=== PATIENT | male | born 1980 | race Hispanic/Latino ===

== ENCOUNTER 2022-10-21 08:23 | Emergency (ER) | payer OTHER ==
[2022-10-21] MEDS ORDERED: ONDANSETRON 4 MG/2 ML VIAL ONE (08:49)
[2022-10-21] MEDS ORDERED: MORPHINE 4 MG/ML SYR ONE (08:49)
[2022-10-21] MEDS ORDERED: NA CHLORIDE 0.9% 1,000 ML ONE ×2 (08:50→10:18)
[2022-10-21] MEDS ORDERED: PANTOPRAZOLE 40 MG INJ ONE (08:50)
[2022-10-21] MEDS ORDERED: NA CHLORIDE 0.9% 250 ML ONE (08:50)
[2022-10-21 09:25] LABS: Hematocrit 41.3 % (39.6-49.0); Lymphocytes % 27.5 % (15.3-44.8); MCV 84.1 fL (80-100); MPV 7.7 fL (7.6-11.3); RBC Red Blood Cell Count 4.91 M/uL (4.33-5.43)
[2022-10-21 09:26] LABS: Protime INR 1.09
[2022-10-21 09:41] LABS: Albumin 3.2 g/dL (3.4-5.0); Bilirubin Total 0.5 mg/dL (0.2-1.0); Protein, Total 6.9 g/dL (6.4-8.2)
--- NOTE | 2022-10-21 09:42 | RAD REPORT ---
EXAM DESCRIPTION: CT - Abdomen Pelvis W Contrast - 10/21/2022 9:14 am CLINICAL HISTORY: Abdominal pain COMPARISON: none. TECHNIQUE: Computed axial tomography of the abdomen pelvis was obtained. 100 cc Isovue-300 was admin istered intravenously. Oral contrast was not requested which limits evaluation of bowel and appendix All CT scans are performed using dose optimization technique as appropriate and may include automated exposure control or mA/KV adjustment according to patient size. FINDINGS: Liver contains multiple heterogeneous masses. They vary in size from a few millimeters to 8 centimeters. The Hounsfield units measure up to 57. Both hepatic lobes involve. 8 centimeter heterogeneous mass abuts the anterior aspect of the gastric body and compresses it. 5 ce ntimeter heterogeneous mass lies adjacent to this. Spleen, pancreas, adrenals and kidneys are unremarkable Normal appendix. No evidence diverticulitis. Small amount of ascites Mild to moderate anterior subluxation L4 on L5. Minimal anterior subluxation of L5 on S1. Spondylolys is L4 and L5 COPD IMPRESSION: Multiple heterogeneous hepatic and perigastric masses may represent hematomas. Neoplasm is another consideration. Infection is probably less likely.
--- NOTE | 2022-10-21 09:54 | EDPHYS ---
Physician Documentation [facility] Name: Ayden Andres JR. Age: 42 yrs Sex: Male : 1980 Arrival Date: 10/21/2022 Time: 08:23 Bed 5 Private MD: ED Physician Vicente Navarro HPI: 10/21 08:30 This 42 yrs old Male presents to ER via Ambulatory with complaints of jh7 Abdominal Pain. 08:30 The patient presents with abdominal pain in the epigastric area, in the left upper jh7 quadrant. Onset: The symptoms/episode began/occurred 6 month(s) ago, and became worse this morning. The symptoms do not radiate. Associated signs and symptoms: Pertinent positives: nausea and vomiting, vomiting blood, Pertinent negatives: chest pain, constipation, dysuria, fever. Patient reports that he has been taking omeprazole and Carafate for the past 3 months and has not improved. Reports that his PCP diagnosed him with a peptic ulcer over [address] Noble is his PCP but due to his insurance he was unable to see a GI doctor and unable to have an EGD performed. Reports vomiting bright red blood twice this morning.. Historical: - Allergies: 08:34 No Known Allergies; hb - Home Meds: 08:34 Omeprazole Oral [Active]; sucralfate 100 mg/mL Oral suspension [Active]; hb - PMHx: 08:34 None; hb - PSHx: 08:34 None; hb - Immunization history:: Adult Immunizations up to date. - Social history:: Smoking status: . ROS: 08:30 Constitutional: Negative for fever, chills, and weight loss, Eyes: Negative for injury, jh7 pain, redness, and discharge, ENT: Negative for injury, pain, and discharge, Neck: Negative for injury, pain, and swelling, Cardiovascular: Negative for chest pain, palpitations, and edema, Respiratory: Negative for shortness of breath, cough, wheezing, and pleuritic chest pain, Back: Negative for injury and pain, MS/Extremity: Negative for injury and deformity, Skin: Negative for injury, rash, and discoloration, Neuro: Negative for headache, weakness, numbness, tingling, and seizure. 08:30 Abdomen/GI: Positive for abdominal pain, nausea and vomiting, hematemesis, Negative for constipation, black/tarry stool, rectal bleeding. 08:30 All other systems are negative. Exam: 08:30 Head/Face: Normocephalic, atraumatic. ENT: Nares patent. No nasal discharge, no jh7 septal abnormalities noted. Oropharynx with no redness, swelling, or masses, exudates, or evidence of obstruction, uvula midline. Mucous membranes moist. Neck: Trachea midline, no thyromegaly or masses palpated, and no cervical lymphadenopathy. Supple, full range of motion without nuchal rigidity, or vertebral point tenderness. No Meningismus. Cardiovascular: Regular rate and rhythm with a normal S1 and S2. No gallops, murmurs, or rubs. Normal PMI, no JVD. No pulse deficits. Respiratory: Lungs have equal breath sounds bilaterally, clear to auscultation and percussion. No rales, rhonchi or wheezes noted. No increased work of breathing, no retractions or nasal flaring. Back: No spinal tenderness. No costovertebral tenderness. Full range of motion. Skin: Warm, dry with normal turgor. Normal color with no rashes, no lesions, and no evidence of cellulitis. MS/ Extremity: Pulses equal, no cyanosis. Neurovascular intact. Full, normal range of motion. Neuro: Awake and alert, GCS 15, oriented to person, place, time, and situation. Motor strength 5/5 in all extremities. Sensory grossly intact. Normal gait. 08:30 Constitutional: The patient appears alert, awake, uncomfortable. 08:30 Abdomen/GI: Inspection: abdomen appears normal, Bowel sounds: normal, Palpation: soft, moderate abdominal tenderness, in the epigastric area and left upper quadrant. Vital Signs: 08:31 BP 136 / 93; Pulse 77; Resp 16; Temp 98.2(O); Pulse Ox 98% on R/A; Weight 87.09 kg; hb Height 5 ft. 11 in. ; Pain 8/10; 09:05 BP 100 / 58; Pulse 49; Resp 16; Pulse Ox 98% on R/A; iw 09:39 BP 97 / 53; Pulse 47; Resp 16; Pulse Ox 97% on R/A; iw 10:05 BP 96 / 85; Pulse 48; Resp 16; Pulse Ox 100% on R/A; iw 10:34 BP 104 / 66; Pulse 45; Resp 16; Pulse Ox 100% on R/A; Pain 3/10; iw 08:31 Body Mass Index 26.78 (87.09 kg, 180.34 cm) hb 08:31 Pain Scale: Adult hb 10:34 Pain Scale: Adult iw MDM: 08:26 Patient medically screened. [facility] 10:15 Differential diagnosis: gastritis, GI Bleed, Peptic Ulcer Disease, Perf. Duodenal jh7 Ulcer, Perf. Gastric Ulcer, Peritonitis. Data reviewed: vital signs, nurses notes, lab test result(s), radiologic studies, CT scan. Consideration of Admission/Observation Patient was transferred for higher level of care. Management of patient was discussed with the following: Hospitalist: Dr. Alarcon at [facility] in the [facility]. I considered the following discharge prescriptions or medication management in the emergency department Medications were administered in the Emergency Department. See MAR. Counseling: I had a detailed discussion with the patient and/or guardian regarding: the historical points, exam findings, and any diagnostic results supporting the discharge/admit diagnosis, the need to transfer to another facility, for higher level of care, [facility] does not immediately have the required specialist. Response to treatment: the patient's symptoms have markedly improved after treatment. Special discussion: Spoke to the patient further about his history. He stated that his PCP diagnosed him with an ulcer without imaging, just on clinical presentation. Informed him that this was not an ulcer, but that there were multiple masses noted on the CT varying from possible hematomas to neoplasm. Informed him that he would need to be transferred downtown for GI specialty and further care. The patient understood the plan of care.. ED course: Dr. Navarro spoke to accepting hospitalist Dr. Alarcon.. 10/21 08:35 Order name: CBC with Diff; Complete Time: 09:32 [facility] 10/21 08:35 Order name: CMP; Complete Time: 09:50 [facility] 10/21 08:35 Order name: Lipase; Complete Time: 09:50 [facility] 10/21 08:35 Order name: Type And Screen; Complete Time: 10:32 [facility] 10/21 08:35 Order name: PT-INR; Complete Time: 09:32 [facility] 10/21 09:55 Order name: ABO/RH no charge; Complete Time: 09:59 EDMS 10/21 08:35 Order name: CT Abd/Pelvis - IV Contrast Only; Complete Time: 09:50 [facility] 10/21 08:35 Order name: IV Saline Lock; Complete Time: 08:58 [facility] 10/21 08:35 Order name: Labs collected and sent; Complete Time: 08:58 [facility] 10/21 08:47 Order name: Labs - recollect needed: recollected T\T\S/ barcode not placed on tube per eb Catherine; Complete Time: 09:00 10/21 10:33 Order name: NPO; Complete Time: 10:34 loretta Administered Medications: 08:52 Drug: Ondansetron IVP 4 mg Route: IVP; Site: right antecubital; vg1 08:54 Drug: Pantoprazole IVP 40 mg Route: IVP; Site: right antecubital; vg1 09:37 Drug: NS 0.9% IV 1000 ml Route: IV; Rate: 1 bolus; Site: right antecubital; iw 09:37 Drug: Pantoprazole IV 8 mg/hr Route: IV; Rate: 25 ml/hr; Site: right antecubital; iw 11:05 Drug: Octreotide Infusion (50 mcg/hr) - (Octreotide IV 500 mcg, NS 0.9% IV 500 ml) iw Route: IV; Rate: 50 ml/hr; Site: left antecubital; 11:29 Not Given (Patient Refused): morphine IVP or IV 4 mg IVP once over 4 mins hb 11:29 Drug: NS 0.9% IV 1000 ml Route: IV; Rate: 125 ml/hr; Site: right antecubital; hb Disposition Summary: 10/21/22 09:53 Transfer Ordered Transfer Location: [place] [address] Reason: Higher level of care jh7 Condition: Fair jh7 Problem: chronic jh7 Symptoms: have worsened jh7 Accepting Physician: Virginia BLACKMAN(10/21/22 12:04) hb Diagnosis - GI Bleed/ Gastrointestinal hemorrhage, unspecified jh7 Forms: - Medication Reconciliation Form jh7 - SBAR form jh7 Signatures: Dispatcher [employer] Vicente Wolff MD MD cha Williams, Irene, RN RN iw Sarah Nelson RN RN Hanna Martini Victoria RN RN vg1 Coral Fofana FNP [employer]S SPECIALIST jh7 Corrections: (The following items were deleted from the chart) 09:53 Transferring jh7 hb
--- NOTE | 2022-10-21 09:54 | ER ---
Nurse's Notes [facility] Name: Ayden Andres JR. Age: 42 yrs Sex: Male : 1980 Arrival Date: 10/21/2022 Time: 08:23 Bed 5 Private MD: Diagnosis: GI Bleed/ Gastrointestinal hemorrhage, unspecified Presentation: 10/21 08:30 Chief complaint: Patient states: abd pain X 6 months, started vomiting blood and having iw increased pain. Coronavirus screen: At this time, the client does not indicate any symptoms associated with coronavirus-19. Ebola Screen: Patient negative for fever greater than or equal to 101.5 degrees Fahrenheit, and additional compatible Ebola Virus Disease symptoms Patient denies exposure to infectious person. Patient denies travel to an Ebola-affected area in the 21 days before illness onset. No symptoms or risks identified at this time. Initial Sepsis Screen: Does the patient meet any 2 criteria? No. Patient's initial sepsis screen is negative. Does the patient have a suspected source of infection? No. Patient's initial sepsis screen is negative. Risk Assessment: Do you want to hurt yourself or someone else? Patient reports no desire to harm self or others. Onset of symptoms was May 2022. 08:30 Method Of Arrival: Ambulatory iw 08:30 Acuity: JOSE 3 iw 09:08 Acuity: JOSE 2 iw Historical: - Allergies: 08:34 No Known Allergies; hb - Home Meds: 08:34 Omeprazole Oral [Active]; sucralfate 100 mg/mL Oral suspension [Active]; hb - PMHx: 08:34 None; hb - PSHx: 08:34 None; hb - Immunization history:: Adult Immunizations up to date. - Social history:: Smoking status: . Screenin:[address] [facility] ED Fall Risk Assessment (Adult) History of falling in the last 3 months, iw including since admission. Abuse screen: Denies threats or abuse. Denies injuries from another. Nutritional screening: No deficits noted. Tuberculosis screening: No symptoms or risk factors identified. Assessment: 08:45 Reassessment: pt reports increasing abd pain and feeling light headed , appears pale iw and diaphoretic , pt assisted to supine position in stretcher. 09:29 Reassessment: Patient appears in no apparent distress at this time. Patient and/or iw family updated on plan of care and expected duration. Pain level reassessed. Patient is alert, oriented x 3, equal unlabored respirations, skin warm/dry/pink. Patient states feeling better. Patient states symptoms have improved. 10:35 Reassessment: Patient appears in no apparent distress at this time. Patient and/or iw family updated on plan of care and expected duration. Pain level reassessed. Patient is alert, oriented x 3, equal unlabored respirations, skin warm/dry/pink. Pain: Complains of pain in left upper quadrant and epigastric area. Respiratory: GI: Abd is soft Reports upper abdominal pain. GI: Bowel sounds present X 4 quads. Vital Signs: 08:31 BP 136 / 93; Pulse 77; Resp 16; Temp 98.2(O); Pulse Ox 98% on R/A; Weight 87.09 kg; hb Height 5 ft. 11 in. ; Pain 8/10; 09:05 BP 100 / 58; Pulse 49; Resp 16; Pulse Ox 98% on R/A; iw 09:39 BP 97 / 53; Pulse 47; Resp 16; Pulse Ox 97% on R/A; iw 10:05 BP 96 / 85; Pulse 48; Resp 16; Pulse Ox 100% on R/A; iw 10:34 BP 104 / 66; Pulse 45; Resp 16; Pulse Ox 100% on R/A; Pain 3/10; iw 08:31 Body Mass Index 26.78 (87.09 kg, 180.34 cm) hb 08:31 Pain Scale: Adult hb 10:34 Pain Scale: Adult iw ED Course: 08:25 Patient arrived in ED. ts1 08:25 Coral Fofana FNP [facility] jh7 08:27 Vicente Navarro MD is Attending Physician. jh7 08:31 Triage completed. iw 08:34 Arm band placed on. hb 08:35 Inserted saline lock: 20 gauge in right antecubital area, using aseptic technique. iw Blood collected. 09:00 Inserted saline lock: 20 gauge in left antecubital area, using aseptic technique. Blood iw collected. 09:05 Maribel Henry, RN is Primary Nurse. iw 09:16 CT Abd/Pelvis - IV Contrast Only In Process Unspecified. EDMS 09:53 initiated a transfer with Hanna Acevedo Rn from the [facility]. eb 10:[address] Alarcon the hospitalist drywall application supervisor for [facility] with Dr. Navarro for patient transfer consultation. 10:45 administrative approval given by Hanna Acevedo/ patient has been accepted to [facility] 24 tower room 2419/ Dr. Ashutosh Durán has accepted the patient in transfer/ report to be called to [phone]. Administered Medications: 08:52 Drug: Ondansetron IVP 4 mg Route: IVP; Site: right antecubital; vg1 08:54 Drug: Pantoprazole IVP 40 mg Route: IVP; Site: right antecubital; vg1 09:37 Drug: NS 0.9% IV 1000 ml Route: IV; Rate: 1 bolus; Site: right antecubital; iw 09:37 Drug: Pantoprazole IV 8 mg/hr Route: IV; Rate: 25 ml/hr; Site: right antecubital; iw 11:05 Drug: Octreotide Infusion (50 mcg/hr) - (Octreotide IV 500 mcg, NS 0.9% IV 500 ml) iw Route: IV; Rate: 50 ml/hr; Site: left antecubital; 11:29 Not Given (Patient Refused): morphine IVP or IV 4 mg IVP once over 4 mins hb 11:29 Drug: NS 0.9% IV 1000 ml Route: IV; Rate: 125 ml/hr; Site: right antecubital; hb Outcome: 09:53 ER care complete, transfer ordered by MD. russo 12:04 Patient left the ED. hb Signatures: Dispatcher [employer] EDMaribel Yeboah RN RN Sarah Nelson RN RN Hanna Martini Victoria RN RN vg1 Coral Fofana, DIGITIZER OPERATOR DIGITIZER OPERATOR 7 Celsa Brownlee PAS PAS ts1
[2022-10-21] MEDS ORDERED: OCTREOTIDE 500 MCG in NA CHLORIDE 0.9% 500 ML IV SCH (11:00)
[2022-10-21 12:33] VITALS: TEMP 98.2
[2022-10-21 12:36] VITALS: O2SAT 100
[2022-10-21 12:38] VITALS: BP 104/66
== END 2022-10-21 12:04 | disposition short-term general hospital (02) ==
LOC: ER 08:23
DX: K92.2 Gastrointestinal hemorrhage, unspecified (principal)
CPT/HCPCS: 85025; 36415; 86900; 86850; 85610; 82565; 86901; 83690; 80053; 74177; Q9967; J2354; C9113; J2405; J7050; J7040; J7030 ×2

== ENCOUNTER 2022-11-03 07:34 | Emergency (ER) | payer OTHER ==
--- OUTSIDE RECORDS SUMMARY | 2022-11-03 07:39 | XMS REPORT | Continuity of Care Document ---
:1980 Author Organization [facility] t Address [address] [place] [address] [address] [place] [address] Care Team Providers Name Role Phone KENRICK DECKER Attending Clinician Unavailable BRIAN FORDE Attending Clinician Unavailable MANNY FOWLER Attending Clinician Unavailable Navjot Thakkar MD Attending Clinician Phoenix Ogden MD Attending Clinician [phone] [place] OGDEN Attending Clinician Unavailable MITRA JERONIMO Admitting Clinician Unavailable Payers Payer Name Policy Type Policy Number Effective Date Expiration Date S ource [facility]ICA[facility] [id number] 2020 00:00:[address] [facility] [id number] 2020 00:00:00 Problems Condition Condition Condition Status Onset Resolution Last Treating Co mments Source Name Details Category Date Date Treatment Clinician Date Bradycardi Bradycardi Disease [facility] GI bleed GI bleed Disease [facility] [place] Liver mass Liver mass Disease [facility] Allergies, Adverse Reactions, Alerts Allergy Allergy Status Severity Reaction(s) Onset Inactive Treating Comm ents Source Name Type Date Date Clinician NO KNOWN Allergy Active [facility] Social History Social Habit Start Date Stop Date Quantity Comments Source History SDOH [facility] History SDOH 2022-10-21 2022-10-[address] [facility] [facility] Transport Med 00:00:00 00:00:[address] History SDOH Housing 2022-10-21 2022-10-[address] [facility] Unable to Pay 00:00:00 00:00:[address] History SDOH Housing 2022-10-21 2022-10-21 1 [facility] Places Lived 00:00:00 00:00:00 Medical Cent er History SDOH Housing 2022-10-21 2022-10-21 2 [facility] Homeless Last Year 00:00:00 [facility] Assigned At [birth year] [facility] 00:00:00 00:00:00 Medical Center Medications This patient has no known medications. Vital Signs Vital Name Observation Time Observation Value Comments Source HEIGHT 2022-10-23 11:07:00 180.3 cm WEIGHT 2022-10-23 11:07:00 87.091 kg WEIGHT 2022-10-22 09:40:00 87.261 kg HEIGHT 2022-10-23 11:07:00 180.3 cm WEIGHT 2022-10-23 11:07:00 87.091 kg WEIGHT 2022-10-22 09:40:00 87.261 kg Heart rate 2022-10-24 07:00:00 55 /min [facility] Respiratory rate 2022-10-24 04:55:00 18 /min [facility] Oxygen saturation in 2022-10-24 04:55:00 97 /min [facility] Arterial blood by Medical Ce nter Pulse oximetry Systolic blood 2022-10-24 04:02:00 113 mm[Hg] [facility] Diastolic blood 2022-10-24 04:02:00 63 mm[Hg] [facility] Body temperature 2022-10-24 04:02:00 35.94 Carlota [facility] Body height 2022-10-23 11:07:00 180.3 cm [facility] Body weight 2022-10-23 11:07:00 87.091 kg [facility] BMI 2022-10-23 11:07:00 26.78 kg/m2 [facility] Procedures Procedure Date / Time Performing Clinician Source Performed CBC W/PLT COUNT & AUTO 2022-10-24 06:08:00 Vernon [facility] CBC W/PLT COUNT & AUTO 2022-10-24 06:08:00 Vernon [facility] DIFFERENTIAL [facility] MAGNESIUM 2022-10-24 05:01:00 Vernon [facility] COMPREHENSIVE METABOLIC 2022-10-24 05:01:00 Dima Berrios I [facility] HEMOGLOBIN AND HEMATOCRIT 2022-10-23 15:55:00 Dima Berrios [facility] REPORT OF PROCEDURE - 2022-10-23 12:35:10 Phoenix Ogden [facility] ENDOSCOPY URL [facility] ENDOSCOPY, UPPER GI TRACT, 2022-10-23 11:34:00 Phoenix Ogden [facility] WITH BIOPSY [facility] ABORH, MANUAL 2022-10-23 08:13:00 Maria Elena Milian [facility] BASIC METABOLIC PANEL 2022-10-23 06:29:00 [facility] MAGNESIUM 2022-10-23 06:29:00 [facility] CBC W/PLT COUNT & AUTO 2022-10-23 06:29:00 [facility] HEPATIC FUNCTION PANEL 2022-10-23 06:29:00 [facility] TYPE AND SCREEN, AUTOMATED 2022-10-23 06:29:00 Josué Coats [facility] CBC W/PLT COUNT & AUTO 2022-10-23 06:29:00 [place] [facility] LIPID PANEL 2022-10-22 04:19:00 [facility] BASIC METABOLIC PANEL 2022-10-22 04:19:00 [facility] MAGNESIUM 2022-10-22 04:19:00 [facility] CBC W/PLT COUNT & AUTO 2022-10-22 04:19:00 [facility] HEPATIC FUNCTION PANEL 2022-10-22 04:19:00 [facility] B CORE ANTIBODY, 2022-10-22 04:19:00 Dmitry Dale [facility] TOTAL [facility] HEPATITIS PANEL, ACUTE 2022-10-22 04:19:00 Suyapa [facility] HEPATITIS A ANTIBODY, IGG 2022-10-22 04:19:00 Dmitry Dale [facility] HEPATITIS B SURFACE 2022-10-22 04:19:00 Enoch [facility] FERRITIN 2022-10-22 04:19:00 [facility] IRON, TIBC, % SAT. (WITHOUT 2022-10-22 04:19:00 Enoch [facility] FERRITIN) [facility] [id number], SERUM 2022-10-22 04:19:00 Enoch [facility] ALPHA FETOPROTEIN (AFP), 2022-10-22 04:19:00 Eno[facility] TUMOR MARKER [facility] CARCINOEMBRYONIC ANTIGEN 2022-10-22 04:19:00 Eno[facility] (CEA) [facility] CBC W/PLT COUNT & AUTO 2022-10-22 04:19:00 Vernon [facility]ENTIAL [facility] ECG 12-LEAD 2022-10-21 17:09:37 [facility] ECG 12-LEAD 2022-10-21 17:09:37 Unknown, Hl7 [facility] HEPATIC FUNCTION PANEL 2022-10-21 14:42:00 [facility] BASIC METABOLIC PANEL 2022-10-21 14:42:00 [facility] HEMOGLOBIN A1C 2022-10-21 14:42:00 [facility] PROTHROMBIN TIME/INR 2022-10-21 14:42:00 [facility] CBC W/PLT COUNT & AUTO 2022-10-21 14:42:00 [facility] DIFFERENTIAL [facility] CBC W/PLT COUNT & AUTO 2022-10-21 14:42:00 [facility] DIFFERENTIAL [facility] Plan of Care Planned Activity Planned Date Details Comments Source Future Scheduled 2027-10-[address]00 (procedure) [code = Medical Center [id number]] Future Scheduled 2023-02-[address] [facility] Test 00:00:00 (Season Ended) [code Medical Center = INFLUENZA VACCINE (Season Ended)] Future Scheduled 2000-02-23 DTAP/TDAP/TD VACCINES [facility] 00:00[facility]00 (1 - Tdap) [code = Medical C enter DTAP/TDAP/TD VACCINES (1 - Tdap)] Future Scheduled [address] [facility] Test 00:00:00 [facility] Screening (12+) [code = Tobacco Cessation Counseling and Screening (12+)] Future Scheduled 1981 COVID-19 VACCINE (#1) [facility] Test 00:00:00 [code = COVID-[address] VACCINE (#1)] Encounters Start End Encounter Admission Attending Care Care Encounter Source Date/Time Date/Time Type Type Clinicians Facility Department ID 2022-11-07 2022-11-07 [facility] [id number] [facility] 00:00:00 00:00:00 KENRICK 2022-10-21 2022-10-27 Inpatient ER MALCOLM ONEALDesean [facility] [id number] [facility] 13:26:00 14:43:00 MANNY 2022-10-23 2022-10-23 [address]esthesia [place], [facility] [id number] 11:35:00 13:04:00 Event Navjot Frost [facility] 2022-10-23 2022-10-23 Surgery Melvi, [facility] [id number] 10:00:00 10:59:00 [facility] 2022-10-23 2022-10-23 Outpatient MELVI, [facility] [id number] [facility] 07:47:59 07:47:59 [facility] 2022-10-21 2022-10-[address] [facility] [id number] 00:00:00 00:00:00 Only [facility] Results Test Description Test Time Test Comments Results Result Sourc e Comments TISSUE EXAM 2022-10-04 Surgical Pathology Report 1 Case: [id number] 16:02:43 Authorizing Provider: Dima Berrios MD Collected: 10/26/2022 03:07 PM Ordering Location: [address] Received: 10/26/2022 04:53 PM Service Pathologist: Sherry Andrade MD Specimen: Biopsy, Liver Liver, mass, core needle biopsy: - Metastatic poorly differentiated neuroendocrine carcinoma, WHO grade 3; see comment Signing Pathologist Direct Phone Line: [phone] y signed by Sherry Andrade MD on 11/01/2022 at 4:02 PMPreliminary result electronically signed by Sherry Andrade MD on 10/27/2022 at 9:05 AMSections show a cellular neoplasm with predominantly solid architecture. The tumor cells have round to oval, variably-sized nuclei with conspicuous nucleoli and moderate amount of eosinophilic, focally granular cytoplasm. Scattered tumor cells have irregular nuclear contour. There is frequent mitotic figures (26 mitosis in 3 high-power tran) with areas of necrosis. No nonneoplastic liver is present for evaluation. Immunohistochemical stains (performed on A2 with appropriate control) show:- Cam5.2: Diffusely positive in tumor- Synaptophysin: Diffusely positive in tumor- Ki67: Proliferative index of 60-70%- Arginase: Negative in tumor- Hep-Par1: Negative in tumorThe overall findings are most consistent with a metastatic poorly differentiated neuroendocrine carcinoma (PDNEC), WHO grade 3. Metastatic neuroendocrine carcinoma can occasionally present with elevated alpha-fetoprotein (see reference). The histomorphology and immunophenotype is not specific for a particular primary site, and clinical and imaging correlation is needed. The patient's prior gastric biopsy ([id number], H&E) was concurrently reviewed, and the tumor shows similar histomorphology. Dr. Edvin Goldberg reviewed the case and agrees.Block A2 has adequate tumor cellularity for additional ancillary studies.References:Umesh a LA, Dariusz T, aCrina C, Bassem L. Metastatic neuroendocrine carcinoma presenting as multifocal liver lesions with elevated alpha-fetoprotein. Clin Case Rep. 2018 May 16;7(2):251-253. doi: 10.1002/ccr3.1956. PMID: [id number]; PMCID: [id number], 76728, 60628i5Kedf is a 42-year-old male with history of prior alcohol use and was found to have gastric mass and multiple liver lesions. He has markedly elevated AFP (>10k) with elevated CEA (5.6) and CA19-9 (99). A. Biopsy, LiverReceived in formalin labeled with the patient's name, medical record number, and "liver biopsy" are multiple martin-white to martin-red soft tissue fragments ranging in size from 0.1-1.0 cm, which are submitted in toto in A1-A2.Kiersten MichaelsPerformedThe interpretation of this case included the use of immunohistochemistry or special stains.Control Slides Examined: In-house known positive controls were evaluated along with the test tissue. These control slides run alongside of the patients sample show appropriate staining. Internal positive and negative controls when available are evaluated Immunohistochemistry technical testing was performed at [facility], Pathology Laboratory where it was developed and its performance characteristics were determined. It has not been cleared or approved by the U.S. Food and Drug Administration. The FDA has determined that such clearance or approval is not necessary. The test is used for clinical purposes. It should not be regarded as investigational or for research. This laboratory is certified under the Clinical Laboratory Improvement Amendments of 1988 (CLIA-88) as qualified to perform high complexity clinical laboratory testing.[facility], Department of Pathology, [address] [place] [address], [facility], [address] [place] [address], [facility], Department of Pathology, [address] [place] [address], TISSUE EXAM 2022-10-04 Surgical Pathology Report 1 Case: [id number] 09:06:35 Authorizing Provider: Phoenix Ogden, Collected: 10/23/2022 11:56 AM Ordering Location: [address] Received: 10/23/2022 01:29 PM Service Pathologist: Suzan Teixeira MD Specimens: A) - Biopsy, Gastric, random bxs B) - Biopsy, Gastric, bxs gastric mass A. STOMACH, RANDOM BIOPSIES: - CHEMICAL/REACTIVE GASTROPATHY - PPI EFFECT, MILDB. STOMACH, BIOPSIES OF MASS: - NEUROENDOCRINE CARCINOMA, SMALL CELL TYPE Signing Pathologist Direct Phone Line: [phone] y signed by Suzan Teixeira MD on 11/01/2022 at 9:06 AMPreliminary result electronically signed by Suzan Teixeira MD on 10/27/2022 at 11:55 AMPreliminary result electronically signed by Suzan Teixeira MD on 10/26/2022 at 11:55 AMThe finding was communicated via secure email with Phoenix Edmonds <[email or web address] GI Department at 11:52 on October 26, [id number], [id number], [id number] hemorrhage associated with gastritisA. Biopsy, GastricReceived in formalin labeled with the patient's name, medical record number and "gastric biopsy" are 4 martin-yellow tissue fragments ranging in size from 0.1-0.3 cm, which are submitted in toto in A1.B. Biopsy, GastricReceived in formalin labeled with the patient's name, medical record number and "gastric biopsy" are multiple martin-white to martin-red tissue fragments ranging in size from 0.1-0.3 cm, which are submitted in toto in B1./LBA-B. No H. pylori are seen on H&E or immunohistochemical stains. Gastric mass is a high-grade malignancy. Malignant cells care positive with pancytokeratin and synaptophysin, CD56 and chromogranin (focal), but negative with CD45. Ki67 highlights proliferation index of about 70-80%. The slides were evaluated and the report was issued at [facility] (CLIA#[id number]), [address] [place] [address].The interpretation of this case included the use of immunohistochemistry or special stains.Control Slides Examined: In-house known positive controls were evaluated along with the test tissue. These control slides run alongside of the patients sample show appropriate staining. Internal positive and negative controls when available are evaluated Immunohistochemistry technical testing was performed at [facility], Pathology Laboratory where it was developed and its performance characteristics were determined. It has not been cleared or approved by the U.S. Food and Drug Administration. The FDA has determined that such clearance or approval is not necessary. The test is used for clinical purposes. It should not be regarded as investigational or for research. This laboratory is certified under the Clinical Laboratory Improvement Amendments of 1988 (CLIA-88) as qualified to perform high complexity clinical laboratory testing. U/S, BIOPSY, 2022-10-03 Reason for LIVER 9 exam:->gastric 12:01:[address] [facility] - mass with afp MEDICAL CENTERName: JOSE, >[id number] HONORIO PORTER : 1980 this be Sex: performed at M the bedside?->No FINAL REPORT Procedure: Liver mass core biopsy Pre/post-procedure diagnosis: Liver mass Assistant Analyst: Bebo Low MD Assistants: none Sedation: Moderate sedation was administered. 1.5 mg of Versed and 75 mcg of fentanyl IV was used for moderate sedation monitored under my direction. Total intra-service time of sedation was 12 minutes. The patient's vital signs were monitored throughout the procedure and recorded in the patient's medical record by the nurse. Local Anesthesia: Eight cc 1% Xylocaine Approach: Right upper quadrant, percutaneous Specimen: Total of six 18-gauge passes were made yielding fragmented core biopsy samples which were placed in formalin for pathology Estimated blood loss: Less than 5 cc. Technique/findings: Informed written consent was obtained. Discussion of risks, benefits, and alternatives were made with the patient. The patient expressed understanding and agreed to proceed. A universal timeout was performed prior to starting the procedure. Initial ultrasound images demonstrate large central hepatic lesion was targeted for percutaneous biopsy. 2% lidocaine was used for local anesthesia. Using ultrasound guidance, a 17-gauge introducer needle was advanced into the lesion. An 18-gauge core biopsy needle was used coaxially and six passes were made. The introducer needle was removed and tract embolized with Gelfoam slurry. Post biopsy images demonstrate no evidence of hematoma or other immediate complication. The patient tolerated the procedure well and left the department in stable condition. Impression: Successful, uncomplicated ultrasound-guided liver mass core biopsy. Signed: Bebo Low MDReport Verified Date/Time: 10/30/2022 12:01:04 C METABOLIC PANEL 2022-10-27 05:48:04 Test Item Value Reference Range Interpretation Comme nts SODIUM (BEAKER) (test 137 meq/L 136-145 code = 381) POTASSIUM (BEAKER) 3.8 meq/L 3.5-5.1 (test code = 379) CHLORIDE (BEAKER) (test 103 meq/L 98-107 code = 382) CO2 (BEAKER) (test code 24 meq/L 22-29 = 355) BLOOD UREA NITROGEN 8 mg/dL 7-21 (BEAKER) (test code = 354) CREATININE (BEAKER) 0.88 mg/dL 0.57-1.25 (test code = 358) GLUCOSE RANDOM (BEAKER) 123 mg/dL 70-105 H (test code = 652) CALCIUM (BEAKER) (test 8.5 mg/dL 8.4-10.2 code = 697) EGFR (BEAKER) (test 112 mL/min/1.73 sq I nterpretation of eGFR values code = 1092) m Stage Descripti on Result G1 Normal or high >=90 G2 Mildly decreased 60-89 G3a Mildly to moderately 45-5 9 G3b Moderately to severely 30- 44 G4 Severly decreased 15-29 G5 Kidney failure <15Repo rted eGFR is based on the CK D-EPI 2020 equation that d oes not use a race coefficien tEstimated GFR is not as accurate as Creatinine Clearance in pr edicting glomerular filt ration rate. Estimated GFR i s not applicable for dialysis tamika chaves Auto Adjudication Specialist ID - [id number] 05:48:04 Test Item Value Reference Range Interpretation Comments MAGNESIUM (BEAKER) (test code = 1.7 mg/dL 1.6-2.6 627) Auto Adjudication Specialist ID - MMCBC W/PLT COUNT & AUTO [id number] 05:27:57 Test Item Value Reference Range Interpretation Comments WHITE BLOOD CELL COUNT (BEAKER) 6.4 K/ L 3.5-10.5 (test code = 775) RED BLOOD CELL COUNT (BEAKER) 4.40 M/ L 4.63-6.08 L (test code = 761) HEMOGLOBIN (BEAKER) (test code = 12.2 GM/DL 13.7-17.5 L 410) HEMATOCRIT (BEAKER) (test code = 36.5 % 40.1-51.0 L 411) MEAN CORPUSCULAR VOLUME (BEAKER) 83 fL 79-92 (test code = 753) MEAN CORPUSCULAR HEMOGLOBIN 27.7 pg 25.7-32.2 (BEAKER) (test code = 751) MEAN CORPUSCULAR HEMOGLOBIN CONC 33.4 GM/DL 32.3-36.5 (BEAKER) (test code = 752) RED CELL DISTRIBUTION WIDTH 12.6 % 11.6-14.4 (BEAKER) (test code = 412) PLATELET COUNT (BEAKER) (test 250 K/CU MM 150-450 code = 756) MEAN PLATELET VOLUME (BEAKER) 9.4 fL 9.4-12.4 (test code = 754) NUCLEATED RED BLOOD CELLS 0 /100 WBC 0-0 (BEAKER) (test code = 413) NEUTROPHILS RELATIVE PERCENT 63 % (BEAKER) (test code = 429) LYMPHOCYTES RELATIVE PERCENT 22 % (BEAKER) (test code = 430) MONOCYTES RELATIVE PERCENT 12 % (BEAKER) (test code = 431) EOSINOPHILS RELATIVE PERCENT 2 % (BEAKER) (test code = 432) BASOPHILS RELATIVE PERCENT 1 % (BEAKER) (test code = 437) NEUTROPHILS ABSOLUTE COUNT 4.01 K/ L 1.78-5.38 (BEAKER) (test code = 670) LYMPHOCYTES ABSOLUTE COUNT 1.42 K/ L 1.32-3.57 (BEAKER) (test code = 414) MONOCYTES ABSOLUTE COUNT (BEAKER) 0.74 K/ L 0.30-0.82 (test code = 415) EOSINOPHILS ABSOLUTE COUNT 0.14 K/ L 0.04-0.54 (BEAKER) (test code = 416) BASOPHILS ABSOLUTE COUNT (BEAKER) 0.06 K/ L 0.01-0.08 (test code = 417) IMMATURE GRANULOCYTES-RELATIVE 0.80 % 0.00-1.00 PERCENT (BEAKER) (test code = 2801) [id number] 06:55:04 Test Item Value Reference Range Interpretation Comments MAGNESIUM (BEAKER) (test code = 1.6 mg/dL 1.6-2.6 627) Auto Adjudication Specialist ID - BSBASIC METABOLIC [id number] 06:55:03 Test Item Value Reference Range Interpretation Comments SODIUM (BEAKER) 135 meq/L 136-145 L (test code = 381) POTASSIUM 3.8 meq/L 3.5-5.1 (BEAKER) (test code = 379) CHLORIDE (BEAKER) 101 meq/L 98-107 (test code = 382) CO2 (BEAKER) 23 meq/L 22-29 (test code = 355) BLOOD UREA 8 mg/dL 7-21 NITROGEN (BEAKER) (test code = 354) CREATININE 0.86 mg/dL 0.57-1.25 (BEAKER) (test code = 358) GLUCOSE RANDOM 104 mg/dL 70-105 (BEAKER) (test code = 652) CALCIUM (BEAKER) 9.2 mg/dL 8.4-10.2 (test code = 697) EGFR (BEAKER) 113 Interpretatio n of eGFR (test code = mL/min/1.73 values Stage De scription 1092) sq m Result G1 Larisa l or high >=90 G2 Mildly decreased 60-89 G3a Mildl y to moderately 45-5 9 G3b Moderately to s everely 30-44 G4 Severl y decreased 15-29 G5 Kidney failure <15Reported eGF R is based on the CKD-EPI 2020 equation that d oes not use a race coefficientEsti mated GFR is not as accur ate as Creatinine Iman arleen in predicting glom erular filtration rate . Estimated GFR is not appl icable for dialysis patien ts Auto Adjudication Specialist ID - [id number] 06:18:33 Test Item Value Reference Range Interpretation Comments PROTIME (BEAKER) (test code = 15.4 seconds 11.9-14.2 H 759) INR (BEAKER) (test code = 370) 1.24 <=5.90 RECOMMENDED COUMADIN/WARFARIN INR THERAPY RANGESSTANDARD DOSE: 2.0 - 3.0 Includes: PROPHYLAXIS for venous thrombosis, systemic embolization; TREATMENT for venous thrombosis and/or pulmonary embolus.HIGH RISK: Target INR is 2.5-3.5 for patients with mechanical heart valves.CBC W/PLT COUNT & AUTO [id number] 06:07:18 Test Item Value Reference Range Interpretation Comments WHITE BLOOD CELL COUNT (BEAKER) 8.9 K/ L 3.5-10.5 (test code = 775) RED BLOOD CELL COUNT (BEAKER) 5.18 M/ L 4.63-6.08 (test code = 761) HEMOGLOBIN (BEAKER) (test code = 14.2 GM/DL 13.7-17.5 410) HEMATOCRIT (BEAKER) (test code = 41.8 % 40.1-51.0 411) MEAN CORPUSCULAR VOLUME (BEAKER) 81 fL 79-92 (test code = 753) MEAN CORPUSCULAR HEMOGLOBIN 27.4 pg 25.7-32.2 (BEAKER) (test code = 751) MEAN CORPUSCULAR HEMOGLOBIN CONC 34.0 GM/DL 32.3-36.5 (BEAKER) (test code = 752) RED CELL DISTRIBUTION WIDTH 12.8 % 11.6-14.4 (BEAKER) (test code = 412) PLATELET COUNT (BEAKER) (test 253 K/CU MM 150-450 code = 756) MEAN PLATELET VOLUME (BEAKER) 9.3 fL 9.4-12.4 L (test code = 754) NUCLEATED RED BLOOD CELLS 0 /100 WBC 0-0 (BEAKER) (test code = 413) NEUTROPHILS RELATIVE PERCENT 72 % (BEAKER) (test code = 429) LYMPHOCYTES RELATIVE PERCENT 15 % (BEAKER) (test code = 430) MONOCYTES RELATIVE PERCENT 10 % (BEAKER) (test code = 431) EOSINOPHILS RELATIVE PERCENT 2 % (BEAKER) (test code = 432) BASOPHILS RELATIVE PERCENT 1 % (BEAKER) (test code = 437) NEUTROPHILS ABSOLUTE COUNT 6.35 K/ L 1.78-5.38 H (BEAKER) (test code = 670) LYMPHOCYTES ABSOLUTE COUNT 1.35 K/ L 1.32-3.57 (BEAKER) (test code = 414) MONOCYTES ABSOLUTE COUNT (BEAKER) 0.89 K/ L 0.30-0.82 H (test code = 415) EOSINOPHILS ABSOLUTE COUNT 0.14 K/ L 0.04-0.54 (BEAKER) (test code = 416) BASOPHILS ABSOLUTE COUNT (BEAKER) 0.08 K/ L 0.01-0.08 (test code = 417) IMMATURE GRANULOCYTES-RELATIVE 0.50 % 0.00-1.00 PERCENT (BEAKER) (test code = 2801) COMPREHENSIVE METABOLIC [id number] 07:14:31 Test Item Value Reference Range Interpretation Comments TOTAL PROTEIN 6.2 gm/dL 6.0-8.3 (BEAKER) (test code = 770) ALBUMIN (BEAKER) 3.6 g/dL 3.5-5.0 (test code = 1145) ALKALINE 154 U/L 40-150 H PHOSPHATASE (BEAKER) (test code = 346) BILIRUBIN TOTAL 0.7 mg/dL 0.2-1.2 (BEAKER) (test code = 377) SODIUM (BEAKER) 139 meq/L 136-145 (test code = 381) POTASSIUM (BEAKER) 3.7 meq/L 3.5-5.1 (test code = 379) CHLORIDE (BEAKER) 104 meq/L 98-107 (test code = 382) CO2 (BEAKER) (test 24 meq/L 22-29 code = 355) BLOOD UREA 5 mg/dL 7-21 L NITROGEN (BEAKER) (test code = 354) CREATININE 0.94 mg/dL 0.57-1.25 (BEAKER) (test code = 358) GLUCOSE RANDOM 111 mg/dL 70-105 H (BEAKER) (test code = 652) CALCIUM (BEAKER) 8.7 mg/dL 8.4-10.2 (test code = 697) AST (SGOT) 90 U/L 5-34 H (BEAKER) (test code = 353) ALT (SGPT) 47 U/L 6-55 (BEAKER) (test code = 347) EGFR (BEAKER) 106 Interpretatio n of eGFR (test code = 1092) mL/min/1.[address] age Description sq m Result G1 Larisa l or high >=90 G2 Mildly decreased 60-89 G3a Mildl y to moderately 45-5 9 G3b Moderately to s everely 30-44 G4 Severl y decreased 15-29 G5 Kidney failure <15Reported eGF R is based on the CKD-EPI 2020 equation that d oes not use a race coefficientEsti mated GFR is not as accur ate as Creatinine Iman bacon in predicting glom erular filtration rate . Estimated GFR is not appl icable for dialysis patien ts Auto Adjudication Specialist ID Kayla BARRIOS [id number] 07:14:31 Test Item Value Reference Range Interpretation Comments MAGNESIUM (BEAKER) (test code = 1.5 mg/dL 1.6-2.6 L 627) Auto Adjudication Specialist ID Kayla BARRIOS WCBC W/PLT COUNT & AUTO [id number] 06:55:14 Test Item Value Reference Range Interpretation Comments WHITE BLOOD CELL COUNT (BEAKER) 8.2 K/ L 3.5-10.5 (test code = 775) RED BLOOD CELL COUNT (BEAKER) 4.90 M/ L 4.63-6.08 (test code = 761) HEMOGLOBIN (BEAKER) (test code = 13.3 GM/DL 13.7-17.5 L 410) HEMATOCRIT (BEAKER) (test code = 39.9 % 40.1-51.0 L 411) MEAN CORPUSCULAR VOLUME (BEAKER) 81 fL 79-92 (test code = 753) MEAN CORPUSCULAR HEMOGLOBIN 27.1 pg 25.7-32.2 (BEAKER) (test code = 751) MEAN CORPUSCULAR HEMOGLOBIN CONC 33.3 GM/DL 32.3-36.5 (BEAKER) (test code = 752) RED CELL DISTRIBUTION WIDTH 12.7 % 11.6-14.4 (BEAKER) (test code = 412) PLATELET COUNT (BEAKER) (test 233 K/CU MM 150-450 code = 756) MEAN PLATELET VOLUME (BEAKER) 9.5 fL 9.4-12.4 (test code = 754) NUCLEATED RED BLOOD CELLS 0 /100 WBC 0-0 (BEAKER) (test code = 413) NEUTROPHILS RELATIVE PERCENT 69 % (BEAKER) (test code = 429) LYMPHOCYTES RELATIVE PERCENT 17 % (BEAKER) (test code = 430) MONOCYTES RELATIVE PERCENT 11 % (BEAKER) (test code = 431) EOSINOPHILS RELATIVE PERCENT 2 % (BEAKER) (test code = 432) BASOPHILS RELATIVE PERCENT 1 % (BEAKER) (test code = 437) NEUTROPHILS ABSOLUTE COUNT 5.61 K/ L 1.78-5.38 H (BEAKER) (test code = 670) LYMPHOCYTES ABSOLUTE COUNT 1.39 K/ L 1.32-3.57 (BEAKER) (test code = 414) MONOCYTES ABSOLUTE COUNT (BEAKER) 0.92 K/ L 0.30-0.82 H (test code = 415) EOSINOPHILS ABSOLUTE COUNT 0.13 K/ L 0.04-0.54 (BEAKER) (test code = 416) BASOPHILS ABSOLUTE COUNT (BEAKER) 0.07 K/ L 0.01-0.08 (test code = 417) IMMATURE GRANULOCYTES-RELATIVE 0.70 % 0.00-1.00 PERCENT (BEAKER) (test code = 2801) ROSALINDA TITER AND [id number] 13:55:32 Test Item Value Reference Range Interpretation Comments ROSALINDA TITER :160 (BEAKER) (test code = 1541) ROSALINDA PATTERN Cytoplasmic/Anti-mi Cytoplas beatriz (BEAKER) (test tochondrial staining is p resent code = 1781) antibodies - see suggestive of comment Anti-mitochondr ial antibodies. If clinically indicated, recommend testi for Anti-mitochondr ial antibodies. ANTI-NUCLEAR ANTIBODY (ROSALINDA)2022-10-24 13:55:03 Test Item Value Reference Range Interpretation Comments ANTI-NUCLEAR ANTIBODY (ROSALINDA) (BEAKER) Negative Negative (test code = 418) Test performed by IFA method.Test performed by IFA method.CT, CHEST, WITH [id number] 13:00:00Unlisted Reason for Exam - Click Yes and Enter Reason Below->No[facility] : 1980 Sex: MFINAL REPORT CT of the chest, abdomen and pelvis, with contrast Clinical History: Gastrointestinal cancer, staging Technique: CT of the chest, abdomen and pelvis is performed with intravenous contrast administration. This exam was performed according to our departmental dose optimization program which includes automated exposure control, adjustment of the mA and/or kV according to patient's size and/or use of iterative reconstructive technique. Comparison Film: None Discussion: Visualizedthyroid gland is normal. No supraclavicular, axillary, mediastinal or hilar lymphadenopathy. Heart and pericardium are unremarkable. There is paraseptal emphysema. Mild atelectasis in the right lower lobe. No mass or consolidation. No effusion. Central airways are patent, no bronchiectasis or bronchial wall thickening. There are multiple liver metastasis, demonstrating heterogeneous hypoenhancement, the largest measures approximately 8.5 x 6.8 cm. Some are subcentimeter in size. No biliary ductal dilatation. Hyperdensity in the gallbladder likely reflects vicariously excreted contrast versus sludge. The spleen, pancreas, and adrenal glands are normal. Kidneys demonstrate no mass, hydronephrosis orradiopaque stone. No evidence of bowel obstruction. There is a masslike lesion in the lesser curvature of the stomach, with apparent ulceration, measuring approximately 6.6 x 2.7 cm, which could represent primary neoplasm. There are several omental nodules adjacent to the greater curvature measuring up to 3.1 cm, compatible with metastasis. There are enlarged gastrohepatic lymph nodes as well, measuring up to 1.8 cm in short axis, also compatible with metastasis. Remainder of bowel is unremarkable, no evidence of obstruction. No pericolonic or mesenteric edema. Normal appendix. In the pelvis, the bladder, prostate and seminal vesicles are unremarkable. There is trace fluid in the pelvis. No free air. Bony structures demonstrate degenerative changes. Impression: Mass in the lesser curvature of stomach likely reflects known neoplasm. Numerous liver metastasis. There is metastatic adenopathy in thegastrohepatic ligament, as well as left upper quadrant omental metastasis. Paraseptal emphysema. No metastasis is identified in the thorax. Signed: Maria C Olveraort Verified Date/Time: 10/24/2022 13:00:41 Reading Location: [address] Consult Reading Room CT, [id number] 13:00:00Unlisted Reason for Exam - Click Yes and Enter Reason Below->NoProtocol Please Specify:->Standard ProtocolWill this procedure require oral contrast?->No [facility] : 1980 Sex: MFINAL REPORT CT of the chest, abdomen and pelvis, with contrast Clinical History: Gastrointestinal cancer, staging Technique: CT of the chest, abdomen and pelvis is performed with intravenous contrast administration. This exam was performed according to our departmental dose optimization program which includes automated exposure control, adjustment of the mA and/or kV according to patient's size and/or use of iterative reconstructive technique. Comparison Film: None Discussion: Visualizedthyroid gland is normal. No supraclavicular, axillary, mediastinal or hilar lymphadenopathy. Heart and pericardium are unremarkable. There is paraseptal emphysema. Mild atelectasis in the right lower lobe. No mass or consolidation. No effusion. Central airways are patent, no bronchiectasis or bronchial wall thickening. There are multiple liver metastasis, demonstrating heterogeneous hypoenhancement, the largest measures approximately 8.5 x 6.8 cm. Some are subcentimeter in size. No biliary ductal dilatation. Hyperdensity in the gallbladder likely reflects vicariously excreted contrast versus sludge. The spleen, pancreas, and adrenal glands are normal. Kidneys demonstrate no mass, hydronephrosis orradiopaque stone. No evidence of bowel obstruction. There is a masslike lesion in the lesser curvature of the stomach, with apparent ulceration, measuring approximately 6.6 x 2.7 cm, which could represent primary neoplasm. There are several omental nodules adjacent to the greater curvature measuring up to 3.1 cm, compatible with metastasis. There are enlarged gastrohepatic lymph nodes as well, measuring up to 1.8 cm in short axis, also compatible with metastasis. Remainder of bowel is unremarkable, no evidence of obstruction. No pericolonic or mesenteric edema. Normal appendix. In the pelvis, the bladder, prostate and seminal vesicles are unremarkable. There is trace fluid in the pelvis. No free air. Bony structures demonstrate degenerative changes. Impression: Mass in the lesser curvature of stomach likely reflects known neoplasm. Numerous liver metastasis. There is metastatic adenopathy in thegastrohepatic ligament, as well as left upper quadrant omental metastasis. Paraseptal emphysema. No metastasis is identified in the thorax. Signed: Maria C Olveraeport Verified Date/Time: 10/24/2022 13:00:41 Reading Location: [address] Consult Reading Room CBC W/PLT COUNT & AUTO DIFFERENTIAL 2022-10-24 06:20:01 Test Item Value Reference Range Interpretation Comments WHITE BLOOD CELL COUNT (BEAKER) 7.1 K/ L 3.5-10.5 (test code = 775) RED BLOOD CELL COUNT (BEAKER) 4.43 M/ L 4.63-6.08 L (test code = 761) HEMOGLOBIN (BEAKER) (test code = 12.7 GM/DL 13.7-17.5 L 410) HEMATOCRIT (BEAKER) (test code = 37.3 % 40.1-51.0 L 411) MEAN CORPUSCULAR VOLUME (BEAKER) 84 fL 79-92 (test code = 753) MEAN CORPUSCULAR HEMOGLOBIN 28.7 pg 25.7-32.2 (BEAKER) (test code = 751) MEAN CORPUSCULAR HEMOGLOBIN CONC 34.0 GM/DL 32.3-36.5 (BEAKER) (test code = 752) RED CELL DISTRIBUTION WIDTH 13.0 % 11.6-14.4 (BEAKER) (test code = 412) PLATELET COUNT (BEAKER) (test 224 K/CU MM 150-450 code = 756) MEAN PLATELET VOLUME (BEAKER) 10.0 fL 9.4-12.4 (test code = 754) NUCLEATED RED BLOOD CELLS 0 /100 WBC 0-0 (BEAKER) (test code = 413) NEUTROPHILS RELATIVE PERCENT 77 % (BEAKER) (test code = 429) LYMPHOCYTES RELATIVE PERCENT 12 % (BEAKER) (test code = 430) MONOCYTES RELATIVE PERCENT 8 % (BEAKER) (test code = 431) EOSINOPHILS RELATIVE PERCENT 2 % (BEAKER) (test code = 432) BASOPHILS RELATIVE PERCENT 1 % (BEAKER) (test code = 437) NEUTROPHILS ABSOLUTE COUNT 5.48 K/ L 1.78-5.38 H (BEAKER) (test code = 670) LYMPHOCYTES ABSOLUTE COUNT 0.86 K/ L 1.32-3.57 L (BEAKER) (test code = 414) MONOCYTES ABSOLUTE COUNT (BEAKER) 0.56 K/ L 0.30-0.82 (test code = 415) EOSINOPHILS ABSOLUTE COUNT 0.12 K/ L 0.04-0.54 (BEAKER) (test code = 416) BASOPHILS ABSOLUTE COUNT (BEAKER) 0.07 K/ L 0.01-0.08 (test code = 417) IMMATURE GRANULOCYTES-RELATIVE 0.30 % 0.00-1.00 PERCENT (BEAKER) (test code = 2801) [id number] 05:38:34 Test Item Value Reference Range Interpretation Comments MAGNESIUM (BEAKER) (test code = 1.5 mg/dL 1.6-2.6 L 627) Auto Adjudication Specialist ID - MMCOMPREHENSIVE METABOLIC [id number] 05:38:33 Test Item Value Reference Range Interpretation Comments TOTAL PROTEIN 5.7 gm/dL 6.0-8.3 L (BEAKER) (test code = 770) ALBUMIN (BEAKER) 3.4 g/dL 3.5-5.0 L (test code = 1145) ALKALINE 151 U/L 40-150 H PHOSPHATASE (BEAKER) (test code = 346) BILIRUBIN TOTAL 0.4 mg/dL 0.2-1.2 (BEAKER) (test code = 377) SODIUM (BEAKER) 139 meq/L 136-145 (test code = 381) POTASSIUM (BEAKER) 3.8 meq/L 3.5-5.1 (test code = 379) CHLORIDE (BEAKER) 108 meq/L 98-107 H (test code = 382) CO2 (BEAKER) (test 20 meq/L 22-29 L code = 355) BLOOD UREA 5 mg/dL 7-21 L NITROGEN (BEAKER) (test code = 354) CREATININE 0.87 mg/dL 0.57-1.25 (BEAKER) (test code = 358) GLUCOSE RANDOM 108 mg/dL 70-105 H (BEAKER) (test code = 652) CALCIUM (BEAKER) 8.2 mg/dL 8.4-10.2 L (test code = 697) AST (SGOT) 123 U/L 5-34 H (BEAKER) (test code = 353) ALT (SGPT) 54 U/L 6-55 (BEAKER) (test code = 347) EGFR (BEAKER) 112 Interpretatio n of eGFR (test code = 1092) mL/min/1.[address] age Description sq m Result G1 Larisa l or high >=90 G2 Mildly decreased 60-89 G3a Mildl y to moderately 45-5 9 G3b Moderately to s everely 30-44 G4 Severl y decreased 15-29 G5 Kidney failure <15Reported eGF R is based on the CKD-EPI 2020 equation that d oes not use a race coefficientEsti mated GFR is not as accur ate as Creatinine Iman bacon in predicting glom erular filtration rate . Estimated GFR is not appl icable for dialysis patien ts Auto Adjudication Specialist ID - MMHEMOGLOBIN AND [id number] 16:05:28 Test Item Value Reference Range Interpretation Comments HEMOGLOBIN (BEAKER) (test code = 14.4 GM/DL 13.7-17.5 410) HEMATOCRIT (BEAKER) (test code = 44.3 % 40.1-51.0 411) Auto Adjudication Specialist ID - [id number] 09:39:18 Test Item Value Reference Range Interpretation Comments MAGNESIUM (BEAKER) 1.6 mg/dL 1.6-2.6 Specimen slightly (test code = 627) hemolyzed Auto Adjudication Specialist ID - MMBASIC METABOLIC [id number] 09:39:18 Test Item Value Reference Range Interpretation Comments SODIUM (BEAKER) 138 meq/L 136-145 (test code = 381) POTASSIUM 4.2 meq/L 3.5-5.1 Specimen slight ly (BEAKER) (test hemolyzed code = 379) CHLORIDE (BEAKER) 107 meq/L 98-107 (test code = 382) CO2 (BEAKER) 23 meq/L 22-29 (test code = 355) BLOOD UREA 4 mg/dL 7-21 L NITROGEN (BEAKER) (test code = 354) CREATININE 0.87 mg/dL 0.57-1.25 Specimen slight ly (BEAKER) (test hemolyzed code = 358) GLUCOSE RANDOM 120 mg/dL 70-105 H (BEAKER) (test code = 652) CALCIUM (BEAKER) 8.6 mg/dL 8.4-10.2 (test code = 697) EGFR (BEAKER) 112 Interpretatio n of eGFR (test code = mL/min/1.73 values Stage De scription 1092) sq m Result G1 Larisa l or high >=90 G2 Mildly decreased 60-89 G3a Mildl y to moderately 45-5 9 G3b Moderately to s everely 30-44 G4 Severl y decreased 15-29 G5 Kidney failure <15Reported eGF R is based on the CKD-EPI 2020 equation that d oes not use a race coefficientEsti mated GFR is not as accur ate as Creatinine Iman arleen in predicting glom erular filtration rate . Estimated GFR is not appl icable for dialysis patien ts Auto Adjudication Specialist ID - MMHEPATIC FUNCTION [id number] 09:39:18 Test Item Value Reference Range Interpretation Comments TOTAL PROTEIN (BEAKER) 6.2 gm/dL 6.0-8.3 Speci men slightly (test code = 770) hemolyzed ALBUMIN (BEAKER) (test 3.5 g/dL 3.5-5.0 Speci men slightly code = 1145) hemolyzed BILIRUBIN TOTAL 0.4 mg/dL 0.2-1.2 Specimen sli ghtly (BEAKER) (test code = hemoly zed 377) BILIRUBIN DIRECT 0.2 mg/dL 0.1-0.5 Specimen sl ightly (BEAKER) (test code = hemoly zed 706) ALKALINE PHOSPHATASE 164 U/L 40-150 H (BEAKER) (test code = 346) AST (SGOT) (BEAKER) 116 U/L 5-34 H Specimen slightly (test code = 353) hemolyzed ALT (SGPT) (BEAKER) 59 U/L 6-55 H Specimen slightly (test code = 347) hemolyzed Auto Adjudication Specialist ID - MMCBC W/PLT COUNT & AUTO [id number] 06:38:29 Test Item Value Reference Range Interpretation Comments WHITE BLOOD CELL COUNT (BEAKER) 5.8 K/ L 3.5-10.5 (test code = 775) RED BLOOD CELL COUNT (BEAKER) 4.73 M/ L 4.63-6.08 (test code = 761) HEMOGLOBIN (BEAKER) (test code = 13.2 GM/DL 13.7-17.5 L 410) HEMATOCRIT (BEAKER) (test code = 39.5 % 40.1-51.0 L 411) MEAN CORPUSCULAR VOLUME (BEAKER) 84 fL 79-92 (test code = 753) MEAN CORPUSCULAR HEMOGLOBIN 27.9 pg 25.7-32.2 (BEAKER) (test code = 751) MEAN CORPUSCULAR HEMOGLOBIN CONC 33.4 GM/DL 32.3-36.5 (BEAKER) (test code = 752) RED CELL DISTRIBUTION WIDTH 12.8 % 11.6-14.4 (BEAKER) (test code = 412) PLATELET COUNT (BEAKER) (test 232 K/CU MM 150-450 code = 756) MEAN PLATELET VOLUME (BEAKER) 9.5 fL 9.4-12.4 (test code = 754) NUCLEATED RED BLOOD CELLS 0 /100 WBC 0-0 (BEAKER) (test code = 413) NEUTROPHILS RELATIVE PERCENT 67 % (BEAKER) (test code = 429) LYMPHOCYTES RELATIVE PERCENT 21 % (BEAKER) (test code = 430) MONOCYTES RELATIVE PERCENT 9 % (BEAKER) (test code = 431) EOSINOPHILS RELATIVE PERCENT 2 % (BEAKER) (test code = 432) BASOPHILS RELATIVE PERCENT 1 % (BEAKER) (test code = 437) NEUTROPHILS ABSOLUTE COUNT 3.85 K/ L 1.78-5.38 (BEAKER) (test code = 670) LYMPHOCYTES ABSOLUTE COUNT 1.19 K/ L 1.32-3.57 L (BEAKER) (test code = 414) MONOCYTES ABSOLUTE COUNT (BEAKER) 0.52 K/ L 0.30-0.82 (test code = 415) EOSINOPHILS ABSOLUTE COUNT 0.12 K/ L 0.04-0.54 (BEAKER) (test code = 416) BASOPHILS ABSOLUTE COUNT (BEAKER) 0.07 K/ L 0.01-0.08 (test code = 417) IMMATURE GRANULOCYTES-RELATIVE 0.50 % 0.00-1.00 PERCENT (BEAKER) (test code = 2801) HEMOGLOBIN [id number] 08:56:25 Test Item Value Reference Range Interpretation Comments HEMOGLOBIN A1C 5.7 % See_Comment H [Automated m essage] ELECTROPHORESIS (BEAKER) The system which (test code = 3811) generated this result transmitted ref erence range: <=5.6%. The reference range was not used to int erpret this result as normal/abnormal . "The A1c is measured using a NGSP-certified method. HbA1c value equal to or greater than 6.5% as thediagnosis cutoff for diabetes. An HbA1c value of 5.7- 6.4% indicates increased risk for diabetes (prediabetes)."Auto Adjudication Specialist ID - ADM [id number] 07:09:54 Test Item Value Reference Range Interpretation Comments FERRITIN (BEAKER) (test code = 159.87 ng/mL 5.00-275.00 361) Auto Adjudication Specialist ID - MARCOALPHA FETOPROTEIN (AFP), TUMOR [id number] 06:32:10 Test Item Value Reference Range Interpretation Comments ALPHA-FETOPROTEIN (BEAKER) 97193.5 ng/mL <10.0 H (test code = 1094) Auto Adjudication Specialist ID - ADMINOperator ID - ADMINHEPATITIS B SURFACE [id number] 06:31:52 Test Item Value Reference Range Interpretation Comments HEPATITIS B SURFACE ANTIBODY < mIU/mL <8.0 (BEAKER) (test code = 647) Auto Adjudication Specialist ID - ADMINHEPATITIS A ANTIBODY, [id number] 06:31:00 Test Item Value Reference Range Interpretation Comments HEPATITIS A IGG ANTIBODY (BEAKER) Nonreactive Nonreactive (test code = 2797) Auto Adjudication Specialist ID - ADMINCARCINOEMBRYONIC ANTIGEN (CEA)2022-10-22 06:30:59 Test Item Value Reference Range Interpretation Comments CARCINOEMBRYONIC ANTIGEN (BEAKER) 5.6 ng/mL 0.0-5.0 H (test code = 685) Auto Adjudication Specialist ID - ADMINHEPATITIS B CORE ANTIBODY, [id number] 06:30:59 Test Item Value Reference Range Interpretation Comments HEPATITIS B CORE TOTAL ANTIBODY Nonreactive Nonreactive (BEAKER) (test code = 497) Auto Adjudication Specialist ID - ADMINHEPATITIS PANEL, [id number] 06:03:10 Test Item Value Reference Range Interpretation Comments HEPATITIS A IGM ANTIBODY (BEAKER) Nonreactive Nonreactive (test code = 498) HEPATITIS B CORE IGM ANTIBODY Nonreactive Nonreactive (BEAKER) (test code = 645) HEPATITIS C ANTIBODY (BEAKER) Nonreactive Nonreactive (test code = 367) HEPATITIS B SURFACE ANTIGEN (2) Nonreactive Nonreactive (BEAKER) (test code = 2585) Auto Adjudication Specialist ID - [id number] 05:54:41 Test Item Value Reference Range Interpretation Comments MAGNESIUM (BEAKER) (test code = 1.7 mg/dL 1.6-2.6 627) Auto Adjudication Specialist ID - MARCOLIPID [id number] 05:54:41 Test Item Value Reference Range Interpretation Comments TRIGLYCERIDES (BEAKER) (test code = 94 mg/dL 540) CHOLESTEROL (BEAKER) (test code = 116 mg/dL 631) HDL CHOLESTEROL (BEAKER) (test code 31 mg/dL = 976) LDL CHOLESTEROL CALCULATED (BEAKER) 66 mg/dL (test code = 633) Triglyceride Reference Range: Low Risk <150 Borderline 150-199 High Risk 200- 499 Very High Risk >=500Cholesterol Reference Range: Low Risk <200 Borderline 200-239 High Risk >240HDL Cholesterol Reference Range: Low Risk >=60 High Risk <40LDL Cholesterol Reference Range: Optimal <100 Near Optimal 100-129 Borderline 130-159 High 160-189 Very High >=190 Auto Adjudication Specialist ID - MARCOHEPATIC FUNCTION [id number] 05:54:41 Test Item Value Reference Range Interpretation Comments TOTAL PROTEIN (BEAKER) (test code = 5.6 gm/dL 6.0-8.3 L 770) ALBUMIN (BEAKER) (test code = 1145) 3.3 g/dL 3.5-5.0 L BILIRUBIN TOTAL (BEAKER) (test code 0.4 mg/dL 0.2-1.2 = 377) BILIRUBIN DIRECT (BEAKER) (test 0.2 mg/dL 0.1-0.5 code = 706) ALKALINE PHOSPHATASE (BEAKER) (test 172 U/L 40-150 H code = 346) AST (SGOT) (BEAKER) (test code = 95 U/L 5-34 H 353) ALT (SGPT) (BEAKER) (test code = 54 U/L 6-55 347) Auto Adjudication Specialist ID - MARCOBASIC METABOLIC [id number] 05:54:40 Test Item Value Reference Range Interpretation Comments SODIUM (BEAKER) 138 meq/L 136-145 (test code = 381) POTASSIUM 4.4 meq/L 3.5-5.1 (BEAKER) (test code = 379) CHLORIDE (BEAKER) 108 meq/L 98-107 H (test code = 382) CO2 (BEAKER) 23 meq/L 22-29 (test code = 355) BLOOD UREA 7 mg/dL 7-21 NITROGEN (BEAKER) (test code = 354) CREATININE 0.80 mg/dL 0.57-1.25 (BEAKER) (test code = 358) GLUCOSE RANDOM 126 mg/dL 70-105 H (BEAKER) (test code = 652) CALCIUM (BEAKER) 8.5 mg/dL 8.4-10.2 (test code = 697) EGFR (BEAKER) 115 Interpretatio n of eGFR (test code = mL/min/1.73 values Stage D escription 1092) sq m Result G1 Larisa l or high >=90 G2 Mildly decreased 60-89 G3a Mildl y to moderately 45-5 9 G3b Moderately to s everely 30-44 G4 Severl y decreased 15-29 G5 Kidney failure <15Reported eGF R is based on the CKD-EPI 2020 equation that d oes not use a race coefficientEsti mated GFR is not as accur ate as Creatinine Iman arleen in predicting glom erular filtration rate . Estimated GFR is not appl icable for dialysis patien ts Auto Adjudication Specialist ID - JAIME, TIBC, % SAT. (WITHOUT FERRITIN)2022-10-22 05:39:20 Test Item Value Reference Range Interpretation Comments IRON (BEAKER) (test code = 547) 61.0 ug/dL 40.0-160.0 TOTAL IRON BINDING CAPACITY 273 ug/dL 250-450 (BEAKER) (test code = 769) IRON % SATURATION (2) (BEAKER) 22 % 20-55 (test code = 2590) Auto Adjudication Specialist ID - [id number] 05:39:03 Test Item Value Reference Range Interpretation Comments ALPHA-1 ANTITRYPSIN (BEAKER) 211.70 mg/dL 90.00-200.00 H (test code = 502) Auto Adjudication Specialist ID - ADMINCBC W/PLT COUNT & AUTO [id number] 05:15:17 Test Item Value Reference Range Interpretation Comments WHITE BLOOD CELL COUNT (BEAKER) 4.8 K/ L 3.5-10.5 (test code = 775) RED BLOOD CELL COUNT (BEAKER) 4.44 M/ L 4.63-6.08 L (test code = 761) HEMOGLOBIN (BEAKER) (test code = 12.3 GM/DL 13.7-17.5 L 410) HEMATOCRIT (BEAKER) (test code = 37.4 % 40.1-51.0 L 411) MEAN CORPUSCULAR VOLUME (BEAKER) 84 fL 79-92 (test code = 753) MEAN CORPUSCULAR HEMOGLOBIN 27.7 pg 25.7-32.2 (BEAKER) (test code = 751) MEAN CORPUSCULAR HEMOGLOBIN CONC 32.9 GM/DL 32.3-36.5 (BEAKER) (test code = 752) RED CELL DISTRIBUTION WIDTH 12.9 % 11.6-14.4 (BEAKER) (test code = 412) PLATELET COUNT (BEAKER) (test 214 K/CU MM 150-450 code = 756) MEAN PLATELET VOLUME (BEAKER) 9.6 fL 9.4-12.4 (test code = 754) NUCLEATED RED BLOOD CELLS 0 /100 WBC 0-0 (BEAKER) (test code = 413) NEUTROPHILS RELATIVE PERCENT 61 % (BEAKER) (test code = 429) LYMPHOCYTES RELATIVE PERCENT 25 % (BEAKER) (test code = 430) MONOCYTES RELATIVE PERCENT 10 % (BEAKER) (test code = 431) EOSINOPHILS RELATIVE PERCENT 3 % (BEAKER) (test code = 432) BASOPHILS RELATIVE PERCENT 1 % (BEAKER) (test code = 437) NEUTROPHILS ABSOLUTE COUNT 2.93 K/ L 1.78-5.38 (BEAKER) (test code = 670) LYMPHOCYTES ABSOLUTE COUNT 1.23 K/ L 1.32-3.57 L (BEAKER) (test code = 414) MONOCYTES ABSOLUTE COUNT (BEAKER) 0.46 K/ L 0.30-0.82 (test code = 415) EOSINOPHILS ABSOLUTE COUNT 0.15 K/ L 0.04-0.54 (BEAKER) (test code = 416) BASOPHILS ABSOLUTE COUNT (BEAKER) 0.06 K/ L 0.01-0.08 (test code = 417) IMMATURE GRANULOCYTES-RELATIVE 0.20 % 0.00-1.00 PERCENT (BEAKER) (test code = 2801) HEPATIC FUNCTION [id number] 15:14:35 Test Item Value Reference Range Interpretation Comments TOTAL PROTEIN (BEAKER) 6.7 gm/dL 6.0-8.3 Speci men slightly (test code = 770) hemolyzed ALBUMIN (BEAKER) (test 3.8 g/dL 3.5-5.0 Speci men slightly code = 1145) hemolyzed BILIRUBIN TOTAL 0.5 mg/dL 0.2-1.2 Specimen sli ghtly (BEAKER) (test code = hemoly zed 377) BILIRUBIN DIRECT 0.2 mg/dL 0.1-0.5 Specimen sl ightly (BEAKER) (test code = hemoly zed 706) ALKALINE PHOSPHATASE 221 U/L 40-150 H (BEAKER) (test code = 346) AST (SGOT) (BEAKER) 112 U/L 5-34 H Specimen slightly (test code = 353) hemolyzed ALT (SGPT) (BEAKER) 73 U/L 6-55 H Specimen slightly (test code = 347) hemolyzed Auto Adjudication Specialist ID - [id number] TIME/[id number] 15:14:35 Test Item Value Reference Range Interpretation Comments PROTIME (BEAKER) (test code = 14.7 seconds 11.9-14.2 H 759) INR (BEAKER) (test code = 370) 1.22 <=5.90 RECOMMENDED COUMADIN/WARFARIN INR THERAPY RANGESSTANDARD DOSE: 2.0 - 3.0 Includes: PROPHYLAXIS for venous thrombosis, systemic embolization; TREATMENT for venous thrombosis and/or pulmonary embolus.HIGH RISK: Target INR is 2.5-3.5 for patients with mechanical heart valves.BASIC METABOLIC [id number] 15:14:34 Test Item Value Reference Range Interpretation Comments SODIUM (BEAKER) 137 meq/L 136-145 (test code = 381) POTASSIUM 4.8 meq/L 3.5-5.1 Specimen slight ly (BEAKER) (test hemolyzed code = 379) CHLORIDE (BEAKER) 106 meq/L 98-107 (test code = 382) CO2 (BEAKER) 22 meq/L 22-29 (test code = 355) BLOOD UREA 8 mg/dL 7-21 NITROGEN (BEAKER) (test code = 354) CREATININE 0.85 mg/dL 0.57-1.25 Specimen slight ly (BEAKER) (test hemolyzed code = 358) GLUCOSE RANDOM 105 mg/dL 70-105 (BEAKER) (test code = 652) CALCIUM (BEAKER) 9.2 mg/dL 8.4-10.2 (test code = 697) EGFR (BEAKER) 113 Interpretatio n of eGFR (test code = mL/min/1.73 values Stage De scription 1092) sq m Result G1 Larisa l or high >=90 G2 Mildly decreased 60-89 G3a Mildl y to moderately 45-5 9 G3b Moderately to s everely 30-44 G4 Severl y decreased 15-29 G5 Kidney failure <15Reported eGF R is based on the CKD-EPI 2020 equation that d oes not use a race coefficientEsti mated GFR is not as accur ate as Creatinine Iman arleen in predicting glom erular filtration rate . Estimated GFR is not appl icable for dialysis patien ts Auto Adjudication Specialist ID - MARCOCBC W/PLT COUNT & AUTO [id number] 14:53:39 Test Item Value Reference Range Interpretation Comments WHITE BLOOD CELL COUNT (BEAKER) 7.3 K/ L 3.5-10.5 (test code = 775) RED BLOOD CELL COUNT (BEAKER) 5.11 M/ L 4.63-6.08 (test code = 761) HEMOGLOBIN (BEAKER) (test code = 14.2 GM/DL 13.7-17.5 410) HEMATOCRIT (BEAKER) (test code = 42.8 % 40.1-51.0 411) MEAN CORPUSCULAR VOLUME (BEAKER) 84 fL 79-92 (test code = 753) MEAN CORPUSCULAR HEMOGLOBIN 27.8 pg 25.7-32.2 (BEAKER) (test code = 751) MEAN CORPUSCULAR HEMOGLOBIN CONC 33.2 GM/DL 32.3-36.5 (BEAKER) (test code = 752) RED CELL DISTRIBUTION WIDTH 12.9 % 11.6-14.4 (BEAKER) (test code = 412) PLATELET COUNT (BEAKER) (test 246 K/CU MM 150-450 code = 756) MEAN PLATELET VOLUME (BEAKER) 9.7 fL 9.4-12.4 (test code = 754) NUCLEATED RED BLOOD CELLS 0 /100 WBC 0-0 (BEAKER) (test code = 413) NEUTROPHILS RELATIVE PERCENT 72 % (BEAKER) (test code = 429) LYMPHOCYTES RELATIVE PERCENT 19 % (BEAKER) (test code = 430) MONOCYTES RELATIVE PERCENT 7 % (BEAKER) (test code = 431) EOSINOPHILS RELATIVE PERCENT 1 % (BEAKER) (test code = 432) BASOPHILS RELATIVE PERCENT 1 % (BEAKER) (test code = 437) NEUTROPHILS ABSOLUTE COUNT 5.25 K/ L 1.78-5.38 (BEAKER) (test code = 670) LYMPHOCYTES ABSOLUTE COUNT 1.38 K/ L 1.32-3.57 (BEAKER) (test code = 414) MONOCYTES ABSOLUTE COUNT (BEAKER) 0.49 K/ L 0.30-0.82 (test code = 415) EOSINOPHILS ABSOLUTE COUNT 0.07 K/ L 0.04-0.54 (BEAKER) (test code = 416) BASOPHILS ABSOLUTE COUNT (BEAKER) 0.07 K/ L 0.01-0.08 (test code = 417) IMMATURE GRANULOCYTES-RELATIVE 0.10 % 0.00-1.00 PERCENT (BEAKER) (test code = 2801)
[2022-11-03 08:13] LABS: Absolute Lymphocytes (CBC) 1.2 K/uL (0.7-4.9); Hematocrit 37.1 % (39.6-49.0); Lymphocytes % 16.7 % (15.3-44.8); MCV 83.7 fL (80-100); MPV 7.5 fL (7.6-11.3); RBC Red Blood Cell Count 4.43 M/uL (4.33-5.43)
[2022-11-03] MEDS ORDERED: MORPHINE 4 MG/ML SYR ONE (08:15)
[2022-11-03] MEDS ORDERED: NA CHLORIDE 0.9% 1,000 ML ONE (08:15)
[2022-11-03] MEDS ORDERED: FAMOTIDINE 20 MG/2 ML VIAL IV ONE (08:15)
[2022-11-03] MEDS ORDERED: ONDANSETRON 4 MG/2 ML VIAL ONE (08:15)
[2022-11-03 08:32] LABS: Bilirubin Total 0.4 mg/dL (0.2-1.0); Potassium 3.9 mEq/L (3.5-5.1); Protein, Total 7.1 g/dL (6.4-8.2)
--- NOTE | 2022-11-03 09:16 | ER ---
Nurse's Notes [facility] Name: Ayden Andres Jr Age: 42 yrs Sex: Male : 1980 Arrival Date: 11/03/2022 Time: 07:34 Bed 5 Private MD: Diagnosis: Abdominal pain, unspecified Presentation: 11/03 07:45 Chief complaint: "I have stomach cancer and I go next week for staging and to get a hb game plan, but I have been in pain since I was discharged a few days ago and today my pain is real bad.". Coronavirus screen: At this time, the client does not indicate any symptoms associated with coronavirus-19. Ebola Screen: No symptoms or risks identified at this time. Initial Sepsis Screen: Does the patient meet any 2 criteria? No. Patient's initial sepsis screen is negative. Does the patient have a suspected source of infection? No. Patient's initial sepsis screen is negative. Risk Assessment: Do you want to hurt yourself or someone else? Patient reports no desire to harm self or others. Onset of symptoms was November 03, 2022. 07:45 Method Of Arrival: Ambulatory hb 07:45 Acuity: JOSE 3 hb Historical: - Allergies: 07:47 No Known Allergies; hb - Immunization history:: Adult Immunizations up to date. - Social history:: Smoking status: Patient denies any tobacco usage or history of. - Family history:: not pertinent. Screenin:52 [facility] ED Fall Risk Assessment (Adult) History of falling in the last 3 months, mb9 including since admission No falls in past 3 months (0 pts) Confusion or Disorientation No (0 pts) Intoxicated or Sedated No (0 pts) Impaired Gait No (0 pts) Mobility Assist Device Used No (0 pt) Altered Elimination No (0 pt) Score/Fall Risk Level 0 - 2 = Low Risk Oriented to surroundings, Maintained a safe environment, Educated pt \\T\\ family on fall prevention, incl call for assistance when getting out of bed. Abuse screen: Denies threats or abuse. Nutritional screening: No deficits noted. Tuberculosis screening: No symptoms or risk factors identified. Assessment: 07:50 General: Appears uncomfortable, Behavior is anxious. Pain: Complains of pain in abdomen mb9 Pain radiates to LUQ and LLQ Pain currently is 10 out of 10 on a pain scale. Quality of pain is described as burning, Pain began gradually, Is continuous, Aggravated by eating, drinking, Noted to be moaning. Neuro: Mitchell Agitation-Sedation Scale (RASS): 0 - Alert and Calm Level of Consciousness is awake, alert, obeys commands, Oriented to person, place, time, situation, Appropriate for age. Cardiovascular: Patient's skin is warm and dry. Respiratory: Airway is patent Respiratory effort is even, unlabored, Respiratory pattern is regular, symmetrical. GI: Abdomen is flat, Bowel sounds present X 4 quads. Abd is soft Abdomen is tender to palpation in left upper quadrant and left lower quadrant Reports nausea, vomiting. Derm: Skin is pink, warm \\T\\ dry. Musculoskeletal: Range of motion: intact in all extremities. 09:06 Reassessment: Patient and/or family updated on plan of care and expected duration. Pain mb9 level reassessed. Patient is alert, oriented x 3, equal unlabored respirations, skin warm/dry/pink. Patient states symptoms have improved. Vital Signs: 07:45 BP 122 / 85; Pulse 73; Resp 16; Temp 97.8(O); Pulse Ox 98% on R/A; Weight 87.09 kg; hb Height 5 ft. 11 in. ; Pain 8/10; 08:40 BP 114 / 80; Pulse 58; Pulse Ox 99% on R/A; ld1 09:24 BP 112 / 76; Pulse 60; Resp 16; Pulse Ox 100% on R/A; mb9 07:45 Body Mass Index 26.78 (87.09 kg, 180.34 cm) hb 07:45 Pain Scale: Adult hb ED Course: 07:36 Patient arrived in ED. mr 07:47 Triage completed. hb 07:47 Arm band placed on. hb 07:50 Chloe Fernández, RN is Primary Nurse. mb9 07:50 No provider procedures requiring assistance completed. Inserted saline lock: 20 gauge mb9 in right antecubital area, using aseptic technique. 07:52 Placed in gown. Bed in low position. Call light in reach. Side rails up X 1. Client mb9 placed on continuous cardiac and pulse oximetry monitoring. NIBP monitoring applied. Door closed. Noise minimized. Warm blanket given. 07:54 Robbin Mcfarland MD is Attending Physician. rt 09:16 IV discontinued, intact, bleeding controlled, No redness/swelling at site. Pressure mb9 dressing applied. Administered Medications: 08:08 Drug: Famotidine IVP 20 mg Route: IVP; Site: right antecubital; mb9 09:06 Follow up: Response: No adverse reaction mb9 08:08 Drug: NS 0.9% IV 1000 ml Route: IV; Rate: 1 bolus; Site: right antecubital; mb9 09:06 Follow up: Response: No adverse reaction; IV Status: Completed infusion mb9 08:10 Drug: Ondansetron IVP 4 mg Route: IVP; Site: right antecubital; mb9 09:06 Follow up: Response: No adverse reaction mb9 08:13 Drug: morphine IVP or IV 4 mg Route: IVP; Infused Over: 4 mins; Site: right antecubital;mb9 09:06 Follow up: Response: No adverse reaction mb9 Medication: 07:52 VIS not applicable for this client. mb9 Outcome: 09:16 Discharge ordered by . rt 09:24 Discharged to home ambulatory. mb9 09:24 Condition: stable 09:24 Discharge instructions given to patient, Instructed on discharge instructions, follow up and referral plans. Demonstrated understanding of instructions, follow-up care, medications, Prescriptions given X 2. 09:24 Patient left the ED. mb9 Signatures: Chloe Charles Heather, RN RN Dannielle Melvin RN RN ld1 Chloe Fernández RN RN mb9 Robbin Mcfarland MD MD rt Corrections: (The following items were deleted from the chart) 09:24 09:16 Pulse 60bpm; Resp 16bpm; Pulse Ox 100% RA; mb9 mb9
--- NOTE | 2022-11-03 09:16 | EDPHYS ---
Physician Documentation [facility] Name: Ayden Andres Jr Age: 42 yrs Sex: Male : 1980 Arrival Date: 11/03/2022 Time: 07:34 Bed 5 Private MD: ED Physician Robbin Mcfarland HPI: 11/03 08:11 This 42 yrs old Male presents to ER via Ambulatory with complaints of rt Abdominal Pain, Vomiting. 08:11 Patient had a recent admission to [facility] for hematemesis, was found to have rt a stomach cancer with metastases. Patient was subsequently discharged, prescribed pain, nausea, anxiety medications and has an appointment on the sixth for staging, further treatment plans. The patient states that he has run out of his pain medications, has worsening pains at this time. The pain is similar nature to when he had the hematemesis but denies hematemesis currently. He denies other acute complaints at this time. Pain is in the epigastrium, aching in nature, nonradiating, no other aggravating or alleviating factors. Is moderate in severity.. Historical: - Allergies: 07:47 No Known Allergies; hb - Immunization history:: Adult Immunizations up to date. - Social history:: Smoking status: Patient denies any tobacco usage or history of. - Family history:: not pertinent. ROS: 08:11 Constitutional: Negative for fever, chills, and weight loss, Cardiovascular: Negative rt for chest pain, palpitations, and edema, Respiratory: Negative for shortness of breath, cough, wheezing, and pleuritic chest pain, Skin: Negative for injury, rash, and discoloration, Neuro: Negative for headache, weakness, numbness, tingling, and seizure, Psych: Negative for depression, anxiety, suicide ideation, homicidal ideation, and hallucinations. 08:11 Abdomen/GI: Positive for abdominal pain, nausea. Exam: 08:11 Constitutional: This is a well developed, well nourished patient who is awake, alert, rt and in no acute distress. Head/Face: Normocephalic, atraumatic. Neck: Trachea midline, no thyromegaly or masses palpated, and no cervical lymphadenopathy. Supple, full range of motion without nuchal rigidity, or vertebral point tenderness. No Meningismus. Chest/axilla: Normal chest wall appearance and motion. Nontender with no deformity. No lesions are appreciated. Cardiovascular: Regular rate and rhythm with a normal S1 and S2. No gallops, murmurs, or rubs. Normal PMI, no JVD. No pulse deficits. Respiratory: Lungs have equal breath sounds bilaterally, clear to auscultation and percussion. No rales, rhonchi or wheezes noted. No increased work of breathing, no retractions or nasal flaring. Skin: Warm, dry with normal turgor. Normal color with no rashes, no lesions, and no evidence of cellulitis. MS/ Extremity: Pulses equal, no cyanosis. Neurovascular intact. Full, normal range of motion. Neuro: Awake and alert, GCS 15, oriented to person, place, time, and situation. Cranial nerves II-XII grossly intact. Motor strength 5/5 in all extremities. Sensory grossly intact. Cerebellar exam normal. Normal gait. Psych: Awake, alert, with orientation to person, place and time. Behavior, mood, and affect are within normal limits. 08:11 Abdomen/GI: Tenderness to the epigastrium, mild guarding, no rebound, mild distention noted. Vital Signs: 07:45 BP 122 / 85; Pulse 73; Resp 16; Temp 97.8(O); Pulse Ox 98% on R/A; Weight 87.09 kg; hb Height 5 ft. 11 in. ; Pain 8/10; 08:40 BP 114 / 80; Pulse 58; Pulse Ox 99% on R/A; ld1 09:24 BP 112 / 76; Pulse 60; Resp 16; Pulse Ox 100% on R/A; mb9 07:45 Body Mass Index 26.78 (87.09 kg, 180.34 cm) hb 07:45 Pain Scale: Adult hb MDM: 07:56 Patient medically screened. rt 09:20 Differential diagnosis: Nonspecific abd pain, pancreatitis, Abdominal pain due to rt cancer. Data reviewed: vital signs, nurses notes. I considered the following discharge prescriptions or medication management in the emergency department Medications were administered in the Emergency Department. See MAR. Test considered but Not performed: CT: Pain is consistent with prior pain that was worked up extensively, do not believe that repeat CT imaging is going to benefit the patient.. Care significantly affected by the following chronic conditions: Stomach cancer. Counseling: I had a detailed discussion with the patient and/or guardian regarding: the historical points, exam findings, and any diagnostic results supporting the discharge/admit diagnosis, lab results, the need for outpatient follow up. Response to treatment: the patient's symptoms have markedly improved after treatment. 11/03 08:03 Order name: CBC with Diff; Complete Time: 08:39 rt 06 08:03 Order name: CMP; Complete Time: 08:39 rt 06 08:03 Order name: Lipase; Complete Time: 08:39 rt Administered Medications: 08:08 Drug: Famotidine IVP 20 mg Route: IVP; Site: right antecubital; mb9 09:06 Follow up: Response: No adverse reaction mb9 08:08 Drug: NS 0.9% IV 1000 ml Route: IV; Rate: 1 bolus; Site: right antecubital; mb9 09:06 Follow up: Response: No adverse reaction; IV Status: Completed infusion mb9 08:10 Drug: Ondansetron IVP 4 mg Route: IVP; Site: right antecubital; mb9 09:06 Follow up: Response: No adverse reaction mb9 08:13 Drug: morphine IVP or IV 4 mg Route: IVP; Infused Over: 4 mins; Site: right antecubital;mb9 09:06 Follow up: Response: No adverse reaction mb9 Disposition Summary: 11/03/22 09:16 Discharge Ordered Location: Home rt Problem: an ongoing problem rt Symptoms: have improved rt Condition: Stable rt Diagnosis - Abdominal pain, unspecified rt Followup: rt - With: Private Physician - When: 4 Days - Reason: Discharge Instructions: - Discharge Summary Sheet mb9 - Abdominal Pain, Adult rt Forms: - Work release form mb9 - Medication Reconciliation Form rt - Thank You Letter rt - Antibiotic Education rt - Prescription Opioid Use rt Prescriptions: - acetaminophen-codeine 300-30 mg Oral tablet - take 1 tablet by ORAL route daily; 21 tablet; Refills: 0, Product Selection rt Permitted - ondansetron 4 mg Oral Tablet,disintegrating - take 1 tablet by ORAL route every 6 hours as needed for nausea and vomiting; 21 rt tablet; Refills: 0, Product Selection Permitted Signatures: Dispatcher [employer] Sarah Gardiner RN RN hb Breneman, Mary Beth, RN RN mb9 Robbin Mcfarland MD MD rt
[2022-11-03 09:42] VITALS: TEMP 97.8
[2022-11-03 09:49] VITALS: BP 112/76; O2SAT 100
== END 2022-11-03 09:24 | disposition home or self-care (01) ==
LOC: ER 07:34
DX: R10.13 Epigastric pain (principal); R11.0 Nausea
CPT/HCPCS: 96361; 85025; 36415; 83690; 80053; 96375; 96374; 99284; J2405; J7030

== ENCOUNTER 2022-11-05 00:34 | Emergency (ER) | payer OTHER ==
--- OUTSIDE RECORDS SUMMARY | 2022-11-05 00:39 | XMS REPORT | Continuity of Care Document ---
:1980 Author Organization [facility] t Address [address] [facility] [address] [place] [address] Care Team Providers Name Role Phone MANNY FOWLER Attending Clinician Unavailable KENRICK DECKER Attending Clinician Unavailable BRIAN FORDE Attending Clinician Unavailable Navjot Thakkar MD Attending Clinician Phoenix Ogden MD Attending Clinician [phone] PHOENIX OGDEN Attending Clinician Unavailable MITRA JERONIMO Admitting Clinician Unavailable Payers Payer Name Policy Type Policy Number Effective Date Expiration Date S ource MEDICAID [employer] [facility] [id number] 2020 00:00:00 [facility] [employer]W [facility] [id number] 2020 00:00:00 Problems Condition Condition Condition Status Onset Resolution Last Treating Co mments Source Name Details Category Date Date Treatment Clinician Date Bradycardi Bradycardi [facility] GI bleed GI bleed Disease [facility] [place] Liver mass Liver mass Disease [facility] Allergies, Adverse Reactions, Alerts Allergy Allergy Status Severity Reaction(s) Onset Inactive Treating Comm ents Source Name Type Date Date Clinician NO KNOWN Allergy Active [facility] Social History Social Habit Start Date Stop Date Quantity Comments Source History SDOH [facility] History SDOH 2022-10-21 2022-10-21 [address] [facility] 00:00:00 00:00:[address] History SDOH Housing 2022-10-21 2022-10-21 2 [facility]OCENTE L[facility]pez Unable to Pay 00:00:00 00:00:[address] History SDOH Housing 2022-10-21 2022-10-21 1 [facility] L[facility]pez Places Lived 00:00:00 00:00:00 Medical Cent er History SDMI Housing 2022-10-21 2022-10-21 2 [facility] L[facility]pez Homeless Last Year 00:00:00 00:00:00 Medica l Center Sex Assigned At [birth year] [facility] [address] [facility] 00:00:00 00:00:00 Medical Center Medications This patient has no known medications. Vital Signs Vital Name Observation Time Observation Value Comments Source HEIGHT 2022-10-23 11:07:00 180.3 cm WEIGHT 2022-10-23 11:07:00 87.091 kg WEIGHT 2022-10-22 09:40:00 87.261 kg HEIGHT 2022-10-23 11:07:00 180.3 cm WEIGHT 2022-10-23 11:07:00 87.091 kg WEIGHT 2022-10-22 09:40:00 87.261 kg Heart rate 2022-10-24 07:00:00 55 /min [facility] Respiratory rate 2022-10-24 04:55:00 18 /min [facility] Oxygen saturation in 2022-10-24 04:55:00 97 /min [facility] Arterial blood by Medical Ce nter Pulse oximetry Systolic blood 2022-10-24 04:02:00 113 mm[Hg] [facility] Diastolic blood 2022-10-24 04:02:00 63 mm[Hg] [facility] Body temperature 2022-10-24 04:02:00 35.94 Carlota [facility] Body height 2022-10-23 11:07:00 180.3 cm [facility] Body weight 2022-10-23 11:07:00 87.091 kg [facility] BMI 2022-10-23 11:07:00 26.78 kg/m2 [facility] Procedures Procedure Date / Time Performing Clinician Source Performed CBC W/PLT COUNT & AUTO 2022-10-24 06:08:00 Vernon [facility] DIFFERENTIAL [facility] CBC W/PLT COUNT & AUTO 2022-10-24 06:08:00 Vernon [facility] DIFFERENTIAL [facility] MAGNESIUM 2022-10-24 [facility] COMPREHENSIVE METABOLIC 2022-10-24 05:01:00 Dima Berrios I [facility] HEMOGLOBIN AND HEMATOCRIT 2022-10-23 15:55:00 Dima Berrios [facility] REPORT OF PROCEDURE - 2022-10-23 12:35:10 Phoenix Ogden [facility] ENDOSCOPY URL [facility] ENDOSCOPY, UPPER GI TRACT, 2022-10-23 11:34:00 Phoenix Ogden [facility] WITH BIOPSY [facility] ABORH, MANUAL 2022-10-23 08:13:00 Maria Elena Milian [facility] BASIC METABOLIC PANEL 2022-10-23 06:29:00 [facility] MAGNESIUM 2022-10-23 06:29:00 [facility] CBC W/PLT COUNT & AUTO 2022-10-23 06:29:00 [facility] HEPATIC FUNCTION PANEL 2022-10-23 06:29:00 [facility] TYPE AND SCREEN, AUTOMATED 2022-10-23 06:29:00 Josué Coats [facility] CBC W/PLT COUNT & AUTO 2022-10-23 06:29:00 [facility] DIFFERENTIAL [facility] LIPID PANEL 2022-10-22 04:19:00 [facility] BASIC METABOLIC PANEL 2022-10-22 04:19:00 Vernon [facility] MAGNESIUM 2022-10-22 04:19:00 [facility] CBC W/PLT COUNT & AUTO 2022-10-22 04:19:00 [facility] DIFFERENTIAL [facility] HEPATIC FUNCTION PANEL 2022-10-22 04:19:00 Vernon [facility] HEPATITIS B CORE ANTIBODY, 2022-10-22 04:19:00 Dmitry Dale [facility] TOTAL [facility] HEPATITIS PANEL, ACUTE 2022-10-22 04:19:00 Suyapa [facility] HEPATITIS A ANTIBODY, IGG 2022-10-22 04:19:00 Dmitry Dale I [facility] HEPATITIS B SURFACE 2022-10-22 04:19:00 Enoch [facility] FERRITIN 2022-10-22 04:19:00 Suyapa [facility] IRON, TIBC, % SAT. (WITHOUT 2022-10-22 04:19:00 Enoch [facility] FERRITIN) [facility] [id number]\\, SERUM 2022-10-22 04:19:00 [facility] ALPHA FETOPROTEIN (AFP), 2022-10-22 04:19:00 Enoch [facility] TUMOR MARKER [facility] CARCINOEMBRYONIC ANTIGEN 2022-10-22 04:19:00 Suyapa [facility] (CEA) [facility] CBC W/PLT COUNT & AUTO 2022-10-22 04:19:00 Vernon [facility] DIFFERENTIAL [facility] ECG 12-LEAD 2022-10-21 17:09:37 [facility] ECG 12-LEAD 2022-10-21 17:09:37 Unknown, [facility] HEPATIC FUNCTION PANEL 2022-10-21 14:42:00 [facility] BASIC METABOLIC PANEL 2022-10-21 14:42:00 [facility] HEMOGLOBIN A1C 2022-10-21 14:42:00 [facility] PROTHROMBIN TIME/INR 2022-10-21 14:42:00 [facility] CBC W/PLT COUNT & AUTO 2022-10-21 14:42:00 [facility] DIFFERENTIAL [facility] CBC W/PLT COUNT & AUTO 2022-10-21 14:42:00 [facility] DIFFERENTIAL [facility] Plan of Care Planned Activity Planned Date Details Comments Source Future Scheduled 2027-10-[address] [facility]00 (procedure) [code = [facility] [id number]] Future Scheduled 2023-02-[address] [...] Date/Time Type Type Clinicians Facility Department ID 2022-11-17 2022-11-17 Outpatient BHARAT FOWLER [facility] [id number] [facility] 00:00:00 00:00:00 MANNY 2022-11-07 2022-11-07 Outpatient BHARAT DECKER [facility] [id number] [facility] 00:00:00 00:00:00 KENRICK 2022-11-06 2022-11-06 Outpatient [facility] DECKER [facility] [id number] [facility] 00:00:00 00:00:00 KENRICK 2022-10-21 2022-10-27 Inpatient ER EDDIE FOWLER [facility] [id number] [facility] 13:26:00 14:43:00 MANNY 2022-10-23 2022-10-23 An[address]hesia Bijan, [facility] [id number] [facility] [address] 11:35[facility]00 13[facility]04[facility]00 [facility] 2022-10-23 Surgery [facility], [facility] [id number] 10:00:00 10:59:00 [facility] 2022-10-23 2022-10-23 Outpatient MELVI, [facility] [id number] [facility] 07:47:59 07:47:59 [facility] Maggi e of Medicin e 2022-10-21 2022-10-[address] [facility] [id number] 00:00:00 00:00:00 Only [facility] Results Test Description Test Time Test Comments Results Result Sour e Comments TISSUE EXAM 2022-10-04 Surgical Pathology Report 1 Case: [id number] 16:02:43 Authorizing Provider: Dima Berrios MD Collected: 10/26/2022 03:07 PM Ordering Location: [address] Received: 10/26/2022 04:53 PM Service Pathologist: Sherry Andrade MD Specimen: Biopsy, Liver Liver, mass, core needle biopsy: - Metastatic poorly differentiated neuroendocrine carcinoma, WHO grade 3; see comment Signing Pathologist Direct Phone Line: [phone] y signed by Sherry Andrade MD on [...] is needed. The patient's prior gastric biopsy ([id number], H&E) was concurrently reviewed, and the tumor shows similar histomorphology. Dr. Edvin Goldberg reviewed the case and agrees.Block A2 has adequate tumor cellularity for additional ancillary studies.References:Umesh sawant LA, Dariusz T, Carina C, Bassem L. Metastatic neuroendocrine carcinoma presenting as multifocal liver lesions with elevated alpha-fetoprotein. Clin Case Rep. 2018 May 16;7(2):251-253. doi: 10.1002/ccr3.1956. PMID: 46710290; PMCID: [id number], 90089, 26203y3Sgrs is a 42-year-old male with history of [...] evaluated Immunohistochemistry technical testing was performed at [facility], Pathology Laboratory where it was developed and [...] qualified to perform high complexity clinical laboratory testing.[facility], Department of Pathology, [address] [place] [address], [facility], [address] [place] [address], [facility], [facility], [address] [place] [address], TISSUE EXAM 2022-10-04 Surgical Pathology Report 1 Case: [id number] 09:06:35 Authorizing Provider: Phoenix Ogden, Collected: 10/23/2022 11:56 AM Ordering Location: [address] Received: 10/23/2022 01:29 PM Service Pathologist: Suzan Teixeira MD Specimens: A) - Biopsy, Gastric, random bxs B) - Biopsy, Gastric, bxs gastric mass A. STOMACH, RANDOM BIOPSIES: - CHEMICAL/REACTIVE GASTROPATHY - PPI EFFECT, MILDB. STOMACH, BIOPSIES OF MASS: - NEUROENDOCRINE CARCINOMA, SMALL CELL TYPE Signing Pathologist Direct Phone Line: [phone] y signed by Suzan Teixeira MD on 11/01/2022 at 9:06 AMPreliminary result electronically signed by Suzan Teixeira MD on 10/27/2022 at 11:55 AMPreliminary result electronically signed by Suzan Teixeira MD on 10/26/2022 at 11:55 AMThe finding was communicated via secure email with Phoenix Edmonds <[email or web address] GI Department at 11:52 on October 26, [id number], [id number], [id number] hemorrhage associated with gastritisA. Biopsy, GastricReceived in [...] evaluated and the report was issued at [facility] (CLIA#[id number]), [address] [place] [address].The interpretation of this case included the use of immunohistochemistry or special stains.Control Slides Examined: In-house known positive controls were evaluated along with the test tissue. These control slides run alongside of the patients sample show appropriate staining. Internal positive and negative controls when available are evaluated Immunohistochemistry technical testing was performed at [facility], Pathology Laboratory where it was developed and [...] LIVER 9 exam:->gastric 12:01:00 mass and liver [facility] - mass with afp [facility]ENTER[facility]: JOSE, >[id number] HONORIO PORTER : 1980 this be Sex: performed at M the bedside?->No FINAL REPORT Procedure: Liver mass core biopsy Pre/post-procedure diagnosis: Liver mass Technical Solution Architect: Bebo Low MD Assistants: none Sedation: Moderate [...] s not applicable for dialysis tamika chaves Cleaning Laborer ID - [id number] 05:48:04 Test Item Value Reference Range Interpretation Comments MAGNESIUM (BEAKER) (test code = 1.7 mg/dL 1.6-2.6 627) Cleaning Laborer ID - MMCBC W/PLT COUNT & AUTO [id number] 05:27:57 Test Item Value Reference Range Interpretation [...] 0.00-1.00 PERCENT (BEAKER) (test code = 2801) [id number] 06:55:04 Test Item Value Reference Range Interpretation Comments MAGNESIUM (BEAKER) (test code = 1.6 mg/dL 1.6-2.6 627) Cleaning Laborer ID - BSBASIC METABOLIC [id number] 06:55:03 Test Item Value Reference Range Interpretation [...] not appl icable for dialysis patien ts Cleaning Laborer ID - BSPROTHROMBIN [id number] 06:18:33 Test Item Value Reference Range Interpretation [...] mechanical heart valves.CBC W/PLT COUNT & AUTO [id number] 06:07:18 Test Item Value Reference Range Interpretation [...] (BEAKER) (test code = 2801) COMPREHENSIVE METABOLIC [id number] 07:14:31 Test Item Value Reference Range Interpretation [...] eGF R is based on the CKD-EPI 2021 equation that d oes not use a race coefficientEsti mated GFR is not as accur ate as Creatinine Iman bacon in predicting glom erular filtration rate . Estimated GFR is not appl icable for dialysis patien ts Cleaning Laborer ID - DENIS [id number] 07:14:31 Test Item Value Reference Range Interpretation Comments MAGNESIUM (BEAKER) (test code = 1.5 mg/dL 1.6-2.6 L 627) Cleaning Laborer ID - DENIS WCBC W/PLT COUNT & AUTO [id number] 06:55:14 Test Item Value Reference Range Interpretation [...] (test code = 2801) ROSALINDA TITER AND [id number] 13:55:32 Test Item Value Reference Range Interpretation Comments ROSALINDA TITER :160 (BEAKER) (test code = 1541) ROSALINDA PATTERN Cytoplasmic/Anti-mi Cytoplas beatriz (BEAKER) (test tochondrial staining is p resent code = 1781) antibodies - see suggestive of comment Anti-mitochondr ial antibodies. If clinically indicated, recommend testi ng for Anti-mitochondr ial antibodies. ANTI-NUCLEAR ANTIBODY (ROSALINDA)2022-10-24 13:55:03 Test Item Value Reference Range Interpretation Comments ANTI-NUCLEAR ANTIBODY (ROSALINDA) (BEAKER) Negative Negative (test code = 418) Test performed by IFA method.Test performed by IFA method.CT, CHEST, WITH [id number] 13:00:00Unlisted Reason for Exam - Click Yes and Enter Reason Below->NoMENIFEE [facility]LOBAL [facility]Name: [facility]ARC[facility] JR : 1980 Sex: MFINAL [...] identified in the thorax. Signed: Maria C Olvera MDReport Verified Date/Time: 10/24/2022 13:00:41 Reading Location: [address] Consult Reading Room CT, [id number] 13:00:00Unlisted Reason for Exam - Click Yes and Enter Reason Below->NoProtocol Please Specify:->Standard ProtocolWill this procedure require oral contrast?->No [facility] : 1980 Sex: MFINAL [...] identified in the thorax. Signed: Maria C Olvera MDReport Verified Date/Time: 10/24/2022 13:00:41 Reading Location: [facility] C013X [facility] Consult Reading Room CBC W/PLT COUNT & [...] 0.00-1.00 PERCENT (BEAKER) (test code = 2801) [id number] 05:38:34 Test Item Value Reference Range Interpretation Comments MAGNESIUM (BEAKER) (test code = 1.5 mg/dL 1.6-2.6 L 627) Cleaning Laborer ID - MMCOMPREHENSIVE METABOLIC [id number] 05:38:33 Test Item Value Reference Range Interpretation [...] not appl icable for dialysis patien ts Cleaning Laborer ID - MMHEMOGLOBIN AND [id number] 16:05:28 Test Item Value Reference Range Interpretation Comments HEMOGLOBIN (BEAKER) (test code = 14.4 GM/DL 13.7-17.5 410) HEMATOCRIT (BEAKER) (test code = 44.3 % 40.1-51.0 411) Cleaning Laborer ID - [id number] 09:39:18 Test Item Value Reference Range Interpretation Comments MAGNESIUM (BEAKER) 1.6 mg/dL 1.6-2.6 Specimen slightly (test code = 627) hemolyzed Cleaning Laborer ID - MMBASIC METABOLIC [id number] 09:39:18 Test Item Value Reference Range Interpretation [...] high >=90 G2 Mildly decreased 60-89 G3a Mild ly to moderately 45-5 9 G3b Moderately to [...] not appl icable for dialysis patien ts Cleaning Laborer ID - MMHEPATIC FUNCTION [id number] 09:39:18 Test Item Value Reference Range Interpretation [...] Specimen slightly (test code = 347) hemolyzed Cleaning Laborer ID - MMCBC W/PLT COUNT & AUTO [id number] 06:38:29 Test Item Value Reference Range Interpretation [...] PERCENT (BEAKER) (test code = 2801) HEMOGLOBIN [id number] 08:56:25 Test Item Value Reference Range Interpretation [...] 5.7- 6.4% indicates increased risk for diabetes (prediabetes)."Cleaning Laborer ID - ADM [id number] 07:09:54 Test Item Value Reference Range Interpretation Comments FERRITIN (BEAKER) (test code = 159.87 ng/mL 5.00-275.00 361) Cleaning Laborer ID - MARCOALPHA FETOPROTEIN (AFP), TUMOR [id number] 06:32:10 Test Item Value Reference Range Interpretation Comments ALPHA-FETOPROTEIN (BEAKER) 68414.5 ng/mL <10.0 H (test code = 1094) Cleaning Laborer ID - ADMINOperator ID - ADMINHEPATITIS B SURFACE [id number] 06:31:52 Test Item Value Reference Range Interpretation Comments HEPATITIS B SURFACE ANTIBODY < mIU/mL <8.0 (BEAKER) (test code = 647) Cleaning Laborer ID - ADMINHEPATITIS A ANTIBODY, [id number] 06:31:00 Test Item Value Reference Range Interpretation Comments HEPATITIS A IGG ANTIBODY (BEAKER) Nonreactive Nonreactive (test code = 2797) Cleaning Laborer ID - ADMINCARCINOEMBRYONIC ANTIGEN (CEA)2022-10-22 06:30:59 Test Item Value Reference Range Interpretation Comments CARCINOEMBRYONIC ANTIGEN (BEAKER) 5.6 ng/mL 0.0-5.0 H (test code = 685) Cleaning Laborer ID - ADMINHEPATITIS B CORE ANTIBODY, [id number] 06:30:59 Test Item Value Reference Range Interpretation Comments HEPATITIS B CORE TOTAL ANTIBODY Nonreactive Nonreactive (BEAKER) (test code = 497) Cleaning Laborer ID - ADMINHEPATITIS PANEL, [id number] 06:03:10 Test Item Value Reference Range Interpretation Comments HEPATITIS A IGM ANTIBODY (BEAKER) Nonreactive Nonreactive (test code = 498) HEPATITIS B CORE IGM ANTIBODY Nonreactive Nonreactive (BEAKER) (test code = 645) HEPATITIS C ANTIBODY (BEAKER) Nonreactive Nonreactive (test code = 367) HEPATITIS B SURFACE ANTIGEN (2) Nonreactive Nonreactive (BEAKER) (test code = 2585) Cleaning Laborer ID - [id number] 05:54:41 Test Item Value Reference Range Interpretation Comments MAGNESIUM (BEAKER) (test code = 1.7 mg/dL 1.6-2.6 627) Cleaning Laborer ID - MARCOLIPID [id number] 05:54:41 Test Item Value Reference Range Interpretation [...] Borderline 130-159 High 160-189 Very High >=190 Cleaning Laborer ID - MARCOHEPATIC FUNCTION [id number] 05:54:41 Test Item Value Reference Range Interpretation [...] (test code = 54 U/L 6-55 347) Cleaning Laborer ID - MARCOBASIC METABOLIC [id number] 05:54:40 Test Item Value Reference Range Interpretation [...] not appl icable for dialysis patien ts Cleaning Laborer ID - JAIME, TIBC, % SAT. (WITHOUT FERRITIN)2022-10-22 05:39:20 Test Item Value Reference Range Interpretation Comments IRON (BEAKER) (test code = 547) 61.0 ug/dL 40.0-160.0 TOTAL IRON BINDING CAPACITY 273 ug/dL 250-450 (BEAKER) (test code = 769) IRON % SATURATION (2) (BEAKER) 22 % 20-55 (test code = 2590) Cleaning Laborer ID - [id number] 05:39:03 Test Item Value Reference Range Interpretation Comments ALPHA-1 ANTITRYPSIN (BEAKER) 211.70 mg/dL 90.00-200.00 H (test code = 502) Cleaning Laborer ID - ADMINCBC W/PLT COUNT & AUTO [id number] 05:15:17 Test Item Value Reference Range Interpretation [...] (BEAKER) (test code = 2801) HEPATIC FUNCTION [id number] 15:14:35 Test Item Value Reference Range Interpretation [...] Specimen slightly (test code = 347) hemolyzed Cleaning Laborer ID - MARCOPROTHROMBIN [id number] 15:14:35 Test Item Value Reference Range Interpretation Comments PROTIME (BEAKER) (test code = 14.7 seconds 11.9-14.2 H 759) INR (BEAKER) (test code = 370) 1.22 <=5.90 RECOMMENDED COUMADIN/WARFARIN INR THERAPY RANGESSTANDARD DOSE: 2.0 - 3.0 Includes: PROPHYLAXIS for venous thrombosis, systemic embolization; TREATMENT for venous thrombosis and/or pulmonary embolus.HIGH RISK: Target INR is 2.5-3.5 for patients with mechanical heart valves.BASIC METABOLIC [id number] 15:14:34 Test Item Value Reference Range Interpretation [...] eGF R is based on the CKD-EPI 2021 equation that d oes not use a race coefficientEsti mated GFR is not as accur ate as Creatinine Iman bacon in predicting glom erular filtration rate . Estimated GFR is not appl icable for dialysis patien ts Cleaning Laborer ID - MARCOCBC W/PLT COUNT & AUTO [id number] 14:53:39 Test Item Value Reference Range Interpretation [...]
[2022-11-05 01:43] LABS: Absolute Lymphocytes (CBC) 1.3 K/uL (0.7-4.9); Hematocrit 33.3 % (39.6-49.0); Lymphocytes % 17.5 % (15.3-44.8); MCV 83.5 fL (80-100); MPV 7.6 fL (7.6-11.3); RBC Red Blood Cell Count 3.99 M/uL (4.33-5.43)
[2022-11-05] MEDS ORDERED: FAMOTIDINE 20 MG/2 ML VIAL IV ONE (01:48)
[2022-11-05] MEDS ORDERED: MORPHINE 4 MG/ML SYR ONE (01:48)
[2022-11-05] MEDS ORDERED: ONDANSETRON 4 MG/2 ML VIAL ONE (01:48)
[2022-11-05 01:59] LABS: Albumin 3.1 g/dL (3.4-5.0); Bilirubin Total 0.4 mg/dL (0.2-1.0); Potassium 4.1 mEq/L (3.5-5.1); Protein, Total 7.1 g/dL (6.4-8.2)
--- NOTE | 2022-11-05 03:33 | EDPHYS ---
Physician Documentation [facility] Name: Ayden Andres Jr Age: 42 yrs Sex: Male : 1980 Arrival Date: 11/05/2022 Time: 00:34 Bed 2 Private MD: ED Physician Yony Shaffer HPI: 11/06 02:41 This 42 yrs old Male presents to ER via Ambulatory with complaints of kdr Abdominal Pain. 02:41 . kdr 02:42 Patient states that they have a history of stomach cancer and cirrhosis of the liver. kdr Patient feels that there is something wrong that we have yet to identify. They indicate that the pain keeps getting worse. They do have an appointment on Sunday with the cancer specialist. Patient otherwise has no new findings from their prior visits. This is the patient's third visit since October 21 for the same complaint.. Onset: The symptoms/episode began/occurred at an unknown time. Severity of symptoms: At their worst the symptoms were mild moderate just prior to arrival, in the emergency department the symptoms are unchanged. The patient has experienced similar episodes in the past, chronically. The patient has been recently seen at the [facility] Emergency Department, last week, a couple of weeks ago, last month. Historical: - Allergies: 11/05 00:57 No Known Allergies; kd3 - Home Meds: 02:16 Omeprazole Oral [Active]; sucralfate 100 mg/mL Oral suspension [Active]; vc1 - PMHx: 02:16 None; vc1 - PSHx: 02:16 None; vc1 - Immunization history:: Adult Immunizations up to date. - Social history:: Smoking status: Patient denies any tobacco usage or history of. ROS: 11/06 02:42 Constitutional: Negative for fever, chills, and weight loss, Eyes: Negative for injury, kdr pain, redness, and discharge, ENT: Negative for injury, pain, and discharge, Neck: Negative for injury, pain, and swelling, Cardiovascular: Negative for chest pain, palpitations, and edema, Respiratory: Negative for shortness of breath, cough, wheezing, and pleuritic chest pain, Back: Negative for injury and pain, : Negative for injury, bleeding, discharge, and swelling, MS/Extremity: Negative for injury and deformity, Skin: Negative for injury, rash, and discoloration, Neuro: Negative for headache, weakness, numbness, tingling, and seizure activity. Psych: Negative for depression, anxiety, suicide ideation, homicidal ideation, and hallucinations, Allergy/Immunology: Negative for hives, rash, and allergies, Endocrine: Negative for neck swelling, polydipsia, polyuria, polyphagia, and marked weight changes, Hematologic/Lymphatic: Negative for swollen nodes, abnormal bleeding, and unusual bruising. Abdomen/GI: Positive for abdominal pain, nausea, Negative for diarrhea, constipation, abdominal cramps, abdominal distension, anorexia, black/tarry stool, rectal pain, rectal bleeding, bowel incontinence. Exam: 02:42 Constitutional: This is a well developed, well nourished patient who is awake, alert, kdr and in no acute distress. Head/Face: Normocephalic, atraumatic. Eyes: Pupils equal round and reactive to light, extra-ocular motions intact. Lids and lashes normal. Conjunctiva and sclera are non-icteric and not injected. Cornea within normal limits. Periorbital areas with no swelling, redness, or edema. Neck: Trachea midline, no thyromegaly or masses palpated, and no cervical lymphadenopathy. Supple, full range of motion without nuchal rigidity, or vertebral point tenderness. No Meningismus. Chest/axilla: Normal chest wall appearance and motion. Nontender with no deformity. No lesions are appreciated. Cardiovascular: Regular rate and rhythm with a normal S1 and S2. No gallops, murmurs, or rubs. Normal PMI, no JVD. No pulse deficits. Respiratory: Lungs have equal breath sounds bilaterally, clear to auscultation and percussion. No rales, rhonchi or wheezes noted. No increased work of breathing, no retractions or nasal flaring. Abdomen/GI: Soft, non-tender, with normal bowel sounds. No distension or tympany. No guarding or rebound. No evidence of tenderness throughout. Back: No spinal tenderness. No costovertebral tenderness. Full range of motion. Skin: Warm, dry with normal turgor. Normal color with no rashes, no lesions, and no evidence of cellulitis. MS/ Extremity: Pulses equal, no cyanosis. Neurovascular intact. Full, normal range of motion. Neuro: Awake and alert, GCS 15, oriented to person, place, time, and situation. Cranial nerves II-XII grossly intact. Motor strength 5/5 in all extremities. Sensory grossly intact. Cerebellar exam normal. Normal gait. Psych: Awake, alert, with orientation to person, place and time. Behavior, mood, and affect are within normal limits. Vital Signs: 11/05 00:55 Weight 87.09 kg; Height 5 ft. 11 in. ; kd3 01:06 BP 128 / 81; Pulse 71; Resp 16; Pulse Ox 99% ; kd3 02:15 BP 116 / 79; Pulse 56; Resp 14; Pulse Ox 98% on R/A; vc1 02:56 Temp 98.2(TE); kd3 03:44 ll3 00:55 Body Mass Index 26.78 (87.09 kg, 180.34 cm) kd3 03:44 Pt refuses VS ll3 MDM: 03:32 Patient medically screened. kdr 11/06 02:42 Data reviewed: vital signs, nurses notes, lab test result(s), radiologic studies. kdr 11/05 01:28 Order name: CBC with Diff; Complete Time: 02:59 kdr 11/05 01:28 Order name: CMP; Complete Time: 02:59 kdr 11/05 01:28 Order name: Lipase; Complete Time: 02:59 kdr 11/05 01:28 Order name: CT Abd/Pelvis - IV Contrast Only kdr 11/05 01:28 Order name: IV Saline Lock; Complete Time: 01:39 kdr 11/05 01:28 Order name: Labs collected and sent; Complete Time: 01:45 kdr Administered Medications: 11/05 01:55 Drug: Famotidine IVP 20 mg Route: IVP; Site: right antecubital; vc1 03:42 Follow up: Response: No adverse reaction ll3 01:55 Drug: Ondansetron IVP 4 mg Route: IVP; Site: right antecubital; vc1 03:42 Follow up: Response: No adverse reaction ll3 02:01 Drug: morphine IVP or IV 4 mg Route: IVP; Infused Over: 4 mins; Site: right antecubital;vc1 03:42 Follow up: Response: No adverse reaction; Pain is decreased ll3 Disposition Summary: 11/05/22 03:32 Discharge Ordered Location: Home kdr Problem: an acute exacerbation kdr Symptoms: have improved kdr Condition: Stable kdr Diagnosis - Upper abdominal pain, unspecified kdr - Liver Cancer kdr Followup: kdr - With: Private Physician - When: 1 - 2 days - Reason: If symptoms return, Further diagnostic work-up, Recheck today's complaints, Continuance of care, Re-evaluation by your physician Discharge Instructions: - Discharge Summary Sheet kdr - Abdominal Pain, Adult, [id number] kdr Forms: - Medication Reconciliation Form kdr - Thank You Letter kdr - Prescription Opioid Use kdr Prescriptions: - acetaminophen-codeine 300-30 mg Oral tablet - take 1 tablet by ORAL route every 6 hours As needed; 16 tablet; Refills: 0, kdr Product Selection Permitted - Protonix 40 mg Oral Tablet - take 1 tablet by ORAL route once daily; 30 tablet; Refills: 0, Product kdr Selection Permitted - Zofran 4 mg Oral Tablet - take 1 tablet by ORAL route every 4-6 hours As needed; 16 tablet; Refills: 0, kdr Product Selection Permitted Signatures: Dispatcher [employer] Yony Can MD MD kdr Yina Palacio RN RN kd3 Barbara Juarez RN RN vc1 Hipolito Kumari RN ll3
--- NOTE | 2022-11-05 03:33 | ER ---
Nurse's Notes [facility] Name: Ayden Andres Jr Age: 42 yrs Sex: Male : 1980 Arrival Date: 11/05/2022 Time: 00:34 Bed 2 Private MD: Diagnosis: Upper abdominal pain, unspecified;Liver Cancer Presentation: 11/05 00:55 Chief complaint: Patient states: I have sharp stomach pains again, I have cirrhosis of kd3 the liver and stomach cancer and I keep telling yall somethin is wrong. It hurts and is getting worse. I am supposed to go see the cancer specialist on Sunday. Coronavirus screen: Vaccine status: Patient reports being unvaccinated. Ebola Screen: No symptoms or risks identified at this time. Initial Sepsis Screen: Does the patient meet any 2 criteria? No. Patient's initial sepsis screen is negative. Does the patient have a suspected source of infection? No. Patient's initial sepsis screen is negative. Risk Assessment: Do you want to hurt yourself or someone else? Patient reports no desire to harm self or others. Onset of symptoms was November 05, 2022. 00:55 Method Of Arrival: Ambulatory kd3 00:55 Acuity: JOSE 3 kd3 Triage Assessment: 00:57 General: Appears uncomfortable, Behavior is calm, cooperative. Pain: Complains of pain kd3 in abdomen. GI: Abdomen is non-distended. Historical: - Allergies: 00:57 No Known Allergies; kd3 - Home Meds: 02:16 Omeprazole Oral [Active]; sucralfate 100 mg/mL Oral suspension [Active]; vc1 - PMHx: 02:16 None; vc1 - PSHx: 02:16 None; vc1 - Immunization history:: Adult Immunizations up to date. - Social history:: Smoking status: Patient denies any tobacco usage or history of. Screenin:15 [facility] ED Fall Risk Assessment (Adult) History of falling in the last 3 months, vc1 including since admission No falls in past 3 months (0 pts) Confusion or Disorientation No (0 pts) Intoxicated or Sedated No (0 pts) Impaired Gait No (0 pts) Mobility Assist Device Used No (0 pt) Altered Elimination No (0 pt) Score/Fall Risk Level 0 - 2 = Low Risk Oriented to surroundings, Maintained a safe environment, Educated pt \T\ family on fall prevention, incl call for assistance when getting out of bed. Abuse screen: Denies threats or abuse. Abuse screen: Denies threats or abuse. Nutritional screening: No deficits noted. Tuberculosis screening: No symptoms or risk factors identified. Assessment: 02:15 Reassessment: No changes from previously documented assessment. Patient and/or family vc1 updated on plan of care and expected duration. Pain level reassessed. Patient is alert, oriented x 3, equal unlabored respirations, skin warm/dry/pink. Vital Signs: 00:55 Weight 87.09 kg; Height 5 ft. 11 in. ; kd3 01:06 BP 128 / 81; Pulse 71; Resp 16; Pulse Ox 99% ; kd3 02:15 BP 116 / 79; Pulse 56; Resp 14; Pulse Ox 98% on R/A; vc1 02:56 Temp 98.2(TE); kd3 03:44 ll3 00:55 Body Mass Index 26.78 (87.09 kg, 180.34 cm) kd3 03:44 Pt refuses VS ll3 ED Course: 00:37 Patient arrived in ED. ja2 00:54 Yony Shaffer MD is Attending Physician. kdr 00:57 Triage completed. kd3 00:57 Arm band placed on right wrist. kd3 01:05 Patient has correct armband on for positive identification. Bed in low position. Call vc1 light in reach. Pulse ox on. NIBP on. 01:05 Inserted saline lock: 18 gauge in right antecubital area, using aseptic technique. vc1 Blood collected. 02:14 Barbara Juarez, ANA is Primary Nurse. vc1 02:16 No provider procedures requiring assistance completed. vc1 02:21 CT Abd/Pelvis - IV Contrast Only In Process Unspecified. EDMS 03:42 IV discontinued, intact, bleeding controlled, No redness/swelling at site. Pressure ll3 dressing applied. Administered Medications: 01:55 Drug: Famotidine IVP 20 mg Route: IVP; Site: right antecubital; vc1 03:42 Follow up: Response: No adverse reaction ll3 01:55 Drug: Ondansetron IVP 4 mg Route: IVP; Site: right antecubital; vc1 03:42 Follow up: Response: No adverse reaction ll3 02:01 Drug: morphine IVP or IV 4 mg Route: IVP; Infused Over: 4 mins; Site: right antecubital;vc1 03:42 Follow up: Response: No adverse reaction; Pain is decreased ll3 Medication: 02:16 VIS not applicable for this client. vc1 Outcome: 03:32 Discharge ordered by . kdr 03:42 Discharged to home ambulatory. ll3 03:42 Condition: stable 03:42 Discharge instructions given to patient, Instructed on discharge instructions, follow up and referral plans. medication usage, Demonstrated understanding of instructions, follow-up care, medications, Prescriptions given X 3. 03:44 Patient left the ED. ll3 Signatures: Dispatcher [employer] EDMS oYny Shaffer MD MD kdr Alexander, Jessica ja2 Loubet, Lynsea, RN RN ll3 Yina Palacio RN RN kd3 Barbara Juarez RN RN vc1
[2022-11-05 04:16] VITALS: BP 116/79; O2SAT 98
[2022-11-05 04:17] VITALS: TEMP 98.2
--- NOTE | 2022-11-06 15:22 | RAD REPORT ---
EXAM DESCRIPTION: CT - Abdomen Pelvis W Contrast - 11/05/2022 5:10 am CLINICAL HISTORY: ABD PAIN TECHNIQUE: Axial computed tomography images of the abdomen and pelvis with intravenous contrast. S agittal and coronal reformatted images were created and reviewed. This CT exam was performed using one or more of the following dose reduction techniques: automated exposure control, adjustment of t he mA and/or kV according to patient size, and/or use of iterative reconstruction technique. COMPARISON: CT Abdomen Pelvis dated 10/21/2022 FINDINGS: Lung bases: Bibasilar paraseptal emphysema and subsegmental atelectasis/pleural parenchy mal scar. ABDOMEN: Liver: Multiple heterogeneous hepatic masses, increased in number and size. An index lesion in th e left medial liver measures 10.4 cm (previously 8.1 cm). Gallbladder and bile ducts: Gallstones within the gallbladder. No gallbladder wall thickening. No ductal dilation. Pancreas: Unremarkable. No mass. No ductal dilation. Spleen: Unremarkable. No splenomegaly. Adrenals: Unremarkable. No mass. Kidneys and ureters: Unremarkable. No solid mass. No hydronephrosis. Stomach and bowel: Moderate stool. Colonic diverticula without adjacent inflammatory change. No obstruction. No mucosal thickening. PELVIS: Appendix: Normal caliber appendix. No findings to suggest acute appendicitis. Bladder: Unremarkable. No mass. Reproductive: Unremarkable as visualized. ABDOMEN and PELVIS: Intraperitoneal space: Small amount of free fluid. No free air. Bones/joints: Multilevel spondylosis. Chronic bilateral pars interarticularis defects at L4 and L 5 with associated grade 1 spondylolisthesis of L4 on L5 and L5 on S1. No acute fracture. No dislo cation. Soft tissues: Unremarkable. Vasculature: Minimal atherosclerotic disease. No abdominal aortic aneurysm. Lymph nodes: Heterogeneous gastrohepatic and anay hepatic lymphadenopathy. An index anay hepati c lymph node has increased in size measuring 2.9 cm in short axis (previously 2.2 cm).. IMPRESSION: 1. Progressive hepatic masses and lymphadenopathy most compatible with with metastatic disease. Please correlate with known any known primary. 2. Other findings as above. Electronically signed by: Sri Mcdonald MD 11/05/2022 2:49 AM CDT Due to temporary technical issues with the PACS/Fluency reporting system, reports are being signed by the in house radiologist without review as a courtesy to ensure prompt reporting. The interpreting r adiologist is fully responsible for the content of the report.
== END 2022-11-05 03:44 | disposition home or self-care (01) ==
LOC: ER 00:34
DX: C22.0 Liver cell carcinoma (principal); Z85.028 Personal history of other malignant neoplasm of stomach
CPT/HCPCS: 85025; 36415; 83690; 80053; 74177; 96375; 96374; 99284; Q9967; J2405

== ENCOUNTER 2022-11-15 18:45 | Emergency (ER) | payer OTHER ==
--- OUTSIDE RECORDS SUMMARY | 2022-11-15 19:03 | XMS REPORT | Continuity of Care Document ---
:1980 Author Organization [facility] t Address [address] [place] [address] Care Team Providers Name Role Phone KENRICK DECKER Attending Clinician Unavailable MANNY FOWLER Attending Clinician Unavailable BRIAN FORDE Attending Clinician Unavailable Navjot Thakkar MD Attending Clinician Phoenix Ogden MD Attending Clinician [phone] [place] OGDEN Attending Clinician Unavailable RUBINA MORAES Admitting Clinician Unavailable MITRA JERONIMO Admitting Clinician Unavailable Payers Payer Name Policy Type Policy Number Effective Date Expiration Date S ource MEDICAID [employer] [id number] 2020 00:00:00 [facility] [employer] [id number] 2020 00:00:00 Problems Condition Condition Condition Status Onset Resolution Last Treating Co mments Source Name Details Category Date Date Treatment Clinician Date Bradycardi Bradycardi [facility] GI bleed GI bleed Disease [facility] [place] Liver mass Liver mass Disease [facility] Allergies, Adverse Reactions, Alerts Allergy Allergy Status Severity Reaction(s) Onset Inactive Treating Comm ents Source Name Type Date Date Clinician NO KNOWN [facility] Social History Social Habit Start Date Stop Date Quantity Comments Source History SDOH [facility] History SDOH 2022-10-21 2022-10-[address] [facility] Med 00:00:00 00:00:[address] History SDOH Housing 2022-10-21 2022-10-[address] [facility] Unable to Pay 00:00:00 00:00:[address] History SDOH Housing 2022-10-21 2022-10-[address] [facility] Places Lived 00:00:00 00:00:00 Medical Cent er History SDOH Housing 2022-10-21 2022-10-[address] [facility] Homeless Last Year 00:00:00 00:00:00 [facility] Sex Assigned At [birth year] INOC[place] R[place] kes 00:00:00 00:00:00 Medical Center Medications This patient has no known medications. Vital Signs Vital Name Observation Time Observation Value Comments Source HEIGHT 2022-11-06 13:48:00 180.3 cm WEIGHT 2022-11-06 13:48:00 84.097 kg HEIGHT 2022-11-06 13:48:00 180.3 cm WEIGHT 2022-11-06 13:48:00 84.097 kg HEIGHT 2022-10-23 11:07:00 180.3 cm WEIGHT 2022-10-23 11:07:00 87.091 kg WEIGHT 2022-10-22 09:40:00 87.261 kg HEIGHT 2022-10-23 11:07:00 180.3 cm WEIGHT 2022-10-23 11:07:00 87.091 kg WEIGHT 2022-10-22 09:40:00 87.261 kg Heart rate 2022-10-24 07:00:00 55 /min [facility] Respiratory rate 2022-10-24 04:55:00 18 /min [facility] Oxygen saturation in 2022-10-24 04:55:00 97 /min [facility] Arterial blood by Medical Ce nter Pulse oximetry Systolic blood 2022-10-24 04:02:00 113 mm[Hg] [facility] Diastolic blood 2022-10-24 04:02:00 63 mm[Hg] [facility] Body temperature 2022-10-24 04:02:00 35.94 Carlota [facility] Body height 2022-10-23 11:07:00 180.3 cm [facility] Body weight 2022-10-23 11:07:00 87.091 kg [facility] BMI 2022-10-23 11:07:00 26.78 kg/m2 [facility] Procedures Procedure Date / Time Performing Clinician Source Performed CBC W/PLT COUNT & AUTO 2022-10-24 06:08:00 [facility] DIFFERENTIAL [facility] CBC W/PLT COUNT & AUTO 2022-10-24 06:08:00 [facility] DIFFERENTIAL [facility] MAGNESIUM 2022-10-24 05:01:00 [facility] COMPREHENSIVE METABOLIC 2022-10-24 05:01:00 Dima Berrios I [facility] HEMOGLOBIN AND HEMATOCRIT 2022-10-23 15:55:00 Dima Berrios [facility] REPORT OF PROCEDURE - 2022-10-23 12:35:10 Phoenix Ogden [facility] ENDOSCOPY [facility] ENDOSCOPY, UPPER GI TRACT, 2022-10-23 11:34:00 Phoenix Ogden [facility] WITH BIOPSY [facility] ABORH, MANUAL 2022-10-23 08:13:00 Maria Elena Milian [facility] BASIC METABOLIC PANEL 2022-10-23 06:29:00 [facility] MAGNESIUM 2022-10-23 06:29:00 [facility] CBC W/PLT COUNT & AUTO 2022-10-23 06:29:00 [facility] DIFFERENTIAL [facility] HEPATIC FUNCTION PANEL 2022-10-23 06:29:00 [facility] TYPE AND SCREEN, AUTOMATED 2022-10-23 06:29:00 Josué Coats [facility] CBC W/PLT COUNT & AUTO 2022-10-23 06:29:00 [facility] 2022-10-22 04:19:00 [facility] BASIC METABOLIC PANEL 2022-10-22 04:19:00 [facility] 2022-10-22 04:19:00 [facility] CBC W/PLT COUNT & AUTO 2022-10-22 04:19:00 [facility] FUN[facility]EL 2022-10-22 04:19:00 [facility] B CORE ANTIBODY, 2022-10-22 04:19:00 Dmitry Dale [facility] HEPATITIS PANEL, ACUTE 2022-10-22 04:19:00 Suyapa [facility] HEPATITIS A ANTIBODY, IGG 2022-10-22 04:19:00 [facility] HEPATITIS B SURFACE 2022-10-22 04:19:00 Suyapa [facility] FERRITIN 2022-10-22 04:19:00 [place] [facility] [place], TIBC, % SAT. (WITHOUT 2022-10-22 04:19:[address] [facility] FERRITIN) [facility] [id number]\\, SERUM 2022-10-22 04:19:00 [place] [facility] [place] FETOPROTEIN (AFP), 2022-10-22 04:19:[address] [facility] TUMOR MARKER [facility] CARCINOEMBRYONIC ANTIGEN 2022-10-22 04:19:[address] [facility] (CEA) [facility] CBC W/PLT COUNT & AUTO 2022-10-22 04:19:00 Vernon [facility] Center ECG 12-LEAD 2022-10-21 17:09:37 [facility] ECG 12-LEAD 2022-10-21 17:09:37 Unknown, Hl7 Doctor [facility] HEPATIC FUNCTION PANEL 2022-10-21 14:42:00 [facility] BASIC METABOLIC PANEL 2022-10-21 14:42:00 [facility] HEMOGLOBIN A1C 2022-10-21 14:42:00 [facility] PROTHROMBIN TIME/INR 2022-10-21 14:42:00 [facility] CBC W/PLT COUNT & AUTO 2022-10-21 14:42:00 [facility] CBC W/PLT COUNT & AUTO 2022-10-21 14:42:00 [facility] Plan of Care Planned Activity Planned Date Details Comments Source Future Scheduled 2027-10-[address] [facility] 00:[facility]:00 (procedure) [code = [facility] [id number]] Future Scheduled 2023-02-[address] [...] Date/Time Type Type Clinicians Facility Department ID 2022-11-21 2022-11-21 Outpatient BHARAT [facility] [id number] SLE 00:00:00 00:00:00 KENRICK 2022-11-17 2022-11-17 Outpatient BHARAT FOWLER [facility] [id number] SLE 00:00:00 00:00:00 MANNY 2022-11-07 2022-11-07 Outpatient BHARAT DECKER [facility] [id number] SLE 00:00:00 00:00:00 KENRICK 2022-11-06 2022-11-06 Outpatient BHARAT DECKER [facility] [id number] SLE 12:51:54 15:40:51 KENRICK 2022-11-06 2022-11-06 Outpatient BHARAT [facility] [id number] SLE 00:00:00 00:00:00 2022-10-21 2022-10-27 Inpatient ER [facility] G[facility] [id number] SLE 13:26:00 14:43:00 MANNY 2022-10-23 2022-10-23 Anesthesia [place], [facility] [id number] 11:35:00 13:04:00 Event [facility] 2022-10-23 2022-10-23 Surgery Melvi, [facility] [id number] 10:00:00 10:59:00 [facility] 2022-10-23 2022-10-23 Outpatient MELVI [facility] [id number] [facility] 07:47:59 07:47:59 PHOENIX [facility] Medic[facility] 2022-10-21 2022-10-21 Orders [facility] [id number] 00:00:00 00:00:00 Only [facility] Results Test Description Test Time Test Comments Results Result Comments Source HEPATIC FUNCTION PANEL 2022-11-11 06:52:32 Test Item Value Reference Range Interpretation Comme nts TOTAL PROTEIN (BEAKER) (test code = 770) 5.9 gm/dL 6.0-8.3 L ALBUMIN (BEAKER) (test code = 1145) 3.3 g/dL 3.5-5.0 L BILIRUBIN TOTAL (BEAKER) (test code = 377) 0.5 mg/dL 0.2-1.2 BILIRUBIN DIRECT (BEAKER) (test code = 706) 0.3 mg/dL 0.1-0.5 ALKALINE PHOSPHATASE (BEAKER) (test code = 346) 459 U/L 40-150 H AST (SGOT) (BEAKER) (test code = 353) 106 U/L 5-34 H ALT (SGPT) (BEAKER) (test code = 347) 64 U/L 6-55 H Transportation Driver ID - MMURIC [id number] 06:52:31 Test Item Value Reference Range Interpretation Comments URIC ACID (BEAKER) (test code = 2.7 mg/dL 2.6-7.2 773) Transportation Driver ID - MMBASIC METABOLIC [id number] 06:52:30 Test Item Value Reference Range Interpretation Comments SODIUM (BEAKER) 138 meq/L 136-145 (test code = 381) POTASSIUM 4.3 meq/L 3.5-5.1 (BEAKER) (test code = 379) CHLORIDE (BEAKER) 106 meq/L 98-107 (test code = 382) CO2 (BEAKER) 23 meq/L 22-29 (test code = 355) BLOOD UREA 10 mg/dL 7-21 NITROGEN (BEAKER) (test code = 354) CREATININE 0.82 mg/dL 0.57-1.25 (BEAKER) (test code = 358) GLUCOSE RANDOM 119 mg/dL 70-105 H (BEAKER) (test code = 652) CALCIUM (BEAKER) 8.7 mg/dL 8.4-10.2 (test code = 697) EGFR (BEAKER) 114 Interpretatio n of eGFR (test code = [...] not appl icable for dialysis patien ts Transportation Driver ID - [id number] 06:52:30 Test Item Value Reference Range Interpretation Comments PHOSPHORUS (BEAKER) (test code = 3.4 mg/dL 2.3-4.7 604) Transportation Driver ID - MMCBC W/PLT COUNT & AUTO [id number] 06:20:55 Test Item Value Reference Range Interpretation Comments WHITE BLOOD CELL COUNT (BEAKER) 7.3 K/ L 3.5-10.5 (test code = 775) RED BLOOD CELL COUNT (BEAKER) 3.57 M/ L 4.63-6.08 L (test code = 761) HEMOGLOBIN (BEAKER) (test code = 10.0 GM/DL 13.7-17.5 L 410) HEMATOCRIT (BEAKER) (test code = 30.5 % 40.1-51.0 L 411) MEAN CORPUSCULAR VOLUME (BEAKER) 85 fL 79-92 (test code = 753) MEAN CORPUSCULAR HEMOGLOBIN 28.0 pg 25.7-32.2 (BEAKER) (test code = 751) MEAN CORPUSCULAR HEMOGLOBIN CONC 32.8 GM/DL 32.3-36.5 (BEAKER) (test code = 752) RED CELL DISTRIBUTION WIDTH 13.2 % 11.6-14.4 (BEAKER) (test code = 412) PLATELET COUNT (BEAKER) (test 332 K/CU MM 150-450 code = 756) MEAN PLATELET VOLUME (BEAKER) 9.1 fL 9.4-12.4 L (test code = 754) NUCLEATED RED BLOOD CELLS 0 /100 WBC 0-0 (BEAKER) (test code = 413) NEUTROPHILS RELATIVE PERCENT 92 % (BEAKER) (test code = 429) LYMPHOCYTES RELATIVE PERCENT 6 % (BEAKER) (test code = 430) MONOCYTES RELATIVE PERCENT 1 % (BEAKER) (test code = 431) EOSINOPHILS RELATIVE PERCENT 0 % (BEAKER) (test code = 432) BASOPHILS RELATIVE PERCENT 0 % (BEAKER) (test code = 437) NEUTROPHILS ABSOLUTE COUNT 6.70 K/ L 1.78-5.38 H (BEAKER) (test code = 670) LYMPHOCYTES ABSOLUTE COUNT 0.44 K/ L 1.32-3.57 L (BEAKER) (test code = 414) MONOCYTES ABSOLUTE COUNT (BEAKER) 0.08 K/ L 0.30-0.82 L (test code = 415) EOSINOPHILS ABSOLUTE COUNT 0.00 K/ L 0.04-0.54 L (BEAKER) (test code = 416) BASOPHILS ABSOLUTE COUNT (BEAKER) 0.01 K/ L 0.01-0.08 (test code = 417) IMMATURE GRANULOCYTES-RELATIVE 0.60 % 0.00-1.00 PERCENT (BEAKER) (test code = 2801) BASIC METABOLIC [id number] 22:14:17 Test Item Value Reference Range Interpretation Comments SODIUM (BEAKER) 135 meq/L 136-145 L (test code = 381) POTASSIUM 4.3 meq/L 3.5-5.1 Specimen slight ly (BEAKER) (test hemolyzed code = 379) CHLORIDE (BEAKER) 104 meq/L 98-107 (test code = 382) CO2 (BEAKER) 23 meq/L 22-29 (test code = 355) BLOOD UREA 13 mg/dL 7-21 NITROGEN (BEAKER) (test code = 354) CREATININE 0.85 mg/dL 0.57-1.25 Specimen slight ly (BEAKER) (test hemolyzed code = 358) GLUCOSE RANDOM 99 mg/dL 70-105 (BEAKER) (test code = 652) CALCIUM (BEAKER) 8.4 mg/dL 8.4-10.2 (test code = 697) EGFR [...] not appl icable for dialysis patien ts Transportation Driver ID - ADMINURIC [id number] 22:12:41 Test Item Value Reference Range Interpretation Comments URIC ACID (BEAKER) 2.6 mg/dL 2.6-7.2 Specimen slightly (test code = 773) hemolyzed Transportation Driver ID - [id number] 22:12:40 Test Item Value Reference Range Interpretation Comments PHOSPHORUS (BEAKER) 3.8 mg/dL 2.3-4.7 Specimen slightly (test code = 604) hemolyzed Transportation Driver ID - ADMINBASIC METABOLIC [id number] 17:01:12 Test Item Value Reference Range Interpretation Comments SODIUM (BEAKER) 136 meq/L 136-145 (test code = 381) POTASSIUM 3.6 meq/L 3.5-5.1 (BEAKER) (test code = 379) CHLORIDE (BEAKER) 109 meq/L 98-107 H (test code = 382) CO2 (BEAKER) 19 meq/L 22-29 L (test code = 355) BLOOD UREA 10 mg/dL 7-21 NITROGEN (BEAKER) (test code = 354) CREATININE 0.68 mg/dL 0.57-1.25 (BEAKER) (test code = 358) GLUCOSE RANDOM 92 mg/dL 70-105 (BEAKER) (test code = 652) CALCIUM (BEAKER) 7.0 mg/dL 8.4-10.2 L (test code = 697) EGFR (BEAKER) 119 Interpretatio n of eGFR (test code = [...] not appl icable for dialysis patien ts Transportation Driver ID - [id number] 16:58:24 Test Item Value Reference Range Interpretation Comments PHOSPHORUS (BEAKER) (test code = 2.8 mg/dL 2.3-4.7 604) Transportation Driver ID - ADMINURIC [id number] 16:58:24 Test Item Value Reference Range Interpretation Comments URIC ACID (BEAKER) (test code = 2.1 mg/dL 2.6-7.2 L 773) Transportation Driver ID - ADMINURIC [id number] 06:57:40 Test Item Value Reference Range Interpretation Comments URIC ACID (BEAKER) (test code = 3.1 mg/dL 2.6-7.2 773) Transportation Driver ID - MMHEPATIC FUNCTION [id number] 06:57:40 Test Item Value Reference Range Interpretation Comments TOTAL PROTEIN (BEAKER) (test code = 5.8 gm/dL 6.0-8.3 L 770) ALBUMIN (BEAKER) (test code = 1145) 3.2 g/dL 3.5-5.0 L BILIRUBIN TOTAL (BEAKER) (test code 0.5 mg/dL 0.2-1.2 = 377) BILIRUBIN DIRECT (BEAKER) (test 0.3 mg/dL 0.1-0.5 code = 706) ALKALINE PHOSPHATASE (BEAKER) (test 472 U/L 40-150 H code = 346) AST (SGOT) (BEAKER) (test code = 102 U/L 5-34 H 353) ALT (SGPT) (BEAKER) (test code = 65 U/L 6-55 H 347) Transportation Driver ID - MMBASIC METABOLIC [id number] 06:57:39 Test Item Value Reference Range Interpretation Comments SODIUM (BEAKER) 139 meq/L 136-145 (test code = 381) POTASSIUM 4.2 meq/L 3.5-5.1 (BEAKER) (test code = 379) CHLORIDE (BEAKER) 108 meq/L 98-107 H (test code = 382) CO2 (BEAKER) 22 meq/L 22-29 (test code = 355) BLOOD UREA 8 mg/dL 7-21 NITROGEN (BEAKER) (test code = 354) CREATININE 0.74 mg/dL 0.57-1.25 (BEAKER) (test code = 358) GLUCOSE RANDOM 131 mg/dL 70-105 H (BEAKER) (test code = 652) CALCIUM (BEAKER) 8.8 mg/dL 8.4-10.2 (test code = 697) EGFR (BEAKER) 117 Interpretatio n of eGFR (test code = [...] not appl icable for dialysis patien ts Transportation Driver ID - [id number] 06:57:39 Test Item Value Reference Range Interpretation Comments PHOSPHORUS (BEAKER) (test code = 3.6 mg/dL 2.3-4.7 604) Transportation Driver ID - MMCBC W/PLT COUNT & AUTO [id number] 06:51:25 Test Item Value Reference Range Interpretation Comments WHITE BLOOD CELL COUNT (BEAKER) 10.1 K/ L 3.5-10.5 (test code = 775) RED BLOOD CELL COUNT (BEAKER) 3.64 M/ L 4.63-6.08 L (test code = 761) HEMOGLOBIN (BEAKER) (test code = 10.2 GM/DL 13.7-17.5 L 410) HEMATOCRIT (BEAKER) (test code = 30.4 % 40.1-51.0 L 411) MEAN CORPUSCULAR VOLUME (BEAKER) 84 fL 79-92 (test code = 753) MEAN CORPUSCULAR HEMOGLOBIN 28.0 pg 25.7-32.2 (BEAKER) (test code = 751) MEAN CORPUSCULAR HEMOGLOBIN CONC 33.6 GM/DL 32.3-36.5 (BEAKER) (test code = 752) RED CELL DISTRIBUTION WIDTH 13.0 % 11.6-14.4 (BEAKER) (test code = 412) PLATELET COUNT (BEAKER) (test 359 K/CU MM 150-450 code = 756) MEAN PLATELET VOLUME (BEAKER) 9.3 fL 9.4-12.4 L (test code = 754) NUCLEATED RED BLOOD CELLS 0 /100 WBC 0-0 (BEAKER) (test code = 413) NEUTROPHILS RELATIVE PERCENT 91 % (BEAKER) (test code = 429) LYMPHOCYTES RELATIVE PERCENT 6 % (BEAKER) (test code = 430) MONOCYTES RELATIVE PERCENT 3 % (BEAKER) (test code = 431) EOSINOPHILS RELATIVE PERCENT 0 % (BEAKER) (test code = 432) BASOPHILS RELATIVE PERCENT 0 % (BEAKER) (test code = 437) NEUTROPHILS ABSOLUTE COUNT 9.16 K/ L 1.78-5.38 H (BEAKER) (test code = 670) LYMPHOCYTES ABSOLUTE COUNT 0.56 K/ L 1.32-3.57 L (BEAKER) (test code = 414) MONOCYTES ABSOLUTE COUNT (BEAKER) 0.27 K/ L 0.30-0.82 L (test code = 415) EOSINOPHILS ABSOLUTE COUNT 0.00 K/ L 0.04-0.54 L (BEAKER) (test code = 416) BASOPHILS ABSOLUTE COUNT (BEAKER) 0.01 K/ L 0.01-0.08 (test code = 417) IMMATURE GRANULOCYTES-RELATIVE 0.50 % 0.00-1.00 PERCENT (BEAKER) (test code = 2801) BASIC METABOLIC [id number] 09:04:16 Test Item Value Reference Range Interpretation Comments SODIUM (BEAKER) 137 meq/L 136-145 (test code = 381) POTASSIUM 4.4 meq/L 3.5-5.1 Specimen slight ly (BEAKER) (test hemolyzed code = 379) CHLORIDE (BEAKER) 104 meq/L 98-107 (test code = 382) CO2 (BEAKER) 21 meq/L 22-29 L (test code = 355) BLOOD UREA 8 mg/dL 7-21 NITROGEN (BEAKER) (test code = 354) CREATININE 0.80 mg/dL 0.57-1.25 Specimen slight ly (BEAKER) (test hemolyzed code = 358) GLUCOSE RANDOM 126 mg/dL 70-105 H (BEAKER) (test code = 652) CALCIUM (BEAKER) 8.7 mg/dL 8.4-10.2 (test code = 697) EGFR [...] not appl icable for dialysis patien ts Transportation Driver ID - MMURIC [id number] 09:04:15 Test Item Value Reference Range Interpretation Comments URIC ACID (BEAKER) 4.1 mg/dL 2.6-7.2 Specimen slightly (test code = 773) hemolyzed Transportation Driver ID - [id number] 09:04:15 Test Item Value Reference Range Interpretation Comments PHOSPHORUS (BEAKER) 3.1 mg/dL 2.3-4.7 Specimen slightly (test code = 604) hemolyzed Transportation Driver ID - [id number] 05:03:52 Test Item Value Reference Range Interpretation Comments PHOSPHORUS (BEAKER) (test code = 3.7 mg/dL 2.3-4.7 604) Transportation Driver ID - MMURIC [id number] 05:03:52 Test Item Value Reference Range Interpretation Comments URIC ACID (BEAKER) (test code = 4.7 mg/dL 2.6-7.2 773) Transportation Driver ID - MMCOMPREHENSIVE METABOLIC [id number] 05:03:51 Test Item Value Reference Range Interpretation Comments TOTAL PROTEIN 5.7 gm/dL 6.0-8.3 L (BEAKER) (test code = 770) ALBUMIN (BEAKER) 3.2 g/dL 3.5-5.0 L (test code = 1145) ALKALINE 455 U/L 40-150 H PHOSPHATASE (BEAKER) (test code = 346) BILIRUBIN TOTAL 0.5 mg/dL 0.2-1.2 (BEAKER) (test code = 377) SODIUM (BEAKER) 138 meq/L 136-145 (test code = 381) POTASSIUM (BEAKER) 4.1 meq/L 3.5-5.1 (test code = 379) CHLORIDE (BEAKER) 105 meq/L 98-107 (test code = 382) CO2 (BEAKER) (test 22 meq/L 22-29 code = 355) BLOOD UREA 7 mg/dL 7-21 NITROGEN (BEAKER) (test code = 354) CREATININE 0.76 mg/dL 0.57-1.25 (BEAKER) (test code = 358) GLUCOSE RANDOM 85 mg/dL 70-105 (BEAKER) (test code = 652) CALCIUM (BEAKER) 8.5 mg/dL 8.4-10.2 (test code = 697) AST (SGOT) 124 U/L 5-34 H (BEAKER) (test code = 353) ALT (SGPT) 65 U/L 6-55 H (BEAKER) (test code = 347) EGFR (BEAKER) 116 Interpretatio n of eGFR (test code = [...] not appl icable for dialysis patien ts Transportation Driver ID - MMCBC W/PLT COUNT & AUTO [id number] 04:40:21 Test Item Value Reference Range Interpretation Comments WHITE BLOOD CELL COUNT (BEAKER) 5.4 K/ L 3.5-10.5 (test code = 775) RED BLOOD CELL COUNT (BEAKER) 3.36 M/ L 4.63-6.08 L (test code = 761) HEMOGLOBIN (BEAKER) (test code = 9.7 GM/DL 13.7-17.5 L 410) HEMATOCRIT (BEAKER) (test code = 28.7 % 40.1-51.0 L 411) MEAN CORPUSCULAR VOLUME (BEAKER) 85 fL 79-92 (test code = 753) MEAN CORPUSCULAR HEMOGLOBIN 28.9 pg 25.7-32.2 (BEAKER) (test code = 751) MEAN CORPUSCULAR HEMOGLOBIN CONC 33.8 GM/DL 32.3-36.5 (BEAKER) (test code = 752) RED CELL DISTRIBUTION WIDTH 13.0 % 11.6-14.4 (BEAKER) (test code = 412) PLATELET COUNT (BEAKER) (test 283 K/CU MM 150-450 code = 756) MEAN PLATELET VOLUME (BEAKER) 9.5 fL 9.4-12.4 (test code = 754) NUCLEATED RED BLOOD CELLS 0 /100 WBC 0-0 (BEAKER) (test code = 413) NEUTROPHILS RELATIVE PERCENT 69 % (BEAKER) (test code = 429) LYMPHOCYTES RELATIVE PERCENT 20 % (BEAKER) (test code = 430) MONOCYTES RELATIVE PERCENT 9 % (BEAKER) (test code = 431) EOSINOPHILS RELATIVE PERCENT 1 % (BEAKER) (test code = 432) BASOPHILS RELATIVE PERCENT 1 % (BEAKER) (test code = 437) NEUTROPHILS ABSOLUTE COUNT 3.73 K/ L 1.78-5.38 (BEAKER) (test code = 670) LYMPHOCYTES ABSOLUTE COUNT 1.06 K/ L 1.32-3.57 L (BEAKER) (test code = 414) MONOCYTES ABSOLUTE COUNT (BEAKER) 0.49 K/ L 0.30-0.82 (test code = 415) EOSINOPHILS ABSOLUTE COUNT 0.07 K/ L 0.04-0.54 (BEAKER) (test code = 416) BASOPHILS ABSOLUTE COUNT (BEAKER) 0.04 K/ L 0.01-0.08 (test code = 417) IMMATURE GRANULOCYTES-RELATIVE 0.60 % 0.00-1.00 PERCENT (BEAKER) (test code = 2801) XR CHEST 1 VIEW PORTABLE / [id number] 17:54:25 [facility] : 1980 Sex: MXR CHEST 1 VIEW PORTABLE / BEDSIDETECHNIQUE: Frontal view(s) of the chest.INDICATION: PICC tip location verification.COMPARISON: NoneFINDINGS/IMPRESSION:Lines/Tubes: Right arm PICC tip projects over the superior cavoatrialjunctionLungs/pleura: The lungs are clear. No pleural effusion. No pneumothorax.Heart and Mediastinum: Unremarkable.Soft Tissues and Bones: Unremarkable.(CELLAVISION MANUAL DIFF) 2022-11-08 14:14:43 Test Item Value Reference Range Interpretation Comments NEUTROPHILS - REL 77 % (CELLAVISION)(BEAKER) (test code = 2816) LYMPHOCYTES - REL 15 % (CELLAVISION)(BEAKER) (test code = 2817) MONOCYTES - REL 7 % (CELLAVISION)(BEAKER) (test code = 2818) EOSINOPHILS - REL 0 % (CELLAVISION)(BEAKER) (test code = 2819) BASOPHILS - REL 1 % (CELLAVISION)(BEAKER) (test code = 2820) NEUTROPHILS - ABS 4.85 K/ul 1.78-5.38 (CELLAVISION)(BEAKER) (test code = 2830) LYMPHOCYTES - ABS 0.95 K/ul 1.32-3.57 L (CELLAVISION)(BEAKER) (test code = 2831) MONOCYTES - ABS 0.44 K/uL 0.30-0.82 (CELLAVISION)(BEAKER) (test code = 2832) EOSINOPHILS - ABS 0.00 K/uL 0.04-0.54 L (CELLAVISION)(BEAKER) (test code = 2834) BASOPHILS - ABS 0.06 K/uL 0.01-0.08 (CELLAVISION)(BEAKER) (test code = 2835) TOTAL COUNTED (BEAKER) (test code = 100 1351) RBC MORPHOLOGY (BEAKER) (test code Normal = 762) WBC MORPHOLOGY (BEAKER) (test code Normal = 487) PLT MORPHOLOGY (BEAKER) (test code Normal = 486) HEPATITIS B [id number] 13:30:00 Test Item Value Reference Range Interpretation Comments HEPATITIS B CORE TOTAL ANTIBODY Nonreactive Nonreactive (BEAKER) (test code = 497) HEPATITIS B SURFACE ANTIBODY < mIU/mL <8.0 (BEAKER) (test code = 647) HEPATITIS B SURFACE ANTIGEN (2) Nonreactive Nonreactive (BEAKER) (test code = 2585) Transportation Driver ID - ADMINHEPATITIS C [id number] 13:29:13 Test Item Value Reference Range Interpretation Comments HEPATITIS C ANTIBODY (BEAKER) Nonreactive Nonreactive (test code = 367) Transportation Driver ID - [id number] 13:04:16 Test Item Value Reference Range Interpretation Comments MAGNESIUM (BEAKER) (test code = 1.8 mg/dL 1.6-2.6 627) Transportation Driver ID - edCOMPREHENSIVE METABOLIC [id number] 13:04:15 Test Item Value Reference Range Interpretation Comments TOTAL PROTEIN 6.3 gm/dL 6.0-8.3 (BEAKER) (test code = 770) ALBUMIN (BEAKER) 3.5 g/dL 3.5-5.0 (test code = 1145) ALKALINE 542 U/L 40-150 H PHOSPHATASE (BEAKER) (test code = 346) BILIRUBIN TOTAL 0.4 mg/dL 0.2-1.2 (BEAKER) (test code = 377) SODIUM (BEAKER) 138 meq/L 136-145 (test code = 381) POTASSIUM (BEAKER) 4.3 meq/L 3.5-5.1 (test code = 379) CHLORIDE (BEAKER) 103 meq/L 98-107 (test code = 382) CO2 (BEAKER) (test 24 meq/L 22-29 code = 355) BLOOD UREA 9 mg/dL 7-21 NITROGEN (BEAKER) (test code = 354) CREATININE 0.87 mg/dL 0.57-1.25 (BEAKER) (test code = 358) GLUCOSE RANDOM 94 mg/dL 70-105 (BEAKER) (test code = 652) CALCIUM (BEAKER) 8.7 mg/dL 8.4-10.2 (test code = 697) AST (SGOT) 153 U/L 5-34 H (BEAKER) (test code = 353) ALT (SGPT) 75 U/L 6-55 H (BEAKER) (test code = 347) EGFR (BEAKER) 112 Interpretatio n of eGFR (test code = 1092) mL/min/1.73 values S tage Description sq m Result G1 Larisa l or high >=90 G2 Mildly decreased 60-89 G3a Mildl y to moderately 45-5 9 G3b Moderately to s everely 30-44 G4 Severl y decreased 15-29 G5 Kidney failure <15Reported eGF R is based on the CKD-EPI 2021 equation that d oes not use a race coefficientEsti mated GFR is not as accur ate as Creatinine Iman bonillace in predicting glom erular filtration rate . Estimated GFR is not appl icable for dialysis patien ts Transportation Driver ID - edCBC WITH PLATELET COUNT + MANUAL [id number] 12:48:49 Test Item Value Reference Range Interpretation Comments WHITE BLOOD CELL COUNT (BEAKER) 6.3 K/ L 3.5-10.5 (test code = 775) RED BLOOD CELL COUNT (BEAKER) 3.77 M/ L 4.63-6.08 L (test code = 761) HEMOGLOBIN (BEAKER) (test code = 10.4 GM/DL 13.7-17.5 L 410) HEMATOCRIT (BEAKER) (test code = 31.4 % 40.1-51.0 L 411) MEAN CORPUSCULAR VOLUME (BEAKER) 83 fL 79-92 (test code = 753) MEAN CORPUSCULAR HEMOGLOBIN 27.6 pg 25.7-32.2 (BEAKER) (test code = 751) MEAN CORPUSCULAR HEMOGLOBIN CONC 33.1 GM/DL 32.3-36.5 (BEAKER) (test code = 752) RED CELL DISTRIBUTION WIDTH 13.0 % 11.6-14.4 (BEAKER) (test code = 412) PLATELET COUNT (BEAKER) (test 326 K/CU MM 150-450 code = 756) MEAN PLATELET VOLUME (BEAKER) 9.1 fL 9.4-12.4 L (test code = 754) NUCLEATED RED BLOOD CELLS 0 /100 WBC 0-0 (BEAKER) (test code = 413) SARS-COV2/RT-PCR ([facility])2022-11-08 09:48:49 Test Item Value Reference Range Interpretation Comments SARS-COV2/RT-PCR Negative Negative The SARS-Co V-2 target (test code = nucleic acids a re not [id number]) detected in thi s specimen. Negative result s do not preclude SARS-C oV-2 infection and s hould not be used as the candi e basis for patient managem ent decisions. Nega tive results must be combine d with clinical observ ations, patient history , and epidemiological information. A false negativ e result may occur if a spec imen is improperly malissa ected, transported or handled. This SARS CoV-2 test is a rapid, real-time RT-PC R test intended for e qualitative detection of nu cleic acid from SARS-CoV-2 in a nasopharyngeal swab specimen collected from individuals suspected of CO VID-19 by their healthcar e provider. This test has been authorized by FDA under an EUA for use by authorized laboratories. This test is only authorized for the duration of the declaration that circumstances exist justifying the authorization of emergency use of in vitro diagnostic tests for detection and/or diagnosis of COVID-19 under Section 564(b)(1) of the Federal Food, Drug and Cosmetic Act, 21 U.S.C. 360bbb-3(b)(1), unless the authorization is terminated or revoked sooner. Fact Sheet for Healthcare Providers: https://[employer]/Documents/Xpert%20Xpress%20SARS%20CoV-2/Fact%20Sheets/3023802%29GYKS-PAF-2%20 HEALTHCARE%20PROVIDERS%20FACT%20SHEET.pdf Fact Sheet for Healthcare Patients: https://www.[employer]/Documents/Xpert%20Xp ress%20SARS%20CoV-2/Fact%20Sheets/3023801%75LGQO-HUT-0%20PATIENT%20FACT%20SHEET .pdfCARCINOEMBRYONIC ANTIGEN (CEA)2022-11-06 18:53:46 Test Item Value Reference Range Interpretation Comments CARCINOEMBRYONIC ANTIGEN (BEAKER) 5.3 ng/mL 0.0-5.0 H (test code = 685) Transportation Driver ID - MMCOMPREHENSIVE METABOLIC [id number] 16:39:54 Test Item Value Reference Range Interpretation Comments TOTAL PROTEIN 7.2 gm/dL 6.0-8.3 (BEAKER) (test code = 770) ALBUMIN (BEAKER) 4.5 g/dL 3.5-5.0 (test code = 1145) ALKALINE 450 U/L 40-150 H PHOSPHATASE (BEAKER) (test code = 346) BILIRUBIN TOTAL 0.4 mg/dL 0.2-1.2 (BEAKER) (test code = 377) SODIUM (BEAKER) 138 meq/L 136-145 (test code = 381) POTASSIUM (BEAKER) 3.8 meq/L 3.5-5.1 (test code = 379) CHLORIDE (BEAKER) 103 meq/L 98-107 (test code = 382) CO2 (BEAKER) (test 27 meq/L 22-29 code = 355) BLOOD UREA 15 mg/dL 7-21 NITROGEN (BEAKER) (test code = 354) CREATININE 0.92 mg/dL 0.57-1.25 (BEAKER) (test code = 358) GLUCOSE RANDOM 116 mg/dL 70-105 H (BEAKER) (test code = 652) CALCIUM (BEAKER) 9.6 mg/dL 8.4-10.2 (test code = 697) AST (SGOT) 140 U/L 5-34 H (BEAKER) (test code = 353) ALT (SGPT) 72 U/L 6-55 H (BEAKER) (test code = 347) EGFR (BEAKER) 108 Interpretatio n of eGFR (test code = [...] not appl icable for dialysis patien ts CBC W/PLT COUNT & AUTO [id number] 16:21:39 Test Item Value Reference Range Interpretation Comments WHITE BLOOD CELL COUNT (BEAKER) 6.8 K/ L 3.5-10.5 (test code = 775) RED BLOOD CELL COUNT (BEAKER) 4.22 M/ L 4.63-6.08 L (test code = 761) HEMOGLOBIN (BEAKER) (test code = 12.0 GM/DL 13.7-17.5 L 410) HEMATOCRIT (BEAKER) (test code = 36.2 % 40.1-51.0 L 411) MEAN CORPUSCULAR VOLUME (BEAKER) 86 fL 79-92 (test code = 753) MEAN CORPUSCULAR HEMOGLOBIN 28.4 pg 25.7-32.2 (BEAKER) (test code = 751) MEAN CORPUSCULAR HEMOGLOBIN CONC 33.1 GM/DL 32.3-36.5 (BEAKER) (test code = 752) RED CELL DISTRIBUTION WIDTH 12.6 % 11.6-14.4 (BEAKER) (test code = 412) PLATELET COUNT (BEAKER) (test 356 K/CU MM 150-450 code = 756) MEAN PLATELET VOLUME (BEAKER) 9.4 fL 9.4-12.4 (test code = 754) NEUTROPHILS RELATIVE PERCENT 75 % (BEAKER) (test code = 429) LYMPHOCYTES RELATIVE PERCENT 17 % (BEAKER) (test code = 430) MONOCYTES RELATIVE PERCENT 6 % (BEAKER) (test code = 431) EOSINOPHILS RELATIVE PERCENT 1 % (BEAKER) (test code = 432) BASOPHILS RELATIVE PERCENT 1 % (BEAKER) (test code = 437) NEUTROPHILS ABSOLUTE COUNT 5.12 K/ L 1.78-5.38 (BEAKER) (test code = 670) LYMPHOCYTES ABSOLUTE COUNT 1.16 K/ L 1.32-3.57 L (BEAKER) (test code = 414) MONOCYTES ABSOLUTE COUNT (BEAKER) 0.40 K/ L 0.30-0.82 (test code = 415) EOSINOPHILS ABSOLUTE COUNT 0.05 K/ L 0.04-0.54 (BEAKER) (test code = 416) BASOPHILS ABSOLUTE COUNT (BEAKER) 0.05 K/ L 0.01-0.08 (test code = 417) IMMATURE GRANULOCYTES-RELATIVE 0.30 % 0.00-1.00 PERCENT (BEAKER) (test code = 2801) TISSUE [id number] 16:02:43Surgical Pathology Report Case: [id number] Authorizing Provider: Dima Berrios MD Collected: 10/26/2022 03:07 PM Ordering Location: [address] Received: 10/26/2022 04:53 PM Service Pathologist: Sherry Andrade MD Specimen: Biopsy, Liver Liver, mass, core needle biopsy: - Metastatic poorly differentiated neuroendocrine carcinoma, WHO grade 3; see comment Signing Pathologist Direct Phone Line: [phone] signed by Sherry Andrade MD on 11/01/2022 [...] appropriate control) show:- Cam5.2: Diffusely positive in tumor-Synaptophysin: Diffusely positive in tumor- Ki67: Proliferative index [...] is needed. The patient's prior gastric biopsy ([id number], H&E) was concurrently reviewed, and the tumor shows similar histomorphology. Dr. Edvin Goldberg reviewed the case and agrees.Block A2 has adequate tumor cellularity for additional ancillary studies.References:Antonino LA, Dariusz T, Carina C, Bassem L. Metastatic neuroendocrine carcinoma presenting as multifocal liver lesions with elevated alpha-fetoprotein. Clin Case Rep. 2018 May 16;7(2):251-253. doi: 10.1002/ccr3.1956. PMID: [id number]; PMCID: [id number], 86328, 68565j8Yiob is a 42-year-old male with history of prior alcohol use and was found tohave gastric mass and multiple liver lesions. He [...] appropriate staining. Internal positive and negative controls whenavailable are evaluated Immunohistochemistry technical testing was performed at [facility], Pathology Laboratory where it was developed [...] qualified to perform high complexity clinical laboratory testing.[facility], Department of Pathology, [address] [place] [address], Pd[facility], Department of [facility], [address] [place] [address], AoigesVeterans [facility], Department of Pathology, [address] [place] [address], SUNGUY [id number] 09:06:35Surgical Pathology Report Case: [id number] Authorizing Provider: Phoenix Ogden, Collected: 10/23/2022 11:56 AM Ordering Location: [address] Received: 10/23/2022 01:29 PM Service Pathologist: Suzan Teixeira MD Specimens: A) - Biopsy, Gastric, random bxs B) - Biopsy, Gastric, bxs gastric mass A. STOMACH, RANDOM BIOPSIES: - CHEMICAL/REACTIVE GASTROPATHY - PPI EFFECT, MILDB. STOMACH, BIOPSIES OF MASS: - NEUROENDOCRINE CARCINOMA, SMALL CELL TYPE Signing Pathologist Direct Phone Line: [phone] signed by Suzan Bagley MD on 11/01/2022 at 9:06 AMPreliminary result electronically signed by Suzan Teixeira MD on 10/27/2022 at 11:55 AMPreliminary result electronically signed by Suzan Teixeira MD on 10/26/2022 at 11:55 AMThe finding was communicated via secure email with Phoenix Edmonds <[email or web address] GI Department at 11:52 on October 26, [id number], [id number], [id number] hemorrhage associated with gastritisA. Biopsy, GastricReceived in formalin labeled with the patient's name, medical record number and "gastric biopsy" are 4 martin-yellow tissue fragments ranging in size from 0.1-0.3 cm, which are submitted in totoin A1.B. Biopsy, GastricReceived in formalin labeled with the patient's name, medical record number and "gastric biopsy" are multiple martin-white to martin-red tissue fragments ranging in size from 0.1-0.3 cm, which are submitted in toto in B1./LBA-B. No H. pylori are seen on H&E or immunohistochemicalstains. Gastric mass is a high-grade malignancy. Malignant cells care positive with pancytokeratin and synaptophysin, CD56 and chromogranin (focal), but negative with CD45. Ki67 highlights proliferation index of about 70-80%. The slides were evaluated and the report was issued at [facility] (CLIA#[id number]), [address] [place] [address].The interpretation of this case included the useof immunohistochemistry or special stains.Control Slides Examined: In-house known positive controls were evaluated along with the test tissue. These control slides run alongside of the patients sample show appropriate staining. Internal positive and negative controls when available are evaluated Immunohistochemistry technical testing was performed at [facility], Pathology Laboratory where it was developed [...] laboratory is certified under the Clinical Laboratory ImprovementAmendments of 1988 (CLIA-88) as qualified to perform high complexity clinical laboratory testing.U/S, BIOPSY, [id number] 12:01:00Reason for exam:->gastric mass and liver mass with afp >[id number] this be performed at the bedside?->No [facility] : 1980 Sex: MFINAL REPORT Procedure: Liver mass core biopsy Pre/post-procedure diagnosis: Liver mass Vice President And Portfolio Manager: Bebo Low MD Assistants: none Sedation: Moderate [...] which were placed in formalin for pathology Estimatedblood loss: Less than 5 cc. Technique/findings: Informed written consent was obtained. Discussion ofrisks, benefits, and alternatives were made with the patient. The patient expressed understanding and agreed to proceed. A universal timeout was performed prior to starting the procedure. Initial ultras ound images demonstrate large central hepatic lesion was [...] complication. The patient tolerated the procedure well andleft the department in stable condition. Impression: Successful, uncomplicated ultrasound-guided liver mass core biopsy. Signed: Bebo Low MDReport Verified Date/Time: 10/30/2022 12:01:04 C METABOLIC [id number] 05:48:04 Test Item Value Reference Range Interpretation Comments SODIUM (BEAKER) 137 meq/L 136-145 (test code = 381) POTASSIUM 3.8 meq/L 3.5-5.1 (BEAKER) (test code = 379) CHLORIDE (BEAKER) 103 meq/L 98-107 (test code = 382) CO2 (BEAKER) 24 meq/L 22-29 (test code = 355) BLOOD UREA 8 mg/dL 7-21 NITROGEN (BEAKER) (test code = 354) CREATININE 0.88 mg/dL 0.57-1.25 (BEAKER) (test code = 358) GLUCOSE RANDOM 123 mg/dL 70-105 H (BEAKER) (test code = [...] not appl icable for dialysis patien ts Transportation Driver ID - [id number] 05:48:04 Test Item Value Reference Range Interpretation Comments MAGNESIUM (BEAKER) (test code = 1.7 mg/dL 1.6-2.6 627) Transportation Driver ID - MMCBC W/PLT COUNT & AUTO [id number] 05:27:57 Test Item Value Reference Range Interpretation [...] 0.00-1.00 PERCENT (BEAKER) (test code = 2801) [id number] 06:55:04 Test Item Value Reference Range Interpretation Comments MAGNESIUM (BEAKER) (test code = 1.6 mg/dL 1.6-2.6 627) Transportation Driver ID - BSBASIC METABOLIC [id number] 06:55:03 Test Item Value Reference Range Interpretation [...] not appl icable for dialysis patien ts Transportation Driver ID - BSPROTHROMBIN [id number] 06:18:33 Test Item Value Reference Range Interpretation [...] mechanical heart valves.CBC W/PLT COUNT & AUTO [id number] 06:07:18 Test Item Value Reference Range Interpretation [...] (BEAKER) (test code = 2801) COMPREHENSIVE METABOLIC [id number] 07:14:31 Test Item Value Reference Range Interpretation [...] not appl icable for dialysis patien ts Transportation Driver ID - DENIS [id number] 07:14:31 Test Item Value Reference Range Interpretation Comments MAGNESIUM (BEAKER) (test code = 1.5 mg/dL 1.6-2.6 L 627) Transportation Driver DEE DEE BARRIOS WCBC W/PLT COUNT & AUTO [id number] 06:55:14 Test Item Value Reference Range Interpretation [...] (test code = 2801) ROSALINDA TITER AND [id number] 13:55:32 Test Item Value Reference Range Interpretation Comments ROSALINDA TITER :160 (BEAKER) (test code = 1541) ROSALINDA PATTERN Cytoplasmic/Anti-mi Cytoplas baetriz (BEAKER) (test tochondrial staining is p resent code = 1781) antibodies - see suggestive of comment Anti-mitochondr ial antibodies. If clinically indicated, recommend testi ng for Anti-mitochondr ial antibodies. ANTI-NUCLEAR ANTIBODY (ROSALINDA)2022-10-24 13:55:03 Test Item Value Reference Range Interpretation Comments ANTI-NUCLEAR ANTIBODY (ROSALINDA) (BEAKER) Negative Negative (test code = 418) Test performed by IFA method.Test performed by IFA method.CT, CHEST, WITH [id number] 13:00:00Unlisted Reason for Exam - Click Yes and Enter Reason Below->NoL[facility] : 1980 Sex: MFINAL REPORT CT of [...] MDReport Verified Date/Time: 10/24/2022 13:00:41 Reading Location: [facility] B1 C013X [facility] Consult Reading Room CT, [id number] 13:00:00Unlisted Reason for Exam - Click Yes and Enter Reason Below->NoProtocol Please Specify:->Standard ProtocolWill this procedure require oral contrast?->No [facility] : 1980 [...] in the thorax. Signed: Maria C Olvera Verified Date/Time: 10/24/2022 13:00:41 Reading Location: [address] Ortho Consult Reading Room CBC W/PLT COUNT & [...] 0.00-1.00 PERCENT (BEAKER) (test code = 2801) [id number] 05:38:34 Test Item Value Reference Range Interpretation Comments MAGNESIUM (BEAKER) (test code = 1.5 mg/dL 1.6-2.6 L 627) Transportation Driver ID - MMCOMPREHENSIVE METABOLIC [id number] 05:38:33 Test Item Value Reference Range Interpretation [...] not appl icable for dialysis patien ts Transportation Driver ID - MMHEMOGLOBIN AND [id number] 16:05:28 Test Item Value Reference Range Interpretation Comments HEMOGLOBIN (BEAKER) (test code = 14.4 GM/DL 13.7-17.5 410) HEMATOCRIT (BEAKER) (test code = 44.3 % 40.1-51.0 411) Transportation Driver ID - [id number] 09:39:18 Test Item Value Reference Range Interpretation Comments MAGNESIUM (BEAKER) 1.6 mg/dL 1.6-2.6 Specimen slightly (test code = 627) hemolyzed Transportation Driver ID - MMBASIC METABOLIC [id number] 09:39:18 Test Item Value Reference Range Interpretation [...] not appl icable for dialysis patien ts Transportation Driver ID - MMHEPATIC FUNCTION [id number] 09:39:18 Test Item Value Reference Range Interpretation [...] Specimen slightly (test code = 347) hemolyzed Transportation Driver ID - MMCBC W/PLT COUNT & AUTO [id number] 06:38:29 Test Item Value Reference Range Interpretation [...] PERCENT (BEAKER) (test code = 2801) HEMOGLOBIN [id number] 08:56:25 Test Item Value Reference Range Interpretation Comments HEMOGLOBIN A1C 5.7 % See_Comment H [Automated m essage] ELECTROPHORESIS (BEAKER) The system which (test code = 6278) generated this result transmitted ref erence range: <=5.6%. The reference range was not used to int erpret this result as normal/abnormal . "The A1c is measured using a [facility]-certified method. HbA1c value equal to or greater than 6.5% as thediagnosis cutoff for diabetes. An HbA1c value of 5.7- 6.4% indicates increased risk for diabetes (prediabetes)."Transportation Driver ID - ADM [id number] 07:09:54 Test Item Value Reference Range Interpretation Comments FERRITIN (BEAKER) (test code = 159.87 ng/mL 5.00-275.00 361) Transportation Driver ID - MARCOALPHA FETOPROTEIN (AFP), TUMOR [id number] 06:32:10 Test Item Value Reference Range Interpretation Comments ALPHA-FETOPROTEIN (BEAKER) 93417.5 ng/mL <10.0 H (test code = 1094) Transportation Driver ID - ADMINOperator ID - ADMINHEPATITIS B SURFACE [id number] 06:31:52 Test Item Value Reference Range Interpretation Comments HEPATITIS B SURFACE ANTIBODY < mIU/mL <8.0 (BEAKER) (test code = 647) Transportation Driver ID - ADMINHEPATITIS A ANTIBODY, [id number] 06:31:00 Test Item Value Reference Range Interpretation Comments HEPATITIS A IGG ANTIBODY (BEAKER) Nonreactive Nonreactive (test code = 2797) Transportation Driver ID - ADMINCARCINOEMBRYONIC ANTIGEN (CEA)2022-10-22 06:30:59 Test Item Value Reference Range Interpretation Comments CARCINOEMBRYONIC ANTIGEN (BEAKER) 5.6 ng/mL 0.0-5.0 H (test code = 685) Transportation Driver ID - ADMINHEPATITIS B CORE ANTIBODY, [id number] 06:30:59 Test Item Value Reference Range Interpretation Comments HEPATITIS B CORE TOTAL ANTIBODY Nonreactive Nonreactive (BEAKER) (test code = 497) Transportation Driver ID - ADMINHEPATITIS PANEL, [id number] 06:03:10 Test Item Value Reference Range Interpretation Comments HEPATITIS A IGM ANTIBODY (BEAKER) Nonreactive Nonreactive (test code = 498) HEPATITIS B CORE IGM ANTIBODY Nonreactive Nonreactive (BEAKER) (test code = 645) HEPATITIS C ANTIBODY (BEAKER) Nonreactive Nonreactive (test code = 367) HEPATITIS B SURFACE ANTIGEN (2) Nonreactive Nonreactive (BEAKER) (test code = 2585) Transportation Driver ID - [id number] 05:54:41 Test Item Value Reference Range Interpretation Comments MAGNESIUM (BEAKER) (test code = 1.7 mg/dL 1.6-2.6 627) Transportation Driver ID - MARCOLIPID [id number] 05:54:41 Test Item Value Reference Range Interpretation [...] Borderline 130-159 High 160-189 Very High >=190 Transportation Driver ID - MARCOHEPATIC FUNCTION [id number] 05:54:41 Test Item Value Reference Range Interpretation [...] (test code = 54 U/L 6-55 347) Transportation Driver ID - MARCOBASIC METABOLIC [id number] 05:54:40 Test Item Value Reference Range Interpretation [...] not appl icable for dialysis patien ts Transportation Driver ID - JAIME, TIBC, % SAT. (WITHOUT FERRITIN)2022-10-22 05:39:20 Test Item Value Reference Range Interpretation Comments IRON (BEAKER) (test code = 547) 61.0 ug/dL 40.0-160.0 TOTAL IRON BINDING CAPACITY 273 ug/dL 250-450 (BEAKER) (test code = 769) IRON % SATURATION (2) (BEAKER) 22 % 20-55 (test code = 2590) Transportation Driver ID - [id number] 05:39:03 Test Item Value Reference Range Interpretation Comments ALPHA-1 ANTITRYPSIN (BEAKER) 211.70 mg/dL 90.00-200.00 H (test code = 502) Transportation Driver ID - ADMINCBC W/PLT COUNT & AUTO [id number] 05:15:17 Test Item Value Reference Range Interpretation [...] (BEAKER) (test code = 2801) HEPATIC FUNCTION [id number] 15:14:35 Test Item Value Reference Range Interpretation [...] Specimen slightly (test code = 347) hemolyzed Transportation Driver ID - MARCOPROTHROMBIN [id number] 15:14:35 Test Item Value Reference Range Interpretation Comments PROTIME (BEAKER) (test code = 14.7 seconds 11.9-14.2 H 759) INR (BEAKER) (test code = 370) 1.22 <=5.90 RECOMMENDED COUMADIN/WARFARIN INR THERAPY RANGESSTANDARD DOSE: 2.0 - 3.0 Includes: PROPHYLAXIS for venous thrombosis, systemic embolization; TREATMENT for venous thrombosis and/or pulmonary embolus.HIGH RISK: Target INR is 2.5-3.5 for patients with mechanical heart valves.BASIC METABOLIC [id number] 15:14:34 Test Item Value Reference Range Interpretation [...] not appl icable for dialysis patien ts Transportation Driver ID - MARCOCBC W/PLT COUNT & AUTO [id number] 14:53:39 Test Item Value Reference Range Interpretation [...] % 0.00-1.00 PERCENT (BEAKER) (test code = 6611)
[2022-11-15] MEDS ORDERED: NA CHLORIDE 0.9% 1,000 ML ONE (19:28)
[2022-11-15] MEDS ORDERED: PANTOPRAZOLE 40 MG INJ ONE (19:28)
[2022-11-15] MEDS ORDERED: ONDANSETRON 4 MG/2 ML VIAL ONE (19:28)
[2022-11-15] MEDS ORDERED: MORPHINE 4 MG/ML SYR ONE (19:28)
[2022-11-15 19:39] LABS: Absolute Lymphocytes (CBC) 1.2 K/uL (0.7-4.9); Hematocrit 31.9 % (39.6-49.0); Lymphocytes % 19.6 % (15.3-44.8); MCV 82.5 fL (80-100); MPV 6.7 fL (7.6-11.3); Protime INR 1.09; RBC Red Blood Cell Count 3.87 M/uL (4.33-5.43)
[2022-11-15 19:54] LABS: Albumin 3.1 g/dL (3.4-5.0); Bilirubin Total 0.5 mg/dL (0.2-1.0); Potassium 3.9 mEq/L (3.5-5.1)
--- NOTE | 2022-11-15 21:35 | RAD REPORT ---
EXAM DESCRIPTION: US - Abdomen Exam Limited - 11/15/2022 9:22 pm CLINICAL HISTORY: EPIGASTRIC PAIN COMPARISON: Abdomen Pelvis W Contrast dated 11/05/2022 TECHNIQUE: Sonographic grayscale and color flow images of the right upper abdominal quadrant were obtained. FINDINGS: The gallbladder demonstrates no gallstones. The lobulated isoechoic focus is seen near the fundus, with limited mobility, measuring 9 millimeter in greatest dimension, could represent a polyp or adherent sludge. No pericholecystic fluid or gallbladder wall thickening. The common bile duct is normal measuring 2 mm. The liver demonstrates no findings of intrahepatic biliary dilatation. Innumerable heterogeneous hypo attenuating hepatic parenchymal masses, not well assessed. IMPRESSION: Gallbladder sludge versus small polyp near the fundus No findings to suggest acute cholecystitis. No intra or extrahepatic biliary ductal dilation. Innumerable heterogeneous hypoattenuating hepatic parenchymal masses as seen on prior CT, not well ev aluated on this ultrasound.
--- NOTE | 2022-11-15 21:55 | EDPHYS ---
Physician Documentation [facility] Name: Ayden Andres Jr Age: 42 yrs Sex: Male : 1980 Arrival Date: 11/15/2022 Time: 18:45 Bed 8 Private MD: ED Physician Felisha Lundy HPI: 11/15 19:30 This 42 yrs old Male presents to ER via Ambulatory with complaints of Vomiting.cp 19:30 The patient presents to the emergency department with nausea, with "dry heaves", cp vomiting, that is intermittent. Onset: The symptoms/episode began/occurred this past Sunday. Possible causes: recently started chemotherapy for liver cancer. Associated signs and symptoms: Pertinent positives: abdominal pain, anorexia, Pertinent negatives: diarrhea, fever, GI bleeding. Severity of symptoms: in the emergency department the symptoms are unchanged despite home interventions. Historical: - Allergies: 18:56 No Known Allergies; mb9 - Home Meds: 18:56 sucralfate 100 mg/mL Oral suspension [Active]; Omeprazole Oral [Active]; mb9 - PMHx: 18:56 Stomach Cancer; Cirrhosis of liver; mb9 - PSHx: 18:56 None; mb9 - Immunization history:: Adult Immunizations up to date. - Social history:: Smoking status: Patient denies any tobacco usage or history of. ROS: 19:35 Constitutional: Positive for poor PO intake, Negative for body aches, chills, fever. cp 19:35 Cardiovascular: Negative for chest pain. cp 19:35 Respiratory: Negative for cough, shortness of breath, wheezing. 19:35 Eyes: Negative for injury, pain, redness, and discharge. cp 19:35 ENT: Negative for drainage from ear(s), ear pain, sore throat, difficulty swallowing, difficulty handling secretions. 19:35 Abdomen/GI: Positive for abdominal pain, nausea and vomiting, anorexia, Negative for diarrhea, constipation, hematemesis, black/tarry stool, rectal bleeding. 19:35 Neuro: Negative for altered mental status, dizziness, headache, weakness. 19:35 All other systems are negative. Exam: 19:40 Constitutional: The patient appears in no acute distress, alert, awake, non-toxic, well cp developed, well nourished, uncomfortable. 19:40 Head/Face: Normocephalic, atraumatic. cp 19:40 Eyes: Periorbital structures: appear normal, Conjunctiva: normal, no exudate, no injection, Sclera: no appreciated abnormality, Lids and lashes: appear normal, bilaterally. 19:40 ENT: External ear(s): are unremarkable, Nose: is normal, Mouth: Lips: moist, Oral mucosa: pink and intact, moist, Posterior pharynx: is normal, airway is patent, no erythema, no exudate. 19:40 Chest/axilla: Inspection: normal. 19:40 Cardiovascular: Rate: normal, Rhythm: regular. 19:40 Respiratory: the patient does not display signs of respiratory distress, Respirations: normal, no use of accessory muscles, no retractions, labored breathing, is not present, Breath sounds: are clear throughout, no decreased breath sounds, no stridor, no wheezing. 19:40 Abdomen/GI: Inspection: abdomen appears normal, Bowel sounds: active, all quadrants, Palpation: soft, in all quadrants, moderate abdominal tenderness, in the epigastric area and right upper quadrant, rebound tenderness, is not appreciated, voluntary guarding, is elicited in the epigastric area and right upper quadrant. 19:40 Back: CVA tenderness, is absent. 19:40 Neuro: Orientation: to person, place \\T\\ time. Mentation: is normal, Motor: moves all fours, strength is normal. Vital Signs: 18:54 BP 116 / 75; Pulse 63; Resp 18; Temp 98.9; Pulse Ox 100% on R/A; Weight 83.46 kg; mb9 Height 5 ft. 11 in. ; Pain 9/10; 21:59 BP 114 / 104; Pulse 61; Resp 18; Pulse Ox 100% ; vc1 18:54 Body Mass Index 25.66 (83.46 kg, 180.34 cm) mb9 18:54 Pain Scale: Adult mb9 MDM: 19:07 Patient medically screened. cp 19:40 Differential diagnosis: cholecystitis, pancreatitis, dehydration, sepsis, electrolyte cp abnormality. 21:42 Data reviewed: vital signs, nurses notes, lab test result(s), radiologic studies, cp ultrasound. 21:42 Consideration of Admission/Observation Escalation of care including cp admission/observation considered. I considered the following discharge prescriptions or medication management in the emergency department Medications were administered in the Emergency Department. See MAR. Test considered but Not performed: CT: abdomen/pelvis. Counseling: I had a detailed discussion with the patient and/or guardian regarding: the historical points, exam findings, and any diagnostic results supporting the discharge/admit diagnosis, lab results, radiology results, to return to the emergency department if symptoms worsen or persist or if there are any questions or concerns that arise at home. Response to treatment: the patient's symptoms have markedly improved after treatment, and as a result, I will discharge patient. 11/15 19:16 Order name: CBC with Diff; Complete Time: 20:20 cp 11/15 20:20 Interpretation: Normal except: RBC 3.87; HGB 10.8; HCT 31.9; MPV 6.7; PURNIMA% 78.1; MN% cp 1.2. 11/15 19:16 Order name: CMP; Complete Time: 20:20 cp 11/15 20:21 Interpretation: Normal except: NA 131; GLUC 110; AST 154; ALT 102; ALK 588; ALB 3.1; cp GLOB 3.9; A/G 0.8. 11/15 19:16 Order name: Lipase; Complete Time: 20:20 cp 11/15 19:16 Order name: PT-INR; Complete Time: 20:20 cp 11/15 21:23 Order name: Abdomen Exam Limited; Complete Time: 21:36 EDMS 11/15 19:16 Order name: IV Saline Lock; Complete Time: 19:30 cp 11/15 19:16 Order name: Labs collected and sent; Complete Time: 19:30 cp 11/15 21:37 Order name: PO challenge; Complete Time: 21:55 cp Administered Medications: 19:30 Drug: NS 0.9% IV 1000 ml Route: IV; Rate: 1 bolus; Site: right antecubital; vc1 20:27 Follow up: Response: No adverse reaction; IV Status: Completed infusion; IV Intake: aa9 1000ml 20:30 Follow up: IV Status: Completed infusion; IV Intake: 1000ml vc1 19:30 Drug: Ondansetron IVP 4 mg Route: IVP; Site: right antecubital; vc1 22:00 Follow up: Response: No adverse reaction; Marked relief of symptoms vc1 19:30 Drug: Pantoprazole IVP 40 mg Route: IVP; Site: right antecubital; vc1 22:00 Follow up: Response: No adverse reaction; Marked relief of symptoms vc1 19:31 Drug: morphine IVP or IV 4 mg Route: IVP; Infused Over: 4 mins; Site: right antecubital;vc1 20:09 Follow up: Response: No adverse reaction aa9 Disposition Summary: 11/15/22 21:54 Discharge Ordered Location: Home cp Problem: new cp Symptoms: have improved cp Condition: Stable cp Diagnosis - Nausea with vomiting, unspecified cp - Liver Cancer cp - Upper abdominal pain, unspecified cp Followup: cp - With: Private Physician - When: 1 - 2 days - Reason: Recheck today's complaints Discharge Instructions: - Discharge Summary Sheet cp - Abdominal Pain, Adult cp - Nausea and Vomiting, Adult cp - Liver Cancer cp Forms: - Medication Reconciliation Form cp - Thank You Letter cp - Antibiotic Education cp - Prescription Opioid Use cp Prescriptions: - Protonix 40 mg Oral Tablet - take 1 tablet by ORAL route once daily; 30 tablet; Refills: 0, Product cp Selection Permitted - promethazine 25 mg Oral Tablet - take 1 tablet by ORAL route every 6 hours As needed; 20 tablet; Refills: 0, cp Product Selection Permitted Signatures: Dispatcher [employer] EDMS Vicente Tapia PA PA cp Barbara Juarez RN RN vc1 Chloe Fernández RN RN mb9 Kari Wilson RN aa9 Corrections: (The following items were deleted from the chart) 21:21 20:25 Abdomen Limited+US.RAD.[email or web address] ordered. EDMS EDMS
--- NOTE | 2022-11-15 21:55 | ER ---
Nurse's Notes [facility] Name: Ayden Andres Jr Age: 42 yrs Sex: Male : 1980 Arrival Date: 11/15/2022 Time: 18:45 Bed 8 Private MD: Diagnosis: Nausea with vomiting, unspecified;Liver Cancer;Upper abdominal pain, unspecified Presentation: 11/15 18:54 Chief complaint: Patient states: "I started Chemotherapy Sunday for stomach cancer mb9 and cirrhosis of the liver. Ever since I've been experiencing N/V/D. I'm throwing up a lot of bile and my stomach hurts really bad. MY medicine they gave me isn't working. They told me I'll be feeling bad the first 7 days but to see a doctor if It's unbearable. Coronavirus screen: Vaccine status: Patient reports receiving the 2nd dose of the covid vaccine. Ebola Screen: No symptoms or risks identified at this time. Initial Sepsis Screen: Does the patient meet any 2 criteria? No. Patient's initial sepsis screen is negative. Does the patient have a suspected source of infection? No. Patient's initial sepsis screen is negative. Risk Assessment: Do you want to hurt yourself or someone else? Patient reports no desire to harm self or others. Onset of symptoms was November 15, 2022. 18:54 Method Of Arrival: Ambulatory mb9 18:54 Acuity: JOSE 3 mb9 Triage Assessment: 18:58 General: Appears uncomfortable, ill, Behavior is cooperative. Pain: Complains of pain mb9 in abdomen. Respiratory: Airway is patent. GI: Abdomen is flat, non-distended, Reports diarrhea, nausea, vomiting. Derm: Skin is pink, warm \\T\\ dry. Historical: - Allergies: 18:56 No Known Allergies; mb9 - Home Meds: 18:56 sucralfate 100 mg/mL Oral suspension [Active]; Omeprazole Oral [Active]; mb9 - PMHx: 18:56 Stomach Cancer; Cirrhosis of liver; mb9 - PSHx: 18:56 None; mb9 - Immunization history:: Adult Immunizations up to date. - Social history:: Smoking status: Patient denies any tobacco usage or history of. Screenin:10 Abuse screen: Denies threats or abuse. Denies injuries from another. Nutritional aa9 screening: No deficits noted. Tuberculosis screening: No symptoms or risk factors identified. 21:14 [facility] ED Fall Risk Assessment (Adult) History of falling in the last 3 months, vc1 including since admission No falls in past 3 months (0 pts) Confusion or Disorientation No (0 pts) Intoxicated or Sedated No (0 pts) Impaired Gait No (0 pts) Mobility Assist Device Used No (0 pt) Altered Elimination No (0 pt) Score/Fall Risk Level 0 - 2 = Low Risk Oriented to surroundings, Maintained a safe environment, Educated pt \\T\\ family on fall prevention, incl call for assistance when getting out of bed. Assessment: 21:03 Reassessment: Pt feeling better asking for some jello, asked pt to wait until after US vc1 results are in to eat jello. 21:08 Reassessment: US at bedside. vc1 21:42 Reassessment: Patient and/or family updated on plan of care and expected duration. Pain vc1 level reassessed. Pt given Jello and Gingerale for PO challenge Patient states feeling better. Patient states symptoms have improved. 21:59 Reassessment: Patient and/or family updated on plan of care and expected duration. Pain vc1 level reassessed. Patient is alert, oriented x 3, equal unlabored respirations, skin warm/dry/pink. Patient states feeling better. Patient states symptoms have improved. Vital Signs: 18:54 BP 116 / 75; Pulse 63; Resp 18; Temp 98.9; Pulse Ox 100% on R/A; Weight 83.46 kg; mb9 Height 5 ft. 11 in. ; Pain 9/10; 21:59 BP 114 / 104; Pulse 61; Resp 18; Pulse Ox 100% ; vc1 18:54 Body Mass Index 25.66 (83.46 kg, 180.34 cm) mb9 18:54 Pain Scale: Adult mb9 ED Course: 18:48 Patient arrived in ED. mr 18:56 Triage completed. mb9 18:56 Vicente Tapia PA is PHCP. cp 18:56 Arm band placed on. mb9 18:57 Felisha Lundy MD is Attending Physician. cp 20:10 Patient has correct armband on for positive identification. Bed in low position. Side aa9 rails up X 1. Adult w/ patient. 21:23 Abdomen Exam Limited In Process Unspecified. EDMS 21:41 Barbara Juarez, RN is Primary Nurse. vc1 22:09 No provider procedures requiring assistance completed. IV discontinued, intact, vc1 bleeding controlled, No redness/swelling at site. Pressure dressing applied. Administered Medications: 19:30 Drug: NS 0.9% IV 1000 ml Route: IV; Rate: 1 bolus; Site: right antecubital; vc1 20:27 Follow up: Response: No adverse reaction; IV Status: Completed infusion; IV Intake: aa9 1000ml 20:30 Follow up: IV Status: Completed infusion; IV Intake: 1000ml vc1 19:30 Drug: Ondansetron IVP 4 mg Route: IVP; Site: right antecubital; vc1 22:00 Follow up: Response: No adverse reaction; Marked relief of symptoms vc1 19:30 Drug: Pantoprazole IVP 40 mg Route: IVP; Site: right antecubital; vc1 22:00 Follow up: Response: No adverse reaction; Marked relief of symptoms vc1 19:31 Drug: morphine IVP or IV 4 mg Route: IVP; Infused Over: 4 mins; Site: right antecubital;vc1 20:09 Follow up: Response: No adverse reaction aa9 Medication: 21:14 VIS not applicable for this client. vc1 Intake: 20:27 IV: 1000ml; Total: 1000ml. aa9 20:30 IV: 1000ml; Total: 2000ml. vc1 Outcome: 21:54 Discharge ordered by MD. cp 22:09 Discharged to home ambulatory, with family. vc1 22:09 Condition: good 22:09 Discharge instructions given to patient, Instructed on discharge instructions, follow up and referral plans. medication usage, Demonstrated understanding of instructions, follow-up care, medications, Prescriptions given X 2. 22:10 Patient left the ED. vc1 Signatures: Dispatcher [employer] [facility] CharlesChloe Corey, Barbara Ramos cp, ANA PEREZ vc1 Kari Wilson RN RN aa9 Chloe Fernández RN RN mb9
[2022-11-15 22:41] VITALS: TEMP 98.9; O2SAT 100
[2022-11-15 22:43] VITALS: BP 114/104
== END 2022-11-15 22:10 | disposition home or self-care (01) ==
LOC: ER 18:45
DX: C22.0 Liver cell carcinoma (principal); C16.9 Malignant neoplasm of stomach, unspecified; K74.60 Unspecified cirrhosis of liver
CPT/HCPCS: 85025; 36415; 85610; 83690; 80053; 76705; C9113; J2405; J7030; 96361; 96374; 96375; 99284

== ENCOUNTER 2022-12-31 04:47 | Emergency (ER) | payer OTHER ==
--- OUTSIDE RECORDS SUMMARY | 2022-12-31 04:53 | XMS REPORT | Continuity of Care Document ---
:1980 Author Organization [facility] t Address [address] [facility] [address] [place] [address] Care Team Providers Name Role Phone CHRISTINAJAXONSTANTONKENRICKDINA WADDELLFRANCHESCA Attending Clinician Unavailable JAMEL NEAL Attending Clinician Unavailable MANNY FOWLER Attending Clinician Unavailable BRIAN FORDE Attending Clinician Unavailable Navjot Thakkar MD Attending Clinician Judy Martinez MD Attending Clinician [phone] RUBINA MORAES Admitting Clinician Unavailable MITRA JERONIMO Admitting Clinician Unavailable Payers Payer Name Policy Type Policy Number Effective Date Expiration Date S ource [facility] [id number] 2020 00:00:00 Problems Condition Condition Condition Status Onset Resolution Last Treating Co mments Source Name Details Category Date Date Treatment Clinician Date Bradycardi Bradycardi Disease [facility] GI bleed GI bleed Disease [facility] 00 [place] Liver mass Liver mass Disease [facility] Allergies, Adverse Reactions, Alerts Allergy Allergy Status Severity Reaction(s) Onset Inactive Treating Comm ents Source Name Type Date Date Clinician NO KNOWN Allergy Active [facility] Social History Social Habit Start Date Stop Date Quantity Comments Source History SDOH [facility] History SDOH 2022-10-21 2022-10-[address] [facility] Transport Med 00:00:00 00:00:[address] History SDOH Housing 2022-10-21 2022-10-[address] [facility] Unable to Pay 00:00:00 00:00:[address] History SDOH Housing 2022-10-21 2022-10-[address] [facility] Places Lived 00:00:00 00:00:00 Medical Cent er History SDOH Housing 2022-10-21 2022-10-[address] [facility] Homeless Last Year 00:00:00 [facility] Sex Assigned At [birth year] [facility] 00:00:00 00:00:00 Medical Center Medications This patient [...] kg Heart rate 2022-10-24 07:00:00 55 /min [facility] Respiratory rate 2022-10-24 04:55:00 18 /min [facility] Oxygen saturation in 2022-10-24 04:55:00 97 /min [facility] Arterial blood by Medical Ce nter Pulse oximetry Systolic blood 2022-10-24 04:02:00 113 mm[Hg] [facility] Diastolic blood 2022-10-24 04:02:00 63 mm[Hg] [facility] Body temperature 2022-10-24 04:02:00 35.94 Carlota [facility] Body height 2022-10-23 11:07:00 180.3 cm [facility] Body weight 2022-10-23 11:07:00 87.091 kg [facility] BMI 2022-10-23 11:07:00 26.78 kg/m2 [facility] Procedures Procedure Date / Time Performing Clinician Source Performed CBC W/PLT COUNT & AUTO 2022-10-24 06:08:00 [facility] DIFFERENTIAL [facility] CBC W/PLT COUNT & AUTO 2022-10-24 06:08:00 [facility] DIFFERENTIAL [facility] MAGNESIUM 2022-10-24 05:01:00 [facility] COMPREHENSIVE METABOLIC 2022-10-24 05:01:00 Dima Berrios [facility] HEMOGLOBIN AND HEMATOCRIT 2022-10-23 15:55:00 Dima Berrios [facility] REPORT OF PROCEDURE - 2022-10-23 12:35:10 Judy Martinez [facility] ENDOSCOPY [facility] ENDOSCOPY, UPPER GI TRACT, 2022-10-23 11:34:00 Judy Martinez [facility] WITH BIOPSY [facility] [place] ABORH, MANUAL 2022-10-23 08:13:00 Maria Elena Milian [facility] BASIC METABOLIC PANEL 2022-10-23 06:29:00 [facility] MAGNESIUM 2022-10-23 06:29:00 [facility] CBC W/PLT COUNT & AUTO 2022-10-23 06:29:00 [facility] DIFFERENTIAL [facility] HEPATIC FUNCTION PANEL 2022-10-23 06:29:00 [facility] TYPE AND SCREEN, AUTOMATED 2022-10-23 06:29:00 Salim, Josué Tristin [facility] CBC W/PLT COUNT & AUTO 2022-10-23 06:29:00 [facility] LIPID PANEL 2022-10-22 04:19:00 [facility] BASIC METABOLIC PANEL 2022-10-22 04:19:00 [facility] MAGNESIUM 2022-10-22 04:19:00 [facility] CBC W/PLT COUNT & AUTO 2022-10-22 04:19:00 [facility] 2022-10-22 04:19[facility]00 [facility] B CORE ANTIBODY, 2022-10-22 04:19:00 Dmitry Dale [facility] HEPATITIS PANEL, ACUTE 2022-10-22 04:19:00 [facility] HEPATITIS A ANTIBODY, IGG 2022-10-22 04:19:00 Dmitry Dale [facility] HEPATITIS B SURFACE 2022-10-22 04:19:[address] [facility] FERRITIN 2022-10-22 04:19:00 [facility] IRON, TIBC, % SAT. (WITHOUT 2022-10-22 04:19:00 Suyapa [facility] FERRITIN) [facility] [id number]\\, SERUM 2022-10-22 04:19:00 [facility] ALPHA FETOPROTEIN (AFP), 2022-10-22 04:19:00 Su[facility] TUMOR MARKER [facility] CARCINOEMBRYONIC ANTIGEN 2022-10-22 04:19:00 Su[facility] (CEA) [facility] CBC W/PLT COUNT & AUTO 2022-10-22 04:19:00 Vernon [facility] ECG 12-LEAD 2022-10-21 17:09:37 [facility] ECG 12-LEAD 2022-10-21 17:09:37 Unknown, Hl7 Doctor [facility] HEPATIC FUNCTION PANEL 2022-10-21 14:42:00 [facility] BASIC METABOLIC PANEL 2022-10-21 14:42:00 [facility] HEMOGLOBIN A1C 2022-10-21 14:42:00 [facility] PROTHROMBIN TIME/INR 2022-10-21 14:42:00 [facility] CBC W/PLT COUNT & AUTO 2022-10-21 14:42:00 [facility] CBC W/PLT COUNT & AUTO 2022-10-21 14:42:00 [facility] Plan of Care Planned Activity Planned Date Details Comments Source Future Scheduled 2027-10-[address] [facility]00 (procedure) [code = [facility] Center [id number]] Future Scheduled 2023-02-[address] [...] Clinicians Facility Department ID 2022-11-21 2022-11-21 Outpatient EDDIE LIMA [id number] [facility] 00:00:00 00:00:00 [facility] 2022-11-17 2022-11-17 Outpatient EL MALCOLM [facility] [id number] SLE 00:00:00 00:00:00 MANNY 2022-11-07 2022-11-07 Outpatient BHARAT DECKER [facility] [id number] SLE 00:00:00 00:00:00 [facility] 2022-11-06 2022-11-06 Outpatient BHARAT DECKER [facility] [id number] SLE 12:51:54 15:40:51 [facility] 2022-11-06 2022-11-06 Outpatient [facility] [id number] SLE 00:00:00 00:00:00 2022-10-21 2022-10-27 Inpatient ER MALCOLM [facility] [id number] SLE 13:26:00 14:43:00 MANNY 2022-10-23 2022-10-23 Anesthesia Bijan, [facility] [id number] 11:35:00 13:04:00 Event Navjot Frost [facility] 2022-10-23 2022-10-23 [facility] [id number] 10:00:00 10:59:00 Judy [facility] 2022-10-21 2022-10-21 Orders [facility] [id number] 00:00:00 00:00:00 Only [facility] Results Test Description Test Time Test Comments Results Result Comments Source (MANUAL DIFFERENTIAL) 2022-12-28 10:33:53 Test Item Value Reference Range Interpretation Comme nts NEUTROPHILS - REL (DIFF) (BEAKER) (test code = 1359) 27 % LYMPHOCYTES - REL (DIFF) (BEAKER) (test code = 1360) 60 % MONOCYTES - REL (DIFF) (BEAKER) (test code = 1361) 9 % ATYPICAL LYMPHOCYTE - REL (DIFF) (BEAKER) (test code = 260) 4 % 0-0 H NEUTROPHILS - ABS (DIFF) (BEAKER) (test code = 1365) 0.98 K/ L 1 .80-8.00 L LYMPHOCYTES - ABS (DIFF) (BEAKER) (test code = 1366) 2.15 K/ L 1 .48-4.50 MONOCYTES - ABS (DIFF) (BEAKER) (test code = 1367) 0.33 K/ L 0.0 0-1.30 ATYPICAL LYMPHOCYTES - ABS (DIFF) (BEAKER) (test code = 263) 0.15 K/ L 0.00-0.00 H TOTAL COUNTED (BEAKER) (test code = 1351) 99 WBC MORPHOLOGY (BEAKER) (test code = 487) Normal PLT MORPHOLOGY (BEAKER) (test code = 486) Normal RBC MORPHOLOGY (BEAKER) (test code = 762) Normal COMPREHENSIVE METABOLIC [id number] 09:36:30 Test Item Value Reference Range Interpretation Comments TOTAL PROTEIN 6.7 gm/dL 6.0-8.3 (BEAKER) (test code = 770) ALBUMIN (BEAKER) 4.3 g/dL 3.5-5.0 (test code = 1145) ALKALINE 787 U/L 40-150 H PHOSPHATASE (BEAKER) (test code = 346) BILIRUBIN TOTAL 0.5 mg/dL 0.2-1.2 (BEAKER) (test code = 377) SODIUM (BEAKER) 137 meq/L 136-145 (test code = 381) POTASSIUM (BEAKER) 4.5 meq/L 3.5-5.1 (test code = 379) CHLORIDE (BEAKER) 103 meq/L 98-107 (test code = 382) CO2 (BEAKER) (test 28 meq/L 22-29 code = 355) BLOOD UREA 20 mg/dL 7-21 NITROGEN (BEAKER) (test code = 354) CREATININE 1.02 mg/dL 0.57-1.25 (BEAKER) (test code = 358) GLUCOSE RANDOM 110 mg/dL 70-105 H (BEAKER) (test code = 652) CALCIUM (BEAKER) 8.9 mg/dL 8.4-10.2 (test code = 697) AST (SGOT) 208 U/L 5-34 H (BEAKER) (test code = 353) ALT (SGPT) 82 U/L 6-55 H (BEAKER) (test code = 347) EGFR (BEAKER) 96 Interpretatio n of eGFR (test code = [...] not appl icable for dialysis patien ts [id number] 09:28:58 Test Item Value Reference Range Interpretation Comments MAGNESIUM (BEAKER) (test code = 1.7 mg/dL 1.6-2.6 627) CBC W/PLT COUNT & AUTO [id number] 09:23:38 Test Item Value Reference Range Interpretation Comments WHITE BLOOD CELL COUNT (BEAKER) 3.6 K/ L 3.5-10.5 (test code = 775) RED BLOOD CELL COUNT (BEAKER) 4.04 M/ L 4.63-6.08 L (test code = 761) HEMOGLOBIN (BEAKER) (test code = 11.6 GM/DL 13.7-17.5 L 410) HEMATOCRIT (BEAKER) (test code = 36.0 % 40.1-51.0 L 411) MEAN CORPUSCULAR VOLUME (BEAKER) 89 fL 79-92 (test code = 753) MEAN CORPUSCULAR HEMOGLOBIN 28.7 pg 25.7-32.2 (BEAKER) (test code = 751) MEAN CORPUSCULAR HEMOGLOBIN CONC 32.2 GM/DL 32.3-36.5 L (BEAKER) (test code = 752) RED CELL DISTRIBUTION WIDTH 15.2 % 11.6-14.4 H (BEAKER) (test code = 412) PLATELET COUNT (BEAKER) (test 508 K/CU MM 150-450 H code = 756) MEAN PLATELET VOLUME (BEAKER) 9.7 fL 9.4-12.4 (test code = 754) COMPREHENSIVE METABOLIC [id number] 09:40:11 Test Item Value Reference Range Interpretation Comments TOTAL PROTEIN 6.6 gm/dL 6.0-8.3 (BEAKER) (test code = 770) ALBUMIN (BEAKER) 4.2 g/dL 3.5-5.0 (test code = 1145) ALKALINE 515 U/L 40-150 H PHOSPHATASE (BEAKER) (test code = 346) BILIRUBIN TOTAL 0.5 mg/dL 0.2-1.2 (BEAKER) (test code = 377) SODIUM (BEAKER) 135 meq/L 136-145 L (test code = 381) POTASSIUM (BEAKER) 4.5 meq/L 3.5-5.1 (test code = 379) CHLORIDE (BEAKER) 100 meq/L 98-107 (test code = 382) CO2 (BEAKER) (test 29 meq/L 22-29 code = 355) BLOOD UREA 19 mg/dL 7-21 NITROGEN (BEAKER) (test code = 354) CREATININE 1.23 mg/dL 0.57-1.25 (BEAKER) (test code = 358) GLUCOSE RANDOM 109 mg/dL 70-105 H (BEAKER) (test code = 652) CALCIUM (BEAKER) 9.1 mg/dL 8.4-10.2 (test code = 697) AST (SGOT) 233 U/L 5-34 H (BEAKER) (test code = 353) ALT (SGPT) 66 U/L 6-55 H (BEAKER) (test code = 347) EGFR (BEAKER) 77 Interpretatio n of eGFR (test code = [...] not appl icable for dialysis patien ts [id number] 09:24:23 Test Item Value Reference Range Interpretation Comments MAGNESIUM (BEAKER) (test code = 1.9 mg/dL 1.6-2.6 627) CBC W/PLT COUNT & AUTO [id number] 09:04:00 Test Item Value Reference Range Interpretation Comments WHITE BLOOD CELL COUNT (BEAKER) 6.5 K/ L 3.5-10.5 (test code = 775) RED BLOOD CELL COUNT (BEAKER) 4.03 M/ L 4.63-6.08 L (test code = 761) HEMOGLOBIN (BEAKER) (test code = 11.6 GM/DL 13.7-17.5 L 410) HEMATOCRIT (BEAKER) (test code = 35.4 % 40.1-51.0 L 411) MEAN CORPUSCULAR VOLUME (BEAKER) 88 fL 79-92 (test code = 753) MEAN CORPUSCULAR HEMOGLOBIN 28.8 pg 25.7-32.2 (BEAKER) (test code = 751) MEAN CORPUSCULAR HEMOGLOBIN CONC 32.8 GM/DL 32.3-36.5 (BEAKER) (test code = 752) RED CELL DISTRIBUTION WIDTH 13.9 % 11.6-14.4 (BEAKER) (test code = 412) PLATELET COUNT (BEAKER) (test 363 K/CU MM 150-450 code = 756) MEAN PLATELET VOLUME (BEAKER) 9.2 fL 9.4-12.4 L (test code = 754) NEUTROPHILS RELATIVE PERCENT 74 % (BEAKER) (test code = 429) LYMPHOCYTES RELATIVE PERCENT 18 % (BEAKER) (test code = 430) MONOCYTES RELATIVE PERCENT 5 % (BEAKER) (test code = 431) EOSINOPHILS RELATIVE PERCENT 0 % (BEAKER) (test code = 432) BASOPHILS RELATIVE PERCENT 1 % (BEAKER) (test code = 437) NEUTROPHILS ABSOLUTE COUNT 4.81 K/ L 1.78-5.38 (BEAKER) (test code = 670) LYMPHOCYTES ABSOLUTE COUNT 1.19 K/ L 1.32-3.57 L (BEAKER) (test code = 414) MONOCYTES ABSOLUTE COUNT (BEAKER) 0.34 K/ L 0.30-0.82 (test code = 415) EOSINOPHILS ABSOLUTE COUNT 0.01 K/ L 0.04-0.54 L (BEAKER) (test code = 416) BASOPHILS ABSOLUTE COUNT (BEAKER) 0.09 K/ L 0.01-0.08 H (test code = 417) IMMATURE GRANULOCYTES-RELATIVE 0.90 % 0.00-1.00 PERCENT (BEAKER) (test code = 2801) ALPHA FETOPROTEIN (AFP), TUMOR [id number] 16:54:52 Test Item Value Reference Range Interpretation Comments ALPHA-FETOPROTEIN (BEAKER) (test code > ng/mL <10.0 H = 1094) Orthodontist Vice President ID - ADMINOperator ID - ADMINOperator ID - ADMINOperator ID - ADMIN BASIC METABOLIC [id number] 13:58:04 Test Item Value Reference Range Interpretation Comments SODIUM (BEAKER) 135 meq/L 136-145 L (test code = 381) POTASSIUM 4.3 meq/L 3.5-5.1 (BEAKER) (test code = 379) CHLORIDE (BEAKER) 100 meq/L 98-107 (test code = 382) CO2 (BEAKER) 26 meq/L 22-29 (test code = 355) BLOOD UREA 12 mg/dL 7-21 NITROGEN (BEAKER) (test code = 354) CREATININE 0.96 mg/dL 0.57-1.25 (BEAKER) (test code = 358) GLUCOSE RANDOM 92 mg/dL 70-105 (BEAKER) (test code = 652) CALCIUM (BEAKER) 8.9 mg/dL 8.4-10.2 (test code = 697) EGFR (BEAKER) 103 Interpretatio n of eGFR (test code = [...] not appl icable for dialysis patien ts Orthodontist Vice President ID - ADMINHEPATIC FUNCTION [id number] 13:58:04 Test Item Value Reference Range Interpretation Comments TOTAL PROTEIN (BEAKER) (test code = 6.8 gm/dL 6.0-8.3 770) ALBUMIN (BEAKER) (test code = 1145) 4.0 g/dL 3.5-5.0 BILIRUBIN TOTAL (BEAKER) (test code 0.3 mg/dL 0.2-1.2 = 377) BILIRUBIN DIRECT (BEAKER) (test 0.2 mg/dL 0.1-0.5 code = 706) ALKALINE PHOSPHATASE (BEAKER) (test 411 U/L 40-150 H code = 346) AST (SGOT) (BEAKER) (test code = 70 U/L 5-34 H 353) ALT (SGPT) (BEAKER) (test code = 58 U/L 6-55 H 347) Orthodontist Vice President ID - ADMINCBC W/PLT COUNT & AUTO [id number] 11:19:47 Test Item Value Reference Range Interpretation Comments WHITE BLOOD CELL COUNT (BEAKER) 3.2 K/ L 3.5-10.5 L (test code = 775) RED BLOOD CELL COUNT (BEAKER) 3.59 M/ L 4.63-6.08 L (test code = 761) HEMOGLOBIN (BEAKER) (test code = 9.9 GM/DL 13.7-17.5 L 410) HEMATOCRIT (BEAKER) (test code = 30.8 % 40.1-51.0 L 411) MEAN CORPUSCULAR VOLUME (BEAKER) 86 fL 79-92 (test code = 753) MEAN CORPUSCULAR HEMOGLOBIN 27.6 pg 25.7-32.2 (BEAKER) (test code = 751) MEAN CORPUSCULAR HEMOGLOBIN CONC 32.1 GM/DL 32.3-36.5 L (BEAKER) (test code = 752) RED CELL DISTRIBUTION WIDTH 13.2 % 11.6-14.4 (BEAKER) (test code = 412) PLATELET COUNT (BEAKER) (test 222 K/CU MM 150-450 code = 756) MEAN PLATELET VOLUME (BEAKER) 9.2 fL 9.4-12.4 L (test code = 754) NUCLEATED RED BLOOD CELLS 0 /100 WBC 0-0 (BEAKER) (test code = 413) NEUTROPHILS RELATIVE PERCENT 49 % (BEAKER) (test code = 429) LYMPHOCYTES RELATIVE PERCENT 42 % (BEAKER) (test code = 430) MONOCYTES RELATIVE PERCENT 7 % (BEAKER) (test code = 431) EOSINOPHILS RELATIVE PERCENT 0 % (BEAKER) (test code = 432) BASOPHILS RELATIVE PERCENT 1 % (BEAKER) (test code = 437) NEUTROPHILS ABSOLUTE COUNT 1.57 K/ L 1.78-5.38 L (BEAKER) (test code = 670) LYMPHOCYTES ABSOLUTE COUNT 1.36 K/ L 1.32-3.57 (BEAKER) (test code = 414) MONOCYTES ABSOLUTE COUNT (BEAKER) 0.23 K/ L 0.30-0.82 L (test code = 415) EOSINOPHILS ABSOLUTE COUNT 0.01 K/ L 0.04-0.54 L (BEAKER) (test code = 416) BASOPHILS ABSOLUTE COUNT (BEAKER) 0.04 K/ L 0.01-0.08 (test code = 417) IMMATURE GRANULOCYTES-RELATIVE 0.00 % 0.00-1.00 PERCENT (BEAKER) (test code = 2801) HEPATIC FUNCTION [id number] 06:52:32 Test Item Value Reference Range Interpretation Comments TOTAL PROTEIN (BEAKER) (test code = 5.9 gm/dL 6.0-8.3 L 770) ALBUMIN (BEAKER) (test code = 1145) 3.3 g/dL 3.5-5.0 L BILIRUBIN TOTAL (BEAKER) (test code 0.5 mg/dL 0.2-1.2 = 377) BILIRUBIN DIRECT (BEAKER) (test 0.3 mg/dL 0.1-0.5 code = 706) ALKALINE PHOSPHATASE (BEAKER) (test 459 U/L 40-150 H code = 346) AST (SGOT) (BEAKER) (test code = 106 U/L 5-34 H 353) ALT (SGPT) (BEAKER) (test code = 64 U/L 6-55 H 347) Orthodontist Vice President ID - MMURIC [id number] 06:52:31 Test Item Value Reference Range Interpretation Comments URIC ACID (BEAKER) (test code = 2.7 mg/dL 2.6-7.2 773) Orthodontist Vice President ID - MMBASIC METABOLIC [id number] 06:52:30 Test Item Value Reference Range Interpretation [...] not appl icable for dialysis patien ts Orthodontist Vice President ID - [id number] 06:52:30 Test Item Value Reference Range Interpretation Comments PHOSPHORUS (BEAKER) (test code = 3.4 mg/dL 2.3-4.7 604) Orthodontist Vice President ID - MMCBC W/PLT COUNT & AUTO [id number] 06:20:55 Test Item Value Reference Range Interpretation [...] (BEAKER) (test code = 2801) BASIC METABOLIC [id number] 22:14:17 Test Item Value Reference Range Interpretation [...] not appl icable for dialysis patien ts Orthodontist Vice President ID - ADMINURIC [id number] 22:12:41 Test Item Value Reference Range Interpretation Comments URIC ACID (BEAKER) 2.6 mg/dL 2.6-7.2 Specimen slightly (test code = 773) hemolyzed Orthodontist Vice President ID - [id number] 22:12:40 Test Item Value Reference Range Interpretation Comments PHOSPHORUS (BEAKER) 3.8 mg/dL 2.3-4.7 Specimen slightly (test code = 604) hemolyzed Orthodontist Vice President ID - ADMINBASIC METABOLIC [id number] 17:01:12 Test Item Value Reference Range Interpretation [...] decreased 60-89 G3a Mildl y to moderately 45- 59 G3b Moderately to s everely 30-44 G4 Severl y decreased 15-29 G5 Kidney failure <15Reported eGF R is based on the CKD-EPI 2020 equation that d oes not use a race coefficientEsti mated GFR is not as accur ate as Creatinine Iman arleen in predicting glom erular filtration rate . Estimated GFR is not appl icable for dialysis patien ts Orthodontist Vice President ID - [id number] 16:58:24 Test Item Value Reference Range Interpretation Comments PHOSPHORUS (BEAKER) (test code = 2.8 mg/dL 2.3-4.7 604) Orthodontist Vice President ID - ADMINURIC [id number] 16:58:24 Test Item Value Reference Range Interpretation Comments URIC ACID (BEAKER) (test code = 2.1 mg/dL 2.6-7.2 L 773) Orthodontist Vice President ID - ADMINURIC [id number] 06:57:40 Test Item Value Reference Range Interpretation Comments URIC ACID (BEAKER) (test code = 3.1 mg/dL 2.6-7.2 773) Orthodontist Vice President ID - MMHEPATIC FUNCTION [id number] 06:57:40 Test Item Value Reference Range Interpretation [...] code = 65 U/L 6-55 H 347) Orthodontist Vice President ID - MMBASIC METABOLIC [id number] 06:57:39 Test Item Value Reference Range Interpretation [...] not appl icable for dialysis patien ts Orthodontist Vice President ID - [id number] 06:57:39 Test Item Value Reference Range Interpretation Comments PHOSPHORUS (BEAKER) (test code = 3.6 mg/dL 2.3-4.7 604) Orthodontist Vice President ID - MMCBC W/PLT COUNT & AUTO [id number] 06:51:25 Test Item Value Reference Range Interpretation [...] (BEAKER) (test code = 2801) BASIC METABOLIC [id number] 09:04:16 Test Item Value Reference Range Interpretation [...] not appl icable for dialysis patien ts Orthodontist Vice President ID - [id number] 09:04:15 Test Item Value Reference Range Interpretation Comments PHOSPHORUS (BEAKER) 3.1 mg/dL 2.3-4.7 Specimen slightly (test code = 604) hemolyzed Orthodontist Vice President ID - MMURIC [id number] 09:04:15 Test Item Value Reference Range Interpretation Comments URIC ACID (BEAKER) 4.1 mg/dL 2.6-7.2 Specimen slightly (test code = 773) hemolyzed Orthodontist Vice President ID - [id number] 05:03:52 Test Item Value Reference Range Interpretation Comments PHOSPHORUS (BEAKER) (test code = 3.7 mg/dL 2.3-4.7 604) Orthodontist Vice President ID - MMURIC [id number] 05:03:52 Test Item Value Reference Range Interpretation Comments URIC ACID (BEAKER) (test code = 4.7 mg/dL 2.6-7.2 773) Orthodontist Vice President ID - MMCOMPREHENSIVE METABOLIC [id number] 05:03:51 Test Item Value Reference Range Interpretation [...] not appl icable for dialysis patien ts Orthodontist Vice President ID - MMCBC W/PLT COUNT & AUTO [id number] 04:40:21 Test Item Value Reference Range Interpretation [...] 2801) XR CHEST 1 VIEW PORTABLE / [id number] 17:54:25 [facility] : 1980 Sex: MXR CHEST [...] (test code Normal = 486) HEPATITIS B [id number] 13:30:00 Test Item Value Reference Range Interpretation Comments HEPATITIS B CORE TOTAL ANTIBODY Nonreactive Nonreactive (BEAKER) (test code = 497) HEPATITIS B SURFACE ANTIBODY < mIU/mL <8.0 (BEAKER) (test code = 647) HEPATITIS B SURFACE ANTIGEN (2) Nonreactive Nonreactive (BEAKER) (test code = 2585) Orthodontist Vice President ID - ADMINHEPATITIS C [id number] 13:29:13 Test Item Value Reference Range Interpretation Comments HEPATITIS C ANTIBODY (BEAKER) Nonreactive Nonreactive (test code = 367) Orthodontist Vice President ID - [id number] 13:04:16 Test Item Value Reference Range Interpretation Comments MAGNESIUM (BEAKER) (test code = 1.8 mg/dL 1.6-2.6 627) Orthodontist Vice President ID - edCOMPREHENSIVE METABOLIC [id number] 13:04:15 Test Item Value Reference Range Interpretation [...] not appl icable for dialysis patien ts Orthodontist Vice President ID - edCBC WITH PLATELET COUNT + MANUAL [id number] 12:48:49 Test Item Value Reference Range Interpretation [...] 0-0 (BEAKER) (test code = 413) SARS-COV2/RT-PCR ([facility])2022-11-08 09:48:49 Test Item Value Reference Range Interpretation Comments SARS-COV2/RT-PCR Negative Negative The SARS-Co V-2 target (test code = nucleic acids a re not [id number]) detected in thi s specimen. Negative result [...] rapid, real-time RT-PC R test intended for th e qualitative detection of nu cleic acid [...] revoked sooner. Fact Sheet for Healthcare Providers: https://www.[employer]/Documents/Xpert%20Xpress%20SARS%20CoV-2/Fact%20Sheets/296-9992%38QDRZ-KEV-4%20 HEALTHCARE%20PROVIDERS%20FACT%20SHEET.pdf Fact Sheet for Healthcare Patients: https://www.[employer]/Documents/Xpert%20Xp ress%20SARS%20CoV-2/Fact%20Sheets/270-3801%26CGIE-WMV-1%20PATIENT%20FACT%20SHEET .pdfCARCINOEMBRYONIC ANTIGEN ([facility])2022-11-06 18:53:46 Test Item Value Reference Range Interpretation Comments CARCINOEMBRYONIC ANTIGEN (BEAKER) 5.3 ng/mL 0.0-5.0 H (test code = 685) Orthodontist Vice President ID - MMCOMPREHENSIVE METABOLIC [id number] 16:39:54 Test Item Value Reference Range Interpretation [...] patien ts CBC W/PLT COUNT & AUTO [id number] 16:21:39 Test Item Value Reference Range Interpretation [...] PERCENT (BEAKER) (test code = 2801) TISSUE [id number] 16:02:43Surgical Pathology Report Case: [id number] Authorizing Provider: Dima Berrios MD Collected: 10/26/2022 03:07 PM Ordering Location: [address] Received: 10/26/2022 04:53 PM Service Pathologist: Sherry Andrade MD Specimen: Biopsy, Liver Liver, mass, core needle biopsy: - Metastatic poorly differentiated neuroendocrine carcinoma, WHO grade 3; see comment Signing Pathologist Direct Phone Line: [phone] signed by Sherry Andrade MD on 11/01/2022 at 4:02 PMPreliminary result electronically signed by Sherry Andrade MD on 10/27/2022 at 9:05 AMSections show a cellular neoplasm with predominantly solid architecture. The tumor cells have round to oval, variably-sized nucleiwith conspicuous nucleoli and moderate amount of eosinophilic, focally granular cytoplasm. Scatteredtumor cells have irregular nuclear contour. There is [...] findings are most consistent with a metastatic poorlydifferentiated neuroendocrine carcinoma (PDNEC), WHO grade 3. Metastatic neuroendocrine carcinoma can occasionally present with elevated alpha-fetoprotein (see reference). The histomorphology and immunophenotype is not specific for a particular primary site, and clinical and imaging correlation is needed. The patient's prior gastric biopsy ([id number], H&E) was concurrently reviewed, and the tumorshows similar histomorphology. Dr. Edvin Goldberg reviewed the case and agrees.Block A2 has adequate tumor cellularity for additional ancillary studies.References:Antonino WALLER, Dariusz T, Carina C, Mousa L. Metastatic neuroendocrine carcinoma presenting as multifocal liver lesions with elevated alpha-fetoprotein. Clin Case Rep. 2018 May 16;7(2):251-253. doi: 10.1002/ccr3.1956. PMID: 83636732; PMCID: [id number], 59737, [id number] is a 42-year-old male with history of [...] evaluated Immunohistochemistry technical testing was performed at [facility], Pathology Laboratory where it was developed and its performance characteristics were determined. It has not been cleared or approved by the [place]. Food and Drug Administration. The FDA has determined that such clearance or approval is not necessary. The test is used for clinical purposes. Itshould not be regarded as investigational or for research. This laboratory is certified under the Clinical Laboratory Improvement Amendments of 1988 (CLIA-88) as qualified to perform high complexity clinical laboratory testing.[facility], Department of Pathology, [address] [place] [address], [facility], [address] [place] [address], [facility], [facility] of[facility], [address] [place] [address], DCORAZ [id number] 09:06:35Surgical Pathology Report Case: [id number] Authorizing Provider: Judy Martinez, Collected: 10/23/2022 11:56 AM Ordering Location: [address] Received: 10/23/2022 01:29 PM Service Pathologist: Suzan Teixeira MD Specimens: A) - Biopsy, Gastric, random bxs B) - Biopsy, Gastric, bxs gastric mass A. STOMACH, RANDOM BIOPSIES: - CHEMICAL/REACTIVE GASTROPATHY - PPI EFFECT, MILDB. STOMACH, BIOPSIES OF MASS: - NEUROENDOCRINE CARCINOMA, SMALL CELL TYPE Signing Pathologist Direct Phone Line: [phone] signed by Suzan Bagley MD on 11/01/2022 at 9:06 AMPreliminary result electronically signed by Suzan Teixeira MD on 10/27/2022 at 11:55 AMPreliminary result electronically signed by Suzan Teixeira MD on 10/26/2022 at 11:55 AMThe finding was communicated via secure email with Judy Edmonds <[email or web address] GI Department at 11:52 on October 26, [id number], [id number], [id number] hemorrhage associated with gastritisA. Biopsy, GastricReceived in [...] evaluated and the report was issued at [facility] (CLIA#[id number]), [address] [place] [address].The interpretation of this case included the use of immunohistochemistry or special stains.Control Slides Examined: In-house known positive controls were evaluated along with the test tissue. These control slides run alongside of the patients sample show appropriate staining. Internal positive and negative controls when available are evaluated Immunohistochemistry technical testing was performed at [facility], Pathology Laboratory where it was developed and its performance characteristics were determined. It has not been cleared or approved by the U.S. Food and Drug Administration. The FDA has determined that such clearance or approval is not necessary. The test is used for clinical purposes. It should not be regarded asinvestigational or for research. This laboratory is certified under the Clinical Laboratory Improvement Amendments of 1988 (CLIA-88) as qualified to perform high complexity clinical laboratory testing.U/S, BIOPSY, [id number] 12:01:00Reason for exam:->gastric mass and liver mass with afp >[id number] this be performed at the bedside?->No [facility] 1980 Sex: MFINAL REPORT Procedure: Liver mass core biopsy Pre/post-procedure diagnosis: Liver mass Charge Machine Operator: Bebo Low MD Assistants: none Sedation: Moderate [...] ultrasound-guided liver mass core biopsy. Signed: [facility] Verified Date/Time: 10/30/2022 12:01:04 C METABOLIC [id number] 05:48:04 Test Item Value Reference Range Interpretation [...] not appl icable for dialysis patien ts Orthodontist Vice President ID - [id number] 05:48:04 Test Item Value Reference Range Interpretation Comments MAGNESIUM (BEAKER) (test code = 1.7 mg/dL 1.6-2.6 627) Orthodontist Vice President ID - MMCBC W/PLT COUNT & AUTO [id number] 05:27:57 Test Item Value Reference Range Interpretation [...] 0.00-1.00 PERCENT (BEAKER) (test code = 2801) [id number] 06:55:04 Test Item Value Reference Range Interpretation Comments MAGNESIUM (BEAKER) (test code = 1.6 mg/dL 1.6-2.6 627) Orthodontist Vice President ID - BSBASIC METABOLIC [id number] 06:55:03 Test Item Value Reference Range Interpretation [...] not appl icable for dialysis patien ts Orthodontist Vice President ID - BSPROTHROMBIN [id number] 06:18:33 Test Item Value Reference Range Interpretation [...] mechanical heart valves.CBC W/PLT COUNT & AUTO [id number] 06:07:18 Test Item Value Reference Range Interpretation [...] (BEAKER) (test code = 2801) COMPREHENSIVE METABOLIC [id number] 07:14:31 Test Item Value Reference Range Interpretation [...] not appl icable for dialysis patien ts Orthodontist Vice President ID Kayla BARRIOS [id number] 07:14:31 Test Item Value Reference Range Interpretation Comments MAGNESIUM (BEAKER) (test code = 1.5 mg/dL 1.6-2.6 L 627) Orthodontist Vice President ID Kayla BARRIOS WCBC W/PLT COUNT & AUTO [id number] 06:55:14 Test Item Value Reference Range Interpretation [...] (test code = 2801) ROSALINDA TITER AND [id number] 13:55:32 Test Item Value Reference Range Interpretation [...] method.Test performed by IFA method.CT, CHEST, WITH [id number] 13:00:00Unlisted Reason for Exam - Click Yes and Enter Reason Below->[facility]ARC[facility] JR : 1980 Sex: [...] [place] Verified Date/Time: 10/24/2022 13:00:41 Reading Location: [facility] C013X Ortho Consult Reading Room CT, [id number] 13:00:00Unlisted Reason for Exam - Click Yes and Enter Reason Below->NoProtocol Please Specify:->Standard ProtocolWill this procedure require oral contrast?->No [facility] CENTERName: HONORIO GARCIA : 1980 Sex: MFINAL [...] [place] Verified Date/Time: 10/24/2022 13:00:41 Reading Location: [facility] [address] [place] [address] Consult Reading Room CBC W/PLT COUNT & [...] 0.00-1.00 PERCENT (BEAKER) (test code = 2801) [id number] 05:38:34 Test Item Value Reference Range Interpretation Comments MAGNESIUM (BEAKER) (test code = 1.5 mg/dL 1.6-2.6 L 627) Orthodontist Vice President ID - MMCOMPREHENSIVE METABOLIC [id number] 05:38:33 Test Item Value Reference Range Interpretation [...] not appl icable for dialysis patien ts Orthodontist Vice President ID - MMHEMOGLOBIN AND [id number] 16:05:28 Test Item Value Reference Range Interpretation Comments HEMOGLOBIN (BEAKER) (test code = 14.4 GM/DL 13.7-17.5 410) HEMATOCRIT (BEAKER) (test code = 44.3 % 40.1-51.0 411) Orthodontist Vice President ID - [id number] 09:39:18 Test Item Value Reference Range Interpretation Comments MAGNESIUM (BEAKER) 1.6 mg/dL 1.6-2.6 Specimen slightly (test code = 627) hemolyzed Orthodontist Vice President ID - MMBASIC METABOLIC [id number] 09:39:18 Test Item Value Reference Range Interpretation [...] not appl icable for dialysis patien ts Orthodontist Vice President ID - MMHEPATIC FUNCTION [id number] 09:39:18 Test Item Value Reference Range Interpretation [...] Specimen slightly (test code = 347) hemolyzed Orthodontist Vice President ID - MMCBC W/PLT COUNT & AUTO [id number] 06:38:29 Test Item Value Reference Range Interpretation [...] PERCENT (BEAKER) (test code = 2801) HEMOGLOBIN [id number] 08:56:25 Test Item Value Reference Range Interpretation [...] 5.7- 6.4% indicates increased risk for diabetes (prediabetes)."Orthodontist Vice President ID - ADM [id number] 07:09:54 Test Item Value Reference Range Interpretation Comments FERRITIN (BEAKER) (test code = 159.87 ng/mL 5.00-275.00 361) Orthodontist Vice President ID - MARCOALPHA FETOPROTEIN (AFP), TUMOR [id number] 06:32:10 Test Item Value Reference Range Interpretation Comments ALPHA-FETOPROTEIN (BEAKER) 67144.5 ng/mL <10.0 H (test code = 1094) Orthodontist Vice President ID - ADMINOperator ID - ADMINHEPATITIS B SURFACE [id number] 06:31:52 Test Item Value Reference Range Interpretation Comments HEPATITIS B SURFACE ANTIBODY < mIU/mL <8.0 (BEAKER) (test code = 647) Orthodontist Vice President ID - ADMINHEPATITIS A ANTIBODY, [id number] 06:31:00 Test Item Value Reference Range Interpretation Comments HEPATITIS A IGG ANTIBODY (BEAKER) Nonreactive Nonreactive (test code = 2797) Orthodontist Vice President ID - ADMINCARCINOEMBRYONIC ANTIGEN (CEA)2022-10-22 06:30:59 Test Item Value Reference Range Interpretation Comments CARCINOEMBRYONIC ANTIGEN (BEAKER) 5.6 ng/mL 0.0-5.0 H (test code = 685) Orthodontist Vice President ID - ADMINHEPATITIS B CORE ANTIBODY, [id number] 06:30:59 Test Item Value Reference Range Interpretation Comments HEPATITIS B CORE TOTAL ANTIBODY Nonreactive Nonreactive (BEAKER) (test code = 497) Orthodontist Vice President ID - ADMINHEPATITIS PANEL, [id number] 06:03:10 Test Item Value Reference Range Interpretation Comments HEPATITIS A IGM ANTIBODY (BEAKER) Nonreactive Nonreactive (test code = 498) HEPATITIS B CORE IGM ANTIBODY Nonreactive Nonreactive (BEAKER) (test code = 645) HEPATITIS C ANTIBODY (BEAKER) Nonreactive Nonreactive (test code = 367) HEPATITIS B SURFACE ANTIGEN (2) Nonreactive Nonreactive (BEAKER) (test code = 2585) Orthodontist Vice President ID - [id number] 05:54:41 Test Item Value Reference Range Interpretation Comments MAGNESIUM (BEAKER) (test code = 1.7 mg/dL 1.6-2.6 627) Orthodontist Vice President ID - MARCOLIPID [id number] 05:54:41 Test Item Value Reference Range Interpretation [...] Borderline 130-159 High 160-189 Very High >=190 Orthodontist Vice President ID - MARCOHEPATIC FUNCTION [id number] 05:54:41 Test Item Value Reference Range Interpretation [...] (test code = 54 U/L 6-55 347) Orthodontist Vice President ID - DEACONSIC METABOLIC [id number] 05:54:40 Test Item Value Reference Range Interpretation [...] not appl icable for dialysis patien ts Orthodontist Vice President ID - MARCOIRON, TIBC, % SAT. (WITHOUT FERRITIN)2022-10-22 05:39:20 Test Item Value Reference Range Interpretation Comments IRON (BEAKER) (test code = 547) 61.0 ug/dL 40.0-160.0 TOTAL IRON BINDING CAPACITY 273 ug/dL 250-450 (BEAKER) (test code = 769) IRON % SATURATION (2) (BEAKER) 22 % 20-55 (test code = 2590) Orthodontist Vice President ID - [id number] 05:39:03 Test Item Value Reference Range Interpretation Comments ALPHA-1 ANTITRYPSIN (BEAKER) 211.70 mg/dL 90.00-200.00 H (test code = 502) Orthodontist Vice President ID - ADMINCBC W/PLT COUNT & AUTO [id number] 05:15:17 Test Item Value Reference Range Interpretation [...] (BEAKER) (test code = 2801) HEPATIC FUNCTION [id number] 15:14:35 Test Item Value Reference Range Interpretation [...] Specimen slightly (test code = 347) hemolyzed Orthodontist Vice President ID - MARCOPROTHROMBIN [id number] 15:14:35 Test Item Value Reference Range Interpretation Comments PROTIME (BEAKER) (test code = 14.7 seconds 11.9-14.2 H 759) INR (BEAKER) (test code = 370) 1.22 <=5.90 RECOMMENDED COUMADIN/WARFARIN INR THERAPY RANGESSTANDARD DOSE: 2.0 - 3.0 Includes: PROPHYLAXIS for venous thrombosis, systemic embolization; TREATMENT for venous thrombosis and/or pulmonary embolus.HIGH RISK: Target INR is 2.5-3.5 for patients with mechanical heart valves.BASIC METABOLIC [id number] 15:14:34 Test Item Value Reference Range Interpretation [...] not appl icable for dialysis patien ts Orthodontist Vice President ID - MARCOCBC W/PLT COUNT & AUTO [id number] 14:53:39 Test Item Value Reference Range Interpretation [...]
[2022-12-31 05:22] LABS: Absolute Lymphocytes (CBC) 0.8 K/uL (0.7-4.9); Hematocrit 29.9 % (39.6-49.0); Lymphocytes % 13.4 % (15.3-44.8); MCV 85.7 fL (80-100); MPV 6.9 fL (7.6-11.3)
[2022-12-31] MEDS ORDERED: FAMOTIDINE 20 MG/2 ML VIAL IV ONE (05:30)
[2022-12-31] MEDS ORDERED: MORPHINE 4 MG/ML SYR ONE ×2 (05:30→06:14)
[2022-12-31] MEDS ORDERED: NA CHLORIDE 0.9% 1,000 ML ONE (05:30)
[2022-12-31] MEDS ORDERED: KETOROLAC 30 MG/ML INJ ONE (05:30)
[2022-12-31] MEDS ORDERED: ONDANSETRON 4 MG/2 ML VIAL ONE (05:30)
[2022-12-31 05:40] LABS: Albumin 2.9 g/dL (3.4-5.0); Bilirubin Total 0.5 mg/dL (0.2-1.0); Potassium 3.9 mEq/L (3.5-5.1); Protein, Total 6.1 g/dL (6.4-8.2)
[2022-12-31] MEDS ORDERED: METOCLOPRAMIDE 10 MG/2mL INJ ONE (06:13)
[2022-12-31] MEDS ORDERED: DICYCLOMINE HCL 10 MG CAP ONE (06:14)
--- NOTE | 2022-12-31 06:57 | RAD REPORT ---
EXAM DESCRIPTION: CTAbdomen Pelvis W Contrast - 12/31/2022 6:40 am CLINICAL HISTORY: ABD PAIN COMPARISON: Abdomen Pelvis W Contrast dated 11/05/2022; Abdomen Pelvis W Contrast dated 10/21/2022; Abdomen Exam Limited dated 11/15/2022 TECHNIQUE: CT of the abdomen and pelvis was performed with IV contrast. All CT scans are performed using dose optimization technique as appropriate and may include automated exposure control or mA/KV adjustment according to patient size. FINDINGS: Lower chest: No acute abnormality. Liver: Continued increase in size of the numerous liver masses. The largest mass centered in segment 4 of the left hepatic lobe measures 13.5 cm, previously 7.7 cm. A smaller lesion left hepatic lobe wh ich measures 8.1 cm has enlarged and exerts in increased mass effect on the stomach. Biliary: No biliary ductal dilatation. Stomach: Increased mass-effect on the stomach. Duodenum: No significant focal abnormality. Pancreas: No significant abnormality. Spleen: No significant abnormality. Adrenal: No suspicious lesions. Kidney/ureter: No hydronephrosis. No renal calculi. Retroperitoneum: Reactive sized retroperitoneal lymph nodes. Vascular: No aneurysm. Mild atherosclerosis . Bowel: No significant focal abnormality. Peritoneum: Mild increased ascites. Upper abdominal lymphadenopathy noted. Bladder: Grossly unremarkable. Reproductive: No adnexal masses. Bones: No acute fracture. Grade 2 anterolisthesis of L4 on L5. Pars defects. Other: n/a IMPRESSION: Marked enlargement of multiple hepatic masses, presumably metastatic disease. A lesion i n the left hepatic lobe which has enlarged results in increased mass effect on the stomach. No bowel obstruction identified.
--- NOTE | 2022-12-31 07:13 | ER ---
Nurse's Notes [facility] Name: Ayden Andres Jr Age: 42 yrs Sex: Male : 1980 Arrival Date: 12/31/2022 Time: 04:47 Bed 5 Private MD: Diagnosis: Abdominal pain, Generalized;Malignant neoplasm of liver, not specified as primary or secondary;Anemia, unspecified Presentation: 12/31 05:10 Chief complaint: Patient states: I'm real bloated and constipated. I'm also having vc1 severe abdominal pain. I had chemo and Sunday so I think that is why I am hurting. Coronavirus screen: Vaccine status: Patient reports receiving the 2nd dose of the covid vaccine. unsure of pbx inspector Client denies travel out of the [place] in the last 14 days. At this time, the client does not indicate any symptoms associated with coronavirus-19. Ebola Screen: Patient negative for fever greater than or equal to 101.5 degrees Fahrenheit, and additional compatible Ebola Virus Disease symptoms Patient denies exposure to infectious person. Patient denies travel to an Ebola-affected area in the 21 days before illness onset. No symptoms or risks identified at this time. Initial Sepsis Screen: Does the patient meet any 2 criteria? No. Patient's initial sepsis screen is negative. Does the patient have a suspected source of infection? No. Patient's initial sepsis screen is negative. Risk Assessment: Do you want to hurt yourself or someone else? Patient reports no desire to harm self or others. Onset of symptoms was December 30, 2022. 05:10 Method Of Arrival: Ambulatory vc1 05:10 Acuity: JOSE 3 vc1 Triage Assessment: 05:19 General: Appears in no apparent distress. uncomfortable, slender, Behavior is calm, vc1 cooperative, appropriate for age. Pain: Complains of pain in left upper quadrant Pain does not radiate. Pain currently is 10 out of 10 on a pain scale. Quality of pain is described as sharp. EENT: No deficits noted. No signs and/or symptoms were reported regarding the EENT system. Neuro: Level of Consciousness is awake, alert, obeys commands, Oriented to person, place, time, situation, Appropriate for age. Cardiovascular: No deficits noted. Respiratory: Airway is patent Respiratory effort is even, unlabored, Respiratory pattern is regular, symmetrical. GI: Abdomen is distended, Reports lower abdominal pain, upper abdominal pain, bloating, constipation. : No deficits noted. No signs and/or symptoms were reported regarding the genitourinary system. Derm: No deficits noted. No signs and/or symptoms reported regarding the dermatologic system. Musculoskeletal: No deficits noted. No signs and/or symptoms reported regarding the musculoskeletal system. Historical: - Allergies: 05:15 No Known Allergies; vc1 - PMHx: 05:15 cirrhosis of liver; stomach cancer; vc1 - PSHx: 05:15 None; vc1 - Immunization history:: Client reports receiving the 2nd dose of the Covid vaccine. - Social history:: Smoking status: Patient denies any tobacco usage or history of. - Family history:: not pertinent. Screenin:18 [facility] ED Fall Risk Assessment (Adult) History of falling in the last 3 months, vc1 including since admission No falls in past 3 months (0 pts) Confusion or Disorientation No (0 pts) Intoxicated or Sedated No (0 pts) Impaired Gait No (0 pts) Mobility Assist Device Used No (0 pt) Altered Elimination No (0 pt) Score/Fall Risk Level 0 - 2 = Low Risk Oriented to surroundings, Maintained a safe environment, Educated pt \T\ family on fall prevention, incl call for assistance when getting out of bed. Abuse screen: Denies threats or abuse. Nutritional screening: No deficits noted. Tuberculosis screening: No symptoms or risk factors identified. Assessment: 05:01 General: Appears uncomfortable, Behavior is calm, cooperative. Pain: Complains of pain ha1 in abdomen and left upper quadrant Pain does not radiate. Pain currently is 10 out of 10 on a pain scale. Quality of pain is described as burning, throbbing, Is continuous. Neuro: Level of Consciousness is awake, alert, obeys commands, Oriented to person, place, time, situation. Cardiovascular: Patient's skin is warm and dry. Respiratory: Airway is patent Respiratory effort is even, unlabored, Respiratory pattern is regular, symmetrical. GI: Abdomen is non-distended, Bowel sounds present X 4 quads. Abdomen is tender to palpation in left upper quadrant Reports lower abdominal pain, nausea. Derm: Skin is pink, warm \T\ dry. Musculoskeletal: Circulation, motion, and sensation intact. Range of motion: intact in all extremities. 06:00 Reassessment: Patient and/or family updated on plan of care and expected duration. Pain ha1 level reassessed. Patient is alert, oriented x 3, equal unlabored respirations, skin warm/dry/pink. pain 9/10. 07:00 Reassessment: Patient and/or family updated on plan of care and expected duration. Pain ha1 level reassessed. Patient is alert, oriented x 3, equal unlabored respirations, skin warm/dry/pink. 07:24 Reassessment: Patient and/or family updated on plan of care and expected duration. Pain ld1 level reassessed. Patient is alert, oriented x 3, equal unlabored respirations, skin warm/dry/pink. Vital Signs: 05:10 BP 121 / 77; Pulse 61; Resp 17; Temp 97.5; Pulse Ox 99% ; Weight 74.39 kg; Height 5 ft. vc1 11 in. ; Pain 10/10; 06:44 BP 102 / 68; Pulse 49; Resp 19; Pulse Ox 100% on R/A; kd3 05:10 Body Mass Index 22.87 (74.39 kg, 180.34 cm) vc1 05:10 Pain Scale: Adult vc1 ED Course: 04:51 Patient arrived in ED. ag3 05:03 Leonard Oneill MD is Attending Physician. sp4 05:05 Yina Palacio, RN is Primary Nurse. kd3 05:14 Triage completed. vc1 05:18 Arm band placed on left wrist. vc1 05:18 Patient has correct armband on for positive identification. Bed in low position. Call vc1 light in reach. Pulse ox on. NIBP on. 05:20 Inserted saline lock: 22 gauge in right forearm, using aseptic technique. Blood ha1 collected. 05:29 CMP Sent. ha1 05:29 Lipase Sent. ha1 06:42 CT Abd/Pelvis - IV Contrast Only In Process Unspecified. EDMS 07:09 Attending Physician role handed off by Leonard Oneill MD ms3 07:09 Elmer Melvin DO is Attending Physician. ms3 07:24 No provider procedures requiring assistance completed. IV discontinued, intact, ld1 bleeding controlled, No redness/swelling at site. Administered Medications: 05:20 Drug: NS 0.9% IV 1000 ml Route: IV; Rate: 1 bolus; Site: right forearm; ha1 06:51 Follow up: IV Status: Completed infusion; IV Intake: 1000ml ha1 05:20 Drug: Ondansetron IVP 4 mg Route: IVP; Site: right forearm; ha1 05:45 Follow up: Response: No adverse reaction; Nausea is decreased ha1 05:23 Drug: Famotidine IVP 20 mg Route: IVP; Site: right forearm; ha1 05:45 Follow up: Response: No adverse reaction ha1 05:27 Drug: TORadol - Ketorolac IVP 15 mg Route: IVP; Site: right forearm; ha1 05:45 Follow up: Response: No adverse reaction; Pain is unchanged, physician notified ha1 05:29 Drug: morphine IVP or IV 4 mg Route: IVP; Infused Over: 4 mins; Site: right forearm; ha1 06:07 Drug: morphine IVP or IV 4 mg Route: IVP; Infused Over: 4 mins; Site: right forearm; ha1 06:30 Follow up: Response: No adverse reaction; Pain is decreased; RASS: Alert and Calm (0) ha1 06:11 Drug: metoCLOPramide IVP 20 mg Route: IVP; Site: right forearm; ha1 06:48 Follow up: Response: No adverse reaction ha1 06:11 Drug: Dicyclomine PO 20 mg Route: PO; ha1 06:46 Follow up: Response: No adverse reaction ha1 Medication: 05:18 VIS not applicable for this client. vc1 Intake: 06:51 IV: 1000ml; Total: 1000ml. ha1 Outcome: 07:12 Discharge ordered by . ms3 07:25 Discharged to home ambulatory. ld1 07:25 Condition: stable 07:25 Discharge instructions given to patient, Instructed on discharge instructions, follow up and referral plans. Demonstrated understanding of instructions, follow-up care. 07:25 Patient left the ED. ld1 Signatures: Dispatcher [employer] EDMS Emi Purcell Marcus, DO DO ms3 Dannielle Melvin RN RN ld1 Yina Palacio RN RN kd3 Barbara Juarez RN RN vc1 Racheal Alston RN RN ha1 Potepalov, Leonard, MD MD sp4
--- NOTE | 2022-12-31 07:13 | EDPHYS ---
Physician Documentation [facility] Name: Ayden Andres Jr Age: 42 yrs Sex: Male : 1980 Arrival Date: 12/31/2022 Time: 04:47 Bed 5 Private MD: ED Physician Elmer Melvin HPI: 12/31 05:03 This 42 yrs old Male presents to ER via Unassigned with complaints of sp4 Abdominal Pain, Constipation. 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 At this time patient presents with worsening abdominal pain, nausea or worsening this morning associated with constipation. Patient denied any vomiting. 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 Oncologist Dr. Cece Ya MD at [facility]. . On 11/05/2022 patient's CAT scan revealed progressive hepatic masses and lymphadenopathy most compatible with metastatic disease, small amount of free fluid, heterogenous gastrohepatic and anay hepatic lymphadenopathy. Multiple heterogenous hepatic masses, on 11/05/2022 patient also had elevated liver enzymes AST 185, ALT 91, alk phos 498 patient's medications from old record include alprazolam 0.5 mg 3 times a day as needed for anxiety, [place] 7.51 tab every 6 hours as needed for pain, pantoprazole 40 mg once a day.. Patient medications include allopurinol and ondansetron. Chemotherapy consists of carboplatin injections. Allopurinol 300 mg 1 tab every morning,. Historical: - Allergies: 05:15 No Known Allergies; vc1 - PMHx: 05:15 cirrhosis of liver; stomach cancer; vc1 - PSHx: 05:15 None; vc1 - Immunization history:: Client reports receiving the 2nd dose of the Covid vaccine. - Social history:: Smoking status: Patient denies any tobacco usage or history of. - Family history:: not pertinent. ROS: 07:00 Constitutional: Negative for fever, chills, and weight loss, Abdomen/GI: Negative for sp4 vomiting, diarrhea, positive for abdominal pain, abdominal distention, and nausea also positive for constipation Back: Negative for injury positive for abdominal pain with radiation into the back 07:00 All other systems are negative. Exam: 07:00 Constitutional: This is a well developed, well nourished patient who is awake, alert, sp4 pale appearing male and ill-appearing but nontoxic Head/Face: Normocephalic, atraumatic. Eyes: Pupils equal round and reactive to light, extra-ocular motions intact. Lids and lashes normal. Conjunctiva and sclera are not injected. Cornea within normal limits. Periorbital areas with no swelling, redness, or edema. ENT: Nares patent. No nasal discharge, no septal abnormalities noted. Tympanic membranes are normal and external auditory canals are clear. Oropharynx with no redness, swelling, or masses, exudates, or evidence of obstruction, uvula midline. Mucous membranes moist. Neck: Trachea midline, no thyromegaly or masses palpated, and no cervical lymphadenopathy. Supple, full range of motion without nuchal rigidity, or vertebral point tenderness. Chest/axilla: Normal chest wall appearance and motion. Nontender with no deformity. No lesions are appreciated. Cardiovascular: Regular rate and rhythm with a normal S1 and S2. No gallops, murmurs, or rubs. Normal PMI, no JVD. No pulse deficits. Respiratory: Lungs have equal breath sounds bilaterally, clear to auscultation and percussion. No rales, rhonchi or wheezes noted. No increased work of breathing, no retractions or nasal flaring. Abdomen/GI: Soft, diffuse abdominal distention, hepatomegaly, diffuse abdominal tenderness, hypoactive bowel sounds negative rebound Back: No spinal tenderness. No costovertebral tenderness. Skin: Warm, dry with normal turgor. Normal color with no rashes, no lesions, and no evidence of cellulitis. MS/ Extremity: Pulses equal, no cyanosis. Neurovascular intact. Full, normal range of motion. Neuro: Awake and alert, GCS 15, oriented to person, place, time, and situation. Cranial nerves II-XII grossly intact. Motor strength 5/5 in all extremities. Sensory grossly intact. Psych: Awake, alert, with orientation to person, place and time. Behavior, mood, and affect are within normal limits Vital Signs: 05:10 BP 121 / 77; Pulse 61; Resp 17; Temp 97.5; Pulse Ox 99% ; Weight 74.39 kg; Height 5 ft. vc1 11 in. ; Pain 10/10; 06:44 BP 102 / 68; Pulse 49; Resp 19; Pulse Ox 100% on R/A; kd3 05:10 Body Mass Index 22.87 (74.39 kg, 180.34 cm) vc1 05:10 Pain Scale: Adult vc1 MDM: 05:03 Patient medically screened. sp4 06:00 ED course: On 10/24/[address] that has reported mass in the lesser sp4 curvature of stomach, numerous liver [place] stasis, metastatic adenopathy gastrohepatic ligament and left upper quadrant omental metastatic disease, paraseptal emphysema, no metastatic disease in the thorax. Chemotherapy includes etoposide or [employer]-16 and carboplatin or Paraplatin. 07:00 Differential Diagnosis altered mental status, sepsis, Acute liver failure, hepatic sp4 mass, metastatic cancer,. Data reviewed: vital signs, nurses notes, old medical records, lab test result(s), radiologic studies, CT scan. Consideration of Admission/Observation Patient was admitted/placed on observation. Escalation of care including admission/observation considered. Transition of care: After a detail discussion of the patient's case, care is transferred to Elmer Melvin DO. ED course: There is significant abdominal distention with CT on preliminary review revealing multiple large hepatic masses. At this time patient care will be transferred to Dr. Melvin for further disposition. . 07:00 Transition of care: Care assumed from Leonard Oneill MD. nh3 07:13 Counseling: I had a detailed discussion with the patient and/or guardian regarding: [place] [facility] [place] points, exam findings, and any diagnostic results supporting the discharge/admit diagnosis, lab results, radiology results, the need for outpatient follow up, to return to the emergency department if symptoms worsen or persist or if there are any questions or concerns that arise at home. ED course: . 07:16 I considered the following discharge prescriptions or medication management in the [facility] emergency department Medications were administered in the Emergency Department. See MAR. Independent interpretation of the following test(s) in the Emergency Department CT Scan: My interpretation is CT abdomen/ pelvis images reviewed by me show liver lesions. Historians other than the Patient: Parent: Patient's father. Care significantly affected by the following chronic conditions: Cancer. Response to treatment: the patient's symptoms have markedly improved after treatment, and as a result, I will discharge patient. ED course: Discussed labs, CT scan showing enlarging masses. Patient states he has appointment tomorrow with his oncologist. Patient does not wish to be transferred to [facility] at this time. Discussed with patient that if his symptoms become worse, he develops fever, or has any other concerns to return to continue his treatment. Patient understands and agrees with plan. All questions were answered. On reevaluation patient is alert and oriented x4, in no apparent distress, nontoxic-appearing, ambulatory in emergency department, speaking full sentences.. 12/31 05:03 Order name: CBC with Diff; Complete Time: 06:00 sp4 12/31 05:03 Order name: CMP; Complete Time: 06:00 sp4 12/31 05:03 Order name: Lipase; Complete Time: 06:00 sp4 12/31 05:03 Order name: CT Abd/Pelvis - IV Contrast Only; Complete Time: 07:02 sp4 12/31 05:03 Order name: IV Saline Lock; Complete Time: 05:29 sp4 12/31 05:03 Order name: Labs collected and sent; Complete Time: 05:29 sp4 Administered Medications: 05:20 Drug: NS 0.9% IV 1000 ml Route: IV; Rate: 1 bolus; Site: right forearm; ha1 06:51 Follow up: IV Status: Completed infusion; IV Intake: 1000ml ha1 05:20 Drug: Ondansetron IVP 4 mg Route: IVP; Site: right forearm; ha1 05:45 Follow up: Response: No adverse reaction; Nausea is decreased ha1 05:23 Drug: Famotidine IVP 20 mg Route: IVP; Site: right forearm; ha1 05:45 Follow up: Response: No adverse reaction ha1 05:27 Drug: TORadol - Ketorolac IVP 15 mg Route: IVP; Site: right forearm; ha1 05:45 Follow up: Response: No adverse reaction; Pain is unchanged, physician notified ha1 05:29 Drug: morphine IVP or IV 4 mg Route: IVP; Infused Over: 4 mins; Site: right forearm; ha1 06:07 Drug: morphine IVP or IV 4 mg Route: IVP; Infused Over: 4 mins; Site: right forearm; ha1 06:30 Follow up: Response: No adverse reaction; Pain is decreased; RASS: Alert and Calm (0) ha1 06:11 Drug: metoCLOPramide IVP 20 mg Route: IVP; Site: right forearm; ha1 06:48 Follow up: Response: No adverse reaction ha1 06:11 Drug: Dicyclomine PO 20 mg Route: PO; ha1 06:46 Follow up: Response: No adverse reaction ha1 Disposition Summary: 12/31/22 07:12 Discharge Ordered Location: Home ms3 Condition: Stable ms3 Diagnosis - Abdominal pain, Generalized ms3 - Malignant neoplasm of liver, not specified as primary or secondary ms3 - Anemia, unspecified ms3 Followup: ms3 - With: Private Physician - When: 2 - 3 days - Reason: Re-evaluation by your physician Discharge Instructions: - Discharge Summary Sheet ms3 - Abdominal Pain, Adult ms3 Forms: - Medication Reconciliation Form ms3 - Thank You Letter ms3 - Antibiotic Education ms3 - Prescription Opioid Use ms3 - Patient Portal Instructions ms3 Signatures: Dispatcher [employer] EDMS Elmer Melvin DO DO ms3 Barbara Juarez RN RN 1 Racheal Alston RN RN ha1 Leonard Oneill MD MD sp4
[2022-12-31 07:34] VITALS: TEMP 97.5
[2022-12-31 07:39] VITALS: BP 102/68; O2SAT 100
== END 2022-12-31 07:25 | disposition home or self-care (01) ==
LOC: ER 04:47
DX: R10.84 Generalized abdominal pain (principal); C22.9 Malignant neoplasm of liver, not specified as primary or secondary; D64.9 Anemia, unspecified; C16.9 Malignant neoplasm of stomach, unspecified
CPT/HCPCS: 85025; 36415; 83690; 80053; 74177; Q9967; J2765; J2405; J7030; 96361; 96374; 96375; 99284

== ENCOUNTER 2023-01-06 22:53 | Emergency (ER) | payer OTHER ==
--- OUTSIDE RECORDS SUMMARY | 2023-01-06 22:57 | XMS REPORT | Continuity of Care Document ---
:1980 Author Organization [facility] t Address [address] [place] [address] [address] [place] [address] Care Team Providers Name Role Phone KENRICK DECKER Attending Clinician Unavailable JAMEL NEAL Attending Clinician Unavailable MANNY FOWLER Attending Clinician Unavailable BRIAN FORDE Attending Clinician Unavailable Navjot Thakkar MD Attending Clinician Judy Martinez MD Attending Clinician RUBINA MORAES Admitting Clinician Unavailable MITRA JERONIMO Admitting Clinician Unavailable Payers Payer Name Policy Type Policy Number Effective Date Expiration Date S ource [facility] [id number] 2020 00:00:00 Problems Condition Condition Condition Status Onset Resolution Last Treating Co mments Source Name Details Category Date Date Treatment Clinician Date Bradycardi Bradycardi Disease [facility] GI bleed GI bleed Disease [facility] 00 [place] Liver mass Liver mass Disease Active [facility] Last Year [facility]:00 00:00:00 [facility] Sex Assigned At [address] [facility] 00:00:00 00:00:00 Medical Center Medications This [...] Hospital Respiratory rate 2022-10-24 04:55:00 18 /min [facility] Oxygen saturation in 2022-10-24 04:55:00 97 /min [facility] Arterial blood by Medical Ce nter Pulse oximetry Systolic blood 2022-10-24 04:02:00 113 mm[Hg] [facility] pressure Medical Center Diastolic blood 2022-10-24 04:02:00 63 mm[Hg] [facility] Body temperature 2022-10-24 04:02:00 35.94 Carlota [facility] Body height 2022-10-23 11:07:00 180.3 cm [facility] Body weight 2022-10-23 11:07:00 87.091 kg [facility] BMI 2022-10-23 11:07:00 26.78 kg/m2 [facility] Procedures Procedure Date / Time Performing Clinician Source Performed CBC W/PLT COUNT & AUTO 2022-10-24 06:08:00 [facility] DIFFERENTIAL [facility] CBC W/PLT COUNT & AUTO 2022-10-24 06:08:00 [facility] DIFFERENTIAL [facility] MAGNESIUM 2022-10-24 05:01:00 [facility] COMPREHENSIVE METABOLIC 2022-10-24 05:01:00 Dima Berrios I [facility] HEMOGLOBIN AND HEMATOCRIT 2022-10-23 15:55:00 Dima Berrios [facility] REPORT OF PROCEDURE - 2022-10-23 12:35:10 Judy Martinez [facility] ENDOSCOPY [facility] ENDOSCOPY, UPPER GI TRACT, 2022-10-23 11:34:00 Judy Martinez [facility] WITH BIOPSY [facility] ABORH, MANUAL 2022-10-23 08:13:00 Maria Elena Milian [facility] BASIC METABOLIC PANEL 2022-10-23 06:29:00 [facility] MAGNESIUM 2022-10-23 06:29:00 [facility] CBC W/PLT COUNT & AUTO 2022-10-23 06:29:00 [facility] DIFFERENTIAL [facility] HEPATIC FUNCTION PANEL 2022-10-23 06:29:00 [facility] TYPE AND SCREEN, AUTOMATED 2022-10-23 06:29:00 Josué Coats [facility] CBC W/PLT COUNT & AUTO 2022-10-23 06:29:00 [facility] DIFFERENTIAL [facility] LIPID PANEL 2022-10-22 04:19:00 [facility] BASIC METABOLIC PANEL 2022-10-22 04:19:00 [facility] 2022-10-22 04:19:00 [facility] CBC W/PLT COUNT & AUTO 2022-10-22 04:19:00 [facility] DIFFERENTIAL [facility] HEPATIC FUNCTION PANEL 2022-10-22 04:19:00 Vernon [facility] HEPATITIS B CORE ANTIBODY, 2022-10-22 04:19:00 Dmitry Dale [facility] HEPATITIS PANEL, ACUTE 2022-10-22 04:19:00 Suyapa [facility] HEPATITIS A ANTIBODY, IGG 2022-10-22 04:19:00 Dmitry Dale [facility] HEPATITIS B SURFACE 2022-10-22 04:19:00 Suyapa [facility] FERRITIN 2022-10-22 04:19:00 Suyapa [facility] IRON, TIBC, % SAT. (WITHOUT 2022-10-22 04:19:00 Suyapa [facility] FERRITIN) [facility] OITIX-5-[id number]\\, SERUM 2022-10-22 04:19:00 Suyapa [facility] ALPHA FETOPROTEIN (AFP), 2022-10-22 04:19:00 Suyapa [facility] TUMOR MARKER [facility] CARCINOEMBRYONIC ANTIGEN 2022-10-22 04:19:00 Suyapa [facility] (CEA) [facility] CBC W/PLT COUNT & AUTO 2022-10-22 04:19:00 Vernon [facility] ECG 12-LEAD 2022-10-21 17:09:37 [facility] ECG 12-LEAD 2022-10-21 17:09:37 Unknown, Hl7 Doctor [facility] HEPATIC FUNCTION PANEL 2022-10-21 14:42:00 [facility] BASIC METABOLIC PANEL 2022-10-21 14:42:00 [facility] HEMOGLOBIN A1C 2022-10-21 14:42:00 [facility] PROTHROMBIN TIME/INR 2022-10-21 14:42:00 [facility] CBC W/PLT COUNT & AUTO 2022-10-21 14:42:00 [facility] CBC W/PLT COUNT & AUTO 2022-10-21 14:42:00 [facility] Plan of Care Planned Activity Planned Date Details Comments Source Future Scheduled 2027-10-[address] [facility] 00:00:00 (procedure) [code = [facility] 55700218] Future Scheduled 2023-02-[address] [...] Clinicians Facility Department ID 2022-11-21 2022-11-21 Outpatient EL MAKAWITA, [facility] [id number] SLE 00:00:00 00:00:00 KENRICK 2022-11-17 2022-11-[address] [facility] [id number] SLE 00:00:00 00:00:00 MANNY 2022-11-07 2022-11-[address] [facility] [id number] SLE 00:00:00 00:00:00 KENRICK 2022-11-06 2022-11-[address] [facility] [id number] SLE 12:51:54 15:40:51 [facility] 2022-11-06 2022-11-[address] [facility] [id number] SLE 00:00:00 00:00:00 2022-10-21 2022-10-27 Inpatient ER [facility] Gastro [id number] SLE 13:26:00 14:43:00 MANNY 2022-10-23 2022-10-23 An[address]hesia Bijan, [facility] [id number] 11:35[facility]00 13:04[facility]00 [facility] 2022-10-23 2022-10-23 [facility] [id number] 10:00:00 10:59:00 [facility] 2022-10-21 2022-10-[address] [facility] [id number] 00:00:00 00:00:00 Only [facility] Results Test Description Test Time Test Comments Results Result Comments Source ALPHA FETOPROTEIN (AFP), TUMOR MARKER 2023-01-01 16:43:27 Test Item Value Reference Range Interpretation Comme nts ALPHA-FETOPROTEIN (BEAKER) (test code = 1094) > ng/mL <10.0 H Hazmat Technician ID - ADMINOperator ID - ADMINOperator ID - ADMIN(MANUAL DIFFERENTIAL) 2022-12-28 10:33:53 Test Item Value Reference Range Interpretation Comments NEUTROPHILS - REL (DIFF) (BEAKER) 27 % (test code = 1359) LYMPHOCYTES - REL (DIFF) (BEAKER) 60 % (test code = 1360) MONOCYTES - REL (DIFF) (BEAKER) 9 % (test code = 1361) ATYPICAL LYMPHOCYTE - REL (DIFF) 4 % 0-0 H (BEAKER) (test code = 260) NEUTROPHILS - ABS (DIFF) (BEAKER) 0.98 K/ L 1.80-8.00 L (test code = 1365) LYMPHOCYTES - ABS (DIFF) (BEAKER) 2.15 K/ L 1.48-4.50 (test code = 1366) MONOCYTES - ABS (DIFF) (BEAKER) 0.33 K/ L 0.00-1.30 (test code = 1367) ATYPICAL LYMPHOCYTES - ABS (DIFF) 0.15 K/ L 0.00-0.00 H (BEAKER) (test code = 263) TOTAL COUNTED (BEAKER) (test code = 99 1351) WBC MORPHOLOGY (BEAKER) (test code Normal = 487) PLT MORPHOLOGY (BEAKER) (test code Normal = 486) RBC MORPHOLOGY (BEAKER) (test code Normal = 762) COMPREHENSIVE METABOLIC [id number] 09:36:30 Test Item Value Reference Range Interpretation [...] not appl icable for dialysis patien ts [id number] 09:28:58 Test Item Value Reference Range Interpretation Comments MAGNESIUM (BEAKER) (test code = 1.7 mg/dL 1.6-2.6 627) CBC W/PLT COUNT & AUTO [id number] 09:23:38 Test Item Value Reference Range Interpretation [...] 9.4-12.4 (test code = 754) COMPREHENSIVE METABOLIC [id number] 09:40:11 Test Item Value Reference Range Interpretation [...] eGF R is based on the CKD-EPI 202 equation that d oes not use a race coefficientEsti mated GFR is not as accur ate as Creatinine Iman arleen in predicting glom erular filtration rate . Estimated GFR is not appl icable for dialysis patien ts [id number] 09:24:23 Test Item Value Reference Range Interpretation Comments MAGNESIUM (BEAKER) (test code = 1.9 mg/dL 1.6-2.6 627) CBC W/PLT COUNT & AUTO [id number] 09:04:00 Test Item Value Reference Range Interpretation [...] code = 2801) ALPHA FETOPROTEIN (AFP), TUMOR [id number] 16:54:52 Test Item Value Reference Range Interpretation Comments ALPHA-FETOPROTEIN (BEAKER) (test code > ng/mL <10.0 H = 1094) Hazmat Technician ID - ADMINOperator ID - ADMINOperator ID - ADMINOperator ID - ADMIN BASIC METABOLIC [id number] 13:58:04 Test Item Value Reference Range Interpretation [...] not appl icable for dialysis patien ts Hazmat Technician ID - ADMINHEPATIC FUNCTION [id number] 13:58:04 Test Item Value Reference Range Interpretation [...] code = 58 U/L 6-55 H 347) Hazmat Technician ID - ADMINCBC W/PLT COUNT & AUTO [id number] 11:19:47 Test Item Value Reference Range Interpretation [...] (BEAKER) (test code = 2801) HEPATIC FUNCTION [id number] 06:52:32 Test Item Value Reference Range Interpretation [...] code = 64 U/L 6-55 H 347) Hazmat Technician ID - MMURIC [id number] 06:52:31 Test Item Value Reference Range Interpretation Comments URIC ACID (BEAKER) (test code = 2.7 mg/dL 2.6-7.2 773) Hazmat Technician ID - MMBASIC METABOLIC [id number] 06:52:30 Test Item Value Reference Range Interpretation [...] not appl icable for dialysis patien ts Hazmat Technician ID - [id number] 06:52:30 Test Item Value Reference Range Interpretation Comments PHOSPHORUS (BEAKER) (test code = 3.4 mg/dL 2.3-4.7 604) Hazmat Technician ID - MMCBC W/PLT COUNT & AUTO [id number] 06:20:55 Test Item Value Reference Range Interpretation [...] (BEAKER) (test code = 2801) BASIC METABOLIC [id number] 22:14:17 Test Item Value Reference Range Interpretation [...] glom erular filtration rate . Estimated GFR i s not applicable for dialysis patients Hazmat Technician ID - ADMINURIC [id number] 22:12:41 Test Item Value Reference Range Interpretation Comments URIC ACID (BEAKER) 2.6 mg/dL 2.6-7.2 Specimen slightly (test code = 773) hemolyzed Hazmat Technician ID - [id number] 22:12:40 Test Item Value Reference Range Interpretation Comments PHOSPHORUS (BEAKER) 3.8 mg/dL 2.3-4.7 Specimen slightly (test code = 604) hemolyzed Hazmat Technician ID - ADMINBASIC METABOLIC [id number] 17:01:12 Test Item Value Reference Range Interpretation [...] (test code = 697) EGFR (BEAKER) 119 Interpretati on of eGFR (test code = mL/min/1.73 values [...] not appl icable for dialysis patien ts Hazmat Technician ID - [id number] 16:58:24 Test Item Value Reference Range Interpretation Comments PHOSPHORUS (BEAKER) (test code = 2.8 mg/dL 2.3-4.7 604) Hazmat Technician ID - ADMINURIC [id number] 16:58:24 Test Item Value Reference Range Interpretation Comments URIC ACID (BEAKER) (test code = 2.1 mg/dL 2.6-7.2 L 773) Hazmat Technician ID - ADMINURIC [id number] 06:57:40 Test Item Value Reference Range Interpretation Comments URIC ACID (BEAKER) (test code = 3.1 mg/dL 2.6-7.2 773) Hazmat Technician ID - MMHEPATIC FUNCTION [id number] 06:57:40 Test Item Value Reference Range Interpretation [...] code = 65 U/L 6-55 H 347) Hazmat Technician ID - MMBASIC METABOLIC [id number] 06:57:39 Test Item Value Reference Range Interpretation [...] not appl icable for dialysis patien ts Hazmat Technician ID - [id number] 06:57:39 Test Item Value Reference Range Interpretation Comments PHOSPHORUS (BEAKER) (test code = 3.6 mg/dL 2.3-4.7 604) Hazmat Technician ID - MMCBC W/PLT COUNT & AUTO [id number] 06:51:25 Test Item Value Reference Range Interpretation [...] (BEAKER) (test code = 2801) BASIC METABOLIC [id number] 09:04:16 Test Item Value Reference Range Interpretation [...] not appl icable for dialysis patien ts Hazmat Technician ID - [id number] 09:04:15 Test Item Value Reference Range Interpretation Comments PHOSPHORUS (BEAKER) 3.1 mg/dL 2.3-4.7 Specimen slightly (test code = 604) hemolyzed Hazmat Technician ID - MMURIC [id number] 09:04:15 Test Item Value Reference Range Interpretation Comments URIC ACID (BEAKER) 4.1 mg/dL 2.6-7.2 Specimen slightly (test code = 773) hemolyzed Hazmat Technician ID - [id number] 05:03:52 Test Item Value Reference Range Interpretation Comments PHOSPHORUS (BEAKER) (test code = 3.7 mg/dL 2.3-4.7 604) Hazmat Technician ID - MMURIC [id number] 05:03:52 Test Item Value Reference Range Interpretation Comments URIC ACID (BEAKER) (test code = 4.7 mg/dL 2.6-7.2 773) Hazmat Technician ID - MMCOMPREHENSIVE METABOLIC [id number] 05:03:51 Test Item Value Reference Range Interpretation [...] (test code = 347) EGFR (BEAKER) 116 Interpretati on of eGFR (test code = 1092) mL/min/1.73 [...] not appl icable for dialysis patien ts Hazmat Technician ID - MMCBC W/PLT COUNT & AUTO [id number] 04:40:21 Test Item Value Reference Range Interpretation [...] 2801) XR CHEST 1 VIEW PORTABLE / [id number] 17:54:25 [facility] 1980 Sex: MXR [...] (test code Normal = 486) HEPATITIS B [id number] 13:30:00 Test Item Value Reference Range Interpretation Comments HEPATITIS B CORE TOTAL ANTIBODY Nonreactive Nonreactive (BEAKER) (test code = 497) HEPATITIS B SURFACE ANTIBODY < mIU/mL <8.0 (BEAKER) (test code = 647) HEPATITIS B SURFACE ANTIGEN (2) Nonreactive Nonreactive (BEAKER) (test code = 2585) Hazmat Technician ID - ADMINHEPATITIS C [id number] 13:29:13 Test Item Value Reference Range Interpretation Comments HEPATITIS C ANTIBODY (BEAKER) Nonreactive Nonreactive (test code = 367) Hazmat Technician ID - [id number] 13:04:16 Test Item Value Reference Range Interpretation Comments MAGNESIUM (BEAKER) (test code = 1.8 mg/dL 1.6-2.6 627) Hazmat Technician ID - edCOMPREHENSIVE METABOLIC [id number] 13:04:15 Test Item Value Reference Range Interpretation [...] not appl icable for dialysis patien ts Hazmat Technician ID - edCBC WITH PLATELET COUNT + MANUAL [id number] 12:48:49 Test Item Value Reference Range Interpretation [...] 0-0 (BEAKER) (test code = 413) SARS-COV2/RT-PCR ([facility])2022-11-08 09:48:49 Test Item Value Reference Range Interpretation Comments SARS-COV2/RT-PCR Negative Negative The SARS-Co V-2 target (test code = nucleic acids a re not [id number]) detected in thi s specimen. Negative result [...] revoked sooner. Fact Sheet for Healthcare Providers: https://www.cepheid.co m/Documents/Xpert%20Xpress%20SARS%20CoV-2/Fact%20Sheets/602-6286%36OHPY-CKK-9%20 HEALTHCARE%20PROVIDERS%20FACT%20SHEET.pdf Fact Sheet for Healthcare Patients: https://www.Mediamorph.allyDVM/Documents/Xpert%20Xp ress%20SARS%20CoV-2/Fact%20Sheets/302-3801%81DXND-CYT-6%20PATIENT%20FACT%20SHEET .pdfCARCINOEMBRYONIC ANTIGEN (CEA)2022-11-06 18:53:46 Test Item Value Reference Range Interpretation Comments CARCINOEMBRYONIC ANTIGEN (BEAKER) 5.3 ng/mL 0.0-5.0 H (test code = 685) Hazmat Technician ID - MMCOMPREHENSIVE METABOLIC [id number] 16:39:54 Test Item Value Reference Range Interpretation [...] patien ts CBC W/PLT COUNT & AUTO [id number] 16:21:39 Test Item Value Reference Range Interpretation [...] PERCENT (BEAKER) (test code = 2801) TISSUE [id number] 16:02:43Surgical Pathology Report Case: [id number] Authorizing Provider: Dima Berrios MD Collected: 10/26/2022 03:07 PM Ordering Location: [address] Received: 10/26/2022 04:53 PM Service Pathologist: Sherry Andrade MD Specimen: Biopsy, Liver Liver, mass, core needle biopsy: - Metastatic poorly differentiated neuroendocrine carcinoma, WHO grade 3; see comment Signing Pathologist Direct PhoneLine: [phone] signed by Sherry Andrade MD on 11/01/2022 [...] is needed. The patient's prior gastric biopsy ([id number], H&E) was concurrently reviewed, and the tumorshows similar histomorphology. Dr. Edvin Goldberg reviewed the case and agrees.Block A2 has adequate tumor cellularity for additional ancillary studies.References:Antonino LA, Dariusz T, Carina C, Bassem L. Metastatic neuroendocrine carcinoma presenting as multifocal liver lesions with elevated alpha-fetoprotein. Clin Case Rep. 2018 May 16;7(2):251-253. doi: 10.1002/ccr3.1956. PMID: 23648416; PMCID: [id number], 78890, 81104v3Zisv is a 42-year-old male with history of [...] evaluated Immunohistochemistry technical testing was performed at [facility], Pathology Laboratory where it was developed [...] qualified to perform high complexity clinical laboratory testing.[facility], Department of Pathology, [address] [place] [address], [facility], [facility], [address] [place] [address], [place] [address], [facility], [facility] of[facility], [address] [place] [address], [place] [address], WPGIFO [id number] 09:06:35Surgical Pathology Report Case: [id number] Authorizing Provider: Judy Martinez, Collected: 10/23/2022 11:56 AM Ordering Location: [address] Received: 10/23/2022 01:29 PM Service Pathologist: Suzan Teixeira MD Specimens: A) - Biopsy, Gastric, random bxs B) - Biopsy, Gastric, bxs gastric mass A. STOMACH, RANDOM BIOPSIES: - CHEMICAL/REACTIVE GASTROPATHY - PPI EFFECT, MILDB. STOMACH, BIOPSIES OF MASS: - NEUROENDOCRINE CARCINOMA, SMALL CELL TYPE Signing Pathologist Direct Phone Line: [phone] signed by Suzan Bagley MD on 11/01/2022 at 9:06 AMPreliminary result electronically signed by Suzan Teixeira MD on 10/27/2022 at 11:55 AMPreliminary result electronically signed by Suzan Teixeira MD on 10/26/2022 at 11:55 AMThe finding was communicated via secure email with Judy Edmonds <[email or web address] GI Department at 11:52 on October 26, [id number], [id number], [id number] hemorrhage associated with gastritisA. Biopsy, GastricReceived in [...] report was issued at [facility] (CLIA#[id number]), [address], [place], [place] [address].The interpretation of this case included the use of immunohistochemistry or special stains.Control Slides Examined: In-house known positive controls were evaluated along with the test tissue. These control slides run alongside of the patients sample show appropriate staining. Internal positive and negative controls when available are evaluated Immunohistochemistry technical testing was performed at [facility], Pathology Laboratory where it was developed [...] perform high complexity clinical laboratory testing.U/S, BIOPSY, [id number] 12:01:00Reason for exam:->gastric mass and liver mass with afp >[id number] this be performed at the bedside?->No [facility] : 1980 Sex: MFINAL REPORT Procedure: Liver mass core biopsy Pre/post-procedure diagnosis: Liver mass Gaming Manager: Bebo Low MD Assistants: none Sedation: [...] liver mass core biopsy. Signed: Bebo Low Verified Date/Time: 10/30/2022 12:01:04 C METABOLIC [id number] 05:48:04 Test Item Value Reference Range Interpretation [...] not appl icable for dialysis patien ts Hazmat Technician ID - [id number] 05:48:04 Test Item Value Reference Range Interpretation Comments MAGNESIUM (BEAKER) (test code = 1.7 mg/dL 1.6-2.6 627) Hazmat Technician ID - MMCBC W/PLT COUNT & AUTO [id number] 05:27:57 Test Item Value Reference Range Interpretation [...] 0.00-1.00 PERCENT (BEAKER) (test code = 2801) [id number] 06:55:04 Test Item Value Reference Range Interpretation Comments MAGNESIUM (BEAKER) (test code = 1.6 mg/dL 1.6-2.6 627) Hazmat Technician ID - BSBASIC METABOLIC [id number] 06:55:03 Test Item Value Reference Range Interpretation [...] not appl icable for dialysis patien ts Hazmat Technician ID - BSPROTHROMBIN TIME/[id number] 06:18:33 Test Item Value Reference Range Interpretation [...] mechanical heart valves.CBC W/PLT COUNT & AUTO [id number] 06:07:18 Test Item Value Reference Range Interpretation [...] (BEAKER) (test code = 2801) COMPREHENSIVE METABOLIC [id number] 07:14:31 Test Item Value Reference Range Interpretation [...] not appl icable for dialysis patien ts Hazmat Technician ID - DENIS [id number] 07:14:31 Test Item Value Reference Range Interpretation Comments MAGNESIUM (BEAKER) (test code = 1.5 mg/dL 1.6-2.6 L 627) Hazmat Technician ID Kayla BARRIOS WCBC W/PLT COUNT & AUTO [id number] 06:55:14 Test Item Value Reference Range Interpretation [...] (test code = 2801) ROSALINDA TITER AND [id number] 13:55:32 Test Item Value Reference Range Interpretation [...] method.Test performed by IFA method.CT, CHEST, WITH [id number] 13:00:00Unlisted Reason for Exam - Click Yes and Enter Reason Below->[facility] : 1980 Sex: [...] MDReport Verified Date/Time: 10/24/2022 13:00:41 Reading Location: [address] Consult Reading Room CT, [id number] 13:00:00Unlisted Reason for Exam - Click Yes and Enter Reason Below->NoProtocol Please Specify:->Standard ProtocolWill this procedure require oral contrast?->No [facility] : 1980 Sex: [...] identified in the thorax. Signed: Maria C [facility] Verified Date/Time: 10/24/2022 13:00:41 Reading Location: [facility] C013X [facility] Consult Reading Room CBC W/PLT [...] 0.00-1.00 PERCENT (BEAKER) (test code = 2801) [id number] 05:38:34 Test Item Value Reference Range Interpretation Comments MAGNESIUM (BEAKER) (test code = 1.5 mg/dL 1.6-2.6 L 627) Hazmat Technician ID - MMCOMPREHENSIVE METABOLIC [id number] 05:38:33 Test Item Value Reference Range Interpretation [...] not appl icable for dialysis patien ts Hazmat Technician ID - MMHEMOGLOBIN AND [id number] 16:05:28 Test Item Value Reference Range Interpretation Comments HEMOGLOBIN (BEAKER) (test code = 14.4 GM/DL 13.7-17.5 410) HEMATOCRIT (BEAKER) (test code = 44.3 % 40.1-51.0 411) Hazmat Technician ID - [id number] 09:39:18 Test Item Value Reference Range Interpretation Comments MAGNESIUM (BEAKER) 1.6 mg/dL 1.6-2.6 Specimen slightly (test code = 627) hemolyzed Hazmat Technician ID - MMBASIC METABOLIC [id number] 09:39:18 Test Item Value Reference Range Interpretation [...] De scription 1092) sq m Result G1 Norm al or high >=90 G2 Mildly decreased 60-89 G3a Mildl y to moderately 45-5 9 G3b Moderately to s everely 30-44 G4 Severl y decreased 15-29 G5 Kidne y failure <15Reported eGF R is based on the CKD-EPI 2021 equation that d oes not use a race coefficientEsti mated GFR is not as accur ate as Creatinine Iman bacon in predicting glom erular filtration rate . Estimated GFR is not appl icable for dialysis patien ts Hazmat Technician ID - MMHEPATIC FUNCTION [id number] 09:39:18 Test Item Value Reference Range Interpretation [...] Specimen slightly (test code = 347) hemolyzed Hazmat Technician ID - MMCBC W/PLT COUNT & AUTO [id number] 06:38:29 Test Item Value Reference Range Interpretation [...] PERCENT (BEAKER) (test code = 2801) HEMOGLOBIN [id number] 08:56:25 Test Item Value Reference Range Interpretation [...] 5.7- 6.4% indicates increased risk for diabetes (prediabetes)."Hazmat Technician ID - ADM [id number] 07:09:54 Test Item Value Reference Range Interpretation Comments FERRITIN (BEAKER) (test code = 159.87 ng/mL 5.00-275.00 361) Hazmat Technician ID - MARCOALPHA FETOPROTEIN (AFP), TUMOR [id number] 06:32:10 Test Item Value Reference Range Interpretation Comments ALPHA-FETOPROTEIN (BEAKER) 28819.5 ng/mL <10.0 H (test code = 1094) Hazmat Technician ID - ADMINOperator ID - ADMINHEPATITIS B SURFACE [id number] 06:31:52 Test Item Value Reference Range Interpretation Comments HEPATITIS B SURFACE ANTIBODY < mIU/mL <8.0 (BEAKER) (test code = 647) Hazmat Technician ID - ADMINHEPATITIS A ANTIBODY, [id number] 06:31:00 Test Item Value Reference Range Interpretation Comments HEPATITIS A IGG ANTIBODY (BEAKER) Nonreactive Nonreactive (test code = 2797) Hazmat Technician ID - ADMINCARCINOEMBRYONIC ANTIGEN (CEA)2022-10-22 06:30:59 Test Item Value Reference Range Interpretation Comments CARCINOEMBRYONIC ANTIGEN (BEAKER) 5.6 ng/mL 0.0-5.0 H (test code = 685) Hazmat Technician ID - ADMINHEPATITIS B CORE ANTIBODY, [id number] 06:30:59 Test Item Value Reference Range Interpretation Comments HEPATITIS B CORE TOTAL ANTIBODY Nonreactive Nonreactive (BEAKER) (test code = 497) Hazmat Technician ID - ADMINHEPATITIS PANEL, [id number] 06:03:10 Test Item Value Reference Range Interpretation Comments HEPATITIS A IGM ANTIBODY (BEAKER) Nonreactive Nonreactive (test code = 498) HEPATITIS B CORE IGM ANTIBODY Nonreactive Nonreactive (BEAKER) (test code = 645) HEPATITIS C ANTIBODY (BEAKER) Nonreactive Nonreactive (test code = 367) HEPATITIS B SURFACE ANTIGEN (2) Nonreactive Nonreactive (BEAKER) (test code = 2585) Hazmat Technician ID - [id number] 05:54:41 Test Item Value Reference Range Interpretation Comments MAGNESIUM (BEAKER) (test code = 1.7 mg/dL 1.6-2.6 627) Hazmat Technician ID - MARCOLIPID [id number] 05:54:41 Test Item Value Reference Range Interpretation [...] Borderline 130-159 High 160-189 Very High >=190 Hazmat Technician ID - MARCOHEPATIC FUNCTION [id number] 05:54:41 Test Item Value Reference Range Interpretation [...] (test code = 54 U/L 6-55 347) Hazmat Technician ID - MARCOBASIC METABOLIC [id number] 05:54:40 Test Item Value Reference Range Interpretation [...] G3b Moderately to s everely 30-44 G4 Sever ly decreased 15-29 G5 Kidney failure <15Repo rted eGFR is based on the CKD-EPI 2020 equation t hat does not use a race coefficientEsti mated GFR is not as accur ate as Creatinine Iman arleen in predicting glom erular filtration rate . Estimated GFR is not appl icable for dialysis patien ts Hazmat Technician ID - JAIME, TIBC, % SAT. (WITHOUT FERRITIN)2022-10-22 05:39:20 Test Item Value Reference Range Interpretation Comments IRON (BEAKER) (test code = 547) 61.0 ug/dL 40.0-160.0 TOTAL IRON BINDING CAPACITY 273 ug/dL 250-450 (BEAKER) (test code = 769) IRON % SATURATION (2) (BEAKER) 22 % 20-55 (test code = 2590) Hazmat Technician ID - [id number] 05:39:03 Test Item Value Reference Range Interpretation Comments ALPHA-1 ANTITRYPSIN (BEAKER) 211.70 mg/dL 90.00-200.00 H (test code = 502) Hazmat Technician ID - ADMINCBC W/PLT COUNT & AUTO [id number] 05:15:17 Test Item Value Reference Range Interpretation [...] (BEAKER) (test code = 2801) HEPATIC FUNCTION [id number] 15:14:35 Test Item Value Reference Range Interpretation [...] Specimen slightly (test code = 347) hemolyzed Hazmat Technician ID - MARCOPROTHROMBIN [id number] 15:14:35 Test Item Value Reference Range Interpretation Comments PROTIME (BEAKER) (test code = 14.7 seconds 11.9-14.2 H 759) INR (BEAKER) (test code = 370) 1.22 <=5.90 RECOMMENDED COUMADIN/WARFARIN INR THERAPY RANGESSTANDARD DOSE: 2.0 - 3.0 Includes: PROPHYLAXIS for venous thrombosis, systemic embolization; TREATMENT for venous thrombosis and/or pulmonary embolus.HIGH RISK: Target INR is 2.5-3.5 for patients with mechanical heart valves.BASIC METABOLIC [id number] 15:14:34 Test Item Value Reference Range Interpretation [...] eGF R is based on the CKD-EPI 202 equation that d oes not use a race coefficientEsti mated GFR is not as accur ate as Creatinine Iman bacon in predicting glom erular filtration rate . Estimated GFR is not appl icable for dialysis patien ts Hazmat Technician ID - MARCOCBC W/PLT COUNT & AUTO [id number] 14:53:39 Test Item Value Reference Range Interpretation [...] 417) IMMATURE GRANULOCYTES-RELATIVE 0.10 % 0.00-1.00 PERCENT (DOMINIQUE) (test code = 2801)
[2023-01-06] MEDS ORDERED: NA CHLORIDE 0.9% 1,000 ML ONE (23:38)
[2023-01-06] MEDS ORDERED: HYDROMORPHONE HCL 1 MG/ML INJ ONE (23:38)
[2023-01-06] MEDS ORDERED: ONDANSETRON 4 MG/2 ML VIAL ONE (23:38)
[2023-01-06 23:46] LABS: Absolute Lymphocytes (CBC) 1.4 K/uL (0.7-4.9); Hematocrit 27.8 % (39.6-49.0); Lymphocytes % 30.8 % (15.3-44.8); MCV 86.6 fL (80-100); MPV 6.9 fL (7.6-11.3); RBC Red Blood Cell Count 3.21 M/uL (4.33-5.43)
[2023-01-06 23:56] LABS: Bilirubin Total 0.3 mg/dL (0.2-1.0); Potassium 4.2 mEq/L (3.5-5.1); Protein, Total 6.5 g/dL (6.4-8.2)
[2023-01-07 01:44] LABS: Specific Gravity > 1.030 (1.005-1.030); Urine Bacteria None Seen /HPF (<20); Urine Bilirubin NEGATIVE (Negative); Urine Blood Negative (Negative); Urine Clarity Clear (Clear); Urine Color Light-Yellow (Yellow); Urine Glucose NEGATIVE (Negative); Urine Mucus Slight /HPF (None Seen); Urine Protein 2+ (Negative); Urine RBC <5 /HPF (None Seen); Urine Urobilinogen Normal (Normal); Urine WBC Clump Rare /HPF (None Seen); Urine pH 6.5 (5.0-7.0)
--- NOTE | 2023-01-07 02:05 | EDPHYS ---
Physician Documentation [facility] Name: Ayden Andres Jr Age: 42 yrs Sex: Male : 1980 Arrival Date: 01/06/2023 Time: 22:53 Bed 20 Private MD: ED Physician Leonard Oneill HPI: 01/06 22:57 This 42 yrs old Male presents to ER via Unassigned with complaints of sp4 Abdominal Pain, Vomiting/Diarrhea. 22:58 HPI review from recent ER visit on 12/31/2022 - 42-year-old male with history of PDNEC sp4 tumor , or also known as neuroendocrine carcinoma small cell type diagnosed on 10/26/2022 at [facility], currently managed with chemotherapy last chemotherapy on Sunday 6 days ago. 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 Oncologist Dr. Cece Ya MD at [facility]. . On 11/05/2022 patient's CAT scan revealed progressive hepatic masses and lymphadenopathy most compatible with metastatic disease, small amount of free fluid, heterogenous gastrohepatic and anay hepatic lymphadenopathy. Multiple heterogenous hepatic masses, on 11/05/2022 patient also had elevated liver enzymes AST 185, ALT 91, alk phos 498 patient's medications from old record include alprazolam 0.5 mg 3 times a day as needed for anxiety, Speedwell 7.51 tab every 6 hours as needed for pain, pantoprazole 40 mg once a day.. Patient medications include allopurinol and ondansetron. Chemotherapy consists of carboplatin injections. Allopurinol 300 mg 1 tab every morning,.. 01/07 02:51 Today patient presents with a cute onset of diffuse abdominal pain, nausea and vomiting sp4 associated with some diarrhea as well.. Historical: - Allergies: 01/06 22:59 No Known Allergies; bp - PMHx: 22:59 stomach cancer; cirrhosis of liver; bp - Immunization history:: Adult Immunizations up to date. - Social history:: Smoking status: Patient denies any tobacco usage or history of. - Family history:: not pertinent. ROS: 01/07 02:51 Constitutional: Negative for fever, chills, and weight loss, Abdomen/GI: Positive for sp4 abdominal pain, nausea, vomiting, diarrhea. Negative constipation Exam: 02:51 Constitutional: This is a well developed, well nourished patient who is awake, alert, sp4 generalized pallor, but nontoxic Head/Face: Normocephalic, atraumatic. Eyes: Pupils equal round and reactive to light, extra-ocular motions intact. Lids and lashes normal. Conjunctiva and sclera are not injected. Cornea within normal limits. Periorbital areas with no swelling, redness, or edema. ENT: Nares patent. No nasal discharge, no septal abnormalities noted. Tympanic membranes are normal and external auditory canals are clear. Oropharynx with no redness, swelling, or masses, exudates, or evidence of obstruction, uvula midline. Mucous membranes moist. Neck: Trachea midline, no thyromegaly or masses palpated, and no cervical lymphadenopathy. Supple, full range of motion without nuchal rigidity, or vertebral point tenderness. Chest/axilla: Normal chest wall appearance and motion. Nontender with no deformity. No lesions are appreciated. Cardiovascular: Regular rate and rhythm with a normal S1 and S2. No gallops, murmurs, or rubs. Normal PMI, no JVD. No pulse deficits. Respiratory: Lungs have equal breath sounds bilaterally, clear to auscultation and percussion. No rales, rhonchi or wheezes noted. No increased work of breathing, no retractions or nasal flaring. Abdomen/GI: Soft, diffuse discomfort to palpation, extensive hepatomegaly, no tympany, no distention, and no rigidity Back: No spinal tenderness. No costovertebral tenderness. Skin: Warm, dry with normal turgor. Normal color with no rashes, no lesions, and no evidence of cellulitis. MS/ Extremity: Pulses equal, no cyanosis. Neurovascular intact. Full, normal range of motion. Neuro: Awake and alert, GCS 15, oriented to person, place, time, and situation. Cranial nerves II-XII grossly intact. Motor strength 5/5 in all extremities. Sensory grossly intact. Psych: Awake, alert, with orientation to person, place and time. Behavior, mood, and affect are within normal limits Vital Signs: 01/06 23:00 BP 121 / 80; Pulse 57; Resp 16; Temp 97; Pulse Ox 100% ; bp 23:10 BP 120 / 80; Pulse 59; Resp 17 S; Pulse Ox 100% on R/A; ha1 01/07 00:00 BP 138 / 86; Pulse 58; Resp 18 S; Pulse Ox 98% on R/A; ha1 MDM: 01/06 23:05 Patient medically screened. sp4 01/07 02:02 ED course: FINDINGS: LUNG BASES: No basilar consolidation or effusions. LIVER: No sp4 significant interval change of indeterminate varying size heterogenous hepatic masses from 8 days prior. An index lesion within segment 4 measures up to 13.5 cm similar to exam of 8 days ago. Hepatomegaly. Portable hepatic and gastrohepatic lymphadenopathy. HEPATOBILIARY: No calcified gallstones. No intra- or extrahepatic ductal dilatation. SPLEEN: Normal size. PANCREAS: Unremarkable. ADRENAL GLANDS: Normal size. No adrenal masses. KIDNEYS: Bilateral kidneys are normal in size without obstructing calculi or hydronephrosis. No nephrolithiasis. No significant cysts are present. No focal solid mass. BOWEL AND MESENTERY: Small volume ascites. Mesenteric edema. No small or large bowel dilatation. No colonic diverticulosis. Normal appendix. No abnormal mesenteric lymphadenopathy. No free fluid or pneumoperitoneum. RETROPERITONEUM: Normal caliber abdominal aorta without aneurysm. No abnormal retroperitoneal lymphadenopathy. PELVIS: Urinary bladder is unremarkable. Normal-sized prostate gland. ABDOMINAL WALL: The abdominal wall is intact. BONES: Grade 1 spondylolisthesis of L4 upon L5; and L5 upon S1 with bilateral L4 and L5 pars defect. No suspicious osseous lytic or blastic lesions seen. IMPRESSION: 1. Extensive hepatic metastases, not substantially changed from 8 days ago. 2. Hepatomegaly. Periportal and gastrohepatic lymphadenopathy. 3. Small volume ascites. Mesenteric edema. 4. No significant interval change. . 02:51 Differential diagnosis: Nonspecific abd pain, gastritis, pancreatitis, diverticulitis, sp4 viral gastroenteritis, gastroenteritis. Data reviewed: vital signs, nurses notes, old medical records, lab test result(s), CBC, electrolytes, hepatic panel, radiologic studies, CT scan. Consideration of Admission/Observation Escalation of care including admission/observation considered. ED course: Patient reported improvement after pain medication and nausea medication. CBC revealed no acute surgical issue but revealed moderate to severe liver metastatic disease. Patient states he is ready for discharge home. Will advise close follow-up with oncologist at [facility].. . 01/06 22:58 Order name: CBC with Diff; Complete Time: 02:01 sp4 01/06 22:58 Order name: CMP; Complete Time: 02:01 sp4 01/06 22:58 Order name: Lipase; Complete Time: 02:01 sp4 01/06 22:58 Order name: Urinalysis w/ reflexes; Complete Time: 02:01 sp4 01/06 22:58 Order name: CT Abd/Pelvis - IV Contrast Only sp4 01/06 22:58 Order name: IV Saline Lock; Complete Time: 23:34 sp4 01/06 22:58 Order name: Labs collected and sent; Complete Time: 23:34 sp4 Administered Medications: 01/06 23:22 Drug: Ondansetron IVP 4 mg Route: IVP; Site: left forearm; ha1 23:50 Follow up: Response: No adverse reaction; Nausea is decreased ha1 23:25 Drug: HYDROmorphone IVP 1 mg Route: IVP; Site: left forearm; ha1 23:50 Follow up: Response: No adverse reaction; Pain is decreased; RASS: Alert and Calm (0) ha1 23:25 Drug: NS 0.9% IV 1000 ml Route: IV; Rate: 1 bolus; Site: left forearm; ha1 01/07 01:29 Follow up: Response: No adverse reaction; IV Status: Completed infusion; IV Intake: ha1 1000ml Disposition Summary: 01/07/23 02:05 Discharge Ordered Location: Home sp4 Problem: new sp4 Symptoms: have improved sp4 Condition: Stable sp4 Diagnosis - Diffuse abdominal pain, cancer associated pain, PNET, multiple metastatic liver sp4 lesions - Chronic hepatitis sp4 Followup: sp4 - With: Private Physician - When: 2 - 3 days - Reason: Recheck today's complaints Discharge Instructions: - Discharge Summary Sheet sp4 - Managing Cancer Pain sp4 Forms: - Patient Portal Instructions sp4 Prescriptions: - promethazine 25 mg Oral Tablet - take 1 tablet by ORAL route every 6 hours As needed PRN nausea; 30 tablet; sp4 Refills: 0, Product Selection Permitted Signatures: Dispatcher [facility] Adolfo Fleming RN RN bp Ayala, Heidy, RN RN [facility] Leonard Oneill MD MD sp4 Corrections: (The following items were deleted from the chart) 02:53 01/06 22:58 HPI review from recent ER visit on 12/31/2022 - 42-year-old male with sp4 history of PDNEC tumor , or also known as neuroendocrine carcinoma small cell type diagnosed on 10/26/2022 at [facility], currently managed with chemotherapy last chemotherapy on Sunday. At this time patient presents with worsening abdominal pain, nausea or worsening this morning associated with constipation. Patient denied any vomiting. 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 Oncologist Dr. Cece Ya MD at [facility]. . On 11/05/2022 patient's CAT scan revealed progressive hepatic masses and lymphadenopathy most compatible with metastatic disease, small amount of free fluid, heterogenous gastrohepatic and anay hepatic lymphadenopathy. Multiple heterogenous hepatic masses, on 11/05/2022 patient also had elevated liver enzymes AST 185, ALT 91, alk phos 498 patient's medications from old record include alprazolam 0.5 mg 3 times a day as needed for anxiety, Speedwell 7.51 tab every 6 hours as needed for pain, pantoprazole 40 mg once a day.. Patient medications include allopurinol and ondansetron. Chemotherapy consists of carboplatin injections. Allopurinol 300 mg 1 tab every morning,.. sp4
--- NOTE | 2023-01-07 02:05 | ER ---
Nurse's Notes [facility] Name: Ayden Andres Jr Age: 42 yrs Sex: Male : 1980 Arrival Date: 01/06/2023 Time: 22:53 Bed 20 Private MD: Diagnosis: Diffuse abdominal pain, cancer associated pain, PNET, multiple metastatic liver lesions;Chronic hepatitis Presentation: 01/06 23:00 Chief complaint: Patient states: EPIGASTRIC PAIN x3 MONTH, H/O STOMACH CA, LAST CHEMO bp COMPLETED SUNDAY. Coronavirus screen: At this time, the client does not indicate any symptoms associated with coronavirus-19. Ebola Screen: No symptoms or risks identified at this time. Initial Sepsis Screen: Does the patient meet any 2 criteria? No. Patient's initial sepsis screen is negative. Does the patient have a suspected source of infection? No. Patient's initial sepsis screen is negative. Risk Assessment: Do you want to hurt yourself or someone else? Patient reports no desire to harm self or others. Onset of symptoms is unknown. 23:00 Method Of Arrival: Ambulatory bp 23:00 Acuity: JOSE 3 bp Triage Assessment: 23:00 General: Appears distressed, uncomfortable, Behavior is cooperative, appropriate for bp age, anxious. Pain: Complains of pain in abdomen. EENT: No deficits noted. Neuro: No deficits noted. Cardiovascular: No deficits noted. Respiratory: No deficits noted. GI: Reports upper abdominal pain, nausea. : No signs and/or symptoms were reported regarding the genitourinary system. Derm: No deficits noted. Musculoskeletal: No deficits noted. Historical: - Allergies: 22:59 No Known Allergies; bp - PMHx: 22:59 stomach cancer; cirrhosis of liver; bp - Immunization history:: Adult Immunizations up to date. - Social history:: Smoking status: Patient denies any tobacco usage or history of. - Family history:: not pertinent. Screenin:05 Abuse screen: Denies threats or abuse. Denies injuries from another. Nutritional ha1 screening: No deficits noted. Tuberculosis screening: No symptoms or risk factors identified. 23:05 [facility] ED Fall Risk Assessment (Adult) History of falling in the last 3 months, ha1 including since admission No falls in past 3 months (0 pts) Confusion or Disorientation No (0 pts) Intoxicated or Sedated No (0 pts) Impaired Gait No (0 pts) Mobility Assist Device Used No (0 pt) Altered Elimination No (0 pt) Score/Fall Risk Level 0 - 2 = Low Risk Oriented to surroundings, Maintained a safe environment, Educated pt \T\ family on fall prevention, incl call for assistance when getting out of bed. Assessment: 23:05 General: Appears uncomfortable, Behavior is calm, cooperative. Pain: Complains of pain ha1 in abdomen Pain does not radiate. Pain currently is 9 out of 10 on a pain scale. Neuro: Level of Consciousness is awake, alert, obeys commands, Oriented to person, place, time, situation. Cardiovascular: Patient's skin is warm and dry. Respiratory: Airway is patent Respiratory effort is even, unlabored, Respiratory pattern is regular, symmetrical. GI: Abdomen is round non-distended, Bowel sounds present X 4 quads. Abdomen is tender to palpation in left upper quadrant Guarding noted. : No signs and/or symptoms were reported regarding the genitourinary system. Musculoskeletal: Circulation, motion, and sensation intact. Range of motion: intact in all extremities. 23:59 Reassessment: Patient and/or family updated on plan of care and expected duration. Pain ha1 level reassessed. Patient is alert, oriented x 3, equal unlabored respirations, skin warm/dry/pink. Patient states feeling better. Patient states symptoms have improved. 01/07 01:00 Reassessment: Patient and/or family updated on plan of care and expected duration. Pain ha1 level reassessed. Patient is alert, oriented x 3, equal unlabored respirations, skin warm/dry/pink. Vital Signs: 01/06 23:00 BP 121 / 80; Pulse 57; Resp 16; Temp 97; Pulse Ox 100% ; bp 23:10 BP 120 / 80; Pulse 59; Resp 17 S; Pulse Ox 100% on R/A; ha1 01/07 00:00 BP 138 / 86; Pulse 58; Resp 18 S; Pulse Ox 98% on R/A; ha1 ED Course: 01/06 22:55 Patient arrived in ED. mr 22:57 Leonard Oneill MD is Attending Physician. sp4 23:01 Triage completed. bp 23:01 Arm band placed on. bp 23:05 Patient has correct armband on for positive identification. Placed in gown. Bed in low ha1 position. Call light in reach. Side rails up X 1. Adult w/ patient. 23:15 Racheal Alston, RN is Primary Nurse. ha1 23:34 CBC with Diff Sent. wm 23:34 CMP Sent. wm 23:34 Lipase Sent. 23:34 Inserted saline lock: 22 gauge in left forearm, using aseptic technique. Blood wm collected. 23:53 CMP Sent. ha1 23:53 Lipase Sent. ha1 01/07 00:46 CT Abd/Pelvis - IV Contrast Only In Process Unspecified. EDMT 02:22 No provider procedures requiring assistance completed. IV discontinued, bleeding fu controlled, Pressure dressing applied. Administered Medications: 01/06 23:22 Drug: Ondansetron IVP 4 mg Route: IVP; Site: left forearm; ha1 23:50 Follow up: Response: No adverse reaction; Nausea is decreased ha1 23:25 Drug: HYDROmorphone IVP 1 mg Route: IVP; Site: left forearm; ha1 23:50 Follow up: Response: No adverse reaction; Pain is decreased; RASS: Alert and Calm (0) ha1 23:25 Drug: NS 0.9% IV 1000 ml Route: IV; Rate: 1 bolus; Site: left forearm; ha1 01/07 01:29 Follow up: Response: No adverse reaction; IV Status: Completed infusion; IV Intake: ha1 1000ml Medication: 00:07 VIS not applicable for this client. ha1 Intake: 01:29 IV: 1000ml; Total: 1000ml. ha1 Outcome: 02:05 Discharge ordered by . sp4 02:22 Discharged to home ambulatory, with family. fu 02:22 Condition: stable 02:22 Discharge instructions given to patient, family, Instructed on discharge instructions, follow up and referral plans. Demonstrated understanding of instructions, follow-up care, Prescriptions given X 1. 02:23 Patient left the ED. fu Signatures: Dispatcher [employer] EDMT Chloe Charles JacquieJeevan pappas, RN Adolfo Garcia RN RN bp Marsh, Wendy Racheal Alston RN RN [facility] Leonard Oneill MD MD sp4
[2023-01-07 02:31] VITALS: TEMP 97
[2023-01-07 02:47] VITALS: BP 138/86; O2SAT 98
--- NOTE | 2023-01-08 10:54 | RAD REPORT ---
EXAM DESCRIPTION: CT - Abdomen Pelvis W Contrast - 01/07/2023 12:44 am CLINICAL HISTORY: 42 years Male, ABD PAIN TECHNIQUE: Helical CT axial images are obtained from the lung bases to the pubic symphysis with IV c ontrast. No oral contrast was administered. Multiplanar reconstruction. This exam was performed accor ding to our departmental dose-optimization program, which includes automated exposure control, adjust ment of the mA and/or kV according to patient size and/or use of iterative reconstruction technique. COMPARISON: 12/31/2022, 11/05/2022 FINDINGS: LUNG BASES: No basilar consolidation or effusions. LIVER: No significant interval change of indeterminate varying size heterogenous hepatic masses fro m 8 days prior. An index lesion within segment 4 measures up to 13.5 cm similar to exam of 8 days ago . Hepatomegaly. Portable hepatic and gastrohepatic lymphadenopathy. HEPATOBILIARY: No calcified gallstones. No intra- or extrahepatic ductal dilatation. SPLEEN: Normal size. PANCREAS: Unremarkable. ADRENAL GLANDS: Normal size. No adrenal masses. KIDNEYS: Bilateral kidneys are normal in size without obstructing calculi or hydronephrosis. No nep hrolithiasis. No significant cysts are present. No focal solid mass. BOWEL AND MESENTERY: Small volume ascites. Mesenteric edema. No small or large bowel dilatation. No c olonic diverticulosis. Normal appendix. No abnormal mesenteric lymphadenopathy. No free fluid or pneumoperitoneum. RETROPERITONEUM: Normal caliber abdominal aorta without aneurysm. No abnormal retroperitoneal lymphad enopathy. PELVIS: Urinary bladder is unremarkable. Normal-sized prostate gland. ABDOMINAL WALL: The abdominal wall is intact. BONES: Grade 1 spondylolisthesis of L4 upon L5; and L5 upon S1 with bilateral L4 and L5 pars defect . No suspicious osseous lytic or blastic lesions seen. IMPRESSION: 1. Extensive hepatic metastases, not substantially changed from 8 days ago. 2. Hepatomegaly. Periportal and gastrohepatic lymphadenopathy. 3. Small volume ascites. Mesenteric edema. 4. No significant interval change. Electronically signed by: Jesus Veras MD 01/07/2023 1:05 AM CDT Due to temporary technical issues with the PACS/Fluency reporting system, reports are being signed by the in house radiologist without review as a courtesy to ensure prompt reporting. The interpreting r adiologist is fully responsible for the content of the report.
== END 2023-01-07 02:23 | disposition home or self-care (01) ==
LOC: ER 22:53
DX: G89.3 Neoplasm related pain (acute) (chronic) (principal); D09.3 Carcinoma in situ of thyroid and other endocrine glands; C78.7 Secondary malignant neoplasm of liver and intrahepatic bile duct; K73.9 Chronic hepatitis, unspecified; Z85.028 Personal history of other malignant neoplasm of stomach
CPT/HCPCS: 96361; 85025; 81001; 36415; 83690; 80053; 74177; 96375; 96374; 99284; Q9967; J1170; J2405; J7030

== ENCOUNTER 2023-01-14 11:50 | Emergency (ER) | payer OTHER, BC ==
--- OUTSIDE RECORDS SUMMARY | 2023-01-14 11:55 | XMS REPORT | Continuity of Care Document ---
:1980 Author Organization [facility] t Address [address] [place] [address] [address] [place] [address] Care Team Providers Name Role Phone CHRISTINAKENRICK COATES Attending Clinician Unavailable JAMEL NEAL Attending Clinician Unavailable MANNY FOWLER Attending Clinician Unavailable BRIAN FORDE Attending Clinician Unavailable Navjot Thakkar MD Attending Clinician Judy Martinez MD Attending Clinician [phone] RUBINA MORAES Admitting Clinician Unavailable MITRA JERONIMO Admitting Clinician Unavailable Payers Payer Name Policy Type Policy Number Effective Date Expiration Date S ource MEDICAID [facility] [id number] 2020 00:00:00 Problems Condition Condition Condition Status Onset Resolution Last Treating Co mments Source Name Details Category Date Date Treatment Clinician Date Bradycardi Bradycardi Disease [facility] GI bleed GI bleed Disease [facility] Liver mass Liver mass Disease [facility] Allergies, Adverse Reactions, Alerts Allergy Allergy Status Severity Reaction(s) Onset Inactive Treating Comm ents Source Name Type Date Date Clinician NO KNOWN Allergy Active [facility] Social History Social Habit Start Date [...] [facility] Last Year 00:00:00 00:00[facility] Sex Assigned At [birth year] INOCENTE [...] kg Heart rate 2022-10-24 07:00:00 55 /min [facility] Respiratory rate 2022-10-24 04:55:00 18 /min [facility] Oxygen saturation in 2022-10-24 04:55:00 97 /min [facility] Arterial blood by Medical Ce nter Pulse oximetry Systolic blood 2022-10-24 04:02:00 113 mm[Hg] [facility] Diastolic blood 2022-10-24 04:02:00 63 mm[Hg] [facility] S t [facility] Body temperature 2022-10-24 04:02:00 35.94 Carlota [facility] Body height 2022-10-23 11:07:00 180.3 cm [facility] Body weight 2022-10-23 11:07:00 87.091 kg [facility] BMI 2022-10-23 11:07:00 26.78 kg/m2 [facility] Procedures Procedure Date / Time Performing Clinician Source Performed CBC W/PLT COUNT & AUTO 2022-10-24 06:08:00 [facility] DIFFERENTIAL [facility] CBC W/PLT COUNT & AUTO 2022-10-24 06:08:00 [facility] DIFFERENTIAL [facility] MAGNESIUM 2022-10-24 05:01:00 [facility] COMPREHENSIVE METABOLIC 2022-10-24 05:01:00 Dima Berrios [facility] HEMOGLOBIN AND HEMATOCRIT 2022-10-23 15:55:00 Dima Berrios [facility] REPORT OF PROCEDURE - 2022-10-23 12:35:10 Judy Martinez [facility] GI TRACT, 2022-10-23 11:34:00 Judy Martinez [facility] WITH BIOPSY [facility] ABORH, MANUAL 2022-10-23 08:13:00 Maria Elena Milian [facility] BASIC METABOLIC PANEL 2022-10-23 06:29:00 [facility] MAGNESIUM 2022-10-23 06:29:00 [facility] CBC W/PLT COUNT & AUTO 2022-10-23 06:29:00 [facility] DIFFERENTIAL [facility] HEPATIC FUNCTION PANEL 2022-10-23 06:29:00 [facility] TYPE AND SCREEN, AUTOMATED 2022-10-23 06:29:00 Salim, Josué Tristin [facility] CBC W/PLT COUNT & AUTO 2022-10-23 06:29:00 [facility] LIPID PANEL 2022-10-22 04:19:00 [facility] BASIC METABOLIC PANEL 2022-10-22 04:19:00 [facility] MAGNESIUM 2022-10-22 04:19:00 [facility] CBC W/PLT COUNT & AUTO 2022-10-22 04:19:00 [facility] 2022-10-22 04:19:00 [facility] HEPATITIS B CORE ANTIBODY, 2022-10-22 04:19:00 Dmitry Dale [facility] HEPATITIS PANEL, ACUTE 2022-10-22 04:19:00 Suyapa [facility] HEPATITIS A ANTIBODY, IGG 2022-10-22 04:19:00 Dmitry Dale [facility] HEPATITIS B SURFACE 2022-10-22 04:19:00 [facility] FERRITIN 2022-10-22 04:19:00 Suyapa [facility] IRON, TIBC, % SAT. (WITHOUT 2022-10-22 04:19:00 Suyapa [facility] FERRITIN) [facility] AGIKZ-[id number]-[id number]\\, SERUM 2022-10-22 04:19:00 Suyapa [facility] ALPHA FETOPROTEIN (AFP), 2022-10-22 04:19:00 Suyapa [facility] TUMOR MARKER [facility] CARCINOEMBRYONIC ANTIGEN 2022-10-22 04:19:00 Suyapa [facility] (CEA) [facility] CBC W/PLT COUNT & AUTO 2022-10-22 04:19:00 [facility] ECG 12-LEAD 2022-10-21 17:09:37 [facility] ECG 12-LEAD 2022-10-21 17:09:37 Unknown, Hl7 Doctor [facility] HEPATIC FUNCTION PANEL 2022-10-21 14:42:00 [facility] BASIC METABOLIC PANEL 2022-10-21 14:42:00 [facility] HEMOGLOBIN A1C 2022-10-21 14:42:00 [facility] PROTHROMBIN TIME/INR 2022-10-21 14:42:00 [facility] CBC W/PLT COUNT & AUTO 2022-10-21 14:42:00 [facility] DIFFERENTIAL [facility] CBC W/PLT COUNT & AUTO 2022-10-21 14:42:00 [facility] Plan of Care Planned Activity Planned Date Details Comments Source Future Scheduled 2027-10-[address] [facility]00 (procedure) [code = [facility] 52344980] Future Scheduled 2023-02-[address] [...] Department ID 2022-11-21 2022-11-21 Outpatient EDDIE LIMA [id number] [facility] 00:00:00 00:00:00 [facility] [address] [address] 2022-11-17 2022-11-[address] [facility] [id number] SLE 00:00:00 00:00:00 MANNY 2022-11-07 2022-11-[address] [facility] [id number] SLE 00:00:00 00:00:00 [facility] 2022-11-06 2022-11-[address] [facility] [id number] SLE 12:51:54 15:40:51 [facility] 2022-11-06 2022-11-[address] [facility] [id number] SLE 00:00:00 00:00:00 2022-10-21 2022-10-27 Inpatient ER [facility] Gastro [id number] SLE 13:26:00 14:43:00 MANNY 2022-10-23 2022-10-23 Anesthesia [place], [facility] [id number] 11:35:00 13:04:00 Event Navjot Frost [facility] 2022-10-23 2022-10-23 Surgery [facility], [facility] [id number] 10:00:00 10:59:00 [facility] 2022-10-21 2022-10-21 Orders [facility] [id number] 00:00:00 00:00:00 Only [facility] Results Test Description Test Time Test Comments Results Result Comments Source ALPHA FETOPROTEIN (AFP), TUMOR MARKER 2023-01-09 15:59:30 Test Item Value Reference Range Interpretation Comme nts ALPHA-FETOPROTEIN (BEAKER) (test code = 1094) > ng/mL <10.0 H Field Worker ID - anish bOperator ID - anish bOperator ID - anish bCARCINOEMBRYONIC ANTIGEN (CEA)2023-01-09 15:04:16 Test Item Value Reference Range Interpretation Comments CARCINOEMBRYONIC ANTIGEN (BEAKER) 15.1 ng/mL 0.0-5.0 H (test code = 685) Field Worker ID - anish bLACTATE DEHYDROGENASE (LDH)2023-01-09 12:48:48 Test Item Value Reference Range Interpretation Comments LACTATE DEHYDROGENASE (BEAKER) (test > U/L 125-220 H code = 635) COMPREHENSIVE METABOLIC [id number] 12:39:05 Test Item Value Reference Range Interpretation Comments TOTAL PROTEIN 6.4 gm/dL 6.0-8.3 (BEAKER) (test code = 770) ALBUMIN (BEAKER) 4.1 g/dL 3.5-5.0 (test code = 1145) ALKALINE 747 U/L 40-150 H PHOSPHATASE (BEAKER) (test code = 346) BILIRUBIN TOTAL 0.4 mg/dL 0.2-1.2 (BEAKER) (test code = 377) SODIUM (BEAKER) 139 meq/L 136-145 (test code = 381) POTASSIUM (BEAKER) 4.9 meq/L 3.5-5.1 (test code = 379) CHLORIDE (BEAKER) 105 meq/L 98-107 (test code = 382) CO2 (BEAKER) (test 28 meq/L 22-29 code = 355) BLOOD UREA 21 mg/dL 7-21 NITROGEN (BEAKER) (test code = 354) CREATININE 0.96 mg/dL 0.57-1.25 (BEAKER) (test code = 358) GLUCOSE RANDOM 78 mg/dL 70-105 (BEAKER) (test code = 652) CALCIUM (BEAKER) 9.1 mg/dL 8.4-10.2 (test code = 697) AST (SGOT) 199 U/L 5-34 H (BEAKER) (test code = 353) ALT (SGPT) 81 U/L 6-55 H (BEAKER) (test code = 347) EGFR (BEAKER) 103 Interpretatio n of eGFR [...] not appl icable for dialysis patien ts [id number] 12:37:31 Test Item Value Reference Range Interpretation Comments PHOSPHORUS (BEAKER) (test code = 3.6 mg/dL 2.3-4.7 604) CBC W/PLT COUNT & AUTO [id number] 12:21:24 Test Item Value Reference Range Interpretation Comments WHITE BLOOD CELL COUNT (BEAKER) 4.6 K/ L 3.5-10.5 (test code = 775) RED BLOOD CELL COUNT (BEAKER) 3.40 M/ L 4.63-6.08 L (test code = 761) HEMOGLOBIN (BEAKER) (test code = 9.8 GM/DL 13.7-17.5 L 410) HEMATOCRIT (BEAKER) (test code = 31.0 % 40.1-51.0 L 411) MEAN CORPUSCULAR VOLUME (BEAKER) 91 fL 79-92 (test code = 753) MEAN CORPUSCULAR HEMOGLOBIN 28.8 pg 25.7-32.2 (BEAKER) (test code = 751) MEAN CORPUSCULAR HEMOGLOBIN CONC 31.6 GM/DL 32.3-36.5 L (BEAKER) (test code = 752) RED CELL DISTRIBUTION WIDTH 16.1 % 11.6-14.4 H (BEAKER) (test code = 412) PLATELET COUNT (BEAKER) (test 248 K/CU MM 150-450 code = 756) MEAN PLATELET VOLUME (BEAKER) 9.7 fL 9.4-12.4 (test code = 754) NEUTROPHILS RELATIVE PERCENT 64 % (BEAKER) (test code = 429) LYMPHOCYTES RELATIVE PERCENT 26 % (BEAKER) (test code = 430) MONOCYTES RELATIVE PERCENT 9 % (BEAKER) (test code = 431) EOSINOPHILS RELATIVE PERCENT 0 % (BEAKER) (test code = 432) BASOPHILS RELATIVE PERCENT 2 % (BEAKER) (test code = 437) NEUTROPHILS ABSOLUTE COUNT 2.92 K/ L 1.78-5.38 (BEAKER) (test code = 670) LYMPHOCYTES ABSOLUTE COUNT 1.18 K/ L 1.32-3.57 L (BEAKER) (test code = 414) MONOCYTES ABSOLUTE COUNT (BEAKER) 0.40 K/ L 0.30-0.82 (test code = 415) EOSINOPHILS ABSOLUTE COUNT 0.01 K/ L 0.04-0.54 L (BEAKER) (test code = 416) BASOPHILS ABSOLUTE COUNT (BEAKER) 0.07 K/ L 0.01-0.08 (test code = 417) IMMATURE GRANULOCYTES-RELATIVE 0.20 % 0.00-1.00 PERCENT (BEAKER) (test code = 2801) ALPHA FETOPROTEIN (AFP), TUMOR [id number] 16:43:27 Test Item Value Reference Range Interpretation Comments ALPHA-FETOPROTEIN (BEAKER) (test code > ng/mL <10.0 H = 1094) Field Worker ID - ADMINOperator ID - ADMINOperator ID [...] (test code Normal = 762) COMPREHENSIVE METABOLIC [id number] 09:36:30 Test Item Value Reference Range Interpretation [...] eGF R is based on the CKD-EPI 1 equation that d oes not use a race coefficientEsti mated GFR is not as accur ate as Creatinine Iman bacon in predicting glom erular filtration rate . Estimated GFR is not appl icable for dialysis patien ts [id number] 09:28:58 Test Item Value Reference Range Interpretation Comments MAGNESIUM (BEAKER) (test code = 1.7 mg/dL 1.6-2.6 627) CBC W/PLT COUNT & AUTO [id number] 09:23:38 Test Item Value Reference Range Interpretation [...] 9.4-12.4 (test code = 754) COMPREHENSIVE METABOLIC [id number] 09:40:11 Test Item Value Reference Range Interpretation [...] not appl icable for dialysis patien ts [id number] 09:24:23 Test Item Value Reference Range Interpretation Comments MAGNESIUM (BEAKER) (test code = 1.9 mg/dL 1.6-2.6 627) CBC W/PLT COUNT & AUTO [id number] 09:04:00 Test Item Value Reference Range Interpretation [...] code = 2801) ALPHA FETOPROTEIN (AFP), TUMOR [id number] 16:54:52 Test Item Value Reference Range Interpretation Comments ALPHA-FETOPROTEIN (BEAKER) (test code > ng/mL <10.0 H = 1094) Field Worker ID - ADMINOperator ID - ADMINOperator ID - ADMINOperator ID - ADMIN BASIC METABOLIC [id number] 13:58:04 Test Item Value Reference Range Interpretation [...] not appl icable for dialysis patien ts Field Worker ID - ADMINHEPATIC FUNCTION [id number] 13:58:04 Test Item Value Reference Range Interpretation [...] code = 58 U/L 6-55 H 347) Field Worker ID - ADMINCBC W/PLT COUNT & AUTO [id number] 11:19:47 Test Item Value Reference Range Interpretation [...] (BEAKER) (test code = 2801) HEPATIC FUNCTION [id number] 06:52:32 Test Item Value Reference Range Interpretation [...] code = 64 U/L 6-55 H 347) Field Worker ID - MMURIC [id number] 06:52:31 Test Item Value Reference Range Interpretation Comments URIC ACID (BEAKER) (test code = 2.7 mg/dL 2.6-7.2 773) Field Worker ID - MMBASIC METABOLIC [id number] 06:52:30 Test Item Value Reference Range Interpretation [...] eGF R is based on the CKD-EPI 1 equation that d oes not use a race coefficientEsti mated GFR is not as accur ate as Creatinine Iman arleen in predicting glom erular filtration rate . Estimated GFR is not appl icable for dialysis patien ts Field Worker ID - [id number] 06:52:30 Test Item Value Reference Range Interpretation Comments PHOSPHORUS (BEAKER) (test code = 3.4 mg/dL 2.3-4.7 604) Field Worker ID - MMCBC W/PLT COUNT & AUTO [id number] 06:20:55 Test Item Value Reference Range Interpretation [...] (BEAKER) (test code = 2801) BASIC METABOLIC [id number] 22:14:17 Test Item Value Reference Range Interpretation [...] not appl icable for dialysis patien ts Field Worker ID - ADMINURIC [id number] 22:12:41 Test Item Value Reference Range Interpretation Comments URIC ACID (BEAKER) 2.6 mg/dL 2.6-7.2 Specimen slightly (test code = 773) hemolyzed Field Worker ID - [id number] 22:12:40 Test Item Value Reference Range Interpretation Comments PHOSPHORUS (BEAKER) 3.8 mg/dL 2.3-4.7 Specimen slightly (test code = 604) hemolyzed Field Worker ID - ADMINBASIC METABOLIC [id number] 17:01:12 Test Item Value Reference Range Interpretation [...] eGF R is based on the CKD-EPI 1 equation that d oes not use a race coefficientEsti mated GFR is not as accur ate as Creatinine Iman arleen in predicting glom erular filtration rate . Estimated GFR is not appl icable for dialysis patien ts Field Worker ID - [id number] 16:58:24 Test Item Value Reference Range Interpretation Comments PHOSPHORUS (BEAKER) (test code = 2.8 mg/dL 2.3-4.7 604) Field Worker ID - ADMINURIC [id number] 16:58:24 Test Item Value Reference Range Interpretation Comments URIC ACID (BEAKER) (test code = 2.1 mg/dL 2.6-7.2 L 773) Field Worker ID - ADMINURIC [id number] 06:57:40 Test Item Value Reference Range Interpretation Comments URIC ACID (BEAKER) (test code = 3.1 mg/dL 2.6-7.2 773) Field Worker ID - MMHEPATIC FUNCTION [id number] 06:57:40 Test Item Value Reference Range Interpretation [...] code = 65 U/L 6-55 H 347) Field Worker ID - MMBASIC METABOLIC [id number] 06:57:39 Test Item Value Reference Range Interpretation [...] not appl icable for dialysis patien ts Field Worker ID - [id number] 06:57:39 Test Item Value Reference Range Interpretation Comments PHOSPHORUS (BEAKER) (test code = 3.6 mg/dL 2.3-4.7 604) Field Worker ID - MMCBC W/PLT COUNT & AUTO [id number] 06:51:25 Test Item Value Reference Range Interpretation [...] (BEAKER) (test code = 2801) BASIC METABOLIC [id number] 09:04:16 Test Item Value Reference Range Interpretation [...] not appl icable for dialysis patien ts Field Worker ID - [id number] 09:04:15 Test Item Value Reference Range Interpretation Comments PHOSPHORUS (BEAKER) 3.1 mg/dL 2.3-4.7 Specimen slightly (test code = 604) hemolyzed Field Worker ID - MMURIC [id number] 09:04:15 Test Item Value Reference Range Interpretation Comments URIC ACID (BEAKER) 4.1 mg/dL 2.6-7.2 Specimen slightly (test code = 773) hemolyzed Field Worker ID - [id number] 05:03:52 Test Item Value Reference Range Interpretation Comments PHOSPHORUS (BEAKER) (test code = 3.7 mg/dL 2.3-4.7 604) Field Worker ID - MMURIC [id number] 05:03:52 Test Item Value Reference Range Interpretation Comments URIC ACID (BEAKER) (test code = 4.7 mg/dL 2.6-7.2 773) Field Worker ID - MMCOMPREHENSIVE METABOLIC [id number] 05:03:51 Test Item Value Reference Range Interpretation [...] not appl icable for dialysis patien ts Field Worker ID - MMCBC W/PLT COUNT & AUTO [id number] 04:40:21 Test Item Value Reference Range Interpretation [...] 2801) XR CHEST 1 VIEW PORTABLE / [id number] 17:54:25 [facility] 1980 Sex: MXR CHEST [...] (test code Normal = 486) HEPATITIS B [id number] 13:30:00 Test Item Value Reference Range Interpretation Comments HEPATITIS B CORE TOTAL ANTIBODY Nonreactive Nonreactive (BEAKER) (test code = 497) HEPATITIS B SURFACE ANTIBODY < mIU/mL <8.0 (BEAKER) (test code = 647) HEPATITIS B SURFACE ANTIGEN (2) Nonreactive Nonreactive (BEAKER) (test code = 2585) Field Worker ID - ADMINHEPATITIS C [id number] 13:29:13 Test Item Value Reference Range Interpretation Comments HEPATITIS C ANTIBODY (BEAKER) Nonreactive Nonreactive (test code = 367) Field Worker ID - [id number] 13:04:16 Test Item Value Reference Range Interpretation Comments MAGNESIUM (BEAKER) (test code = 1.8 mg/dL 1.6-2.6 627) Field Worker ID - edCOMPREHENSIVE METABOLIC [id number] 13:04:15 Test Item Value Reference Range Interpretation [...] not appl icable for dialysis patien ts Field Worker ID - edCBC WITH PLATELET COUNT + MANUAL [id number] 12:48:49 Test Item Value Reference Range Interpretation [...] 0-0 (BEAKER) (test code = 413) SARS-COV2/RT-PCR ([facility])2022-11-08 09:48:49 Test Item Value Reference Range Interpretation Comments SARS-COV2/RT-PCR Negative Negative The SARS-Co V-2 target (test code = nucleic acids a re not 2877013) detected in thi s specimen. Negative result [...] revoked sooner. Fact Sheet for Healthcare Providers: https://www.[employer] m/Documents/Xpert%20Xpress%20SARS%20CoV-2/Fact%20Sheets/3023802%76SXEE-NII-8%20 HEALTHCARE%20PROVIDERS%20FACT%20SHEET.pdf Fact Sheet for Healthcare Patients: https://www.[employer]/Documents/Xpert%20Xp ress%20SARS%20CoV-2/Fact%20Sheets/3023801%96LVHJ-KFT-2%20PATIENT%20FACT%20SHEET .pdfCARCINOEMBRYONIC ANTIGEN (CEA)2022-11-06 18:53:46 Test Item Value Reference Range Interpretation Comments CARCINOEMBRYONIC ANTIGEN (BEAKER) 5.3 ng/mL 0.0-5.0 H (test code = 685) Field Worker ID - MMCOMPREHENSIVE METABOLIC [id number] 16:39:54 Test Item Value Reference Range Interpretation [...] (test code = 347) EGFR (BEAKER) 108 Interpretati on of eGFR (test code = [...] patien ts CBC W/PLT COUNT & AUTO [id number] 16:21:39 Test Item Value Reference Range Interpretation [...] PERCENT (BEAKER) (test code = 2801) TISSUE [id number] 16:02:43Surgical Pathology Report Case: [id number] Authorizing Provider: Dima Berrios MD Collected: 10/26/2022 03:07 PM Ordering Location: [address] Received: 10/26/2022 04:53 PM Service Pathologist: Sherry Andrade MD Specimen: Biopsy, Liver Liver, mass, core needle biopsy: - Metastatic poorly differentiated neuroendocrine carcinoma, WHO grade 3; see comment Signing Pathologist Direct Phone Line: [phone] signed by Sherry Andrade MD on 11/01/2022 [...] tumor- Ki67: Proliferative index of 60-70%- Arginase: Negativein tumor- Hep-Par1: Negative in tumorThe overall findings are most consistent with a metastatic poorly differentiated neuroendocrine carcinoma (PDNEC), WHO grade 3. Metastatic neuroendocrine carcinoma can occasionally present with elevated alpha-fetoprotein (see reference). The histomorphology and immunophenotype is not specific for a particular primary site, and clinical and imaging correlation is needed. The patient's prior gastric biopsy ([id number], H&E) was concurrently reviewed, and the tumor shows similar histomorphology. Dr. Edvin Goldberg reviewed the case and agrees.Block A2 has adequate tumor cellularity for additional ancillary studies.References:Antonino LA, Dariusz T, Carina C, Bassem L. Metastatic neuroendocrine carcinoma presenting as multifocal liver lesions with elevated alpha-fetoprotein. Clin Case Rep. 2018 May 16;7(2):251-253. doi: 10.1002/ccr3.1956. PMID: 87946889; PMCID: [id number], 45037, 36822l2Gnrf is a 42-year-old male with history of prior alcohol use and was found to have gastric mass and multiple liver lesions. He has markedly elevated AFP (>10k) with elevated CEA (5.6) and CA19-9 (99). A. Biopsy, LiverReceived in formalin labeled with the patient's name, medical record number, and "liver biopsy" are multiple maritn-white to martin-red soft tissue fragments rangingin size from 0.1-1.0 cm, which are submitted [...] evaluated Immunohistochemistry technical testing was performed at [facility], Pathology Laboratory where it was [...] qualified to perform high complexity clinical laboratory testing.[facility], Department of Pathology, [address] [place] [address], [facility], [address] [place] [address], [facility], Department of [facility], [address] [place] [address], WEJNLM [id number] 09:06:35Surgical Pathology Report Case: [id number] Authorizing Provider: Judy Martinez, Collected: 10/23/2022 11:56 AM Ordering Location: [address] Received: 10/23/2022 01:29 PM Service Pathologist: Suzan Teixeira MD Specimens: A) - Biopsy, Gastric, random bxs B) - Biopsy, Gastric, bxs gastric mass A. STOMACH, RANDOM BIOPSIES: - CHEMICAL/REACTIVE GASTROPATHY - PPI EFFECT, MILDB. STOMACH, BIOPSIES OF MASS: - NEUROENDOCRINE CARCINOMA, SMALL CELL TYPE Signing Pathologist Direct Phone Line: [phone] signed by Suzan Bagley MD on 11/01/2022 at 9:06 AMPreliminary result electronically signed by Suzan Teixeira MD on 10/27/2022 at 11:55 AMPreliminary result electronically signed by Suzan Teixeira MD on 10/26/2022 at 11:55 AMThe finding was communicated via secure email with Judy Edmonds <[email or web address] GI Department at 11:52on October 26, [id number], 38207, [id number] hemorrhage associated with gastritisA. Biopsy, GastricReceived in [...] (focal), but negative with CD45. Ki67 highlights proliferationindex of about 70-80%. The slides were evaluated and the report was issued at [facility] (CLIA#[id number]), [address] [place] [address].The interpretation of this case included the use of immunohistochemistry or special stains.Control Slides Examined: In-house known positive controls were evaluated along with the test tissue. These control slides run alongside of the patients sample show appropriate staining. Internal positive and negative controls when available are evaluated Immunohistochemistry technical testing was performed at [facility], Pathology Laboratory where it was [...] perform high complexity clinical laboratory testing.U/S, BIOPSY, [id number] 12:01:00Reason for exam:->gastric mass and liver mass with afp >77752Uxfaes this be performed at the bedside?->No [facility]ENTER[facility]ON[facility]IO GARCIA JR : 1980 Sex: MFINAL REPORT Procedure: Liver mass core biopsy Pre/post-procedure diagnosis: Liver mass Legal Researcher: Bebo Low MD Assistants: none Sedation: Moderate [...] MDReport Verified Date/Time: 10/30/2022 12:01:04 C METABOLIC [id number] 05:48:04 Test Item Value Reference Range Interpretation [...] not appl icable for dialysis patien ts Field Worker ID - [id number] 05:48:04 Test Item Value Reference Range Interpretation Comments MAGNESIUM (BEAKER) (test code = 1.7 mg/dL 1.6-2.6 627) Field Worker ID - MMCBC W/PLT COUNT & AUTO [id number] 05:27:57 Test Item Value Reference Range Interpretation [...] 0.00-1.00 PERCENT (BEAKER) (test code = 2801) [id number] 06:55:04 Test Item Value Reference Range Interpretation Comments MAGNESIUM (BEAKER) (test code = 1.6 mg/dL 1.6-2.6 627) Field Worker ID - BSBASIC METABOLIC [id number] 06:55:03 Test Item Value Reference Range Interpretation [...] not appl icable for dialysis patien ts Field Worker ID - BSPROTHROMBIN [id number] 06:18:33 Test Item Value Reference Range Interpretation [...] mechanical heart valves.CBC W/PLT COUNT & AUTO [id number] 06:07:18 Test Item Value Reference Range Interpretation [...] (BEAKER) (test code = 2801) COMPREHENSIVE METABOLIC [id number] 07:14:31 Test Item Value Reference Range Interpretation [...] not appl icable for dialysis patien ts Field Worker ID - DENIS [id number] 07:14:31 Test Item Value Reference Range Interpretation Comments MAGNESIUM (BEAKER) (test code = 1.5 mg/dL 1.6-2.6 L 627) Field Worker DEE DEE BARRIOS WCBC W/PLT COUNT & AUTO [id number] 06:55:14 Test Item Value Reference Range Interpretation [...] (test code = 2801) ROSALINDA TITER AND [id number] 13:55:32 Test Item Value Reference Range Interpretation [...] method.Test performed by IFA method.CT, CHEST, WITH [id number] 13:00:00Unlisted Reason for Exam - Click Yes and Enter Reason Below->No[facility] : 1980 Sex: MFINAL REPORT [...] MDReport Verified Date/Time: 10/24/2022 13:00:41 Reading Location: [facility] C013X [facility] Consult Reading Room CT, [id number] 13:00:00Unlisted Reason for Exam - Click Yes and Enter Reason Below->NoProtocol Please Specify:->Standard ProtocolWill this procedure require oral contrast?->No [facility] : 1980 Sex: [...] Olvera Verified Date/Time: 10/24/2022 13:00:41 Reading Location: [facility] B1 C013X Ortho Consult Reading Room CBC W/PLT COUNT [...] 0.00-1.00 PERCENT (BEAKER) (test code = 2801) [id number] 05:38:34 Test Item Value Reference Range Interpretation Comments MAGNESIUM (BEAKER) (test code = 1.5 mg/dL 1.6-2.6 L 627) Field Worker ID - MMCOMPREHENSIVE METABOLIC [id number] 05:38:33 Test Item Value Reference Range Interpretation [...] not appl icable for dialysis patien ts Field Worker ID - MMHEMOGLOBIN AND [id number] 16:05:28 Test Item Value Reference Range Interpretation Comments HEMOGLOBIN (BEAKER) (test code = 14.4 GM/DL 13.7-17.5 410) HEMATOCRIT (BEAKER) (test code = 44.3 % 40.1-51.0 411) Field Worker ID - [id number] 09:39:18 Test Item Value Reference Range Interpretation Comments MAGNESIUM (BEAKER) 1.6 mg/dL 1.6-2.6 Specimen slightly (test code = 627) hemolyzed Field Worker ID - MMBASIC METABOLIC [id number] 09:39:18 Test Item Value Reference Range Interpretation [...] i s not applicable for dialysis patients Field Worker ID - MMHEPATIC FUNCTION [id number] 09:39:18 Test Item Value Reference Range Interpretation [...] Specimen slightly (test code = 347) hemolyzed Field Worker ID - MMCBC W/PLT COUNT & AUTO [id number] 06:38:29 Test Item Value Reference Range Interpretation [...] PERCENT (BEAKER) (test code = 2801) HEMOGLOBIN [id number] 08:56:25 Test Item Value Reference Range Interpretation Comments HEMOGLOBIN A1C 5.7 % See_Comment H [Automated m essage] ELECTROPHORESIS (BEAKER) The system which (test code = 4514) generated this result transmitted ref erence range: <=5.6%. The reference range was not used to int erpret this result as normal/abnormal . "The A1c is measured using a [facility]-certified method. HbA1c value equal to or greater than 6.5% as thediagnosis cutoff for diabetes. An HbA1c value of 5.7- 6.4% indicates increased risk for diabetes (prediabetes)."Field Worker ID - ADM [id number] 07:09:54 Test Item Value Reference Range Interpretation Comments FERRITIN (BEAKER) (test code = 159.87 ng/mL 5.00-275.00 361) Field Worker ID - MARCOALPHA FETOPROTEIN (AFP), TUMOR [id number] 06:32:10 Test Item Value Reference Range Interpretation Comments ALPHA-FETOPROTEIN (BEAKER) 48812.5 ng/mL <10.0 H (test code = 1094) Field Worker ID - ADMINOperator ID - ADMINHEPATITIS B SURFACE [id number] 06:31:52 Test Item Value Reference Range Interpretation Comments HEPATITIS B SURFACE ANTIBODY < mIU/mL <8.0 (BEAKER) (test code = 647) Field Worker ID - ADMINHEPATITIS A ANTIBODY, [id number] 06:31:00 Test Item Value Reference Range Interpretation Comments HEPATITIS A IGG ANTIBODY (BEAKER) Nonreactive Nonreactive (test code = 2797) Field Worker ID - ADMINCARCINOEMBRYONIC ANTIGEN (CEA)2022-10-22 06:30:59 Test Item Value Reference Range Interpretation Comments CARCINOEMBRYONIC ANTIGEN (BEAKER) 5.6 ng/mL 0.0-5.0 H (test code = 685) Field Worker ID - ADMINHEPATITIS B CORE ANTIBODY, [id number] 06:30:59 Test Item Value Reference Range Interpretation Comments HEPATITIS B CORE TOTAL ANTIBODY Nonreactive Nonreactive (BEAKER) (test code = 497) Field Worker ID - ADMINHEPATITIS PANEL, [id number] 06:03:10 Test Item Value Reference Range Interpretation Comments HEPATITIS A IGM ANTIBODY (BEAKER) Nonreactive Nonreactive (test code = 498) HEPATITIS B CORE IGM ANTIBODY Nonreactive Nonreactive (BEAKER) (test code = 645) HEPATITIS C ANTIBODY (BEAKER) Nonreactive Nonreactive (test code = 367) HEPATITIS B SURFACE ANTIGEN (2) Nonreactive Nonreactive (BEAKER) (test code = 2585) Field Worker ID - [id number] 05:54:41 Test Item Value Reference Range Interpretation Comments MAGNESIUM (BEAKER) (test code = 1.7 mg/dL 1.6-2.6 627) Field Worker ID - MARCOLIPID [id number] 05:54:41 Test Item Value Reference Range Interpretation [...] Borderline 130-159 High 160-189 Very High >=190 Field Worker ID - MARCOHEPATIC FUNCTION [id number] 05:54:41 Test Item Value Reference Range Interpretation [...] (test code = 54 U/L 6-55 347) Field Worker ID - MARCOBASIC METABOLIC [id number] 05:54:40 Test Item Value Reference Range Interpretation [...] not appl icable for dialysis patien ts Field Worker ID - JAIME, TIBC, % SAT. (WITHOUT FERRITIN)2022-10-22 05:39:20 Test Item Value Reference Range Interpretation Comments IRON (BEAKER) (test code = 547) 61.0 ug/dL 40.0-160.0 TOTAL IRON BINDING CAPACITY 273 ug/dL 250-450 (BEAKER) (test code = 769) IRON % SATURATION (2) (BEAKER) 22 % 20-55 (test code = 2590) Field Worker ID - [id number] 05:39:03 Test Item Value Reference Range Interpretation Comments ALPHA-1 ANTITRYPSIN (BEAKER) 211.70 mg/dL 90.00-200.00 H (test code = 502) Field Worker ID - ADMINCBC W/PLT COUNT & AUTO [id number] 05:15:17 Test Item Value Reference Range Interpretation [...] (BEAKER) (test code = 2801) HEPATIC FUNCTION [id number] 15:14:35 Test Item Value Reference Range Interpretation [...] Specimen slightly (test code = 347) hemolyzed Field Worker ID - MARCOPROTHROMBIN [id number] 15:14:35 Test Item Value Reference Range Interpretation Comments PROTIME (BEAKER) (test code = 14.7 seconds 11.9-14.2 H 759) INR (BEAKER) (test code = 370) 1.22 <=5.90 RECOMMENDED COUMADIN/WARFARIN INR THERAPY RANGESSTANDARD DOSE: 2.0 - 3.0 Includes: PROPHYLAXIS for venous thrombosis, systemic embolization; TREATMENT for venous thrombosis and/or pulmonary embolus.HIGH RISK: Target INR is 2.5-3.5 for patients with mechanical heart valves.BASIC METABOLIC [id number] 15:14:34 Test Item Value Reference Range Interpretation [...] not appl icable for dialysis patien ts Field Worker ID - MARCOCBC W/PLT COUNT & AUTO [id number] 14:53:39 Test Item Value Reference Range Interpretation [...]
[2023-01-14 12:33] LABS: Absolute Lymphocytes (CBC) 1.1 K/uL (0.7-4.9); Hematocrit 31.3 % (39.6-49.0); Lymphocytes % 37.4 % (15.3-44.8); MCV 87.6 fL (80-100); MPV 7.3 fL (7.6-11.3); Platelets 219 thou/uL (152-406); RBC Red Blood Cell Count 3.57 M/uL (4.33-5.43)
[2023-01-14] MEDS ORDERED: ONDANSETRON 4 MG/2 ML VIAL ONE (12:49)
[2023-01-14] MEDS ORDERED: NA CHLORIDE 0.9% 500 ML ONE (12:49)
[2023-01-14] MEDS ORDERED: HYDROMORPHONE HCL 1 MG/ML INJ ONE ×2 (12:49→14:09)
[2023-01-14 12:52] LABS: Albumin 3.2 g/dL (3.4-5.0); Bilirubin Total 0.5 mg/dL (0.2-1.0); Protein, Total 6.5 g/dL (6.4-8.2)
--- NOTE | 2023-01-14 13:29 | RAD REPORT ---
EXAM DESCRIPTION: CT - Abdomen Pelvis W Contrast - 01/14/2023 1:08 pm CLINICAL HISTORY: Abdominal pain COMPARISON: January 07 2023 TECHNIQUE: Computed axial tomography of the abdomen pelvis was obtained. 100 cc Isovue-300 was admin istered intravenously. Oral contrast was not requested which limits evaluation of bowel and appendix All CT scans are performed using dose optimization technique as appropriate and may include automated exposure control or mA/KV adjustment according to patient size. FINDINGS: Hepatomegaly. Innumerable small and large hepatic lesions without significant change. The stomach is compressed by a metastasis Stable lymphadenopathy. Pancreas, adrenals and kidneys are unremarkable No evidence diverticulitis. No bowel obstruction. Mild anterior subluxation L4 on L5 and L5 on S1. Spondylolysis L4 and L5. Small to moderate amount of pelvic ascites IMPRESSION: Marked hepatic metastases with hepatomegaly.
--- NOTE | 2023-01-14 13:50 | EDPHYS ---
Physician Documentation [facility] Name: Ayden Andres Jr Age: 42 yrs Sex: Male : 1980 Arrival Date: 01/14/2023 Time: 11:50 Bed 19 Private MD: Adrianna Noble ED Physician Yony Shaffer HPI: 01/14 17:09 This 42 yrs old Male presents to ER via Ambulatory with complaints of kdr Abdominal Pain, Vomiting. 17:10 Patient presents with persistent and worsening abdominal pain. The patient was recently kdr diagnosed with stomach cancer and mets to his liver. Patient is currently getting chemo treatment. Patient has had some nausea and occasional vomiting but otherwise does not appear toxic on initial presentation. He is out of pain medication.. Onset: The symptoms/episode began/occurred at an unknown time. Severity of symptoms: At their worst the symptoms were moderate severe just prior to arrival, in the emergency department the symptoms are unchanged. The patient has not experienced similar symptoms in the past. The patient has been recently seen by a physician: the patient's primary care provider. Historical: - Allergies: 12:32 No Known Allergies; jl7 - PMHx: 12:32 cirrhosis of liver; stomach cancer; jl7 - Immunization history:: Adult Immunizations up to date. - Social history:: Smoking status: Patient denies any tobacco usage or history of. ROS: 17:10 Constitutional: Negative for fever, chills, and weight loss, Eyes: Negative for injury, kdr pain, redness, and discharge, ENT: Negative for injury, pain, and discharge, Neck: Negative for injury, pain, and swelling, Cardiovascular: Negative for chest pain, palpitations, and edema, Respiratory: Negative for shortness of breath, cough, wheezing, and pleuritic chest pain, Back: Negative for injury and pain, : Negative for injury, bleeding, discharge, and swelling, MS/Extremity: Negative for injury and deformity, Skin: Negative for injury, rash, and discoloration, Neuro: Negative for headache, weakness, numbness, tingling, and seizure activity. Psych: Negative for depression, anxiety, suicide ideation, homicidal ideation, and hallucinations, Allergy/Immunology: Negative for hives, rash, and allergies, Endocrine: Negative for neck swelling, polydipsia, polyuria, polyphagia, and marked weight changes, Hematologic/Lymphatic: Negative for swollen nodes, abnormal bleeding, and unusual bruising. 17:10 Abdomen/GI: Positive for abdominal pain, nausea and vomiting, Negative for diarrhea, constipation, abdominal cramps, anorexia, dysphagia, hematemesis, black/tarry stool, rectal pain, rectal bleeding, bowel incontinence. Exam: 17:10 Constitutional: This is a well developed, well nourished patient who is awake, alert, kdr and in no acute distress. Head/Face: Normocephalic, atraumatic. Eyes: Pupils equal round and reactive to light, extra-ocular motions intact. Lids and lashes normal. Conjunctiva and sclera are non-icteric and not injected. Cornea within normal limits. Periorbital areas with no swelling, redness, or edema. Neck: Trachea midline, no thyromegaly or masses palpated, and no cervical lymphadenopathy. Supple, full range of motion without nuchal rigidity, or vertebral point tenderness. No Meningismus. Chest/axilla: Normal chest wall appearance and motion. Nontender with no deformity. No lesions are appreciated. Cardiovascular: Regular rate and rhythm with a normal S1 and S2. No gallops, murmurs, or rubs. Normal PMI, no JVD. No pulse deficits. Respiratory: Lungs have equal breath sounds bilaterally, clear to auscultation and percussion. No rales, rhonchi or wheezes noted. No increased work of breathing, no retractions or nasal flaring. Back: No spinal tenderness. No costovertebral tenderness. Full range of motion. Skin: Warm, dry with normal turgor. Normal color with no rashes, no lesions, and no evidence of cellulitis. MS/ Extremity: Pulses equal, no cyanosis. Neurovascular intact. Full, normal range of motion. Neuro: Awake and alert, GCS 15, oriented to person, place, time, and situation. Cranial nerves II-XII grossly intact. Motor strength 5/5 in all extremities. Sensory grossly intact. Cerebellar exam normal. Normal gait. Psych: Awake, alert, with orientation to person, place and time. Behavior, mood, and affect are within normal limits. 17:10 Abdomen/GI: Inspection: distension, that is mild, Bowel sounds: diminished, in all quadrants, Palpation: Firm and diffusely tender to palpation, bowel sounds diminished but present. Vital Signs: 12:29 BP 121 / 87; Pulse 59; Resp 17; Temp 98.1; Pulse Ox 100% ; Weight 78.02 kg; Height 5 jl7 ft. 11 in. ; Pain 10/10; 13:15 Pain 6/10; jl7 13:43 BP 121 / 75; Pulse 51; Resp 15; Pulse Ox 100% ; Pain 6/10; jl7 12:29 Body Mass Index 23.99 (78.02 kg, 180.34 cm) jl7 12:29 Pain Scale: Adult jl7 13:15 Pain Scale: Adult jl7 13:43 Pain Scale: Adult jl7 MDM: 13:49 Patient medically screened. kdr 17:10 Data reviewed: vital signs, nurses notes, lab test result(s), radiologic studies. kdr 01/14 12:06 Order name: CBC with Diff; Complete Time: 13:39 kdr 01/14 12:06 Order name: CMP; Complete Time: 13:39 kdr 01/14 12:06 Order name: Lipase; Complete Time: 13:39 kdr 01/14 12:38 Order name: CT Abd/Pelvis - IV Contrast Only; Complete Time: 13:39 kdr 01/14 12:06 Order name: IV Saline Lock; Complete Time: 12:29 kdr 01/14 12:06 Order name: Labs collected and sent; Complete Time: 12:29 kdr Administered Medications: 12:47 Drug: HYDROmorphone IVP 1 mg Route: IVP; Site: right antecubital; jl7 13:15 Follow up: Pain 6/10 Adult; Response: No adverse reaction; Pain is decreased jl7 12:47 Drug: Ondansetron IVP 4 mg Route: IVP; Site: right antecubital; jl7 14:02 Follow up: Response: No adverse reaction; Nausea is decreased jl7 12:47 Drug: NS 0.9% IV 500 ml Route: IV; Rate: bolus; Site: right antecubital; jl7 13:35 Follow up: Response: No adverse reaction; IV Status: Completed infusion; IV Intake: jl7 500ml 14:03 Drug: HYDROmorphone IVP 1 mg Route: IVP; Site: right antecubital; jl7 14:15 Follow up: Response: No adverse reaction; Pain is decreased jl7 Disposition Summary: 01/14/23 13:49 Discharge Ordered Location: Home kdr Symptoms: have improved kdr Condition: Stable kdr Problem: an acute exacerbation(01/14/23 13:49) kdr Diagnosis - Abdominal pain, Generalized kdr - Progressive metastatic stomach cancer kdr Followup: kdr - With: Adrianna Noble - When: 2 - 3 days - Reason: If symptoms return, Further diagnostic work-up, Recheck today's complaints, Continuance of care, Re-evaluation by your physician Discharge Instructions: - Discharge Summary Sheet kdr - Abdominal Pain, Adult, [id number] kdr - Stomach Cancer kdr Forms: - Medication Reconciliation Form kdr - Thank You Letter kdr - Patient Portal Instructions kdr - Leadership Thank You Letter kdr Signatures: Dispatcher [employer] EDMS Yony Shaffer MD MD kdr Alva Lockhart RN RN jl7 Corrections: (The following items were deleted from the chart) 13:49 13:49 new kdr kdr
--- NOTE | 2023-01-14 13:50 | ER ---
Nurse's Notes [facility] Name: Ayden Andres Jr Age: 42 yrs Sex: Male : 1980 Arrival Date: 01/14/2023 Time: 11:50 Bed 19 Private MD: Adrianna Noble Diagnosis: Abdominal pain, Generalized;Progressive metastatic stomach cancer Presentation: 01/14 12:29 Chief complaint: Patient states: Abdominal pain, N/V x 2-3 days, hx of tumor left upper jl7 quadrant, currently being treated with chemo, next appointment Sunday but the MDs are discussing changing treatment because it's not responding. Coronavirus screen: At this time, the client does not indicate any symptoms associated with coronavirus-19. Ebola Screen: No symptoms or risks identified at this time. Initial Sepsis Screen: Does the patient meet any 2 criteria? No. Patient's initial sepsis screen is negative. Does the patient have a suspected source of infection? No. Patient's initial sepsis screen is negative. Risk Assessment: Do you want to hurt yourself or someone else? Patient reports no desire to harm self or others. Onset of symptoms was January 11, 2023. 12:29 Method Of Arrival: Ambulatory jl7 12:29 Acuity: JOSE 3 jl7 Triage Assessment: 12:32 General: Appears in no apparent distress. uncomfortable, Behavior is cooperative. Pain: jl7 Complains of pain in abdomen Pain currently is 10 out of 10 on a pain scale. Neuro: Level of Consciousness is awake, alert, obeys commands, Oriented to person, place, time, situation. Cardiovascular: Patient's skin is warm and dry. Respiratory: Airway is patent Respiratory effort is even, unlabored, Respiratory pattern is regular, symmetrical. GI: Abdomen is round Mass noted in left upper quadrant Reports nausea, vomiting. Derm: Skin is pink, warm \T\ dry. Historical: - Allergies: 12:32 No Known Allergies; jl7 - PMHx: 12:32 cirrhosis of liver; stomach cancer; jl7 - Immunization history:: Adult Immunizations up to date. - Social history:: Smoking status: Patient denies any tobacco usage or history of. Screenin:34 [facility] ED Fall Risk Assessment (Adult) History of falling in the last 3 months, jl7 including since admission No falls in past 3 months (0 pts) Confusion or Disorientation No (0 pts) Intoxicated or Sedated No (0 pts) Impaired Gait No (0 pts) Mobility Assist Device Used No (0 pt) Altered Elimination No (0 pt) Score/Fall Risk Level 0 - 2 = Low Risk Oriented to surroundings, Maintained a safe environment. Abuse screen: Denies threats or abuse. Denies injuries from another. Nutritional screening: No deficits noted. Tuberculosis screening: No symptoms or risk factors identified. Assessment: 12:34 General: See triage. jl7 13:43 Reassessment: Dr. Shaffer at bedside discussing results and POC. jl7 Vital Signs: 12:29 BP 121 / 87; Pulse 59; Resp 17; Temp 98.1; Pulse Ox 100% ; Weight 78.02 kg; Height 5 jl7 ft. 11 in. ; Pain 10/10; 13:15 Pain 6/10; jl7 13:43 BP 121 / 75; Pulse 51; Resp 15; Pulse Ox 100% ; Pain 6/10; jl7 12:29 Body Mass Index 23.99 (78.02 kg, 180.34 cm) jl7 12:29 Pain Scale: Adult jl7 13:15 Pain Scale: Adult jl7 13:43 Pain Scale: Adult jl7 ED Course: 11:51 Patient arrived in ED. mr 11:51 Adrianna Noble is Private Physician. mr 12:05 Yony Shaffer MD is Attending Physician. kdr 12:24 Alva Lockhart, ANA is Primary Nurse. jl7 12:29 CBC with Diff Sent. bc6 12:29 CMP Sent. bc6 12:29 Lipase Sent. bc6 12:29 Inserted saline lock: 20 gauge in right antecubital area, using aseptic technique. bc6 Blood collected. 12:32 Triage completed. jl7 12:32 Arm band placed on right wrist. jl7 12:34 Patient has correct armband on for positive identification. Provided Education on: Use jl7 of call rushing. Pulse ox on. NIBP on. 13:10 CT Abd/Pelvis - IV Contrast Only In Process Unspecified. EDMS 13:46 Adrianna Noble is Referral Physician. kdr 14:15 No provider procedures requiring assistance completed. IV discontinued, intact, jl7 bleeding controlled, No redness/swelling at site. Pressure dressing applied. Administered Medications: 12:47 Drug: HYDROmorphone IVP 1 mg Route: IVP; Site: right antecubital; jl7 13:15 Follow up: Pain 6/10 Adult; Response: No adverse reaction; Pain is decreased jl7 12:47 Drug: Ondansetron IVP 4 mg Route: IVP; Site: right antecubital; jl7 14:02 Follow up: Response: No adverse reaction; Nausea is decreased jl7 12:47 Drug: NS 0.9% IV 500 ml Route: IV; Rate: bolus; Site: right antecubital; jl7 13:35 Follow up: Response: No adverse reaction; IV Status: Completed infusion; IV Intake: jl7 500ml 14:03 Drug: HYDROmorphone IVP 1 mg Route: IVP; Site: right antecubital; jl7 14:15 Follow up: Response: No adverse reaction; Pain is decreased jl7 Medication: 12:34 VIS not applicable for this client. jl7 Intake: 13:35 IV: 500ml; Total: 500ml. jl7 Outcome: 13:49 Discharge ordered by . yaneli 14:15 Discharged to home ambulatory, with family. philomena 14:15 Condition: stable 14:15 Discharge instructions given to patient, Instructed on discharge instructions, follow up and referral plans. Demonstrated understanding of instructions, follow-up care. 14:16 Patient left the ED. jl7 Signatures: Dispatcher [employer] EDYony Garcia MD MD kdr Rivera, Mary mr Leal, Jahala, RN RN jl7 Marla Johnson 6
[2023-01-14 14:29] VITALS: TEMP 98.1; O2SAT 100
[2023-01-14 14:40] VITALS: BP 121/75
== END 2023-01-14 14:16 | disposition home or self-care (01) ==
LOC: ER 11:50
DX: C78.7 Secondary malignant neoplasm of liver and intrahepatic bile duct (principal); C16.9 Malignant neoplasm of stomach, unspecified; R11.2 Nausea with vomiting, unspecified; K74.60 Unspecified cirrhosis of liver
CPT/HCPCS: 96361; 85025; 36415; 83690; 80053; 74177; 96375; 96374; 99284; Q9967; J1170 ×2; J2405; J7040

== ENCOUNTER 2023-01-16 08:43 | Emergency (ER) | payer OTHER, BC ==
--- OUTSIDE RECORDS SUMMARY | 2023-01-16 08:49 | XMS REPORT | Continuity of Care Document ---
:1980 Author Organization [facility] t Address [address] [place] [address] [address] [place] [address] Care Team Providers Name Role Phone KENRICK DECKER Attending Clinician Unavailable JAMEL NEAL Attending Clinician Unavailable MANNY FOWLRE Attending Clinician Unavailable BRIAN FORDE Attending Clinician Unavailable Navjot Thakkar MD Attending Clinician Judy Martinez MD Attending Clinician [phone] RUBINA MORAES Admitting Clinician Unavailable MITRA JERONIMO Admitting Clinician Unavailable Payers Payer Name Policy Type Policy Number Effective Date Expiration Date S ource MEDICAID [employer] [id number] 2020 00:00:00 Problems Condition Condition Condition Status Onset Resolution Last Treating Co mments Source Name Details Category Date Date Treatment Clinician Date Bradycardi Bradycardi Disease [facility] GI bleed GI bleed Disease [facility] [place] Liver mass Liver mass Disease [facility] Allergies, Adverse Reactions, Alerts Allergy Allergy Status Severity Reaction(s) Onset Inactive Treating Comm ents Source Name Type Date Date Clinician NO KNOWN Allergy Active [facility] Social History Social Habit Start [facility]00 00:00:00 [facility] Sex Assigned At [birth year] INOCNETE Richters 00:00:00 [facility]:00 [facility] Medications This [...] kg Heart rate 2022-10-24 07:00:00 55 /min [facility] Respiratory rate 2022-10-24 04:55:00 18 /min [facility] Oxygen saturation in 2022-10-24 04:55:00 97 /min [facility] Arterial blood by Medical Ce nter Pulse oximetry Systolic blood 2022-10-24 04:02:00 113 mm[Hg] [facility] Diastolic blood 2022-10-24 04:02:00 63 mm[Hg] [facility] Body temperature 2022-10-24 04:02:00 35.94 Carlota [facility] Body height 2022-10-23 11:07:[address] [facility] Body weight 2022-10-23 11:07:[address] [facility] BMI 2022-10-23 11:07:00 26.78 kg/m2 [facility] Procedures Procedure Date / Time Performing Clinician Source Performed CBC W/PLT COUNT & AUTO 2022-10-24 06:08:00 [facility] DIFFERENTIAL [facility] CBC W/PLT COUNT & AUTO 2022-10-24 06:08:00 [facility] DIFFERENTIAL [facility] MAGNESIUM 2022-10-24 05:01:00 [facility] COMPREHENSIVE METABOLIC 2022-10-24 05:01:00 Dima Berrios I [facility] HEMOGLOBIN AND HEMATOCRIT 2022-10-23 15:55:00 Dima Berrios [facility] REPORT OF PROCEDURE - 2022-10-23 12:35:10 Judy Martinez [facility] ENDOSCOPY [facility] ENDOSCOPY, UPPER GI TRACT, 2022-10-23 11:34:[address] [facility] WITH BIOPSY [facility] ABORH, MANUAL 2022-10-23 08:13:00 Maria Elena Milian [facility] BASIC METABOLIC PANEL 2022-10-23 06:29:00 [facility] MAGNESIUM 2022-10-23 06:29:00 [facility] CBC W/PLT COUNT & AUTO 2022-10-23 06:29:00 [facility] DIFFERENTIAL [facility] HEPATIC FUNCTION PANEL 2022-10-23 06:29:00 [facility] TYPE AND SCREEN, AUTOMATED 2022-10-23 06:29:00 Josué Coats [facility] CBC W/PLT COUNT & AUTO 2022-10-23 06:29:00 [facility] LIPID PANEL 2022-10-22 04:19:00 [facility] BASIC METABOLIC PANEL 2022-10-22 04:19:00 [facility] MAGNESIUM 2022-10-22 04:19:00 [facility] CBC W/PLT COUNT & AUTO 2022-10-22 04:19:00 [facility] HEPATIC FUNCTION PANEL 2022-10-22 04:19:00 [facility] HE[facility] B CORE ANTIBODY, 2022-10-22 04:19:00 Dmitry Dale [facility] HEPATITIS PANEL, ACUTE 2022-10-22 04:19:00 Suyapa [facility] HEPATITIS A ANTIBODY, IGG 2022-10-22 04:19:00 [facility] HEPATITIS B SURFACE 2022-10-22 04:19:00 Suyapa [facility] FERRITIN 2022-10-22 04:19:00 Suyapa [facility] IRON, TIBC, % SAT. (WITHOUT 2022-10-22 04:19:00 Suyapa [facility] FERRITIN) [facility] EZTEN-2-TMKSFATUMGH\\, SERUM 2022-10-22 04:19:00 Suyapa [facility] ALPHA FETOPROTEIN (AFP), 2022-10-22 04:19:00 Enoch [facility] TUMOR MARKER [facility] CARCINOEMBRYONIC ANTIGEN 2022-10-22 04:19:00 Suyapa [facility] (CEA) [facility] CBC W/PLT COUNT & AUTO 2022-10-22 04:19:00 Vernon [facility] ECG 12-LEAD 2022-10-21 17:09:37 [facility] ECG 12-LEAD 2022-10-21 17:09:37 Unknown, Hl7 Doctor [facility] HEPATIC FUNCTION PANEL 2022-10-21 14:42:00 [facility] BASIC METABOLIC PANEL 2022-10-21 14:42:00 [facility] HEMOGLOBIN A1C 2022-10-21 14:42:00 [facility] PROTHROMBIN TIME/INR 2022-10-21 14:42:00 [facility] CBC W/PLT COUNT & AUTO 2022-10-21 14:42:00 [facility] CBC W/PLT COUNT & AUTO 2022-10-21 14:42:00 [facility] Plan of Care Planned Activity Planned Date Details Comments Source Future Scheduled 2027-10-[address] [facility] 00:00:00 (procedure) [code = [facility] [id number]] Future Scheduled 2023-02-[address] [...] Department ID 2022-11-21 2022-11-21 Outpatient BHARAT DECKER [facility] [id number] SLE 00:00:00 00:00:00 [facility] 2022-11-17 2022-11-17 Outpatient BHARAT FOWLER [facility] [id number] SLE 00:00:00 00:00:00 MANNY 2022-11-07 2022-11-07 Outpatient BHARAT DECKER [facility] [id number] SLE 00:00:00 00:00:00 [facility] 2022-11-06 2022-11-06 Outpatient BHARAT DECKER [facility] [id number] SLE 12:51:54 15:40:51 [facility] 2022-11-06 2022-11-06 Outpatient BHARAT [facility] [id number] SLE 00:00:00 00:00:00 2022-10-21 2022-10-27 Inpatient ER [facility] [id number] SLE 13:26:00 14:43:00 MANNY 2022-10-23 2022-10-23 Anesthesia [place], [facility] [id number] 11:35:00 13:04[facility]00 [facility]22-[facility]-23 2022-10-23 [facility] [id number] 10:00[facility]00 [facility]59[facility]22-[facility]-21 2022-10-21 Orders [facility] [id number] 00:00:00 00:00:00 Only [facility] Results Test Description Test Time Test Comments Results Result Comments Source ALPHA FETOPROTEIN (AFP), TUMOR MARKER 2023-01-09 15:59:30 Test Item Value Reference Range Interpretation Comme nts ALPHA-FETOPROTEIN (BEAKER) (test code = 1094) > ng/mL <10.0 H Busperson ID - anish bOperator ID - anish bOperator ID - anish bCARCINOEMBRYONIC ANTIGEN (CEA)2023-01-09 15:04:16 Test Item Value Reference Range Interpretation Comments CARCINOEMBRYONIC ANTIGEN (BEAKER) 15.1 ng/mL 0.0-5.0 H (test code = 685) Busperson ID - anish bLACTATE DEHYDROGENASE (LDH)2023-01-09 12:48:48 Test Item Value Reference Range Interpretation Comments LACTATE DEHYDROGENASE (BEAKER) (test > U/L 125-220 H code = 635) COMPREHENSIVE METABOLIC [id number] 12:39:05 Test Item Value Reference Range Interpretation [...] not appl icable for dialysis patien ts [id number] 12:37:31 Test Item Value Reference Range Interpretation Comments PHOSPHORUS (BEAKER) (test code = 3.6 mg/dL 2.3-4.7 604) CBC W/PLT COUNT & AUTO [id number] 12:21:24 Test Item Value Reference Range Interpretation [...] code = 2801) ALPHA FETOPROTEIN (AFP), TUMOR [id number] 16:43:27 Test Item Value Reference Range Interpretation Comments ALPHA-FETOPROTEIN (BEAKER) (test code > ng/mL <10.0 H = 1094) Busperson ID - ADMINOperator ID - ADMINOperator ID [...] (test code Normal = 762) COMPREHENSIVE METABOLIC [id number] 09:36:30 Test Item Value Reference Range Interpretation [...] not appl icable for dialysis patien ts [id number] 09:28:58 Test Item Value Reference Range Interpretation Comments MAGNESIUM (BEAKER) (test code = 1.7 mg/dL 1.6-2.6 627) CBC W/PLT COUNT & AUTO [id number] 09:23:38 Test Item Value Reference Range Interpretation [...] 9.4-12.4 (test code = 754) COMPREHENSIVE METABOLIC [id number] 09:40:11 Test Item Value Reference Range Interpretation [...] not appl icable for dialysis patien ts [id number] 09:24:23 Test Item Value Reference Range Interpretation Comments MAGNESIUM (BEAKER) (test code = 1.9 mg/dL 1.6-2.6 627) CBC W/PLT COUNT & AUTO [id number] 09:04:00 Test Item Value Reference Range Interpretation [...] code = 2801) ALPHA FETOPROTEIN (AFP), TUMOR [id number] 16:54:52 Test Item Value Reference Range Interpretation Comments ALPHA-FETOPROTEIN (BEAKER) (test code > ng/mL <10.0 H = 1094) Busperson ID - ADMINOperator ID - ADMINOperator ID - ADMINOperator ID - ADMIN BASIC METABOLIC [id number] 13:58:04 Test Item Value Reference Range Interpretation [...] not appl icable for dialysis patien ts Busperson ID - ADMINHEPATIC FUNCTION [id number] 13:58:04 Test Item Value Reference Range Interpretation [...] code = 58 U/L 6-55 H 347) Busperson ID - ADMINCBC W/PLT COUNT & AUTO [id number] 11:19:47 Test Item Value Reference Range Interpretation [...] (BEAKER) (test code = 2801) HEPATIC FUNCTION [id number] 06:52:32 Test Item Value Reference Range Interpretation [...] code = 64 U/L 6-55 H 347) Busperson ID - MMURIC [id number] 06:52:31 Test Item Value Reference Range Interpretation Comments URIC ACID (BEAKER) (test code = 2.7 mg/dL 2.6-7.2 773) Busperson ID - MMBASIC METABOLIC [id number] 06:52:30 Test Item Value Reference Range Interpretation [...] not appl icable for dialysis patien ts Busperson ID - [id number] 06:52:30 Test Item Value Reference Range Interpretation Comments PHOSPHORUS (BEAKER) (test code = 3.4 mg/dL 2.3-4.7 604) Busperson ID - MMCBC W/PLT COUNT & AUTO [id number] 06:20:55 Test Item Value Reference Range Interpretation [...] (BEAKER) (test code = 2801) BASIC METABOLIC [id number] 22:14:17 Test Item Value Reference Range Interpretation [...] not appl icable for dialysis patien ts Busperson ID - ADMINURIC [id number] 22:12:41 Test Item Value Reference Range Interpretation Comments URIC ACID (BEAKER) 2.6 mg/dL 2.6-7.2 Specimen slightly (test code = 773) hemolyzed Busperson ID - [id number] 22:12:40 Test Item Value Reference Range Interpretation Comments PHOSPHORUS (BEAKER) 3.8 mg/dL 2.3-4.7 Specimen slightly (test code = 604) hemolyzed Busperson ID - ADMINBASIC METABOLIC [id number] 17:01:12 Test Item Value Reference Range Interpretation [...] not appl icable for dialysis patien ts Busperson ID - [id number] 16:58:24 Test Item Value Reference Range Interpretation Comments PHOSPHORUS (BEAKER) (test code = 2.8 mg/dL 2.3-4.7 604) Busperson ID - ADMINURIC [id number] 16:58:24 Test Item Value Reference Range Interpretation Comments URIC ACID (BEAKER) (test code = 2.1 mg/dL 2.6-7.2 L 773) Busperson ID - ADMINURIC [id number] 06:57:40 Test Item Value Reference Range Interpretation Comments URIC ACID (BEAKER) (test code = 3.1 mg/dL 2.6-7.2 773) Busperson ID - MMHEPATIC FUNCTION [id number] 06:57:40 Test Item Value Reference Range Interpretation [...] code = 65 U/L 6-55 H 347) Busperson ID - MMBASIC METABOLIC [id number] 06:57:39 Test Item Value Reference Range Interpretation [...] not appl icable for dialysis patien ts Busperson ID - [id number] 06:57:39 Test Item Value Reference Range Interpretation Comments PHOSPHORUS (BEAKER) (test code = 3.6 mg/dL 2.3-4.7 604) Busperson ID - MMCBC W/PLT COUNT & AUTO [id number] 06:51:25 Test Item Value Reference Range Interpretation [...] (BEAKER) (test code = 2801) BASIC METABOLIC [id number] 09:04:16 Test Item Value Reference Range Interpretation [...] not appl icable for dialysis patien ts Busperson ID - [id number] 09:04:15 Test Item Value Reference Range Interpretation Comments PHOSPHORUS (BEAKER) 3.1 mg/dL 2.3-4.7 Specimen slightly (test code = 604) hemolyzed Busperson ID - MMURIC [id number] 09:04:15 Test Item Value Reference Range Interpretation Comments URIC ACID (BEAKER) 4.1 mg/dL 2.6-7.2 Specimen slightly (test code = 773) hemolyzed Busperson ID - [id number] 05:03:52 Test Item Value Reference Range Interpretation Comments PHOSPHORUS (BEAKER) (test code = 3.7 mg/dL 2.3-4.7 604) Busperson ID - MMURIC [id number] 05:03:52 Test Item Value Reference Range Interpretation Comments URIC ACID (BEAKER) (test code = 4.7 mg/dL 2.6-7.2 773) Busperson ID - MMCOMPREHENSIVE METABOLIC [id number] 05:03:51 Test Item Value Reference Range Interpretation [...] not appl icable for dialysis patien ts Busperson ID - MMCBC W/PLT COUNT & AUTO [id number] 04:40:21 Test Item Value Reference Range Interpretation [...] 2801) XR CHEST 1 VIEW PORTABLE / [id number] 17:54:25 [facility]ENTER[facility]ARC[facility] : 1980 Sex: MXR [...] (test code Normal = 486) HEPATITIS B [id number] 13:30:00 Test Item Value Reference Range Interpretation Comments HEPATITIS B CORE TOTAL ANTIBODY Nonreactive Nonreactive (BEAKER) (test code = 497) HEPATITIS B SURFACE ANTIBODY < mIU/mL <8.0 (BEAKER) (test code = 647) HEPATITIS B SURFACE ANTIGEN (2) Nonreactive Nonreactive (BEAKER) (test code = 2585) Busperson ID - ADMINHEPATITIS C [id number] 13:29:13 Test Item Value Reference Range Interpretation Comments HEPATITIS C ANTIBODY (BEAKER) Nonreactive Nonreactive (test code = 367) Busperson ID - [id number] 13:04:16 Test Item Value Reference Range Interpretation Comments MAGNESIUM (BEAKER) (test code = 1.8 mg/dL 1.6-2.6 627) Busperson ID - edCOMPREHENSIVE METABOLIC [id number] 13:04:15 Test Item Value Reference Range Interpretation [...] not appl icable for dialysis patien ts Busperson ID - edCBC WITH PLATELET COUNT + MANUAL [id number] 12:48:49 Test Item Value Reference Range Interpretation [...] 0-0 (BEAKER) (test code = 413) SARS-COV2/RT-PCR ([facility])2022-11-08 09:48:49 Test Item Value Reference Range Interpretation Comments SARS-COV2/RT-PCR Negative Negative The SARS-Co V-2 target (test code = nucleic acids a re not [id number]) detected in thi s specimen. Negative result [...] revoked sooner. Fact Sheet for Healthcare Providers: https://www.[employer]/Documents/Xpert%20Xpress%20SARS%20CoV-2/Fact%20Sheets/3023802%80KVSO-QRL-0%20 HEALTHCARE%20PROVIDERS%20FACT%20SHEET.pdf Fact Sheet for Healthcare Patients: https://www.[employer]/Documents/Xpert%20Xp ress%20SARS%20CoV-2/Fact%20Sheets/3023801%70TKPZ-PRB-5%20PATIENT%20FACT%20SHEET .pdfCARCINOEMBRYONIC ANTIGEN (CEA)2022-11-06 18:53:46 Test Item Value Reference Range Interpretation Comments CARCINOEMBRYONIC ANTIGEN (BEAKER) 5.3 ng/mL 0.0-5.0 H (test code = 685) Busperson ID - MMCOMPREHENSIVE METABOLIC [id number] 16:39:54 Test Item Value Reference Range Interpretation [...] patien ts CBC W/PLT COUNT & AUTO [id number] 16:21:39 Test Item Value Reference Range Interpretation [...] PERCENT (BEAKER) (test code = 2801) TISSUE [id number] 16:02:43Surgical Pathology Report Case: [id number] Authorizing Provider: Dima Berrios MD Collected: 10/26/2022 03:07 PM Ordering Location: [address] Received: 10/26/2022 04:53 PM Service Pathologist: Sherry Andrade MD Specimen: Biopsy, Liver Liver, mass, core needle biopsy: - Metastatic poorly differentiated neuroendocrine carcinoma, WHO grade 3; see comment Signing Pathologist Direct Phone Line: [phone] signed by Sherry Andrade MD on 11/01/2022 [...] is needed. The patient's prior gastric biopsy ([id number], H&E) was concurrently reviewed, and the tumor shows similar histomorphology. Dr. Edvin Goldberg reviewed the case and agrees.Block A2 has adequate tumor cellularity for additional ancillary studies.References:Antonino LA, Dariusz T, Carina C, Bassem L. Metastatic neuroendocrine carcinoma presenting as multifocal liver lesions with elevated alpha-fetoprotein. Clin Case Rep. 2018 May 16;7(2):251-253. doi: 10.1002/ccr3.1956. PMID: 59278421; PMCID: [id number], 50911, 34772z5Omfp is a 42-year-old male with history of prior alcohol use and was found to have gastric mass and multiple liver lesions. He has markedly elevated AFP (>10k) with elevated CEA (5.6) and CA19-9 (99). A. Biopsy, LiverReceived in formalin labeled with the patient's name, medical record number, and "liver biopsy" are multiple martin-white to martin-red soft tissue fragments rangingin size [...] evaluated Immunohistochemistry technical testing was performed at [facility], Pathology Laboratory where it was developed [...] qualified to perform high complexity clinical laboratory testing.[facility], Department of Pathology, [address] [place] [address], [facility], [facility] of [facility], [address] [place] [address], [facility], [facility] of [facility], [address] [place], [place] [address], ZWFAAP [id number] 09:06:35Surgical Pathology Report Case: [id number] Authorizing Provider: Judy Martinez, Collected: 10/23/2022 11:56 AM Ordering Location: [address] Received: 10/23/2022 01:29 PM Service Pathologist: Suzan Teixeira MD Specimens: A) - Biopsy, Gastric, random bxs B) - Biopsy, Gastric, bxs gastric mass A. STOMACH, RANDOM BIOPSIES: - CHEMICAL/REACTIVE GASTROPATHY - PPI EFFECT, MILDB. STOMACH, BIOPSIES OF MASS: - NEUROENDOCRINE CARCINOMA, SMALL CELL TYPE Signing Pathologist Direct Phone Line: [phone] signed by Suzan Bagley MD on 11/01/2022 at 9:06 AMPreliminary result electronically signed by Suzan Teixeira MD on 10/27/2022 at 11:55 AMPreliminary result electronically signed by Suzan Teixeira MD on 10/26/2022 at 11:55 AMThe finding was communicated via secure email with Judy Edmonds <[email or web address]> GI Department at 11:52on October 26, [id number], [id number], [id number] hemorrhage associated with gastritisA. Biopsy, GastricReceived in [...] evaluated and the report was issued at [facility] (CLIA#[id number]), [address] [place] [address].The interpretation of this case included the use of immunohistochemistry or special stains.Control Slides Examined: In-house known positive controls were evaluated along with the test tissue. These control slides run alongside of the patients sample show appropriate staining. Internal positive and negative controls when available are evaluated Immunohistochemistry technical testing was performed at [facility], Pathology Laboratory where it was developed [...] perform high complexity clinical laboratory testing.U/S, BIOPSY, [id number] 12:01:00Reason for exam:->gastric mass and liver mass with afp >98067Gdpdeo this be performed at the bedside?->No [facility] CENTERName: HONORIO GARCIA JR : 1980 Sex: MFINAL REPORT Procedure: Liver mass core biopsy Pre/post-procedure diagnosis: Liver mass Drawing Checker: Bebo Lwo MD Assistants: none Sedation: Moderate sedation was [...] MDReport Verified Date/Time: 10/30/2022 12:01:04 C METABOLIC [id number] 05:48:04 Test Item Value Reference Range Interpretation [...] not appl icable for dialysis patien ts Busperson ID - [id number] 05:48:04 Test Item Value Reference Range Interpretation Comments MAGNESIUM (BEAKER) (test code = 1.7 mg/dL 1.6-2.6 627) Busperson ID - MMCBC W/PLT COUNT & AUTO [id number] 05:27:57 Test Item Value Reference Range Interpretation [...] 0.00-1.00 PERCENT (BEAKER) (test code = 2801) [id number] 06:55:04 Test Item Value Reference Range Interpretation Comments MAGNESIUM (BEAKER) (test code = 1.6 mg/dL 1.6-2.6 627) Busperson ID - BSBASIC METABOLIC [id number] 06:55:03 Test Item Value Reference Range Interpretation [...] not appl icable for dialysis patien ts Busperson ID - BSPROTHROMBIN TIME/[id number] 06:18:33 Test Item Value Reference Range Interpretation [...] mechanical heart valves.CBC W/PLT COUNT & AUTO [id number] 06:07:18 Test Item Value Reference Range Interpretation [...] (BEAKER) (test code = 2801) COMPREHENSIVE METABOLIC [id number] 07:14:31 Test Item Value Reference Range Interpretation [...] not appl icable for dialysis patien ts Busperson ID - DENIS [id number] 07:14:31 Test Item Value Reference Range Interpretation Comments MAGNESIUM (BEAKER) (test code = 1.5 mg/dL 1.6-2.6 L 627) Busperson DEE DEE BARRIOS WCBC W/PLT COUNT & AUTO [id number] 06:55:14 Test Item Value Reference Range Interpretation [...] (test code = 2801) ROSALINDA TITER AND [id number] 13:55:32 Test Item Value Reference Range Interpretation [...] method.Test performed by IFA method.CT, CHEST, WITH [id number] 13:00:00Unlisted Reason for Exam - Click Yes and Enter Reason Below->[facility] : 1980 Sex: [...] MDReport Verified Date/Time: 10/24/2022 13:00:41 Reading Location: [facility] B1 C013X [facility] Consult Reading Room CT, [id number] 13:00:00Unlisted Reason for Exam - Click Yes and Enter Reason Below->NoProtocol Please Specify:->Standard ProtocolWill this procedure require oral contrast?->No [facility] : 1980 [...] Olvera Verified Date/Time: 10/24/2022 13:00:41 Reading Location: [facility] C0X Ortho Consult Reading Room CBC W/PLT COUNT [...] 0.00-1.00 PERCENT (BEAKER) (test code = 2801) [id number] 05:38:34 Test Item Value Reference Range Interpretation Comments MAGNESIUM (BEAKER) (test code = 1.5 mg/dL 1.6-2.6 L 627) Busperson ID - MMCOMPREHENSIVE METABOLIC [id number] 05:38:33 Test Item Value Reference Range Interpretation [...] not appl icable for dialysis patien ts Busperson ID - MMHEMOGLOBIN AND [id number] 16:05:28 Test Item Value Reference Range Interpretation Comments HEMOGLOBIN (BEAKER) (test code = 14.4 GM/DL 13.7-17.5 410) HEMATOCRIT (BEAKER) (test code = 44.3 % 40.1-51.0 411) Busperson ID - [id number] 09:39:18 Test Item Value Reference Range Interpretation Comments MAGNESIUM (BEAKER) 1.6 mg/dL 1.6-2.6 Specimen slightly (test code = 627) hemolyzed Busperson ID - MMBASIC METABOLIC [id number] 09:39:18 Test Item Value Reference Range Interpretation [...] not appl icable for dialysis patien ts Busperson ID - MMHEPATIC FUNCTION [id number] 09:39:18 Test Item Value Reference Range Interpretation [...] Specimen slightly (test code = 347) hemolyzed Busperson ID - MMCBC W/PLT COUNT & AUTO [id number] 06:38:29 Test Item Value Reference Range Interpretation [...] PERCENT (BEAKER) (test code = 2801) HEMOGLOBIN [id number] 08:56:25 Test Item Value Reference Range Interpretation Comments HEMOGLOBIN A1C 5.7 % See_Comment H [Automated m essage] ELECTROPHORESIS (BEAKER) The system which (test code = 2123) generated this result transmitted ref erence range: <=5.6%. The reference range was not used to int erpret this result as normal/abnormal . "The A1c is measured using a [facility]-certified method. HbA1c value equal to or greater than 6.5% as thediagnosis cutoff for diabetes. An HbA1c value of 5.7- 6.4% indicates increased risk for diabetes (prediabetes)."Busperson ID - ADM [id number] 07:09:54 Test Item Value Reference Range Interpretation Comments FERRITIN (BEAKER) (test code = 159.87 ng/mL 5.00-275.00 361) Busperson ID - MARCOALPHA FETOPROTEIN (AFP), TUMOR [id number] 06:32:10 Test Item Value Reference Range Interpretation Comments ALPHA-FETOPROTEIN (BEAKER) 25213.5 ng/mL <10.0 H (test code = 1094) Busperson ID - ADMINOperator ID - ADMINHEPATITIS B SURFACE [id number] 06:31:52 Test Item Value Reference Range Interpretation Comments HEPATITIS B SURFACE ANTIBODY < mIU/mL <8.0 (BEAKER) (test code = 647) Busperson ID - ADMINHEPATITIS A ANTIBODY, [id number] 06:31:00 Test Item Value Reference Range Interpretation Comments HEPATITIS A IGG ANTIBODY (BEAKER) Nonreactive Nonreactive (test code = 2797) Busperson ID - ADMINCARCINOEMBRYONIC ANTIGEN (CEA)2022-10-22 06:30:59 Test Item Value Reference Range Interpretation Comments CARCINOEMBRYONIC ANTIGEN (BEAKER) 5.6 ng/mL 0.0-5.0 H (test code = 685) Busperson ID - ADMINHEPATITIS B CORE ANTIBODY, [id number] 06:30:59 Test Item Value Reference Range Interpretation Comments HEPATITIS B CORE TOTAL ANTIBODY Nonreactive Nonreactive (BEAKER) (test code = 497) Busperson ID - ADMINHEPATITIS PANEL, [id number] 06:03:10 Test Item Value Reference Range Interpretation Comments HEPATITIS A IGM ANTIBODY (BEAKER) Nonreactive Nonreactive (test code = 498) HEPATITIS B CORE IGM ANTIBODY Nonreactive Nonreactive (BEAKER) (test code = 645) HEPATITIS C ANTIBODY (BEAKER) Nonreactive Nonreactive (test code = 367) HEPATITIS B SURFACE ANTIGEN (2) Nonreactive Nonreactive (BEAKER) (test code = 2585) Busperson ID - [id number] 05:54:41 Test Item Value Reference Range Interpretation Comments MAGNESIUM (BEAKER) (test code = 1.7 mg/dL 1.6-2.6 627) Busperson ID - MARCOLIPID [id number] 05:54:41 Test Item Value Reference Range Interpretation Comments TRIGLYCERIDES (BEAKER) (test code = 94 mg/dL 540) CHOLESTEROL (BEAKER) (test code = 116 mg/dL 631) HDL CHOLESTEROL (BEAKER) (test code 31 mg/dL = 976) LDL CHOLESTEROL CALCULATED (BEAKER) 66 mg/dL (test code = 633) Triglyceride Reference Range: Low Risk <150 Borderline 150-199 High Risk 200-499 Very High Risk >=500Cholesterol Reference Range: Low Risk <200 Borderline 200-239 High Risk >240HDL Cholesterol Reference Range: Low Risk >=60 High Risk <40LDL Cholesterol Reference Range: Optimal <100 Near Optimal 100-129 Borderline 130-159 High 160-189 Very High >=190 Busperson ID - MARCOHEPATIC FUNCTION [id number] 05:54:41 Test Item Value Reference Range Interpretation [...] (test code = 54 U/L 6-55 347) Busperson ID - MARCOBASIC METABOLIC [id number] 05:54:40 Test Item Value Reference Range Interpretation [...] not appl icable for dialysis patien ts Busperson ID - JAIME, TIBC, % SAT. (WITHOUT FERRITIN)2022-10-22 05:39:20 Test Item Value Reference Range Interpretation Comments IRON (BEAKER) (test code = 547) 61.0 ug/dL 40.0-160.0 TOTAL IRON BINDING CAPACITY 273 ug/dL 250-450 (BEAKER) (test code = 769) IRON % SATURATION (2) (BEAKER) 22 % 20-55 (test code = 2590) Busperson ID - [id number] 05:39:03 Test Item Value Reference Range Interpretation Comments ALPHA-1 ANTITRYPSIN (BEAKER) 211.70 mg/dL 90.00-200.00 H (test code = 502) Busperson ID - ADMINCBC W/PLT COUNT & AUTO [id number] 05:15:17 Test Item Value Reference Range Interpretation [...] (BEAKER) (test code = 2801) HEPATIC FUNCTION [id number] 15:14:35 Test Item Value Reference Range Interpretation [...] Specimen slightly (test code = 347) hemolyzed Busperson ID - MARCOPROTHROMBIN [id number] 15:14:35 Test Item Value Reference Range Interpretation Comments PROTIME (BEAKER) (test code = 14.7 seconds 11.9-14.2 H 759) INR (BEAKER) (test code = 370) 1.22 <=5.90 RECOMMENDED COUMADIN/WARFARIN INR THERAPY RANGESSTANDARD DOSE: 2.0 - 3.0 Includes: PROPHYLAXIS for venous thrombosis, systemic embolization; TREATMENT for venous thrombosis and/or pulmonary embolus.HIGH RISK: Target INR is 2.5-3.5 for patients with mechanical heart valves.BASIC METABOLIC [id number] 15:14:34 Test Item Value Reference Range Interpretation [...] not appl icable for dialysis patien ts Busperson ID - MARCOCBC W/PLT COUNT & AUTO [id number] 14:53:39 Test Item Value Reference Range Interpretation [...] % 0.00-1.00 PERCENT (BEAKER) (test code = 5749)
[2023-01-16 09:14] LABS: Absolute Lymphocytes (CBC) 0.8 K/uL (0.7-4.9); Hematocrit 32.3 % (39.6-49.0); Lymphocytes % 34.2 % (15.3-44.8); MPV 7.6 fL (7.6-11.3); Platelets 203 thou/uL (152-406); RBC Red Blood Cell Count 3.67 M/uL (4.33-5.43)
[2023-01-16] MEDS ORDERED: ONDANSETRON 4 MG/2 ML VIAL ONE (09:20)
[2023-01-16] MEDS ORDERED: FAMOTIDINE 20 MG/2 ML VIAL IV ONE (09:20)
[2023-01-16] MEDS ORDERED: MORPHINE 4 MG/ML SYR ONE (09:20)
[2023-01-16] MEDS ORDERED: NA CHLORIDE 0.9% 1,000 ML ONE (09:20)
[2023-01-16 09:33] LABS: Bilirubin Total 0.7 mg/dL (0.2-1.0); Potassium 4.1 mEq/L (3.5-5.1); Protein, Total 6.2 g/dL (6.4-8.2)
[2023-01-16] MEDS ORDERED: HYDROMORPHONE HCL 1 MG/ML INJ ONE (11:05)
--- NOTE | 2023-01-16 11:09 | EDPHYS ---
Physician Documentation [facility] Name: Ayden Andres Jr Age: 42 yrs Sex: Male : 1980 Arrival Date: 01/16/2023 Time: 08:43 Bed 20 Private MD: ED Physician Barrett Munson HPI: 01/16 10:04 This 42 yrs old Male presents to ER via Ambulatory with complaints of rn Abdominal Pain, Constipation. 10:04 The patient presents to the emergency department with abdominal pain. Onset: The rn symptoms/episode began/occurred at an unknown time. Possible causes:. The symptoms are aggravated by nothing. The symptoms are alleviated by nothing. Severity of symptoms: At their worst the symptoms were moderate in the emergency department the symptoms are unchanged. The patient has experienced similar episodes in the past. The patient has been recently seen by a physician:. Pt reports abd pain and constipation, chronic, intermittent since diagnosis of stomach cancer and liver masses. Getting chemo every 2 weeks. Has appt with oncologist tomorrow. Reports this feels identical to previous abd pains he has had and suffers from chronic constipation. Never had a blockage or abd surgery for this problem. Seen here 2 days ago, had ct scan that showed progression of cancer but no acute findings. . Historical: - Allergies: 08:56 No Known Allergies; ap3 - PMHx: 08:56 cirrhosis of liver; stomach cancer; ap3 - Immunization history:: Client reports receiving the 2nd dose of the Covid vaccine. - Social history:: Smoking status: Patient denies any tobacco usage or history of. - Family history:: not pertinent. - Hospitalizations: : No recent hospitalization is reported. ROS: 10:04 Constitutional: Negative for fever, chills, and weight loss, Cardiovascular: Negative rn for chest pain, palpitations, and edema, Respiratory: Negative for shortness of breath, cough, wheezing, and pleuritic chest pain, Abdomen/GI: + abd pain and constipation Back: Negative for injury and pain, MS/Extremity: Negative for injury and deformity, Skin: Negative for injury, rash, and discoloration, Neuro: Negative for headache, weakness, numbness, tingling, and seizure. Exam: 10:04 Constitutional: This is a well developed, well nourished patient who is awake, alert, rn and in no acute distress. Cardiovascular: Regular rate and rhythm. No pulse deficits. Respiratory: No increased work of breathing, no retractions or nasal flaring. Abdomen/GI: soft, + fullness over epigastrium and LUQ, no peritoneal signs, no ecchymosis Skin: Warm, dry MS/ Extremity: Pulses equal, no cyanosis. Neuro: Awake and alert, GCS 15 Vital Signs: 08:54 BP 150 / 102; Pulse 72; Resp 18; Temp 97.7; Pulse Ox 100% ; Weight 78.02 kg; Pain 10/10;ap3 10:57 BP 114 / 78; Pulse 65; Resp 16 S; Pulse Ox 100% on R/A; aa5 12:02 BP 120 / 70; Pulse 68; Resp 17; Temp 97.8(O); Pulse Ox 99% ; rs5 08:54 Pain Scale: Adult ap3 MDM: 08:49 Patient medically screened. rn 09:02 ED course: Pt with CT for this reason on Sunday, 2 days ago, had progressive cancer on rn CT scan, no acute changes, reports chronic abd pain since diagnosis and constipation. Declines another CT scan and has appt with oncologist tomorrow. . 11:07 Differential diagnosis: Nonspecific abd pain, constipation, chronic abd pain, stomach rn cancer pain. Data reviewed: vital signs, nurses notes, old medical records, lab test result(s), and as a result, I will discharge patient. Counseling: I had a detailed discussion with the patient and/or guardian regarding: the historical points, exam findings, and any diagnostic results supporting the discharge/admit diagnosis, lab results, the need for outpatient follow up, to return to the emergency department if symptoms worsen or persist or if there are any questions or concerns that arise at home. Response to treatment: the patient's symptoms have markedly improved after treatment, and as a result, I will discharge patient. Special discussion: I discussed with the patient/guardian in detail that at this point there is no indication for admission to the hospital. It is understood, however, that if the symptoms persist or worsen the patient needs to return immediately for re-evaluation. 01/16 08:56 Order name: CBC with Diff; Complete Time: 09:22 rn 01/16 08:56 Order name: CMP; Complete Time: 34 rn 01/16 08:56 Order name: Lipase; Complete Time: :34 rn 01/16 08:56 Order name: IV Saline Lock; Complete Time: 09:06 rn 01/16 08:56 Order name: Labs collected and sent; Complete Time: 09: rn Administered Medications: 09:15 Drug: NS 0.9% IV 1000 ml Route: IV; Rate: 1 bolus; Site: right wrist; aa5 10:30 Follow up: IV Status: Completed infusion; No adverse reaction noted rs5 09:15 Drug: Famotidine IVP 20 mg Route: IVP; Site: right wrist; aa5 09:28 Follow up: Response: No adverse reaction aa5 09:15 Drug: Ondansetron IVP 4 mg Route: IVP; Site: right wrist; aa5 09:28 Follow up: Response: No adverse reaction aa5 09:17 Drug: morphine IVP or IV 4 mg Route: IVP; Infused Over: 4 mins; Site: right wrist; aa5 09:28 Follow up: Response: No adverse reaction aa5 10:58 Drug: HYDROmorphone IVP 1 mg Route: IVP; Site: right wrist; aa5 11:15 Follow up: Response: No adverse reaction; Pain is decreased aa5 Disposition Summary: 01/16/23 11:08 Discharge Ordered Location: Home rn Problem: an ongoing problem rn Symptoms: have improved rn Condition: Stable rn Diagnosis - Abdominal pain, unspecified rn - Gastric cancer rn - Constipation, unspecified rn Followup: rn - With: Private Physician - When: As needed - Reason: Recheck today's complaints, Re-evaluation by your physician Discharge Instructions: - Discharge Summary Sheet rn - Abdominal Pain, Adult rn - Constipation, Adult rn Forms: - Medication Reconciliation Form rn - Thank You Letter rn - 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 EDMS EDMS
--- NOTE | 2023-01-16 11:09 | ER ---
Nurse's Notes [facility] Name: Ayden Andres Jr Age: 42 yrs Sex: Male : 1980 Arrival Date: 01/16/2023 Time: 08:43 Bed 20 Private MD: Diagnosis: Abdominal pain, unspecified;Gastric cancer;Constipation, unspecified Presentation: 01/16 08:54 Chief complaint: Patient states: he has been having abdominal pain, constipation and ap3 nausea for approx 2 days. patient reports he has stomach cancer, and is currently on a chemotherapy regimen. Coronavirus screen: At this time, the client does not indicate any symptoms associated with coronavirus-19. Ebola Screen: No symptoms or risks identified at this time. Initial Sepsis Screen: Does the patient meet any 2 criteria? No. Patient's initial sepsis screen is negative. Does the patient have a suspected source of infection? Yes: Acute abdominal pain. Risk Assessment: Do you want to hurt yourself or someone else? Patient reports no desire to harm self or others. Onset of symptoms was January 14, 2023. 08:54 Method Of Arrival: Ambulatory ap3 08:54 Acuity: JOSE 3 ap3 Triage Assessment: 08:56 General: Appears uncomfortable, Behavior is calm, cooperative, appropriate for age. ap3 Pain: Complains of pain in abdomen Pain currently is 10 out of 10 on a pain scale. Neuro: Level of Consciousness is awake, alert, obeys commands, Oriented to person, place, time, situation. Cardiovascular: Patient's skin is warm and dry. Respiratory: Airway is patent Respiratory effort is even, unlabored, Respiratory pattern is regular, symmetrical. GI: Reports lower abdominal pain, upper abdominal pain, constipation, nausea. Historical: - Allergies: 08:56 No Known Allergies; ap3 - PMHx: 08:56 cirrhosis of liver; stomach cancer; ap3 - Immunization history:: Client reports receiving the 2nd dose of the Covid vaccine. - Social history:: Smoking status: Patient denies any tobacco usage or history of. - Family history:: not pertinent. - Hospitalizations: : No recent hospitalization is reported. Screenin:57 Abuse screen: Denies threats or abuse. Tuberculosis screening: No symptoms or risk ap3 factors identified. 08:57 [facility] ED Fall Risk Assessment (Adult) History of falling in the last 3 months, rs5 including since admission No falls in past 3 months (0 pts) Confusion or Disorientation No (0 pts) Intoxicated or Sedated No (0 pts) Impaired Gait No (0 pts) Mobility Assist Device Used No (0 pt) Altered Elimination No (0 pt) Score/Fall Risk Level 0 - 2 = Low Risk Oriented to surroundings, Maintained a safe environment. 08:57 Nutritional screening: No deficits noted. rs5 Assessment: 09:00 General: Appears uncomfortable, Behavior is calm, cooperative. Pain: Complains of pain aa5 in abdomen Pain currently is 10 out of 10 on a pain scale. Quality of pain is described as pressure, sharp, Pain began pt states "I have abdominal pain from the stomach cancer and I take hydrocodone and morphine pills at home" Is continuous. Neuro: Level of Consciousness is awake, alert, obeys commands, Oriented to person, place, time, situation. Cardiovascular: Patient's skin is warm and dry. Respiratory: Airway is patent Respiratory effort is even, unlabored, Respiratory pattern is regular, symmetrical. GI: Abdomen is round distended, Bowel sounds present X 4 quads. Abdomen is tender to palpation in right upper quadrant and left upper quadrant Reports decreased appetite and nausea. Constipation x 2 days. : No signs and/or symptoms were reported regarding the genitourinary system. EENT: No signs and/or symptoms were reported regarding the EENT system. Derm: Skin is pink, warm \\T\\ dry. Musculoskeletal: Range of motion: intact in all extremities. 10:58 Reassessment: Patient is alert, oriented x 3, equal unlabored respirations, skin aa5 warm/dry/pink. 11:15 Reassessment: Patient is alert, oriented x 3, equal unlabored respirations, skin aa5 warm/dry/pink. Patient states feeling better. Patient states symptoms have improved. 11:50 Reassessment: Patient and/or family updated on plan of care and expected duration. Pain rs5 level reassessed. Patient is alert, oriented x 3, equal unlabored respirations, skin warm/dry/pink. Vital Signs: 08:54 BP 150 / 102; Pulse 72; Resp 18; Temp 97.7; Pulse Ox 100% ; Weight 78.02 kg; Pain 10/10;ap3 10:57 BP 114 / 78; Pulse 65; Resp 16 S; Pulse Ox 100% on R/A; aa5 12:02 BP 120 / 70; Pulse 68; Resp 17; Temp 97.8(O); Pulse Ox 99% ; rs5 08:54 Pain Scale: Adult ap3 ED Course: 08:45 Patient arrived in ED. im 08:49 Barrett Munson MD is Attending Physician. rn 08:54 Leanne Jeong, ANA is Primary Nurse. aa5 08:56 Triage completed. ap3 08:57 Arm band placed on right wrist. ap3 08:57 Patient has correct armband on for positive identification. Call light in reach. Side ap3 rails up X 1. Adult w/ patient. Pulse ox on. NIBP on. 09:08 Inserted saline lock: 22 gauge in right wrist, using aseptic technique. Blood collected.ds4 11:55 No provider procedures requiring assistance completed. IV discontinued, intact, rs5 bleeding controlled, No redness/swelling at site. Administered Medications: 09:15 Drug: NS 0.9% IV 1000 ml Route: IV; Rate: 1 bolus; Site: right wrist; aa5 10:30 Follow up: IV Status: Completed infusion; No adverse reaction noted rs5 09:15 Drug: Famotidine IVP 20 mg Route: IVP; Site: right wrist; aa5 09:28 Follow up: Response: No adverse reaction aa5 09:15 Drug: Ondansetron IVP 4 mg Route: IVP; Site: right wrist; aa5 09:28 Follow up: Response: No adverse reaction aa5 09:17 Drug: morphine IVP or IV 4 mg Route: IVP; Infused Over: 4 mins; Site: right wrist; aa5 09:28 Follow up: Response: No adverse reaction aa5 10:58 Drug: HYDROmorphone IVP 1 mg Route: IVP; Site: right wrist; aa5 11:15 Follow up: Response: No adverse reaction; Pain is decreased aa5 Medication: 12:02 VIS not applicable for this client. rs5 Intake: Outcome: 11:08 Discharge ordered by . rn 11:55 Condition: stable rs5 11:55 Discharged to home ambulatory, with family. rs5 11:55 Discharge instructions given to patient, Instructed on discharge instructions, follow up and referral plans. Demonstrated understanding of instructions, follow-up care. 12:04 Patient left the ED. rs5 Signatures: Munson, Barrett, MD MD rn Jeong, Leanne, RN RN aa5 Galindo Catalan ds4 Tiffani Montgomery RN RN ap3 Nithin Cox RN RN rs5 Mariann Dillon
[2023-01-16 12:31] VITALS: BP 120/70; TEMP 97.8; O2SAT 99
== END 2023-01-16 12:04 | disposition home or self-care (01) ==
LOC: ER 08:43
DX: K59.00 Constipation, unspecified (principal); C16.9 Malignant neoplasm of stomach, unspecified; C78.7 Secondary malignant neoplasm of liver and intrahepatic bile duct
CPT/HCPCS: 85025; 36415; 83690; 80053; J1170; J2405; J7030; 96361; 96374; 96375; 99284

== ENCOUNTER 2023-01-17 15:56 | Emergency (ER) | payer OTHER, BC ==
--- OUTSIDE RECORDS SUMMARY | 2023-01-17 16:02 | XMS REPORT | Continuity of Care Document ---
:1980 Author Organization [facility] t Address [address] [place] [address] [address] [place] [address] Care Team Providers Name Role Phone CHRISTINAKENRICK COATES Attending Clinician Unavailable JAMEL NEAL Attending Clinician Unavailable MANNY FOWLER Attending Clinician Unavailable BRIAN FORDE Attending Clinician Unavailable Navjot Thakkar MD Attending Clinician Judy Martinez MD Attending Clinician [phone] RUBINA MORAES Admitting Clinician Unavailable MITRA JERONIMO Admitting Clinician Unavailable Payers Payer Name Policy Type Policy Number Effective Date Expiration Date S ource MEDICAID [facility] [id number] 2020 00:00:00 Problems Condition Condition Condition Status Onset Resolution Last Treating Co mments Source Name Details Category Date Date Treatment Clinician Date Bradycardi Bradycardi Disease [facility] GI bleed GI bleed Disease [facility] [place] Liver mass Liver mass Disease [facility] Allergies, Adverse Reactions, Alerts Allergy Allergy Status Severity Reaction(s) Onset Inactive Treating Comm ents Source Name Type Date Date Clinician NO KNOWN Allergy Active [facility] Social History Social Habit Start Date Stop [...] [facility] Last Year 00:00:00 [facility] Sex Ass[facility] At 1980 [...] kg Heart rate 2022-10-24 07:00:00 55 /min [facility] Respiratory rate 2022-10-24 04:55:00 18 /min [facility] Oxygen saturation in 2022-10-24 04:55:00 97 /min [facility] Arterial blood by Medical Ce nter Pulse oximetry Systolic blood 2022-10-24 04:02:00 113 mm[Hg] [facility] Diastolic blood 2022-10-24 04:02:00 63 mm[Hg] [facility] t [facility] Body temperature 2022-10-24 04:02:00 35.94 Carlota [facility] Body height 2022-10-23 11:07:00 180.3 cm [facility] Body weight 2022-10-23 11:07:00 87.091 kg [facility] BMI 2022-10-23 11:07:00 26.78 kg/m2 [facility] Procedures Procedure Date / Time Performing Clinician Source Performed CBC W/PLT COUNT & AUTO 2022-10-24 06:08:00 [facility] DIFFERENTIAL [facility] CBC W/PLT COUNT & AUTO 2022-10-24 06:08:00 [facility] DIFFERENTIAL [facility] MAGNESIUM 2022-10-24 05:01:00 [facility] COMPREHENSIVE METABOLIC 2022-10-24 05:01:00 Dima Berrios [facility] HEMOGLOBIN AND HEMATOCRIT 2022-10-23 15:55:00 Dima Berrios [facility] REPORT OF PROCEDURE - 2022-10-23 12:35:10 Judy Martinez [facility] TRACT, 2022-10-23 11:34:[address] [facility] WITH BIOPSY [facility] ABORH, MANUAL 2022-10-23 08:13:00 Maria Elena Milian [facility] BASIC METABOLIC PANEL 2022-10-23 06:29:00 [facility] MAGNESIUM 2022-10-23 06:29:00 [facility] CBC W/PLT COUNT & AUTO 2022-10-23 06:29:00 [facility] DIFFERENTIAL [facility] HEPATIC FUNCTION PANEL 2022-10-23 06:29:00 [facility] TYPE AND SCREEN, AUTOMATED 2022-10-23 06:29:00 Salim, Josué Tristin [facility] CBC W/PLT COUNT & AUTO 2022-10-23 06:29:00 [facility] LIPID PANEL 2022-10-22 04:19:00 [facility] BASIC METABOLIC PANEL 2022-10-22 04:19:00 [facility] MAGNESIUM 2022-10-22 04:19:00 [facility] CBC W/PLT COUNT & AUTO 2022-10-22 04:19:00 [facility] 2022-10-22 04:19:00 [facility]IS B CORE ANTIBODY, 2022-10-22 04:19:00 Dmitry Dale [facility] HEPATITIS PANEL, ACUTE 2022-10-22 04:19:00 Suyapa [facility] HEPATITIS A ANTIBODY, IGG 2022-10-22 04:19:00 Dmitry Dale [facility] HEPATITIS B SURFACE 2022-10-22 04:19:00 [facility] FERRITIN 2022-10-22 04:19:00 Suyapa [facility] IRON, TIBC, % SAT. (WITHOUT 2022-10-22 04:19:00 Suyapa [facility] FERRITIN) [facility] [id number]\\, SERUM 2022-10-22 04:19:00 Suyapa [facility] ALPHA FETOPROTEIN (AFP), 2022-10-22 04:19:00 Suyapa [facility] TUMOR MARKER [facility] CARCINOEMBRYONIC ANTIGEN 2022-10-22 04:19:00 Suyapa [facility] (CEA) [facility] CBC W/PLT COUNT & AUTO 2022-10-22 04:19:00 [facility] ECG 12-LEAD 2022-10-21 17:09:37 [facility] ECG 12-LEAD 2022-10-21 17:09:37 Unknown, Hl7 Doctor [facility] HEPATIC FUNCTION PANEL 2022-10-21 14:42:00 [facility] BASIC METABOLIC PANEL 2022-10-21 14:42:00 [facility] HEMOGLOBIN A1C 2022-10-21 14:42:00 [facility] PROTHROMBIN TIME/INR 2022-10-21 14:42:00 [facility] CBC W/PLT COUNT & AUTO 2022-10-21 14:42:00 [facility] DIFFERENTIAL [facility] CBC W/PLT COUNT & AUTO 2022-10-21 14:42:00 [facility] Plan of Care Planned Activity Planned Date Details Comments Source Future Scheduled 2027-10-[address]00 (procedure) [code = [facility] [id number]] Future Scheduled 2023-02-[address] [...] Department ID 2022-11-21 2022-11-21 Outpatient EDDIE LIMA [id number] [facility] 00:00:00 00:00:00 [facility] 2022-11-17 2022-11-[address] [facility] [id number] SLE 00:00:00 00:00:00 MANNY 2022-11-07 2022-11-[address] [facility] [id number] SLE 00:00:00 00:00:00 [facility] 2022-11-06 2022-11-[address] [facility] [id number] SLE 12:51:54 15:40:51 [facility] 2022-11-06 2022-11-[address] [facility] [id number] SLE 00:00:00 00:00:00 2022-10-21 2022-10-27 Inpatient ER [facility] Gastro [id number] SLE 13:26:00 14:43:00 [facility] 2022-10-23 2022-10-23 Anesthesia [place], [facility] [id number] 11:35:00 13:04:00 Event Navjot Frost [facility] 2022-10-23 2022-10-23 [facility] [id number] 10:00:00 10:59:[address] [facility] 2022-10-21 2022-10-[address] [facility] [id number] 00:00:00 00:00:00 Only [facility] Results Test Description Test Time Test Comments Results Result Comments Source COMPREHENSIVE METABOLIC PANEL 2023-01-17 09:38:30 Test Item Value Reference Range Interpretation Comme nts TOTAL PROTEIN (BEAKER) 6.2 gm/dL 6.0-8.3 (test code = 770) ALBUMIN (BEAKER) (test 3.9 g/dL 3.5-5.0 code = 1145) ALKALINE PHOSPHATASE 827 U/L 40-150 H (BEAKER) (test code = 346) BILIRUBIN TOTAL (BEAKER) 0.9 mg/dL 0.2-1.2 (test code = 377) SODIUM (BEAKER) (test 138 meq/L 136-145 code = 381) POTASSIUM (BEAKER) (test 4.8 meq/L 3.5-5.1 code = 379) CHLORIDE (BEAKER) (test 104 meq/L 98-107 code = 382) CO2 (BEAKER) (test code 27 meq/L 22-29 = 355) BLOOD UREA NITROGEN 25 mg/dL 7-21 H (BEAKER) (test code = 354) CREATININE (BEAKER) 1.01 mg/dL 0.57-1.25 (test code = 358) GLUCOSE RANDOM (BEAKER) 90 mg/dL 70-105 (test code = 652) CALCIUM (BEAKER) (test 9.0 mg/dL 8.4-10.2 code = 697) AST (SGOT) (BEAKER) 457 U/L 5-34 H (test code = 353) ALT (SGPT) (BEAKER) 112 U/L 6-55 H (test code = 347) EGFR (BEAKER) (test code 97 mL/min/1.73 sq Interpretation of eGFR values = 1092) m Stage Descripti on Result [...] s not applicable for dialysis tamika chaves [id number] 09:34:37 Test Item Value Reference Range Interpretation Comments MAGNESIUM (BEAKER) (test code = 1.5 mg/dL 1.6-2.6 L 627) HCG, QUANTITATIVE, [id number] 09:30:32 Test Item Value Reference Range Interpretation Comments GONADOTROPIN, CHORIONIC (HCG) QUANT 12 mIU/mL (BEAKER) (test code = 649) Non- Females: <10 mIU/mL Females: Gestation Age Reference Range(mIU/mL) 0.2-1 Week 5-50 1-2 Weeks 50-500 2-3 Weeks 100-5,000 3-4 Weeks 500-10,000 4-5 Weeks 1,000-50,000 5-6 Weeks 10,000-100,000 6-8 Weeks 15,000- 200,000 2-3 Months 10,000-100,000CBC W/PLT COUNT & AUTO DIFFERENTIAL 2023-01-17 09:24:56 Test Item Value Reference Range Interpretation Comments WHITE BLOOD CELL COUNT (BEAKER) 2.7 K/ L 3.5-10.5 L (test code = 775) RED BLOOD CELL COUNT (BEAKER) 3.68 M/ L 4.63-6.08 L (test code = 761) HEMOGLOBIN (BEAKER) (test code = 10.7 GM/DL 13.7-17.5 L 410) HEMATOCRIT (BEAKER) (test code = 33.0 % 40.1-51.0 L 411) MEAN CORPUSCULAR VOLUME (BEAKER) 90 fL 79-92 (test code = 753) MEAN CORPUSCULAR HEMOGLOBIN 29.1 pg 25.7-32.2 (BEAKER) (test code = 751) MEAN CORPUSCULAR HEMOGLOBIN CONC 32.4 GM/DL 32.3-36.5 (BEAKER) (test code = 752) RED CELL DISTRIBUTION WIDTH 16.5 % 11.6-14.4 H (BEAKER) (test code = 412) PLATELET COUNT (BEAKER) (test 188 K/CU MM 150-450 code = 756) MEAN PLATELET VOLUME (BEAKER) 10.1 fL 9.4-12.4 (test code = 754) NEUTROPHILS RELATIVE PERCENT 57 % (BEAKER) (test code = 429) LYMPHOCYTES RELATIVE PERCENT 31 % (BEAKER) (test code = 430) MONOCYTES RELATIVE PERCENT 10 % (BEAKER) (test code = 431) EOSINOPHILS RELATIVE PERCENT 1 % (BEAKER) (test code = 432) BASOPHILS RELATIVE PERCENT 1 % (BEAKER) (test code = 437) NEUTROPHILS ABSOLUTE COUNT 1.54 K/ L 1.78-5.38 L (BEAKER) (test code = 670) LYMPHOCYTES ABSOLUTE COUNT 0.83 K/ L 1.32-3.57 L (BEAKER) (test code = 414) MONOCYTES ABSOLUTE COUNT (BEAKER) 0.28 K/ L 0.30-0.82 L (test code = 415) EOSINOPHILS ABSOLUTE COUNT 0.02 K/ L 0.04-0.54 L (BEAKER) (test code = 416) BASOPHILS ABSOLUTE COUNT (BEAKER) 0.02 K/ L 0.01-0.08 (test code = 417) IMMATURE GRANULOCYTES-RELATIVE 0.70 % 0.00-1.00 PERCENT (BEAKER) (test code = 2801) ALPHA FETOPROTEIN (AFP), TUMOR [id number] 15:59:30 Test Item Value Reference Range Interpretation Comments ALPHA-FETOPROTEIN (BEAKER) (test code > ng/mL <10.0 H = 1094) Log Handler ID - anish bOperator ID - anish bOperator ID - anish bCARCINOEMBRYONIC ANTIGEN (CEA)2023-01-09 15:04:16 Test Item Value Reference Range Interpretation Comments CARCINOEMBRYONIC ANTIGEN (BEAKER) 15.1 ng/mL 0.0-5.0 H (test code = 685) Log Handler ID - anish bLACTATE DEHYDROGENASE (LDH)2023-01-09 12:48:48 Test Item Value Reference Range Interpretation Comments LACTATE DEHYDROGENASE (BEAKER) (test > U/L 125-220 H code = 635) COMPREHENSIVE METABOLIC [id number] 12:39:05 Test Item Value Reference Range Interpretation [...] not appl icable for dialysis patien ts [id number] 12:37:31 Test Item Value Reference Range Interpretation Comments PHOSPHORUS (BEAKER) (test code = 3.6 mg/dL 2.3-4.7 604) CBC W/PLT COUNT & AUTO [id number] 12:21:24 Test Item Value Reference Range Interpretation [...] code = 2801) ALPHA FETOPROTEIN (AFP), TUMOR [id number] 16:43:27 Test Item Value Reference Range Interpretation Comments ALPHA-FETOPROTEIN (BEAKER) (test code > ng/mL <10.0 H = 1094) Log Handler ID - ADMINOperator ID - ADMINOperator ID [...] (test code Normal = 762) COMPREHENSIVE METABOLIC [id number] 09:36:30 Test Item Value Reference Range Interpretation [...] (test code = 347) EGFR (BEAKER) 96 Interpretati on of eGFR (test code = [...] not appl icable for dialysis patien ts [id number] 09:28:58 Test Item Value Reference Range Interpretation Comments MAGNESIUM (BEAKER) (test code = 1.7 mg/dL 1.6-2.6 627) CBC W/PLT COUNT & AUTO [id number] 09:23:38 Test Item Value Reference Range Interpretation [...] 9.4-12.4 (test code = 754) COMPREHENSIVE METABOLIC [id number] 09:40:11 Test Item Value Reference Range Interpretation [...] not appl icable for dialysis patien ts [id number] 09:24:23 Test Item Value Reference Range Interpretation Comments MAGNESIUM (BEAKER) (test code = 1.9 mg/dL 1.6-2.6 627) CBC W/PLT COUNT & AUTO [id number] 09:04:00 Test Item Value Reference Range Interpretation [...] code = 2801) ALPHA FETOPROTEIN (AFP), TUMOR [id number] 16:54:52 Test Item Value Reference Range Interpretation Comments ALPHA-FETOPROTEIN (BEAKER) (test code > ng/mL <10.0 H = 1094) Log Handler ID - ADMINOperator ID - ADMINOperator ID - ADMINOperator ID - ADMIN BASIC METABOLIC [id number] 13:58:04 Test Item Value Reference Range Interpretation [...] not appl icable for dialysis patien ts Log Handler ID - ADMINHEPATIC FUNCTION [id number] 13:58:04 Test Item Value Reference Range Interpretation [...] code = 58 U/L 6-55 H 347) Log Handler ID - ADMINCBC W/PLT COUNT & AUTO [id number] 11:19:47 Test Item Value Reference Range Interpretation [...] (BEAKER) (test code = 2801) HEPATIC FUNCTION [id number] 06:52:32 Test Item Value Reference Range Interpretation [...] code = 64 U/L 6-55 H 347) Log Handler ID - MMURIC [id number] 06:52:31 Test Item Value Reference Range Interpretation Comments URIC ACID (BEAKER) (test code = 2.7 mg/dL 2.6-7.2 773) Log Handler ID - MMBASIC METABOLIC [id number] 06:52:30 Test Item Value Reference Range Interpretation [...] rted eGFR is based on the CKD-EPI 1 equation t hat does not use a race coefficientEsti mated GFR is not as accur ate as Creatinine Iman arleen in predicting glom erular filtration rate . Estimated GFR is not appl icable for dialysis patien ts Log Handler ID - [id number] 06:52:30 Test Item Value Reference Range Interpretation Comments PHOSPHORUS (BEAKER) (test code = 3.4 mg/dL 2.3-4.7 604) Log Handler ID - MMCBC W/PLT COUNT & AUTO [id number] 06:20:55 Test Item Value Reference Range Interpretation [...] (BEAKER) (test code = 2801) BASIC METABOLIC [id number] 22:14:17 Test Item Value Reference Range Interpretation [...] not appl icable for dialysis patien ts Log Handler ID - ADMINURIC [id number] 22:12:41 Test Item Value Reference Range Interpretation Comments URIC ACID (BEAKER) 2.6 mg/dL 2.6-7.2 Specimen slightly (test code = 773) hemolyzed Log Handler ID - [id number] 22:12:40 Test Item Value Reference Range Interpretation Comments PHOSPHORUS (BEAKER) 3.8 mg/dL 2.3-4.7 Specimen slightly (test code = 604) hemolyzed Log Handler ID - ADMINBASIC METABOLIC [id number] 17:01:12 Test Item Value Reference Range Interpretation [...] not appl icable for dialysis patien ts Log Handler ID - [id number] 16:58:24 Test Item Value Reference Range Interpretation Comments PHOSPHORUS (BEAKER) (test code = 2.8 mg/dL 2.3-4.7 604) Log Handler ID - ADMINURIC [id number] 16:58:24 Test Item Value Reference Range Interpretation Comments URIC ACID (BEAKER) (test code = 2.1 mg/dL 2.6-7.2 L 773) Log Handler ID - ADMINURIC [id number] 06:57:40 Test Item Value Reference Range Interpretation Comments URIC ACID (BEAKER) (test code = 3.1 mg/dL 2.6-7.2 773) Log Handler ID - MMHEPATIC FUNCTION [id number] 06:57:40 Test Item Value Reference Range Interpretation [...] code = 65 U/L 6-55 H 347) Log Handler ID - MMBASIC METABOLIC [id number] 06:57:39 Test Item Value Reference Range Interpretation [...] not appl icable for dialysis patien ts Log Handler ID - [id number] 06:57:39 Test Item Value Reference Range Interpretation Comments PHOSPHORUS (BEAKER) (test code = 3.6 mg/dL 2.3-4.7 604) Log Handler ID - MMCBC W/PLT COUNT & AUTO [id number] 06:51:25 Test Item Value Reference Range Interpretation [...] (BEAKER) (test code = 2801) BASIC METABOLIC [id number] 09:04:16 Test Item Value Reference Range Interpretation [...] not appl icable for dialysis patien ts Log Handler ID - [id number] 09:04:15 Test Item Value Reference Range Interpretation Comments PHOSPHORUS (BEAKER) 3.1 mg/dL 2.3-4.7 Specimen slightly (test code = 604) hemolyzed Log Handler ID - MMURIC [id number] 09:04:15 Test Item Value Reference Range Interpretation Comments URIC ACID (BEAKER) 4.1 mg/dL 2.6-7.2 Specimen slightly (test code = 773) hemolyzed Log Handler ID - [id number] 05:03:52 Test Item Value Reference Range Interpretation Comments PHOSPHORUS (BEAKER) (test code = 3.7 mg/dL 2.3-4.7 604) Log Handler ID - MMURIC [id number] 05:03:52 Test Item Value Reference Range Interpretation Comments URIC ACID (BEAKER) (test code = 4.7 mg/dL 2.6-7.2 773) Log Handler ID - MMCOMPREHENSIVE METABOLIC [id number] 05:03:51 Test Item Value Reference Range Interpretation [...] not appl icable for dialysis patien ts Log Handler ID - MMCBC W/PLT COUNT & AUTO [id number] 04:40:21 Test Item Value Reference Range Interpretation [...] 2801) XR CHEST 1 VIEW PORTABLE / [id number] 17:54:25 [facility] 1980 Sex: [...] (test code Normal = 486) HEPATITIS B [id number] 13:30:00 Test Item Value Reference Range Interpretation Comments HEPATITIS B CORE TOTAL ANTIBODY Nonreactive Nonreactive (BEAKER) (test code = 497) HEPATITIS B SURFACE ANTIBODY < mIU/mL <8.0 (BEAKER) (test code = 647) HEPATITIS B SURFACE ANTIGEN (2) Nonreactive Nonreactive (BEAKER) (test code = 2585) Log Handler ID - ADMINHEPATITIS C [id number] 13:29:13 Test Item Value Reference Range Interpretation Comments HEPATITIS C ANTIBODY (BEAKER) Nonreactive Nonreactive (test code = 367) Log Handler ID - [id number] 13:04:16 Test Item Value Reference Range Interpretation Comments MAGNESIUM (BEAKER) (test code = 1.8 mg/dL 1.6-2.6 627) Log Handler ID - edCOMPREHENSIVE METABOLIC [id number] 13:04:15 Test Item Value Reference Range Interpretation [...] St age Description sq m Result G1 Norm al or [...] not appl icable for dialysis patien ts Log Handler ID - edCBC WITH PLATELET COUNT + MANUAL [id number] 12:48:49 Test Item Value Reference Range Interpretation [...] 0-0 (BEAKER) (test code = 413) SARS-COV2/RT-PCR ([facility])2022-11-08 09:48:49 Test Item Value Reference Range Interpretation Comments SARS-COV2/RT-PCR Negative Negative The SARS-Co V-2 target (test code = nucleic acids a re not [id number]) detected in thi s specimen. Negative result [...] revoked sooner. Fact Sheet for Healthcare Providers: https://www.[employer] m/Documents/Xpert%20Xpress%20SARS%20CoV-2/Fact%20Sheets/656-0152%71TXJN-DBU-9%20 HEALTHCARE%20PROVIDERS%20FACT%20SHEET.pdf Fact Sheet for Healthcare Patients: https://www.[employer]/Documents/Xpert%20Xp ress%20SARS%20CoV-2/Fact%20Sheets/302-0501%93CGLJ-VVQ-8%20PATIENT%20FACT%20SHEET .pdfCARCINOEMBRYONIC ANTIGEN (CEA)2022-11-06 18:53:46 Test Item Value Reference Range Interpretation Comments CARCINOEMBRYONIC ANTIGEN (MEHRANAKER) 5.3 ng/mL 0.0-5.0 H (test code = 685) Log Handler ID - MMCOMPREHENSIVE METABOLIC [id number] 16:39:54 Test Item Value Reference Range Interpretation [...] patien ts CBC W/PLT COUNT & AUTO [id number] 16:21:39 Test Item Value Reference Range Interpretation [...] PERCENT (BEAKER) (test code = 2801) TISSUE [id number] 16:02:43Surgical Pathology Report Case: [id number] Authorizing Provider: Dima Berrios MD Collected: 10/26/2022 03:07 PM Ordering Location: [address] Received: 10/26/2022 04:53 PM Service Pathologist: Sherry Andrade MD Specimen: Biopsy, Liver Liver, mass, core needle biopsy: - Metastatic poorly differentiated neuroendocrine carcinoma, WHO grade 3; see comment Signing Pathologist Direct PhoneLine: [phone] signed by Sherry Andrade MD on 11/01/2022 [...] (PDNEC), WHO grade 3. Metastatic neuroendocrine carcinoma canoccasionally present with elevated alpha-fetoprotein (see reference). The histomorphology and immunophenotype is not specific for a particular primary site, and clinical and imaging correlation is needed. The patient's prior gastric biopsy ([id number], H&E) was concurrently reviewed, and the tumor shows similar histomorphology. Dr. Edvin Goldberg reviewed the case and agrees.Block A2 has adequate tumor cellularity for additional ancillary studies.References:Antonino WALLER, Dariusz T, Carina C, Bassem L. Metastatic neuroendocrine carcinoma presenting as multifocal liver lesions with elevated alpha-fetoprotein. Clin Case Rep. 2018 May 16;7(2):251-253. doi: 10.1002/ccr3.1956. PMID: 06353314; PMCID: [id number], 64635, [id number] is a 42-year-old male with history of prior alcohol use and was found to have gastric mass and multiple liver lesions. He has markedly elevated AFP (>10k) with elevated CEA(5.6) and CA19-9 (99). A. Biopsy, LiverReceived in formalin labeled with the patient's name, medicalrecord number, and "liver biopsy" are multiple martin-white to martin-red soft tissue fragments ranging insize from 0.1-1.0 cm, which are submitted in toto in A1-A2.Kiersten MichaelsPerformedThe interpretation of this case included the use of immunohistochemistry or special stains.Control Slides Examined: In-house known positive controls were evaluated along with the test tissue. These control slides run alongside of the patients sample show appropriate staining. Internal positive and negative controls when available are evaluated Immunohistochemistry technical testing was performed at [facility], Pathology Laboratory where it was developed [...] qualified to perform high complexity clinical laboratory testing.[facility], Department of Pathology, [address] [place] [address], [facility], [facility] of [facility], [address] [place] [address], [facility], [facility] of Pathology, [address] [place] [address], CPEYEA [id number] 09:06:35Surgical Pathology Report Case: [id number] Authorizing Provider: Judy Martinez, Collected: 10/23/2022 11:56 AM Ordering Location: [address] Received: 10/23/2022 01:29 PM Service Pathologist: Suzan Teixeira MD Specimens: A) - Biopsy, Gastric, random bxs B) - Biopsy, Gastric, bxs gastric mass A. STOMACH, RANDOM BIOPSIES: - CHEMICAL/REACTIVE GASTROPATHY - PPI EFFECT, MILDB. STOMACH, BIOPSIES OF MASS: - NEUROENDOCRINE CARCINOMA, SMALL CELL TYPE Signing Pathologist Direct Phone Line: [phone] signed by Suzan Bagley MD on 11/01/2022 at 9:06 AMPreliminary result electronically signed by Suzan Teixeira MD on 10/27/2022 at 11:55 AMPreliminary result electronically signed by Suzan Teixeira MD on 10/26/2022 at 11:55 AMThe finding was communicated via secure email with Judy Edmonds <[email or web address] GI Department at 11:52 on October 26, [id number], 12006, [id number] hemorrhage associated with gastritisA. Biopsy, GastricReceived in [...] evaluated and the report was issued at [facility] (CLIA#[id number]), [address] [place] [address].The interpretation of this case included the use of immunohistochemistry or special stains.Control Slides Examined: In-house known positive controls were evaluated along with the test tissue. These control slides run alongside of the patients sample show appropriate staining. Internal positive and negative controls when available are evaluated Immunohistochemistry technical testing was performed at [facility], Pathology Laboratory where it was developed [...] perform high complexity clinical laboratory testing.U/S, BIOPSY, [id number] 12:01:00Reason for exam:->gastric mass and liver mass with afp >34436Pmrttb this be performed at the bedside?->No [facility] : 1980 Sex: MFINAL REPORT Procedure: Liver mass core biopsy Pre/post-procedure diagnosis: Liver mass Tool And Die Manager: Bebo Low MD Assistants: none Sedation: [...] ultrasound-guided liver mass core biopsy. Signed: Bebo Loweport Verified Date/Time: 10/30/2022 12:01:04 C METABOLIC [id number] 05:48:04 Test Item Value Reference Range Interpretation [...] not appl icable for dialysis patien ts Log Handler ID - [id number] 05:48:04 Test Item Value Reference Range Interpretation Comments MAGNESIUM (BEAKER) (test code = 1.7 mg/dL 1.6-2.6 627) Log Handler ID - MMCBC W/PLT COUNT & AUTO [id number] 05:27:57 Test Item Value Reference Range Interpretation [...] 0.00-1.00 PERCENT (BEAKER) (test code = 2801) [id number] 06:55:04 Test Item Value Reference Range Interpretation Comments MAGNESIUM (BEAKER) (test code = 1.6 mg/dL 1.6-2.6 627) Log Handler ID - BSBASIC METABOLIC [id number] 06:55:03 Test Item Value Reference Range Interpretation [...] not appl icable for dialysis patien ts Log Handler ID - BSPROTHROMBIN [id number] 06:18:33 Test Item Value Reference Range Interpretation [...] mechanical heart valves.CBC W/PLT COUNT & AUTO [id number] 06:07:18 Test Item Value Reference Range Interpretation [...] (BEAKER) (test code = 2801) COMPREHENSIVE METABOLIC [id number] 07:14:31 Test Item Value Reference Range Interpretation [...] St age Description sq m Result G1 Norm al or [...] not appl icable for dialysis patien ts Log Handler ID - DENIS [id number] 07:14:31 Test Item Value Reference Range Interpretation Comments MAGNESIUM (BEAKER) (test code = 1.5 mg/dL 1.6-2.6 L 627) Log Handler ID - DENIS WCBC W/PLT COUNT & AUTO [id number] 06:55:14 Test Item Value Reference Range Interpretation [...] (test code = 2801) ROSALINDA TITER AND [id number] 13:55:32 Test Item Value Reference Range Interpretation [...] method.Test performed by IFA method.CT, CHEST, WITH [id number] 13:00:00Unlisted Reason for Exam - Click Yes and Enter Reason Below->No[facility] : 1980 Sex: [...] MDReport Verified Date/Time: 10/24/2022 13:00:41 Reading Location: [facility] B1 C013X Ortho Consult Reading Room CT, [id number] 13:00:00Unlisted Reason for Exam - Click Yes and Enter Reason Below->NoProtocol Please Specify:->Standard ProtocolWill this procedure require oral contrast?->No [facility] : 1980 Sex: [...] Olveraort Verified Date/Time: 10/24/2022 13:00:41 Reading Location: [address] Consult Reading Room CBC W/PLT COUNT [...] 0.00-1.00 PERCENT (BEAKER) (test code = 2801) [id number] 05:38:34 Test Item Value Reference Range Interpretation Comments MAGNESIUM (BEAKER) (test code = 1.5 mg/dL 1.6-2.6 L 627) Log Handler ID - MMCOMPREHENSIVE METABOLIC [id number] 05:38:33 Test Item Value Reference Range Interpretation [...] St age Description sq m Result G1 Norm al or [...] not appl icable for dialysis patien ts Log Handler ID - MMHEMOGLOBIN AND [id number] 16:05:28 Test Item Value Reference Range Interpretation Comments HEMOGLOBIN (BEAKER) (test code = 14.4 GM/DL 13.7-17.5 410) HEMATOCRIT (BEAKER) (test code = 44.3 % 40.1-51.0 411) Log Handler ID - [id number] 09:39:18 Test Item Value Reference Range Interpretation Comments MAGNESIUM (BEAKER) 1.6 mg/dL 1.6-2.6 Specimen slightly (test code = 627) hemolyzed Log Handler ID - MMBASIC METABOLIC [id number] 09:39:18 Test Item Value Reference Range Interpretation [...] not appl icable for dialysis patien ts Log Handler ID - MMHEPATIC FUNCTION [id number] 09:39:18 Test Item Value Reference Range Interpretation [...] Specimen slightly (test code = 347) hemolyzed Log Handler ID - MMCBC W/PLT COUNT & AUTO [id number] 06:38:29 Test Item Value Reference Range Interpretation [...] PERCENT (BEAKER) (test code = 2801) HEMOGLOBIN [id number] 08:56:25 Test Item Value Reference Range Interpretation Comments HEMOGLOBIN A1C 5.7 % See_Comment H [Automated m essage] ELECTROPHORESIS ([facility]) The system which (test code = 3811) generated this result transmitted ref erence range: <=5.6%. The reference range was not used to int erpret this result as normal/abnormal . "The A1c is measured using a [facility]-certified method. HbA1c value equal to or greater than 6.5% as thediagnosis cutoff for diabetes. An HbA1c value of 5.7- 6.4% indicates increased risk for diabetes (prediabetes)."Log Handler ID - ADM [id number] 07:09:54 Test Item Value Reference Range Interpretation Comments FERRITIN (BEAKER) (test code = 159.87 ng/mL 5.00-275.00 361) Log Handler ID - MARCOALPHA FETOPROTEIN (AFP), TUMOR [id number] 06:32:10 Test Item Value Reference Range Interpretation Comments ALPHA-FETOPROTEIN (BEAKER) 69697.5 ng/mL <10.0 H (test code = 1094) Log Handler ID - ADMINOperator ID - ADMINHEPATITIS B SURFACE [id number] 06:31:52 Test Item Value Reference Range Interpretation Comments HEPATITIS B SURFACE ANTIBODY < mIU/mL <8.0 (BEAKER) (test code = 647) Log Handler ID - ADMINHEPATITIS A ANTIBODY, [id number] 06:31:00 Test Item Value Reference Range Interpretation Comments HEPATITIS A IGG ANTIBODY (BEAKER) Nonreactive Nonreactive (test code = 2797) Log Handler ID - ADMINCARCINOEMBRYONIC ANTIGEN (CEA)2022-10-22 06:30:59 Test Item Value Reference Range Interpretation Comments CARCINOEMBRYONIC ANTIGEN (BEAKER) 5.6 ng/mL 0.0-5.0 H (test code = 685) Log Handler ID - ADMINHEPATITIS B CORE ANTIBODY, [id number] 06:30:59 Test Item Value Reference Range Interpretation Comments HEPATITIS B CORE TOTAL ANTIBODY Nonreactive Nonreactive (BEAKER) (test code = 497) Log Handler ID - ADMINHEPATITIS PANEL, [id number] 06:03:10 Test Item Value Reference Range Interpretation Comments HEPATITIS A IGM ANTIBODY (BEAKER) Nonreactive Nonreactive (test code = 498) HEPATITIS B CORE IGM ANTIBODY Nonreactive Nonreactive (BEAKER) (test code = 645) HEPATITIS C ANTIBODY (BEAKER) Nonreactive Nonreactive (test code = 367) HEPATITIS B SURFACE ANTIGEN (2) Nonreactive Nonreactive (BEAKER) (test code = 2585) Log Handler ID - [id number] 05:54:41 Test Item Value Reference Range Interpretation Comments MAGNESIUM (BEAKER) (test code = 1.7 mg/dL 1.6-2.6 627) Log Handler ID - MARCOLIPID [id number] 05:54:41 Test Item Value Reference Range Interpretation [...] Borderline 130-159 High 160-189 Very High >=190 Log Handler ID - MARCOHEPATIC FUNCTION [id number] 05:54:41 Test Item Value Reference Range Interpretation [...] (test code = 54 U/L 6-55 347) Log Handler ID - MARCOBASIC METABOLIC [id number] 05:54:40 Test Item Value Reference Range Interpretation [...] not appl icable for dialysis patien ts Log Handler ID - JAIME, TIBC, % SAT. (WITHOUT FERRITIN)2022-10-22 05:39:20 Test Item Value Reference Range Interpretation Comments IRON (BEAKER) (test code = 547) 61.0 ug/dL 40.0-160.0 TOTAL IRON BINDING CAPACITY 273 ug/dL 250-450 (BEAKER) (test code = 769) IRON % SATURATION (2) (BEAKER) 22 % 20-55 (test code = 2590) Log Handler ID - [id number] 05:39:03 Test Item Value Reference Range Interpretation Comments ALPHA-1 ANTITRYPSIN (BEAKER) 211.70 mg/dL 90.00-200.00 H (test code = 502) Log Handler ID - ADMINCBC W/PLT COUNT & AUTO [id number] 05:15:17 Test Item Value Reference Range Interpretation [...] (BEAKER) (test code = 2801) HEPATIC FUNCTION [id number] 15:14:35 Test Item Value Reference Range Interpretation [...] Specimen slightly (test code = 347) hemolyzed Log Handler ID - MARCOPROTHROMBIN [id number] 15:14:35 Test Item Value Reference Range Interpretation Comments PROTIME (BEAKER) (test code = 14.7 seconds 11.9-14.2 H 759) INR (BEAKER) (test code = 370) 1.22 <=5.90 RECOMMENDED COUMADIN/WARFARIN INR THERAPY RANGESSTANDARD DOSE: 2.0 - 3.0 Includes: PROPHYLAXIS for venous thrombosis, systemic embolization; TREATMENT for venous thrombosis and/or pulmonary embolus.HIGH RISK: Target INR is 2.5-3.5 for patients with mechanical heart valves.BASIC METABOLIC [id number] 15:14:34 Test Item Value Reference Range Interpretation [...] not appl icable for dialysis patien ts Log Handler ID - MARCOCBC W/PLT COUNT & AUTO [id number] 14:53:39 Test Item Value Reference Range Interpretation [...] % 0.00-1.00 PERCENT (BEAKER) (test code = 3121)
--- NOTE | 2023-01-17 16:49 | ER ---
Nurse's Notes [facility] Name: Ayden Andres Jr Age: 42 yrs Sex: Male : 1980 Arrival Date: 01/17/2023 Time: 15:56 Bed DIS2 Private MD: Diagnosis: Epigastric abdominal tenderness;Other cirrhosis of liver-KNOWN GASTRIC MASS Presentation: 01/17 16:26 Chief complaint: Patient states: abdominal pain, N/V and constipation. Pt was seen here cm10 yesterday for the same thing. Coronavirus screen: Client denies travel out of the [place] in the last 14 days. Ebola Screen: Patient denies travel to an Ebola-affected area in the 21 days before illness onset. No symptoms or risks identified at this time. Initial Sepsis Screen: Does the patient meet any 2 criteria? No. Patient's initial sepsis screen is negative. Does the patient have a suspected source of infection? No. Patient's initial sepsis screen is negative. Risk Assessment: Do you want to hurt yourself or someone else? Patient reports no desire to harm self or others. Onset of symptoms was January 17, 2023. 16:26 Method Of Arrival: Ambulatory cm10 16:26 Acuity: JOSE 3 cm10 Triage Assessment: 16:30 General: Appears in no apparent distress. Behavior is calm, cooperative, appropriate bp for age. Pain: Complains of pain in abdomen. EENT: No deficits noted. Neuro: No deficits noted. Cardiovascular: No deficits noted. Respiratory: No deficits noted. GI: Reports upper abdominal pain, nausea, vomiting. : No signs and/or symptoms were reported regarding the genitourinary system. Derm: No deficits noted. Musculoskeletal: No deficits noted. Historical: - Allergies: 16:25 No Known Allergies; cm10 - PMHx: 16:25 cirrhosis of liver; stomach cancer; cm10 - Immunization history:: Adult Immunizations unknown. - Social history:: Smoking status: unknown. Screenin:27 [facility] ED Fall Risk Assessment (Adult) History of falling in the last 3 months, bp including since admission No falls in past 3 months (0 pts). Abuse screen: Denies threats or abuse. Denies injuries from another. Nutritional screening: No deficits noted. Tuberculosis screening: No symptoms or risk factors identified. Assessment: 16:30 General: SEE TRIAGE NOTE. bp 17:27 Reassessment: DC HOME AMBULATORY. bp Vital Signs: 16:26 BP 119 / 78; Pulse 66; Resp 18; Temp 98.4; Pulse Ox 100% ; cm10 Deeth Coma Score: 16:45 Eye Response: spontaneous(4). Motor Response: obeys commands(6). Verbal Response: loretta oriented(5). Total: 15. ED Course: 15:57 Patient arrived in ED. rg4 15:57 Lenora Ferguson FNP-C [facility]. kb 15:57 Vicente Navarro MD is Attending Physician. kb 16:05 Vicente Navarro MD is Attending Physician. loretta 16:27 Triage completed. cm10 16:27 Arm band placed on Patient placed in waiting room. cm10 17:24 Adolfo Holman, ANA is Primary Nurse. bp 17:27 Patient has correct armband on for positive identification. Bed in low position. Call bp light in reach. Side rails up X2. 17:27 No provider procedures requiring assistance completed. Patient did not have IV access bp during this emergency room visit. Administered Medications: 16:37 CANCELLED (Duplicate Order): Famotidine IVP 20 mg IVP once; dilute with 10 mL 0.9% loretta NaCl; give over 2 minutes 16:38 CANCELLED (Duplicate Order): NS 0.9% IV 1000 ml IV at 1 bolus Per protocol; 1000 mL loretta bolus 16:38 CANCELLED (Duplicate Order): Ondansetron IVP 4 mg IVP once; over 2 minutes loretta 16:38 CANCELLED (Duplicate Order): morphine IVP or IV 4 mg IVP once over 4 mins loretta 16:49 Drug: morphine IM 10 mg Route: IM; Site: right deltoid; ap3 17:28 Follow up: Response: No adverse reaction bp 16:49 Drug: Promethazine IM 25 mg Route: IM; Site: left deltoid; ap3 17:28 Follow up: Response: No adverse reaction bp 16:49 Drug: Alum-Mag Hydroxide-Simeth PO Suspension (200 mg-200 mg-20 mg/5 mL) 30 ml Route: ap3 PO; 17:28 Follow up: Response: No adverse reaction bp Medication: 17:27 VIS not applicable for this client. bp Outcome: 16:49 Discharge ordered by . loretta 17:27 Discharged to home ambulatory, with family. bp 17:27 Condition: stable 17:27 Discharge instructions given to patient, Instructed on discharge instructions, follow up and referral plans. Demonstrated understanding of instructions, follow-up care. 17:28 Patient left the ED. bp Signatures: Lenora Ferguson, JUNIOR LEGAL SECRETARY-C JUNIOR LEGAL SECRETARY-Vicente Lucio MD MD cha Garcia, Rubi rg4 Adolfo Holman RN RN bp Tiffani Montgomery RN RN ap3 Payal Mahmood RN RN cm10
--- NOTE | 2023-01-17 16:50 | EDPHYS ---
Physician Documentation [facility] Name: Ayden Andres Jr Age: 42 yrs Sex: Male : 1980 Arrival Date: 01/17/2023 Time: 15:56 Bed DIS2 Private MD: ED Physician Vicente Navarro HPI: 01/17 16:39 This 42 yrs old Male presents to ER via Ambulatory with complaints of loretta Abdominal Pain, Vomiting/Diarrhea. 16:39 The patient presents to the emergency department with nausea, vomiting, diarrhea, that loretta is intermittent. Onset: The symptoms/episode began/occurred 3 day(s) ago. Possible causes: STOMACH MASS, CIRRHOSIS. The symptoms are aggravated by movement, pressure, The symptoms are alleviated by remaining still, prescription meds. Associated signs and symptoms: Pertinent positives: abdominal pain. Severity of symptoms: At their worst the symptoms were moderate in the emergency department the symptoms are unchanged. The patient has experienced similar episodes in the past, several times. Historical: - Allergies: 16:25 No Known Allergies; cm10 - PMHx: 16:25 cirrhosis of liver; stomach cancer; cm10 - Immunization history:: Adult Immunizations unknown. - Social history:: Smoking status: unknown. ROS: 16:45 Constitutional: Negative for fever, chills, and weight loss, Eyes: Negative for injury, loretta pain, redness, and discharge, ENT: Negative for injury, pain, and discharge, Neck: Negative for injury, pain, and swelling, Cardiovascular: Negative for chest pain, palpitations, and edema, Respiratory: Negative for shortness of breath, cough, wheezing, and pleuritic chest pain, Back: Negative for injury and pain, : Negative for injury, bleeding, discharge, and swelling, MS/Extremity: Negative for injury and deformity, Skin: Negative for injury, rash, and discoloration, Neuro: Negative for headache, weakness, numbness, tingling, and seizure, Psych: Negative for depression, anxiety, suicide ideation, homicidal ideation, and hallucinations, Allergy/Immunology: Negative for hives, rash, and allergies, Endocrine: Negative for neck swelling, polydipsia, polyuria, polyphagia, and marked weight changes, Hematologic/Lymphatic: Negative for swollen nodes, abnormal bleeding, and unusual bruising. 16:45 Abdomen/GI: Positive for abdominal pain, nausea and vomiting, diarrhea, abdominal cramps, abdominal distension, of the right upper quadrant and left upper quadrant. Exam: 16:45 Constitutional: This is a well developed, well nourished patient who is awake, alert, loretta and in no acute distress. Head/Face: Normocephalic, atraumatic. Eyes: Pupils equal round and reactive to light, extra-ocular motions intact. Lids and lashes normal. Conjunctiva and sclera are non-icteric and not injected. Cornea within normal limits. Periorbital areas with no swelling, redness, or edema. ENT: Nares patent. No nasal discharge, no septal abnormalities noted. Tympanic membranes are normal and external auditory canals are clear. Oropharynx with no redness, swelling, or masses, exudates, or evidence of obstruction, uvula midline. Mucous membranes moist. Neck: Trachea midline, no thyromegaly or masses palpated, and no cervical lymphadenopathy. Supple, full range of motion without nuchal rigidity, or vertebral point tenderness. No Meningismus. Chest/axilla: Normal chest wall appearance and motion. Nontender with no deformity. No lesions are appreciated. Cardiovascular: Regular rate and rhythm with a normal S1 and S2. No gallops, murmurs, or rubs. Normal PMI, no JVD. No pulse deficits. Respiratory: Lungs have equal breath sounds bilaterally, clear to auscultation and percussion. No rales, rhonchi or wheezes noted. No increased work of breathing, no retractions or nasal flaring. Abdomen/GI: Soft, non-tender, with normal bowel sounds. No distension or tympany. No guarding or rebound. No evidence of tenderness throughout. Back: No spinal tenderness. No costovertebral tenderness. Full range of motion. Male : Normal genitalia with no discharge or lesions. MS/ Extremity: Pulses equal, no cyanosis. Neurovascular intact. Full, normal range of motion. Neuro: Awake and alert, GCS 15, oriented to person, place, time, and situation. Cranial nerves II-XII grossly intact. Motor strength 5/5 in all extremities. Sensory grossly intact. Cerebellar exam normal. Normal gait. Psych: Awake, alert, with orientation to person, place and time. Behavior, mood, and affect are within normal limits. 16:45 Skin: Appearance: Color: jaundiced, pale, abscess, not appreciated, cellulitis, is not appreciated, induration, is not appreciated. Vital Signs: 16:26 BP 119 / 78; Pulse 66; Resp 18; Temp 98.4; Pulse Ox 100% ; cm10 David Coma Score: 16:45 Eye Response: spontaneous(4). Motor Response: obeys commands(6). Verbal Response: loretta oriented(5). Total: 15. MDM: 16:06 Patient medically screened. loretta 16:28 Patient medically screened. loretta 16:46 Differential diagnosis: Nonspecific abd pain, gastritis, non-specific abd pain, loretta pancreatitis, Peptic Ulcer Disease, CIRRHOSIS, GASTRIC MASS. Data reviewed: vital signs, nurses notes. Consideration of Admission/Observation Escalation of care including admission/observation considered. I considered the following discharge prescriptions or medication management in the emergency department Medications were administered in the Emergency Department. See MAR. Test considered but Not performed: Labs: NO LABS , GOING TO [facility] NOW TO BE ADMITTED. Historians other than the Patient: Parent: FATHER. Care significantly affected by the following chronic conditions: Cancer, Liver Disease. Counseling: I had a detailed discussion with the patient and/or guardian regarding the historical points, exam findings, and any diagnostic results supporting the discharge/admit diagnosis, the need for outpatient follow up, for definitive care, MEDICINE, ONCOLOGY. Administered Medications: 16:37 CANCELLED (Duplicate Order): Famotidine IVP 20 mg IVP once; dilute with 10 mL 0.9% loretta NaCl; give over 2 minutes 16:38 CANCELLED (Duplicate Order): NS 0.9% IV 1000 ml IV at 1 bolus Per protocol; 1000 mL loretta bolus 16:38 CANCELLED (Duplicate Order): Ondansetron IVP 4 mg IVP once; over 2 minutes loretta 16:38 CANCELLED (Duplicate Order): morphine IVP or IV 4 mg IVP once over 4 mins loretta 16:49 Drug: morphine IM 10 mg Route: IM; Site: right deltoid; ap3 17:28 Follow up: Response: No adverse reaction bp 16:49 Drug: Promethazine IM 25 mg Route: IM; Site: left deltoid; ap3 17:28 Follow up: Response: No adverse reaction bp 16:49 Drug: Alum-Mag Hydroxide-Simeth PO Suspension (200 mg-200 mg-20 mg/5 mL) 30 ml Route: ap3 PO; 17:28 Follow up: Response: No adverse reaction bp Disposition Summary: 01/17/23 16:49 Discharge Ordered Location: Home [facility] Problem: new loretta Symptoms: have improved loretta Condition: Stable loretta Diagnosis - Epigastric abdominal tenderness loretta - Other cirrhosis of liver - KNOWN GASTRIC MASS loretta Followup: loretta - With: Private Physician - When: Upon discharge from the Emergency Department - Reason: Recheck today's complaints, Continuance of care, Re-evaluation by your physician Discharge Instructions: - Discharge Summary Sheet loretta - Abdominal Pain, Adult loretta - Cirrhosis loretta - Abdominal Pain, Adult, [id number] loretta - Vomiting, Adult loretta Forms: - Medication Reconciliation Form loretta - Thank You Letter loretta - Antibiotic Education loretta - Prescription Opioid Use loretta - Patient Portal Instructions loretta - Leadership Thank You Letter loretta Signatures: Dispatcher [employer] EDVicente Vazquez MD MD cha Prokisch, Amanda RN RN ap3 Payal Mahmood RN RN cm10 Adolfo Holman RN bp Corrections: (The following items were deleted from the chart) 16:37 16:07 Famotidine IVP 20 mg IVP once; dilute with 10 mL 0.9% NaCl; give over 2 minutes [facility] ordered. [facility] 16:38 16:07 NS 0.9% IV 1000 ml IV at 1 bolus Per protocol; 1000 mL bolus ordered. [facility] 16:38 16:07 Ondansetron IVP 4 mg IVP once; over 2 minutes ordered. [facility] 16:38 16:07 morphine IVP or IV 4 mg IVP once over 4 mins ordered. [facility] 16:38 16:07 IV Saline Lock ordered. [facility] 16:38 16:07 Labs collected and sent ordered. [facility]
[2023-01-17] MEDS ORDERED: PROMETHAZINE INJ 25 MG/ML AMP ONE (16:52)
[2023-01-17] MEDS ORDERED: MAGNES/ALUMIN/SIMET 30ML UCUP ONE (16:52)
[2023-01-17] MEDS ORDERED: MORPHINE 4 MG/ML SYR ONE (16:53)
[2023-01-17] MEDS ORDERED: MORPHINE 2 MG/ML SYR ONE (16:53)
[2023-01-17 17:42] VITALS: BP 119/78; TEMP 98.4; O2SAT 100
== END 2023-01-17 17:28 | disposition home or self-care (01) ==
LOC: ER 15:56
DX: K74.69 Other cirrhosis of liver (principal); C16.9 Malignant neoplasm of stomach, unspecified
CPT/HCPCS: J2550; J2270

== ENCOUNTER 2023-01-24 09:34 | Emergency (ER) | payer OTHER, BC ==
--- OUTSIDE RECORDS SUMMARY | 2023-01-24 09:40 | XMS REPORT | Continuity of Care Document ---
:[address] [facility] t Address [address] [place] [address] [address] [place] [address] Care Team Providers Name Role Phone MARLIN SNYDER Attending Clinician Unavailable KENRICK DECKER Attending Clinician Unavailable JAMEL NEAL Attending Clinician Unavailable MANNY FOWLER Attending Clinician Unavailable BRIAN FORDE Attending Clinician Unavailable Navjot Thakkar MD Attending Clinician Judy Martinez MD Attending Clinician MARLIN SNYDER Admitting Clinician Unavailable RUBINA MORAES Admitting Clinician Unavailable MITRA JERONIMO Admitting Clinician Unavailable Payers Payer Name Policy Type Policy Number Effective Date Expiration Date S ource [employer]ICA[employer] [id number] 2020 00:00:00 Problems Condition Condition Condition Status Onset Resolution Last Treating Co mments Source Name Details Category Date Date Treatment Clinician Date Bradycardi Bradycardi [facility] GI bleed [facility] bleed [facility] Liver mass Liver mass Disease [facility] Allergies, Adverse Reactions, Alerts Allergy Allergy Status Severity Reaction(s) Onset Inactive Treating Comm ents Source Name Type Date Date Clinician NO KNOWN Allergy Active [facility] Social History Social Habit Start Date Stop Date Quantity Comments Source History SDOH [facility] History SDOH 2022-10-21 2022-10-[address] [facility] Med 00:00:00 00:00:[address] History SDOH Housing 2022-10-21 2022-10-[address] [facility] Unable to Pay 00:00:00 00:00:[address] History SDOH Housing 2022-10-21 2022-10-[address] [facility] Lived 00:00:00 00:00:00 Medical Cent er History [facility] Housing 2022-10-21 2022-10-[address] [facility] Last Year 00:00:00 00:00:00 [facility] Sex Assigned At [address] [facility] 00:00:00 00:00:00 Medical Center Medications This patient [...] kg Heart rate 2022-10-24 07:00:00 55 /min [facility] Respiratory rate 2022-10-24 04:55:00 18 /min [facility] Oxygen saturation in 2022-10-24 04:55:00 97 /min [facility] Arterial blood by Medical Ce nter Pulse oximetry Systolic blood 2022-10-24 04:02:00 113 mm[Hg] [facility] Diastolic blood 2022-10-24 04:02:00 63 mm[Hg] [facility] Body temperature 2022-10-24 04:02:00 35.94 Carlota [facility] Body height 2022-10-23 11:07:00 180.3 cm [facility] Body weight 2022-10-23 11:07:00 87.091 kg [facility] BMI 2022-10-23 11:07:00 26.78 kg/m2 [facility] Procedures Procedure Date / Time Performing Clinician Source Performed CBC W/PLT COUNT & AUTO 2022-10-24 06:08:00 [facility] DIFFERENTIAL [facility] CBC W/PLT COUNT & AUTO 2022-10-24 06:08:00 [facility] DIFFERENTIAL [facility] MAGNESIUM 2022-10-24 05:01:00 [facility] COMPREHENSIVE METABOLIC 2022-10-24 05:01:00 Dima Berrios [facility] HEMOGLOBIN AND HEMATOCRIT 2022-10-23 15:55:00 Dima Berrios [facility] REPORT OF PROCEDURE - 2022-10-23 12:35:10 Judy Martinez [facility] ENDOSCOPY URL [facility] ENDOSCOPY, UPPER GI TRACT, 2022-10-23 11:34:00 Judy Martinez [facility] WITH BIOPSY [facility] ABORH, MANUAL 2022-10-23 08:13:00 Maria Elena Milian [facility] BASIC METABOLIC PANEL 2022-10-23 06:29:00 [facility] MAGNESIUM 2022-10-23 06:29:00 [facility] CBC W/PLT COUNT & AUTO 2022-10-23 06:29:00 [facility] DIFFERENTIAL [facility] HEPATIC FUNCTION PANEL 2022-10-23 06:29:00 [facility] TYPE AND SCREEN, AUTOMATED 2022-10-23 06:29:00 Josué Coats [facility] CBC W/PLT COUNT & AUTO 2022-10-23 06:29:00 [facility] DIFFERENTIAL [facility] LIPID PANEL 2022-10-22 04:19:00 [facility] BASIC METABOLIC PANEL 2022-10-22 04:19:00 [facility] MAGNESIUM 2022-10-22 04:19:00 [facility] CBC W/PLT COUNT & AUTO 2022-10-22 04:19:00 [facility] DIFFERENTIAL [facility] HEPATIC FUNCTION PANEL 2022-10-22 04:19:00 [facility] HEPATITIS B CORE ANTIBODY, 2022-10-22 04:19:00 Dmitry Dale [facility] HEPATITIS PANEL, ACUTE 2022-10-22 04:19:00 Suyapa [facility] HEPATITIS A ANTIBODY, IGG 2022-10-22 04:19:00 Dmitry Dale [facility] HEPATITIS B SURFACE 2022-10-22 04:19:00 Suyapa [facility] FERRITIN 2022-10-22 04:19:00 Suyapa [facility] IRON, TIBC, % SAT. (WITHOUT 2022-10-22 04:19:00 Suyapa [facility] FERRITIN) [facility] [id number], SERUM 2022-10-22 04:19:00 Suyapa [facility] ALPHA FETOPROTEIN (AFP), 2022-10-22 04:19:00 Suyapa [facility] TUMOR MARKER [facility] CARCINOEMBRYONIC ANTIGEN 2022-10-22 04:19:00 Suyapa [facility] (CEA) [facility] CBC W/PLT COUNT & AUTO 2022-10-22 04:19:00 [facility] DIFFERENTIAL [facility] ECG 12-LEAD 2022-10-21 17:09:37 [facility] ECG 12-LEAD 2022-10-21 17:09:37 Unknown, Hl7 Doctor [facility] HEPATIC FUNCTION PANEL 2022-10-21 14:42:00 [facility] BASIC METABOLIC PANEL 2022-10-21 14:42:00 [facility] HEMOGLOBIN A1C 2022-10-21 14:42:00 [facility] PROTHROMBIN TIME/INR 2022-10-21 14:42:00 [facility] CBC W/PLT COUNT & AUTO 2022-10-21 14:42:00 [facility] DIFFERENTIAL [facility] CBC W/PLT COUNT & AUTO 2022-10-21 14:42:00 [facility] Plan of Care Planned Activity Planned Date Details Comments Source Future Scheduled 2027-10-[address] [facility]00 (procedure) [code = [facility] [id number]] Future Scheduled 2023-02-[address] [...] Department ID 2022-11-21 2022-11-21 Outpatient EDDIE LIMA [facility] [id number] [facility] 00:00:00 00:00:00 KENRICK 2022-11-17 2022-11-17 [facility] [id number] [facility] 00:00:00 00:00:00 MANNY 2022-11-07 2022-11-07 Outpatient BHARAT DECKER [facility] [id number] [facility] 00:00:00 00:00:00 [facility] 2022-11-06 2022-11-06 Outpatient BHARAT DECKER [facility] [id number] SLE 12:51:54 15:40:51 [facility] 2022-11-06 2022-11-06 [facility] [id number] SLE 00:00:00 00:00:00 2022-10-21 2022-10-27 Inpatient ER [facility] [id number] [facility] 13:26:00 14:43:00 MANNY 2022-10-23 2022-10-23 Anesthesia Bijan, [facility] [id number] 11:35:00 13:04:00 Event Navjot Frost [facility] 2022-10-23 2022-10-23 [facility] [id number] 10:00:00 10:59:[address] [facility] 2022-10-21 2022-10-21 Orders [facility] [id number] 00:00:00 00:00:00 Only [facility] Results Test Description Test Time Test Comments Results Result Comments Source COMPREHENSIVE METABOLIC PANEL 2023-01-21 04:16:43 Test Item Value Reference Range Interpretation Comme nts TOTAL PROTEIN (BEAKER) 4.9 gm/dL 6.0-8.3 L (test code = 770) ALBUMIN (BEAKER) (test 3.0 g/dL 3.5-5.0 L code = 1145) ALKALINE PHOSPHATASE 591 U/L 40-150 H (BEAKER) (test code = 346) BILIRUBIN TOTAL (BEAKER) 0.7 mg/dL 0.2-1.2 (test code = 377) SODIUM (BEAKER) (test 135 meq/L 136-145 L code = 381) POTASSIUM (BEAKER) (test 4.3 meq/L 3.5-5.1 code = 379) CHLORIDE (BEAKER) (test 102 meq/L 98-107 code = 382) CO2 (BEAKER) (test code 23 meq/L 22-29 = 355) BLOOD UREA NITROGEN 15 mg/dL 7-21 (BEAKER) (test code = 354) CREATININE (BEAKER) 0.79 mg/dL 0.57-1.25 (test code = 358) GLUCOSE RANDOM (BEAKER) 72 mg/dL 70-105 (test code = 652) CALCIUM (BEAKER) (test 7.8 mg/dL 8.4-10.2 L code = 697) AST (SGOT) (BEAKER) 377 U/L 5-34 H (test code = 353) ALT (SGPT) (BEAKER) 89 U/L 6-55 H (test code = 347) EGFR (BEAKER) (test code 115 mL/min/1.73 Interpretation of eGFR values = 1092) sq m Stage Descripti on Result G1 Normal or high >=90 G2 Mildly decreased 60-8 9 G3a Mildly to moderately 45-5 9 G3b [...] s not applicable for dialysis tamika chaves Time Study Technologist ID - DENIS [id number] 04:16:02 Test Item Value Reference Range Interpretation Comments MAGNESIUM (BEAKER) (test code = 1.6 mg/dL 1.6-2.6 627) Time Study Technologist ID - DENIS WCBC W/PLT COUNT & AUTO [id number] 03:24:45 Test Item Value Reference Range Interpretation Comments WHITE BLOOD CELL COUNT (BEAKER) 2.7 K/ L 3.5-10.5 L (test code = 775) RED BLOOD CELL COUNT (BEAKER) 3.44 M/ L 4.63-6.08 L (test code = 761) HEMOGLOBIN (BEAKER) (test code = 9.5 GM/DL 13.7-17.5 L 410) HEMATOCRIT (BEAKER) (test code = 29.7 % 40.1-51.0 L 411) MEAN CORPUSCULAR VOLUME (BEAKER) 86 fL 79-92 (test code = 753) MEAN CORPUSCULAR HEMOGLOBIN 27.6 pg 25.7-32.2 (BEAKER) (test code = 751) MEAN CORPUSCULAR HEMOGLOBIN CONC 32.0 GM/DL 32.3-36.5 L (BEAKER) (test code = 752) RED CELL DISTRIBUTION WIDTH 16.6 % 11.6-14.4 H (BEAKER) (test code = 412) PLATELET COUNT (BEAKER) (test 171 K/CU MM 150-450 code = 756) MEAN PLATELET VOLUME (BEAKER) 10.0 fL 9.4-12.4 (test code = 754) NUCLEATED RED BLOOD CELLS 0 /100 WBC 0-0 (BEAKER) (test code = 413) NEUTROPHILS RELATIVE PERCENT 50 % (BEAKER) (test code = 429) LYMPHOCYTES RELATIVE PERCENT 43 % (BEAKER) (test code = 430) MONOCYTES RELATIVE PERCENT 3 % (BEAKER) (test code = 431) EOSINOPHILS RELATIVE PERCENT 2 % (BEAKER) (test code = 432) BASOPHILS RELATIVE PERCENT 1 % (BEAKER) (test code = 437) NEUTROPHILS ABSOLUTE COUNT 1.35 K/ L 1.78-5.38 L (BEAKER) (test code = 670) LYMPHOCYTES ABSOLUTE COUNT 1.16 K/ L 1.32-3.57 L (BEAKER) (test code = 414) MONOCYTES ABSOLUTE COUNT (BEAKER) 0.09 K/ L 0.30-0.82 L (test code = 415) EOSINOPHILS ABSOLUTE COUNT 0.06 K/ L 0.04-0.54 (BEAKER) (test code = 416) BASOPHILS ABSOLUTE COUNT (BEAKER) 0.03 K/ L 0.01-0.08 (test code = 417) IMMATURE GRANULOCYTES-RELATIVE 0.40 % 0.00-1.00 PERCENT (BEAKER) (test code = 2801) [id number] 06:10:23 Test Item Value Reference Range Interpretation Comments MAGNESIUM (BEAKER) (test code = 1.6 mg/dL 1.6-2.6 627) Time Study Technologist ID - ADMINCOMPREHENSIVE METABOLIC [id number] 06:10:22 Test Item Value Reference Range Interpretation Comments TOTAL PROTEIN 5.2 gm/dL 6.0-8.3 L (BEAKER) (test code = 770) ALBUMIN (BEAKER) 3.1 g/dL 3.5-5.0 L (test code = 1145) ALKALINE 554 U/L 40-150 H PHOSPHATASE (BEAKER) (test code = 346) BILIRUBIN TOTAL 0.8 mg/dL 0.2-1.2 (BEAKER) (test code = 377) SODIUM (BEAKER) 134 meq/L 136-145 L (test code = 381) POTASSIUM (BEAKER) 4.3 meq/L 3.5-5.1 (test code = 379) CHLORIDE (BEAKER) 101 meq/L 98-107 (test code = 382) CO2 (BEAKER) (test 21 meq/L 22-29 L code = 355) BLOOD UREA 13 mg/dL 7-21 NITROGEN (BEAKER) (test code = 354) CREATININE 0.87 mg/dL 0.57-1.25 (BEAKER) (test code = 358) GLUCOSE RANDOM 81 mg/dL 70-105 (BEAKER) (test code = 652) CALCIUM (BEAKER) 8.0 mg/dL 8.4-10.2 L (test code = 697) AST (SGOT) 345 U/L 5-34 H (BEAKER) (test code = [...] not appl icable for dialysis patien ts Time Study Technologist ID - ADMINCBC W/PLT COUNT & AUTO [id number] 04:42:27 Test Item Value Reference Range Interpretation Comments WHITE BLOOD CELL COUNT (BEAKER) 3.4 K/ L 3.5-10.5 L (test code = 775) RED BLOOD CELL COUNT (BEAKER) 3.30 M/ L 4.63-6.08 L (test code = 761) HEMOGLOBIN (BEAKER) (test code = 9.2 GM/DL 13.7-17.5 L 410) HEMATOCRIT (BEAKER) (test code = 28.7 % 40.1-51.0 L 411) MEAN CORPUSCULAR VOLUME (BEAKER) 87 fL 79-92 (test code = 753) MEAN CORPUSCULAR HEMOGLOBIN 27.9 pg 25.7-32.2 (BEAKER) (test code = 751) MEAN CORPUSCULAR HEMOGLOBIN CONC 32.1 GM/DL 32.3-36.5 L (BEAKER) (test code = 752) RED CELL DISTRIBUTION WIDTH 16.7 % 11.6-14.4 H (BEAKER) (test code = 412) PLATELET COUNT (BEAKER) (test 180 K/CU MM 150-450 code = 756) MEAN PLATELET VOLUME (BEAKER) 10.8 fL 9.4-12.4 (test code = 754) NUCLEATED RED BLOOD CELLS 0 /100 WBC 0-0 (BEAKER) (test code = 413) NEUTROPHILS RELATIVE PERCENT 59 % (BEAKER) (test code = 429) LYMPHOCYTES RELATIVE PERCENT 31 % (BEAKER) (test code = 430) MONOCYTES RELATIVE PERCENT 9 % (BEAKER) (test code = 431) EOSINOPHILS RELATIVE PERCENT 0 % (BEAKER) (test code = 432) BASOPHILS RELATIVE PERCENT 0 % (BEAKER) (test code = 437) NEUTROPHILS ABSOLUTE COUNT 2.01 K/ L 1.78-5.38 (BEAKER) (test code = 670) LYMPHOCYTES ABSOLUTE COUNT 1.05 K/ L 1.32-3.57 L (BEAKER) (test code = 414) MONOCYTES ABSOLUTE COUNT (BEAKER) 0.30 K/ L 0.30-0.82 (test code = 415) EOSINOPHILS ABSOLUTE COUNT 0.01 K/ L 0.04-0.54 L (BEAKER) (test code = 416) BASOPHILS ABSOLUTE COUNT (BEAKER) 0.01 K/ L 0.01-0.08 (test code = 417) IMMATURE GRANULOCYTES-RELATIVE 0.30 % 0.00-1.00 PERCENT (BEAKER) (test code = 2801) URIC [id number] 12:19:41 Test Item Value Reference Range Interpretation Comments URIC ACID (BEAKER) (test code = 7.2 mg/dL 2.6-7.2 773) Time Study Technologist ID - BV(CELLAVISION MANUAL DIFF)2023-01-19 04:40:54 Test Item Value Reference Range Interpretation Comments NEUTROPHILS - REL 77 % (CELLAVISION)(BEAKER) (test code = 2816) LYMPHOCYTES - REL 23 % (CELLAVISION)(BEAKER) (test code = 2817) NEUTROPHILS - ABS 1.46 K/ul 1.78-5.38 L (CELLAVISION)(BEAKER) (test code = 2830) LYMPHOCYTES - ABS 0.44 K/ul 1.32-3.57 L (CELLAVISION)(BEAKER) (test code = 2831) TOTAL COUNTED (BEAKER) (test code 100 = 1351) WBC MORPHOLOGY (BEAKER) (test Normal code = 487) GIANT PLATELETS (BEAKER) (test Present code = 313) POLYCHROMATOPHILLIC RBCS(BEAKER) 1+ few (test code = 478) ANISOCYTOSIS (BEAKER) (test code 1+ few = 961) MACROCYTES (BEAKER) (test code = 1+ few 964) POIKILOCYTES (BEAKER) (test code 2+ moderate = 966) SCHISTOCYTES (BEAKER) (test code 1+ few = 765) OVALOCYTES (BEAKER) (test code = 2+ moderate 477) LISA CELLS (BEAKER) (test code = 2+ moderate 474) ARTIFACT (CELLAVISION)(BEAKER) Present (test code = 3432) PLATELET CONCENTRATION Adequate (CELLAVISION)(BEAKER) (test code = 3438) Time Study Technologist ID - Dannielle Castellon comments: Slide comments:CBC W/PLT COUNT & AUTO [id number] 04:40:49 Test Item Value Reference Range Interpretation Comments WHITE BLOOD CELL COUNT (BEAKER) 1.9 K/ L 3.5-10.5 L (test code = 775) RED BLOOD CELL COUNT (BEAKER) 3.53 M/ L 4.63-6.08 L (test code = [...] code = 752) RED CELL DISTRIBUTION WIDTH 16.9 % 11.6-14.4 H (BEAKER) (test code = 412) PLATELET COUNT (BEAKER) (test 164 K/CU MM 150-450 code = 756) MEAN PLATELET VOLUME (BEAKER) 10.8 fL 9.4-12.4 (test code = 754) NUCLEATED RED BLOOD CELLS 0 /100 WBC 0-0 (BEAKER) (test code = 413) COMPREHENSIVE METABOLIC [id number] 04:21:36 Test Item Value Reference Range Interpretation Comments TOTAL PROTEIN 5.6 gm/dL 6.0-8.3 L (BEAKER) (test code = 770) ALBUMIN (BEAKER) 3.3 g/dL 3.5-5.0 L (test code = 1145) ALKALINE 696 U/L 40-150 H PHOSPHATASE (BEAKER) (test code = 346) BILIRUBIN TOTAL 0.9 mg/dL 0.2-1.2 (BEAKER) (test code = 377) SODIUM (BEAKER) 133 meq/L 136-145 L (test code = 381) POTASSIUM (BEAKER) 4.2 meq/L 3.5-5.1 (test code = 379) CHLORIDE (BEAKER) 100 meq/L 98-107 (test code = 382) CO2 (BEAKER) (test 20 meq/L 22-29 L code = 355) BLOOD UREA 10 mg/dL 7-21 NITROGEN (BEAKER) (test code = 354) CREATININE 0.85 mg/dL 0.57-1.25 (BEAKER) (test code = 358) GLUCOSE RANDOM 142 mg/dL 70-105 H (BEAKER) (test code = 652) CALCIUM (BEAKER) 8.5 mg/dL 8.4-10.2 (test code = 697) AST (SGOT) 446 U/L 5-34 H (BEAKER) (test code = 353) ALT (SGPT) 102 U/L 6-55 H (BEAKER) (test code = 347) EGFR (BEAKER) 113 Interpretatio n of eGFR [...] not appl icable for dialysis patien ts Time Study Technologist ID - [id number] 04:21:36 Test Item Value Reference Range Interpretation Comments MAGNESIUM (BEAKER) (test code = 1.4 mg/dL 1.6-2.6 L 627) Time Study Technologist ID - MARCOCOMPREHENSIVE METABOLIC [id number] 15:40:59 Test Item Value Reference Range Interpretation Comments TOTAL PROTEIN 5.6 gm/dL 6.0-8.3 L (BEAKER) (test code = 770) ALBUMIN (BEAKER) 3.4 g/dL 3.5-5.0 L (test code = 1145) ALKALINE 696 U/L 40-150 H PHOSPHATASE (BEAKER) (test code = 346) BILIRUBIN TOTAL 0.9 mg/dL 0.2-1.2 (BEAKER) (test code = 377) SODIUM (BEAKER) 134 meq/L 136-145 L (test code = 381) POTASSIUM (BEAKER) 4.3 meq/L 3.5-5.1 (test code = 379) CHLORIDE (BEAKER) 100 meq/L 98-107 (test code = 382) CO2 (BEAKER) (test 22 meq/L 22-29 code = 355) BLOOD UREA 12 mg/dL 7-21 NITROGEN (BEAKER) (test code = 354) CREATININE 0.86 mg/dL 0.57-1.25 (BEAKER) (test code = 358) GLUCOSE RANDOM 67 mg/dL 70-105 L (BEAKER) (test code = 652) CALCIUM (BEAKER) 8.2 mg/dL 8.4-10.2 L (test code = 697) AST (SGOT) 441 U/L 5-34 H (BEAKER) (test code = 353) ALT (SGPT) 97 U/L 6-55 H (BEAKER) (test code = 347) EGFR (BEAKER) 113 Interpretatio n of eGFR [...] not appl icable for dialysis patien ts Time Study Technologist ID - ADMINURIC [id number] 15:40:59 Test Item Value Reference Range Interpretation Comments URIC ACID (BEELIZ) (test code = 7.6 mg/dL 2.6-7.2 H 773) Time Study Technologist ID - ADMINXR CHEST 1 VIEW PORTABLE / [id number] 13:56:07 [facility] : 1980 Sex: MCLINICAL HISTORY: PICC tip location verification. TECHNIQUE: 1 view of the chest.COMPARISON: 11/08/2022IMPRESSION:The tip of the right PICC line is just below the cavoatrial junction.There are no focal infiltrates oreffusions. The cardiomediastinalsilhouette is within normal limits for size. Electronically Signed By: Manas Taylor01/18/2023 13:58 CDTWorkstation Name: [id number] COMPREHENSIVE METABOLIC [id number] 09:39:15 Test Item Value Reference Range Interpretation Comments TOTAL PROTEIN 6.1 gm/dL 6.0-8.3 Specimen moder ately (BEAKER) (test hemolyzed code = 770) ALBUMIN (BEAKER) 3.3 g/dL 3.5-5.0 L Specimen mo derately (test code = 1145) hemolyzed ALKALINE 694 U/L 40-150 H PHOSPHATASE (BEAKER) (test code = 346) BILIRUBIN TOTAL 0.9 mg/dL 0.2-1.2 Specimen mod erately (BEAKER) (test hemolyzed code = 377) SODIUM (BEAKER) 136 meq/L 136-145 (test code = 381) POTASSIUM (BEAKER) 5.2 meq/L 3.5-5.1 H Specimen moderately (test code = 379) hemolyzed CHLORIDE (BEAKER) 101 meq/L 98-107 (test code = 382) CO2 (BEAKER) (test 21 meq/L 22-29 L code = 355) BLOOD UREA 12 mg/dL 7-21 NITROGEN (BEAKER) (test code = 354) CREATININE 0.92 mg/dL 0.57-1.25 Specimen modera tely (BEAKER) (test hemolyzed code = 358) GLUCOSE RANDOM 64 mg/dL 70-105 L (BEAKER) (test code = 652) CALCIUM (BEAKER) 8.5 mg/dL 8.4-10.2 (test code = 697) AST (SGOT) 462 U/L 5-34 H Specimen modera tely (BEAKER) (test hemolyzed code = 353) ALT (SGPT) 101 U/L 6-55 H Specimen modera tely (BEAKER) (test hemolyzed code = 347) EGFR (BEAKER) 108 Interpretatio [...] not appl icable for dialysis patien ts Time Study Technologist ID - [id number] 09:39:14 Test Item Value Reference Range Interpretation Comments PHOSPHORUS (BEAKER) 4.0 mg/dL 2.3-4.7 Specimen moderately (test code = 604) hemolyzed Time Study Technologist ID - ADMURIC [id number] 09:39:14 Test Item Value Reference Range Interpretation Comments URIC ACID (BEAKER) 8.1 mg/dL 2.6-7.2 H Specimen moderately (test code = 773) hemolyzed Time Study Technologist ID - [id number] 09:39:13 Test Item Value Reference Range Interpretation Comments MAGNESIUM (BEAKER) 1.6 mg/dL 1.6-2.6 Specimen moderately (test code = 627) hemolyzed Time Study Technologist ID - ADMCBC W/PLT COUNT & AUTO [id number] 08:50:53 Test Item Value Reference Range Interpretation Comments WHITE BLOOD CELL COUNT (BEAKER) 2.6 K/ L 3.5-10.5 L (test code = 775) RED BLOOD CELL COUNT (BEAKER) 3.62 M/ L 4.63-6.08 L (test code = 761) HEMOGLOBIN (BEAKER) (test code = 10.2 GM/DL 13.7-17.5 L 410) HEMATOCRIT (BEAKER) (test code = 31.5 % 40.1-51.0 L 411) MEAN CORPUSCULAR VOLUME (BEAKER) 87 fL 79-92 (test code = 753) MEAN CORPUSCULAR HEMOGLOBIN 28.2 pg 25.7-32.2 (BEAKER) (test code = 751) MEAN CORPUSCULAR HEMOGLOBIN CONC 32.4 GM/DL 32.3-36.5 (BEAKER) (test code = 752) RED CELL DISTRIBUTION WIDTH 17.2 % 11.6-14.4 H (BEAKER) (test code = 412) PLATELET COUNT (BEAKER) (test 197 K/CU MM 150-450 code = 756) MEAN PLATELET VOLUME (BEAKER) 10.3 fL 9.4-12.4 (test code = 754) NUCLEATED RED BLOOD CELLS 0 /100 WBC 0-0 (BEAKER) (test code = 413) NEUTROPHILS RELATIVE PERCENT 45 % (BEAKER) (test code = 429) LYMPHOCYTES RELATIVE PERCENT 41 % (BEAKER) (test code = 430) MONOCYTES RELATIVE PERCENT 11 % (BEAKER) (test code = 431) EOSINOPHILS RELATIVE PERCENT 2 % (BEAKER) (test code = 432) BASOPHILS RELATIVE PERCENT 1 % (BEAKER) (test code = 437) NEUTROPHILS ABSOLUTE COUNT 1.17 K/ L 1.78-5.38 L (BEAKER) (test code = 670) LYMPHOCYTES ABSOLUTE COUNT 1.05 K/ L 1.32-3.57 L (BEAKER) (test code = 414) MONOCYTES ABSOLUTE COUNT (BEAKER) 0.29 K/ L 0.30-0.82 L (test code = 415) EOSINOPHILS ABSOLUTE COUNT 0.04 K/ L 0.04-0.54 (BEAKER) (test code = 416) BASOPHILS ABSOLUTE COUNT (BEAKER) 0.02 K/ L 0.01-0.08 (test code = 417) IMMATURE GRANULOCYTES-RELATIVE 0.80 % 0.00-1.00 PERCENT (BEAKER) (test code = 2801) PROTHROMBIN [id number] 08:48:36 Test Item Value Reference Range Interpretation Comments PROTIME (BEAKER) 14.0 seconds 11.9-14.2 (test code = 759) INR (BEAKER) (test 1.11 See_Comment [Automat ed message] code = 370) The system [employer] generated this result transmitted ref erence range: <=5.90. The reference range was not used to int erpret this result as normal/abnormal . RECOMMENDED COUMADIN/WARFARIN INR THERAPY RANGESSTANDARD DOSE: 2.0 - 3.0 Includes: PROPHYLAXIS for venous thrombosis, systemic embolization; TREATMENT for venous thrombosis and/or pulmonary embolus.HIGH RISK: Target INR is 2.5-3.5 for patients with mechanical heart valves.CBC W/PLT COUNT & AUTO [id number] 21:23:37 Test Item Value Reference Range Interpretation Comments WHITE BLOOD CELL COUNT (BEAKER) 2.3 K/ L 3.5-10.5 L (test code = 775) RED BLOOD CELL COUNT (BEAKER) 3.07 M/ L 4.63-6.08 L (test code = 761) HEMOGLOBIN (BEAKER) (test code = 8.7 GM/DL 13.7-17.5 L 410) HEMATOCRIT (BEAKER) (test code = 27.3 % 40.1-51.0 L 411) MEAN CORPUSCULAR VOLUME (BEAKER) 89 fL 79-92 (test code = 753) MEAN CORPUSCULAR HEMOGLOBIN 28.3 pg 25.7-32.2 (BEAKER) (test code = 751) MEAN CORPUSCULAR HEMOGLOBIN CONC 31.9 GM/DL 32.3-36.5 L (BEAKER) (test code = 752) RED CELL DISTRIBUTION WIDTH 17.2 % 11.6-14.4 H (BEAKER) (test code = 412) PLATELET COUNT (BEAKER) (test 116 K/CU MM 150-450 L code = 756) MEAN PLATELET VOLUME (BEAKER) 11.5 fL 9.4-12.4 (test code = 754) NUCLEATED RED BLOOD CELLS 1 /100 WBC 0-0 H (BEAKER) (test code = 413) NEUTROPHILS RELATIVE PERCENT 50 % (BEAKER) (test code = 429) LYMPHOCYTES RELATIVE PERCENT 37 % (BEAKER) (test code = 430) MONOCYTES RELATIVE PERCENT 11 % (BEAKER) (test code = 431) EOSINOPHILS RELATIVE PERCENT 1 % (BEAKER) (test code = 432) BASOPHILS RELATIVE PERCENT 0 % (BEAKER) (test code = 437) NEUTROPHILS ABSOLUTE COUNT 1.14 K/ L 1.78-5.38 L (BEAKER) (test code = 670) LYMPHOCYTES ABSOLUTE COUNT 0.84 K/ L 1.32-3.57 L (BEAKER) (test code = 414) MONOCYTES ABSOLUTE COUNT (BEAKER) 0.26 K/ L 0.30-0.82 L (test code = 415) EOSINOPHILS ABSOLUTE COUNT 0.02 K/ L 0.04-0.54 L (BEAKER) (test code = 416) BASOPHILS ABSOLUTE COUNT (BEAKER) 0.01 K/ L 0.01-0.08 (test code = 417) IMMATURE GRANULOCYTES-RELATIVE 0.90 % 0.00-1.00 PERCENT (BEAKER) (test code = 2801) ALPHA FETOPROTEIN (AFP), TUMOR [id number] 17:18:51 Test Item Value Reference Range Interpretation Comments ALPHA-FETOPROTEIN (BEAKER) (test code > ng/mL <10.0 H = 1094) Time Study Technologist ID - ADMINOperator ID - ADMINOperator ID - ADMINOperator ID - ADMIN COMPREHENSIVE METABOLIC [id number] 09:38:30 Test Item Value Reference Range Interpretation Comments TOTAL PROTEIN 6.2 gm/dL 6.0-8.3 (BEAKER) (test code = 770) ALBUMIN (BEAKER) 3.9 g/dL 3.5-5.0 (test code = 1145) ALKALINE 827 U/L 40-150 H PHOSPHATASE (BEAKER) (test code = 346) BILIRUBIN TOTAL 0.9 mg/dL 0.2-1.2 (BEAKER) (test code = 377) SODIUM (BEAKER) 138 meq/L 136-145 (test code = 381) POTASSIUM (BEAKER) 4.8 meq/L 3.5-5.1 (test code = 379) CHLORIDE (BEAKER) 104 meq/L 98-107 (test code = 382) CO2 (BEAKER) (test 27 meq/L 22-29 code = 355) BLOOD UREA 25 mg/dL 7-21 H NITROGEN (BEAKER) (test code = 354) CREATININE 1.01 mg/dL 0.57-1.25 (BEAKER) (test code = 358) GLUCOSE RANDOM 90 mg/dL 70-105 (BEAKER) (test code = 652) CALCIUM (BEAKER) 9.0 mg/dL 8.4-10.2 (test code = 697) AST (SGOT) 457 U/L 5-34 H (BEAKER) (test code = 353) ALT (SGPT) 112 U/L 6-55 H (BEAKER) (test code = 347) EGFR (BEAKER) 97 Interpretatio n of eGFR (test code = [...] not appl icable for dialysis patien ts [id number] 09:34:37 Test Item Value Reference Range Interpretation Comments MAGNESIUM (BEAKER) (test code = 1.5 mg/dL 1.6-2.6 L 627) HCG, QUANTITATIVE, [id number] 09:30:32 Test Item Value Reference Range Interpretation [...] code = 2801) ALPHA FETOPROTEIN (AFP), TUMOR [id number] 15:59:30 Test Item Value Reference Range Interpretation Comments ALPHA-FETOPROTEIN (BEAKER) (test code > ng/mL <10.0 H = 1094) Time Study Technologist ID - anish bOperator ID - anish bOperator ID - anish bCARCINOEMBRYONIC ANTIGEN (CEA)2023-01-09 15:04:16 Test Item Value Reference Range Interpretation Comments CARCINOEMBRYONIC ANTIGEN (BEAKER) 15.1 ng/mL 0.0-5.0 H (test code = 685) Time Study Technologist ID - anish bLACTATE DEHYDROGENASE (LDH)2023-01-09 12:48:48 Test Item Value Reference Range Interpretation Comments LACTATE DEHYDROGENASE (BEAKER) (test > U/L 125-220 H code = 635) COMPREHENSIVE METABOLIC [id number] 12:39:05 Test Item Value Reference Range Interpretation [...] not appl icable for dialysis patien ts [id number] 12:37:31 Test Item Value Reference Range Interpretation Comments PHOSPHORUS (BEAKER) (test code = 3.6 mg/dL 2.3-4.7 604) CBC W/PLT COUNT & AUTO [id number] 12:21:24 Test Item Value Reference Range Interpretation [...] code = 2801) ALPHA FETOPROTEIN (AFP), TUMOR [id number] 16:43:27 Test Item Value Reference Range Interpretation Comments ALPHA-FETOPROTEIN (BEAKER) (test code > ng/mL <10.0 H = 1094) Time Study Technologist ID - ADMINOperator ID - ADMINOperator ID [...] (test code Normal = 762) COMPREHENSIVE METABOLIC [id number] 09:36:30 Test Item Value Reference Range Interpretation [...] not appl icable for dialysis patien ts [id number] 09:28:58 Test Item Value Reference Range Interpretation Comments MAGNESIUM (BEAKER) (test code = 1.7 mg/dL 1.6-2.6 627) CBC W/PLT COUNT & AUTO [id number] 09:23:38 Test Item Value Reference Range Interpretation [...] 9.4-12.4 (test code = 754) COMPREHENSIVE METABOLIC [id number] 09:40:11 Test Item Value Reference Range Interpretation [...] not appl icable for dialysis patien ts [id number] 09:24:23 Test Item Value Reference Range Interpretation Comments MAGNESIUM (BEAKER) (test code = 1.9 mg/dL 1.6-2.6 627) CBC W/PLT COUNT & AUTO [id number] 09:04:00 Test Item Value Reference Range Interpretation [...] code = 2801) ALPHA FETOPROTEIN (AFP), TUMOR [id number] 16:54:52 Test Item Value Reference Range Interpretation Comments ALPHA-FETOPROTEIN (BEAKER) (test code > ng/mL <10.0 H = 1094) Time Study Technologist ID - ADMINOperator ID - ADMINOperator ID - ADMINOperator ID - ADMIN BASIC METABOLIC [id number] 13:58:04 Test Item Value Reference Range Interpretation [...] (test code = 697) EGFR (BEAKER) 103 Interpretati on of eGFR (test code = [...] not appl icable for dialysis patien ts Time Study Technologist ID - ADMINHEPATIC FUNCTION [id number] 13:58:04 Test Item Value Reference Range Interpretation [...] code = 58 U/L 6-55 H 347) Time Study Technologist ID - ADMINCBC W/PLT COUNT & AUTO [id number] 11:19:47 Test Item Value Reference Range Interpretation [...] (BEAKER) (test code = 2801) HEPATIC FUNCTION [id number] 06:52:32 Test Item Value Reference Range Interpretation [...] code = 64 U/L 6-55 H 347) Time Study Technologist ID - MMURIC [id number] 06:52:31 Test Item Value Reference Range Interpretation Comments URIC ACID (BEAKER) (test code = 2.7 mg/dL 2.6-7.2 773) Time Study Technologist ID - MMBASIC METABOLIC [id number] 06:52:30 Test Item Value Reference Range Interpretation [...] not appl icable for dialysis patien ts Time Study Technologist ID - [id number] 06:52:30 Test Item Value Reference Range Interpretation Comments PHOSPHORUS (BEAKER) (test code = 3.4 mg/dL 2.3-4.7 604) Time Study Technologist ID - MMCBC W/PLT COUNT & AUTO [id number] 06:20:55 Test Item Value Reference Range Interpretation [...] % 0.00-1.00 PERCENT (BEAKER) (test code = 2809) BASIC METABOLIC [id number] 22:14:17 Test Item Value Reference Range Interpretation [...] not appl icable for dialysis patien ts Time Study Technologist ID - ADMINURIC [id number] 22:12:41 Test Item Value Reference Range Interpretation Comments URIC ACID (BEAKER) 2.6 mg/dL 2.6-7.2 Specimen slightly (test code = 773) hemolyzed Time Study Technologist ID - [id number] 22:12:40 Test Item Value Reference Range Interpretation Comments PHOSPHORUS (BEAKER) 3.8 mg/dL 2.3-4.7 Specimen slightly (test code = 604) hemolyzed Time Study Technologist ID - ADMINBASIC METABOLIC [id number] 17:01:12 Test Item Value Reference Range Interpretation [...] not appl icable for dialysis patien ts Time Study Technologist ID - [id number] 16:58:24 Test Item Value Reference Range Interpretation Comments PHOSPHORUS (BEAKER) (test code = 2.8 mg/dL 2.3-4.7 604) Time Study Technologist ID - ADMINURIC [id number] 16:58:24 Test Item Value Reference Range Interpretation Comments URIC ACID (BEAKER) (test code = 2.1 mg/dL 2.6-7.2 L 773) Time Study Technologist ID - ADMINURIC [id number] 06:57:40 Test Item Value Reference Range Interpretation Comments URIC ACID (BEAKER) (test code = 3.1 mg/dL 2.6-7.2 773) Time Study Technologist ID - MMHEPATIC FUNCTION [id number] 06:57:40 Test Item Value Reference Range Interpretation [...] code = 65 U/L 6-55 H 347) Time Study Technologist ID - MMBASIC METABOLIC [id number] 06:57:39 Test Item Value Reference Range Interpretation [...] not appl icable for dialysis patien ts Time Study Technologist ID - [id number] 06:57:39 Test Item Value Reference Range Interpretation Comments PHOSPHORUS (BEAKER) (test code = 3.6 mg/dL 2.3-4.7 604) Time Study Technologist ID - MMCBC W/PLT COUNT & AUTO [id number] 06:51:25 Test Item Value Reference Range Interpretation [...] (BEAKER) (test code = 2801) BASIC METABOLIC [id number] 09:04:16 Test Item Value Reference Range Interpretation [...] not appl icable for dialysis patien ts Time Study Technologist ID - [id number] 09:04:15 Test Item Value Reference Range Interpretation Comments PHOSPHORUS (BEAKER) 3.1 mg/dL 2.3-4.7 Specimen slightly (test code = 604) hemolyzed Time Study Technologist ID - MMURIC [id number] 09:04:15 Test Item Value Reference Range Interpretation Comments URIC ACID (BEAKER) 4.1 mg/dL 2.6-7.2 Specimen slightly (test code = 773) hemolyzed Time Study Technologist ID - [id number] 05:03:52 Test Item Value Reference Range Interpretation Comments PHOSPHORUS (BEAKER) (test code = 3.7 mg/dL 2.3-4.7 604) Time Study Technologist ID - MMURIC [id number] 05:03:52 Test Item Value Reference Range Interpretation Comments URIC ACID (BEAKER) (test code = 4.7 mg/dL 2.6-7.2 773) Time Study Technologist ID - MMCOMPREHENSIVE METABOLIC [id number] 05:03:51 Test Item Value Reference Range Interpretation [...] not appl icable for dialysis patien ts Time Study Technologist ID - MMCBC W/PLT COUNT & AUTO [id number] 04:40:21 Test Item Value Reference Range Interpretation [...] 2801) XR CHEST 1 VIEW PORTABLE / [id number] 17:54:25 [facility] : 1980 Sex: MXR [...] (test code Normal = 486) HEPATITIS B [id number] 13:30:00 Test Item Value Reference Range Interpretation Comments HEPATITIS B CORE TOTAL ANTIBODY Nonreactive Nonreactive (BEAKER) (test code = 497) HEPATITIS B SURFACE ANTIBODY < mIU/mL <8.0 (BEAKER) (test code = 647) HEPATITIS B SURFACE ANTIGEN (2) Nonreactive Nonreactive (BEAKER) (test code = 2585) Time Study Technologist ID - ADMINHEPATITIS C [id number] 13:29:13 Test Item Value Reference Range Interpretation Comments HEPATITIS C ANTIBODY (BEAKER) Nonreactive Nonreactive (test code = 367) Time Study Technologist ID - [id number] 13:04:16 Test Item Value Reference Range Interpretation Comments MAGNESIUM (BEAKER) (test code = 1.8 mg/dL 1.6-2.6 627) Time Study Technologist ID - edCOMPREHENSIVE METABOLIC [id number] 13:04:15 Test Item Value Reference Range Interpretation [...] not appl icable for dialysis patien ts Time Study Technologist ID - edCBC WITH PLATELET COUNT + MANUAL [id number] 12:48:49 Test Item Value Reference Range Interpretation [...] 0-0 (BEAKER) (test code = 413) SARS-COV2/RT-PCR ([facility])2022-11-08 09:48:49 Test Item Value Reference Range Interpretation Comments SARS-COV2/RT-PCR Negative Negative The SARS-Co V-2 target (test code = nucleic acids a re not [id number]) detected in thi s specimen. Negative result [...] revoked sooner. Fact Sheet for Healthcare Providers: https://www.[employer] m/Documents/Xpert%20Xpress%20SARS%20CoV-2/Fact%20Sheets/3023802%83VHCW-AIE-8%20 HEALTHCARE%20PROVIDERS%20FACT%20SHEET.pdf Fact Sheet for Healthcare Patients: https://www.[employer]/Documents/Xpert%20Xp ress%20SARS%20CoV-2/Fact%20Sheets/3023801%46TKHJ-HEY-3%20PATIENT%20FACT%20SHEET .pdfCARCINOEMBRYONIC ANTIGEN (CEA)2022-11-06 18:53:46 Test Item Value Reference Range Interpretation Comments CARCINOEMBRYONIC ANTIGEN (BEAKER) 5.3 ng/mL 0.0-5.0 H (test code = 685) Time Study Technologist ID - MMCOMPREHENSIVE METABOLIC [id number] 16:39:54 Test Item Value Reference Range Interpretation [...] patien ts CBC W/PLT COUNT & AUTO [id number] 16:21:39 Test Item Value Reference Range Interpretation [...] PERCENT (BEAKER) (test code = 2801) TISSUE [id number] 16:02:43Surgical Pathology Report Case: [id number] Authorizing Provider: Dima Berrios MD Collected: 10/26/2022 03:07 PM Ordering Location: [address] Received: 10/26/2022 04:53 PM Service Pathologist: Sherry Andrade MD Specimen: Biopsy, Liver Liver, mass, core needle biopsy: - Metastatic poorly differentiated neuroendocrine carcinoma, WHO grade 3; see comment Signing Pathologist Direct Phone Line: [phone] signed by Sherry Andrade MD on 11/01/2022 [...] is needed. The patient's prior gastric biopsy ([id number], H&E) was concurrently reviewed, and the tumor shows similar histomorphology. Dr. Edvin Goldberg reviewed the case and agrees.Block A2 has adequate tumor cellularity for additional ancillary studies.References:Antonino WALLER, Dariusz T, Carina C, Bassem L. Metastatic neuroendocrine carcinoma presenting as multifocal liver lesions with elevated alpha-fetoprotein. Clin Case Rep. 2018 May 16;7(2):251-253. doi: 10.1002/ccr3.1956. PMID: 99196116; PMCID: [id number], 38227, 16057v8Hlmh is a 42-year-old male with history of [...] evaluated Immunohistochemistry technical testing was performed at [facility], Pathology Laboratory where it was developed [...] qualified to perform high complexity clinical laboratory testing.[facility], Department of Pathology, [address] [place] [address], [facility], [address] [place] [address], [facility]lcj[facility], Department of [facility]ology, [address] [place] [address], OXYUQM [id number] 09:06:35Surgical Pathology Report Case: [id number] Authorizing Provider: Judy Martinez, Collected: 10/23/2022 11:56 AM Ordering Location: [address] Received: 10/23/2022 01:29 PM Service Pathologist: Suzan Teixeira MD Specimens: A) - Biopsy, Gastric, random bxs B) - Biopsy, Gastric, bxs gastric mass A. STOMACH, RANDOM BIOPSIES: - CHEMICAL/REACTIVE GASTROPATHY - PPI EFFECT, MILDB. STOMACH, BIOPSIES OF MASS: - NEUROENDOCRINE CARCINOMA, SMALL CELL TYPE Signing Pathologist Direct Phone Line: [phone] signed by Suzan Bagley MD on 11/01/2022 at 9:06 AMPreliminary result electronically signed by Suzan Teixeira MD on 10/27/2022 at 11:55 AMPreliminary result electronically signed by Suzan Teixeira MD on 10/26/2022 at 11:55 AMThe finding was communicated via secure email with Judy Edmonds <[email or web address] GI Department at 11:52 on October 26, [id number], [id number], [id number] hemorrhage associated with gastritisA. Biopsy, GastricReceived in [...] evaluated and the report was issued at [facility] (CLIA#[id number]), [address] [place] [address].The interpretation of this case included the useof immunohistochemistry or special stains.Control Slides Examined: In-house known positive controls were evaluated along with the test tissue. These control slides run alongside of the patients sample show appropriate staining. Internal positive and negative controls when available are evaluated Immunohistochemistry technical testing was performed at [facility], Pathology Laboratory where it was developed [...] perform high complexity clinical laboratory testing.U/S, BIOPSY, [id number] 12:01:00Reason for exam:->gastric mass and liver mass with afp >26662Cbsfwr this be performed at the bedside?->No [facility] : 1980 Sex: MFINAL REPORT Procedure: Liver mass core biopsy Pre/post-procedure diagnosis: Liver mass Party Host: Bebo Low MD Assistants: none Sedation: Moderate [...] MDReport Verified Date/Time: 10/30/2022 12:01:04 C METABOLIC [id number] 05:48:04 Test Item Value Reference Range Interpretation [...] not appl icable for dialysis patien ts Time Study Technologist ID - [id number] 05:48:04 Test Item Value Reference Range Interpretation Comments MAGNESIUM (BEAKER) (test code = 1.7 mg/dL 1.6-2.6 627) Time Study Technologist ID - MMCBC W/PLT COUNT & AUTO [id number] 05:27:57 Test Item Value Reference Range Interpretation [...] 0.00-1.00 PERCENT (BEAKER) (test code = 2801) [id number] 06:55:04 Test Item Value Reference Range Interpretation Comments MAGNESIUM (BEAKER) (test code = 1.6 mg/dL 1.6-2.6 627) Time Study Technologist ID - BSBASIC METABOLIC [id number] 06:55:03 Test Item Value Reference Range Interpretation [...] not appl icable for dialysis patien ts Time Study Technologist ID - BSPROTHROMBIN TIME/[id number] 06:18:33 Test Item Value Reference Range Interpretation [...] mechanical heart valves.CBC W/PLT COUNT & AUTO [id number] 06:07:18 Test Item Value Reference Range Interpretation [...] (BEAKER) (test code = 2801) COMPREHENSIVE METABOLIC [id number] 07:14:31 Test Item Value Reference Range Interpretation [...] not appl icable for dialysis patien ts Time Study Technologist ID - DENIS [id number] 07:14:31 Test Item Value Reference Range Interpretation Comments MAGNESIUM (BEAKER) (test code = 1.5 mg/dL 1.6-2.6 L 627) Time Study Technologist ID - DENIS WCBC W/PLT COUNT & AUTO [id number] 06:55:14 Test Item Value Reference Range Interpretation [...] (test code = 2801) ROSALINDA TITER AND [id number] 13:55:32 Test Item Value Reference Range Interpretation [...] method.Test performed by IFA method.CT, CHEST, WITH [id number] 13:00:00Unlisted Reason for Exam - Click Yes and Enter Reason Below->No[facility] : 1980 Sex: [...] Olveraort Verified Date/Time: 10/24/2022 13:00:41 Reading Location: [address] Consult Reading Room [place], [id number] 13:00:00Unlisted Reason for Exam - Click Yes and Enter Reason Below->NoProtocol Please Specify:->Standard ProtocolWill this procedure require oral contrast?->No [facility] : 1980 Sex: MFINAL REPORT [...] Olveraort Verified Date/Time: 10/24/2022 13:00:41 Reading Location: [facility] B1 C013X Ortho Consult Reading Room CBC [...] 0.00-1.00 PERCENT (BEAKER) (test code = 2801) [id number] 05:38:34 Test Item Value Reference Range Interpretation Comments MAGNESIUM (BEAKER) (test code = 1.5 mg/dL 1.6-2.6 L 627) Time Study Technologist ID - MMCOMPREHENSIVE METABOLIC [id number] 05:38:33 Test Item Value Reference Range Interpretation [...] not appl icable for dialysis patien ts Time Study Technologist ID - MMHEMOGLOBIN AND [id number] 16:05:28 Test Item Value Reference Range Interpretation Comments HEMOGLOBIN (BEAKER) (test code = 14.4 GM/DL 13.7-17.5 410) HEMATOCRIT (BEAKER) (test code = 44.3 % 40.1-51.0 411) Time Study Technologist ID - [id number] 09:39:18 Test Item Value Reference Range Interpretation Comments MAGNESIUM (BEAKER) 1.6 mg/dL 1.6-2.6 Specimen slightly (test code = 627) hemolyzed Time Study Technologist ID - MMBASIC METABOLIC [id number] 09:39:18 Test Item Value Reference Range Interpretation [...] not appl icable for dialysis patien ts Time Study Technologist ID - MMHEPATIC FUNCTION [id number] 09:39:18 Test Item Value Reference Range Interpretation [...] Specimen slightly (test code = 347) hemolyzed Time Study Technologist ID - MMCBC W/PLT COUNT & AUTO [id number] 06:38:29 Test Item Value Reference Range Interpretation [...] PERCENT (BEAKER) (test code = 2801) HEMOGLOBIN [id number] 08:56:25 Test Item Value Reference Range Interpretation Comments HEMOGLOBIN A1C 5.7 % See_Comment H [Automated m essage] ELECTROPHORESIS (BEAKER) The system which (test code = 4269) generated this result transmitted ref erence range: <=5.6%. The reference range was not used to int erpret this result as normal/abnormal . "The A1c is measured using a NGSP-certified method. HbA1c value equal to or greater than 6.5% as thediagnosis cutoff for diabetes. An HbA1c value of 5.7- 6.4% indicates increased risk for diabetes (prediabetes)."Time Study Technologist ID - ADM [id number] 07:09:54 Test Item Value Reference Range Interpretation Comments FERRITIN (BEAKER) (test code = 159.87 ng/mL 5.00-275.00 361) Time Study Technologist ID - MARCOALPHA FETOPROTEIN (AFP), TUMOR [id number] 06:32:10 Test Item Value Reference Range Interpretation Comments ALPHA-FETOPROTEIN (BEAKER) 97884.5 ng/mL <10.0 H (test code = 1094) Time Study Technologist ID - ADMINOperator ID - ADMINHEPATITIS B SURFACE [id number] 06:31:52 Test Item Value Reference Range Interpretation Comments HEPATITIS B SURFACE ANTIBODY < mIU/mL <8.0 (BEAKER) (test code = 647) Time Study Technologist ID - ADMINHEPATITIS A ANTIBODY, [id number] 06:31:00 Test Item Value Reference Range Interpretation Comments HEPATITIS A IGG ANTIBODY (BEAKER) Nonreactive Nonreactive (test code = 2797) Time Study Technologist ID - ADMINCARCINOEMBRYONIC ANTIGEN (CEA)2022-10-22 06:30:59 Test Item Value Reference Range Interpretation Comments CARCINOEMBRYONIC ANTIGEN (BEAKER) 5.6 ng/mL 0.0-5.0 H (test code = 685) Time Study Technologist ID - ADMINHEPATITIS B CORE ANTIBODY, [id number] 06:30:59 Test Item Value Reference Range Interpretation Comments HEPATITIS B CORE TOTAL ANTIBODY Nonreactive Nonreactive (BEAKER) (test code = 497) Time Study Technologist ID - ADMINHEPATITIS PANEL, [id number] 06:03:10 Test Item Value Reference Range Interpretation Comments HEPATITIS A IGM ANTIBODY (BEAKER) Nonreactive Nonreactive (test code = 498) HEPATITIS B CORE IGM ANTIBODY Nonreactive Nonreactive (BEAKER) (test code = 645) HEPATITIS C ANTIBODY (BEAKER) Nonreactive Nonreactive (test code = 367) HEPATITIS B SURFACE ANTIGEN (2) Nonreactive Nonreactive (BEAKER) (test code = 2585) Time Study Technologist ID - [id number] 05:54:41 Test Item Value Reference Range Interpretation Comments MAGNESIUM (BEAKER) (test code = 1.7 mg/dL 1.6-2.6 627) Time Study Technologist ID - MARCOLIPID [id number] 05:54:41 Test Item Value Reference Range Interpretation [...] Borderline 130-159 High 160-189 Very High >=190 Time Study Technologist ID - MARCOHEPATIC FUNCTION [id number] 05:54:41 Test Item Value Reference Range Interpretation [...] (test code = 54 U/L 6-55 347) Time Study Technologist ID - MARCOBASIC METABOLIC [id number] 05:54:40 Test Item Value Reference Range Interpretation [...] not appl icable for dialysis patien ts Time Study Technologist ID - MARCOIRON, TIBC, % SAT. (WITHOUT FERRITIN)2022-10-22 05:39:20 Test Item Value Reference Range Interpretation Comments IRON (BEAKER) (test code = 547) 61.0 ug/dL 40.0-160.0 TOTAL IRON BINDING CAPACITY 273 ug/dL 250-450 (BEAKER) (test code = 769) IRON % SATURATION (2) (BEAKER) 22 % 20-55 (test code = 2590) Time Study Technologist ID - CHMAOKFKAA-5-[id number] 05:39:03 Test Item Value Reference Range Interpretation Comments ALPHA-1 ANTITRYPSIN (BEAKER) 211.70 mg/dL 90.00-200.00 H (test code = 502) Time Study Technologist ID - ADMINCBC W/PLT COUNT & AUTO [id number] 05:15:17 Test Item Value Reference Range Interpretation [...] (BEAKER) (test code = 2801) HEPATIC FUNCTION [id number] 15:14:35 Test Item Value Reference Range Interpretation [...] Specimen slightly (test code = 347) hemolyzed Time Study Technologist ID - MARCOPROTHROMBIN TIME/[id number] 15:14:35 Test Item Value Reference Range Interpretation Comments PROTIME (BEAKER) (test code = 14.7 seconds 11.9-14.2 H 759) INR (BEAKER) (test code = 370) 1.22 <=5.90 RECOMMENDED COUMADIN/WARFARIN INR THERAPY RANGESSTANDARD DOSE: 2.0 - 3.0 Includes: PROPHYLAXIS for venous thrombosis, systemic embolization; TREATMENT for venous thrombosis and/or pulmonary embolus.HIGH RISK: Target INR is 2.5-3.5 for patients with mechanical heart valves.BASIC METABOLIC [id number] 15:14:34 Test Item Value Reference Range Interpretation [...] not appl icable for dialysis patien ts Time Study Technologist ID - MARCOCBC W/PLT COUNT & AUTO [id number] 14:53:39 Test Item Value Reference Range Interpretation [...]
[2023-01-24 10:38] LABS: Hematocrit 28.8 % (39.6-49.0); MCV 86.7 fL (80-100); MPV 8.1 fL (7.6-11.3); Platelets 182 thou/uL (152-406); RBC Red Blood Cell Count 3.32 M/uL (4.33-5.43)
[2023-01-24] MEDS ORDERED: MORPHINE 4 MG/ML SYR ONE (10:43)
[2023-01-24] MEDS ORDERED: FAMOTIDINE 20 MG/2 ML VIAL IV ONE (10:44)
[2023-01-24] MEDS ORDERED: ONDANSETRON 4 MG/2 ML VIAL ONE (10:44)
[2023-01-24 10:51] LABS: Potassium 4.1 mEq/L (3.5-5.1)
[2023-01-24] MEDS ORDERED: FUROSEMIDE 20 MG/ 2ML VIAL ONE (11:21)
[2023-01-24] MEDS ORDERED: HYDROMORPHONE HCL 1 MG/ML INJ ONE (12:06)
--- NOTE | 2023-01-24 12:31 | EDPHYS ---
Physician Documentation [facility] Name: Ayden Andres Jr Age: 42 yrs Sex: Male : 1980 Arrival Date: 01/24/2023 Time: 09:34 Bed 17 Private MD: Vicente Carrillo HPI: 01/24 10:19 This 42 yrs old Male presents to ER via Ambulatory with complaints of sb4 Abdominal Pain, Feet Swelling, Nausea, Headache. 10:19 The patient presents with abdominal pain that is diffuse. Onset: The symptoms/episode sb4 began/occurred gradually, and became worse today. The symptoms do not radiate. Associated signs and symptoms: Pertinent positives: nausea and vomiting, constipation. Modifying factors: The symptoms are alleviated by nothing. The patient has experienced similar episodes in the past, multiple times. The patient has been recently seen by a physician: an oncologist. patient with gastric cancer on chemotherapy every 2 weeks comes in with complaints of nausea and abdominal pain secondary to constipation and bilateral feet swelling. Historical: - Allergies: 09:42 No Known Allergies; iw - PMHx: 09:42 cirrhosis of liver; stomach cancer; iw - Immunization history:: Adult Immunizations unknown. - Social history:: Smoking status: . ROS: 10:19 Constitutional: Negative for fever, chills, and weight loss. sb4 10:19 Abdomen/GI: Positive for abdominal pain, nausea and vomiting, constipation. 10:19 MS/extremity: Positive for swelling, of the right foot and left foot. 10:19 All other systems are negative. Exam: 10:19 Constitutional: This is a well developed, well nourished patient who is awake, alert, sb4 and in no acute distress. Head/Face: Normocephalic, atraumatic. Eyes: Extra-ocular motions intact. Periorbital areas with no swelling, redness, or edema. Respiratory: Lungs have equal breath sounds bilaterally, clear to auscultation and percussion. No rales, rhonchi or wheezes noted. No increased work of breathing, no retractions or nasal flaring. Skin: Warm, dry with normal turgor. Normal color with no rashes, no lesions, and no evidence of cellulitis. Neuro: Awake and alert, GCS 15, oriented to person, place, time, and situation. Cranial nerves II-XII grossly intact. Motor strength 5/5 in all extremities. Sensory grossly intact. Cerebellar exam normal. Normal gait. 10:19 Cardiovascular: Edema: pedal edema, that is moderate. 10:19 Abdomen/GI: Inspection: abdomen appears normal, Bowel sounds: diminished, Palpation: soft, mild abdominal tenderness. Vital Signs: 09:41 BP 129 / 87; Pulse 81; Resp 16; Temp 97.9; Pulse Ox 100% on R/A; Weight 77.11 kg; iw Height 5 ft. 11 in. ; Pain 10/10; 11:21 BP 112 / 75; Pulse 65; Resp 18; Pulse Ox 96% ; Pain 10/10; nj1 12:43 BP 112 / 77; Pulse 68; Resp 17; Pulse Ox 97% on R/A; Pain 6/10; nj1 09:41 Body Mass Index 23.71 (77.11 kg, 180.34 cm) iw 09:41 Pain Scale: Adult iw 11:21 Pain Scale: Adult nj1 12:43 Pain Scale: Adult nj1 MDM: 09:45 Patient medically screened. sb4 10:19 Differential diagnosis: constipation, chronic pain, fluid overload, non specific abd sb4 pain. 12:30 Data reviewed: vital signs, nurses notes, lab test result(s), I have discussed the sb4 patient's presentation/case with the attending Emergency Department Physician; and as a result, I will discharge patient. Consideration of Admission/Observation Escalation of care including admission/observation considered. Care significantly affected by the following chronic conditions: gastric cancer. Counseling: I had a detailed discussion with the patient and/or guardian regarding the historical points, exam findings, and any diagnostic results supporting the discharge/admit diagnosis, lab results, to return to the emergency department if symptoms worsen or persist or if there are any questions or concerns that arise at home. 01/24 10:09 Order name: CBC w/o diff; Complete Time: 10:54 sb4 01/24 10:09 Order name: BMP; Complete Time: 10:54 sb4 01/24 10:09 Order name: BNP; Complete Time: 10:54 sb4 01/24 09:58 Order name: IV Start; Complete Time: 10:29 sb4 Administered Medications: 10:09 CANCELLED (Physician Discretion): Furosemide IVP 20 mg IVP once; give over 2 minutes sb4 10:40 Drug: morphine IVP or IV 4 mg Route: IVP; Infused Over: 4 mins; Site: right forearm; iw 12:45 Follow up: Response: No adverse reaction nj1 10:40 Drug: Ondansetron IVP 4 mg Route: IVP; Site: right forearm; iw 12:44 Follow up: Response: No adverse reaction nj1 10:40 Drug: Famotidine IVP 20 mg Route: IVP; Site: right forearm; iw 12:44 Follow up: Response: No adverse reaction nj1 11:15 Drug: Furosemide IVP 20 mg Route: IVP; Site: right forearm; nj1 12:44 Follow up: Response: No adverse reaction nj1 12:00 Drug: HYDROmorphone IVP 1 mg Route: IVP; Site: right antecubital; nj1 12:44 Follow up: Response: No adverse reaction; Pain is decreased nj1 Disposition Summary: 01/24/23 12:31 Discharge Ordered Location: Home sb4 Problem: new sb4 Symptoms: have improved sb4 Condition: Stable sb4 Diagnosis - Abdominal pain, Generalized sb4 - Localized edema sb4 Followup: sb4 - With: Private Physician - When: As needed - Reason: Recheck today's complaints, Continuance of care, Re-evaluation by your physician Discharge Instructions: - Discharge Summary Sheet sb4 - Peripheral Edema sb4 Forms: - Medication Reconciliation Form sb4 - Thank You Letter sb4 - Antibiotic Education sb4 - Prescription Opioid Use sb4 - Patient Portal Instructions sb4 - Leadership Thank You Letter sb4 Signatures: Dispatcher [employer] Maribel Mccormack RN RN iw Brown, Sophia, PA-C PA-C sb4 Larisa Carranza RN RN nj1 Corrections: (The following items were deleted from the chart) 10:09 10:04 Furosemide IVP 20 mg IVP once; give over 2 minutes ordered. sb4 sb4
--- NOTE | 2023-01-24 12:31 | ER ---
Nurse's Notes [facility] Name: Ayden Andres Jr Age: 42 yrs Sex: Male : 1980 Arrival Date: 01/24/2023 Time: 09:34 Bed 17 Private MD: Diagnosis: Abdominal pain, Generalized;Localized edema Presentation: 01/24 09:41 Chief complaint: Patient states: finished his chemo on Sunday, he had a steroid shot iw and now his feet are swollen and has pain in his stomach and constipation, mild vomiting , hx of stomach cancer and cirrhosis. Coronavirus screen: At this time, the client does not indicate any symptoms associated with coronavirus-19. Ebola Screen: Patient negative for fever greater than or equal to 101.5 degrees Fahrenheit, and additional compatible Ebola Virus Disease symptoms Patient denies exposure to infectious person. Patient denies travel to an Ebola-affected area in the 21 days before illness onset. No symptoms or risks identified at this time. Initial Sepsis Screen: Does the patient meet any 2 criteria? No. Patient's initial sepsis screen is negative. Does the patient have a suspected source of infection? No. Patient's initial sepsis screen is negative. Risk Assessment: Do you want to hurt yourself or someone else? Patient reports no desire to harm self or others. Onset of symptoms was January 21, 2023. 09:41 Method Of Arrival: Ambulatory iw 09:41 Acuity: JOSE 3 iw Historical: - Allergies: 09:42 No Known Allergies; iw - PMHx: 09:42 cirrhosis of liver; stomach cancer; iw - Immunization history:: Adult Immunizations unknown. - Social history:: Smoking status: . Screenin:29 [facility] ED Fall Risk Assessment (Adult) Score/Fall Risk Level 0 - 2 = Low Risk. Abuse iw screen: Denies threats or abuse. Denies injuries from another. Nutritional screening: No deficits noted. Tuberculosis screening: No symptoms or risk factors identified. Assessment: 10:30 General: Appears in no apparent distress. Behavior is calm, cooperative. Pain: iw Complains of pain in abdomen. Neuro: Level of Consciousness is awake, alert, obeys commands, Oriented to person, place, time, situation, Moves all extremities. Full function. Respiratory: Respiratory effort is even, unlabored, Respiratory pattern is regular, symmetrical. GI: Bowel sounds present X 4 quads. Abd is soft X 4 quads Reports lower abdominal pain, upper abdominal pain, nausea, vomiting. Derm: Skin is intact. Musculoskeletal: Range of motion: intact in all extremities. 11:20 Reassessment: Patient appears in no apparent distress at this time. Patient and/or nj1 family updated on plan of care and expected duration. Pain level reassessed. Patient is alert, oriented x 3, equal unlabored respirations, skin warm/dry/pink. 12:43 Reassessment: Patient appears in no apparent distress at this time. Patient and/or nj1 family updated on plan of care and expected duration. Pain level reassessed. Patient is alert, oriented x 3, equal unlabored respirations, skin warm/dry/pink. Patient states feeling better. Patient states symptoms have improved. Vital Signs: 09:41 BP 129 / 87; Pulse 81; Resp 16; Temp 97.9; Pulse Ox 100% on R/A; Weight 77.11 kg; iw Height 5 ft. 11 in. ; Pain 10/10; 11:21 BP 112 / 75; Pulse 65; Resp 18; Pulse Ox 96% ; Pain 10/10; nj1 12:43 BP 112 / 77; Pulse 68; Resp 17; Pulse Ox 97% on R/A; Pain 6/10; nj1 09:41 Body Mass Index 23.71 (77.11 kg, 180.34 cm) iw 09:41 Pain Scale: Adult iw 11:21 Pain Scale: Adult nj1 12:43 Pain Scale: Adult nj1 ED Course: 09:36 Patient arrived in ED. mg5 09:42 Triage completed. iw 09:43 Arm band placed on. iw 09:45 Lavern Ignacio PA-C is PHCP. sb4 09:45 Robbin Mcfarland MD is Attending Physician. sb4 10:14 Vicente Navarro MD is Attending Physician. sb4 10:29 Inserted saline lock: 22 gauge in right forearm, using aseptic technique. iw 10:30 Patient has correct armband on for positive identification. Provided Education on: pain iw medication . 11:07 Larisa Carranza, ANA is Primary Nurse. nj1 12:43 No provider procedures requiring assistance completed. IV discontinued, intact, nj1 bleeding controlled. Administered Medications: 10:09 CANCELLED (Physician Discretion): Furosemide IVP 20 mg IVP once; give over 2 minutes sb4 10:40 Drug: morphine IVP or IV 4 mg Route: IVP; Infused Over: 4 mins; Site: right forearm; iw 12:45 Follow up: Response: No adverse reaction nj1 10:40 Drug: Ondansetron IVP 4 mg Route: IVP; Site: right forearm; iw 12:44 Follow up: Response: No adverse reaction nj1 10:40 Drug: Famotidine IVP 20 mg Route: IVP; Site: right forearm; iw 12:44 Follow up: Response: No adverse reaction nj1 11:15 Drug: Furosemide IVP 20 mg Route: IVP; Site: right forearm; nj1 12:44 Follow up: Response: No adverse reaction nj1 12:00 Drug: HYDROmorphone IVP 1 mg Route: IVP; Site: right antecubital; nj1 12:44 Follow up: Response: No adverse reaction; Pain is decreased nj1 Medication: 10:30 VIS not applicable for this client. Outcome: 12:31 Discharge ordered by MD. sb4 12:44 Discharged to home ambulatory. nj1 12:44 Condition: stable 12:44 Discharge instructions given to patient, Instructed on discharge instructions, follow up and referral plans. Demonstrated understanding of instructions, follow-up care. 12:46 Patient left the ED. nj1 Signatures: Maribel Henry RN RN Lavern Pandey PA-C PA-C 4 Larisa Carranza RN RN nj1 Salud Glass mg5
[2023-01-24 13:04] VITALS: TEMP 97.9
[2023-01-24 13:07] VITALS: BP 112/77; O2SAT 97
== END 2023-01-24 12:46 | disposition home or self-care (01) ==
LOC: ER 09:34
DX: R10.84 Generalized abdominal pain (principal); R60.0 Localized edema; C16.9 Malignant neoplasm of stomach, unspecified; K74.60 Unspecified cirrhosis of liver
CPT/HCPCS: 80048; 36415; 85027; 83880; J1940; J1170; J2405

== ENCOUNTER 2023-02-05 13:48 | Emergency (ER) | payer BC, OTHER ==
--- OUTSIDE RECORDS SUMMARY | 2023-02-05 13:53 | XMS REPORT | Continuity of Care Document ---
:1980 Author Organization [facility] t Address [address] [place] [address] [address] [place] [address] Care Team Providers Name Role Phone KENRICK DECKER Attending Clinician Unavailable MARLIN SNYDER Attending Clinician Unavailable JAMEL NEAL Attending Clinician Unavailable MANNY FOWLER Attending Clinician Unavailable BRIAN FORDE Attending Clinician Unavailable Navjot Thakkar MD Attending Clinician Judy Martinez MD Attending Clinician [phone] KENRICK DECKER Admitting Clinician Unavailable MARLIN SNYDER Admitting Clinician Unavailable RUBINA MORAES Admitting Clinician Unavailable MITRA JERONIMO Admitting Clinician Unavailable Payers Payer Name Policy Type Policy Number Effective Date Expiration Date S ource [facility]ICA[facility] [id number] 2020 00:00:00 Problems Condition Condition Condition Status Onset Resolution Last Treating Co mments Source Name Details Category Date Date Treatment Clinician Date Bradycardi Bradycardi Disease [facility] [place] GI bleed GI bleed Disease [facility] Liver mass Liver mass Disease [facility] Allergies, Adverse Reactions, Alerts Allergy Allergy Status Severity Reaction(s) Onset Inactive Treating Comm ents Source Name Type Date Date Clinician NO KNOWN Allergy Active [facility] Social History Social Habit Start Date Stop Date Quantity Comments Source [facility] History SDOH 2022-10-21 2022-10-[address] [facility] Med 00:00:00 00:00:[address] [facility] Housing 2022-10-21 2022-10-[address] [facility] Unable to Pay 00:00:00 00:00:[address] [facility] Housing 2022-10-21 2022-10-[address] [facility] Lived 00:00:00 00:00:00 Medical Cent er History [facility] Housing 2022-10-21 2022-10-[address] [facility] Homeless Last Year 00:00:00 00:00:00 Medica l Center Sex Assigned At [birth year] [facility] 00:00:00 00:00:00 Medical [...] kg Heart rate 2022-10-24 07:00:00 55 /min [facility] Respiratory rate 2022-10-24 04:55:00 18 /min [facility] Oxygen saturation in 2022-10-24 04:55:00 97 /min [facility] Arterial blood by Medical Ce nter Pulse oximetry Systolic blood 2022-10-24 04:02:00 113 mm[Hg] [facility] Diastolic blood 2022-10-24 04:02:00 63 mm[Hg] [facility] Body temperature 2022-10-24 04:02:00 35.94 [place] [facility] Body height 2022-10-23 11:07:00 180.3 cm [facility] Body weight 2022-10-23 11:07:00 87.091 kg [facility] BMI 2022-10-23 11:07:00 26.78 kg/m2 [facility] Procedures Procedure Date / Time Performing Clinician Source Performed CBC W/PLT COUNT & AUTO 2022-10-24 06:08:00 [facility] CBC W/PLT COUNT & AUTO 2022-10-24 06:08:00 [facility] DIFFERENTIAL [facility] MAGNESIUM 2022-10-24 05:01:00 [facility] COMPREHENSIVE METABOLIC 2022-10-24 05:01:00 Dima Berrios [facility] HEMOGLOBIN AND HEMATOCRIT 2022-10-23 15:55:00 Dima Berrios [facility] REPORT OF PROCEDURE - 2022-10-23 12:35:10 Judy Martinez [facility] UPPER GI TRACT, 2022-10-23 11:34:00 Judy Martinez [facility] WITH BIOPSY [facility] ABORH, MANUAL 2022-10-23 08:13:00 Maria Elena Milian [facility] BASIC METABOLIC PANEL 2022-10-23 06:29:00 [facility] MAGNESIUM 2022-10-23 06:29:00 [facility] CBC W/PLT COUNT & AUTO 2022-10-23 06:29:00 [facility] DIFFERENTIAL [facility] HEPATIC FUNCTION PANEL 2022-10-23 06:29:00 [facility] TYPE AND SCREEN, AUTOMATED 2022-10-23 06:29:00 Josué Coats [facility] CBC W/PLT COUNT & AUTO 2022-10-23 06:29:00 [facility] LIPID PANEL 2022-10-22 04:19:00 [facility] BASIC METABOLIC PANEL 2022-10-22 04:19:00 [facility], [facility] MAGNESIUM 2022-10-22 04:19:00 [facility] CBC W/PLT COUNT & AUTO 2022-10-22 04:19:00 [facility] DIFFERENTIAL [facility] HEPATIC FUNCTION PANEL 2022-10-22 04:19:00 [facility] HEPATITIS B CORE ANTIBODY, 2022-10-22 04:19:00 Dmitry Dale [facility] HEPATITIS PANEL, ACUTE 2022-10-22 04:19:00 Suyapa [facility] HEPATITIS A ANTIBODY, IGG 2022-10-22 04:19:00 Dmitry Dale [facility] HEPATITIS B SURFACE 2022-10-22 04:19:00 Suyapa [facility] FERRITIN 2022-10-22 04:19:00 Suyapa [facility] IRON, TIBC, % SAT. (WITHOUT 2022-10-22 04:19:00 Suyapa [facility] FERRITIN) [facility] [id number]\\, SERUM 2022-10-22 04:19:00 Suyapa [facility] ALPHA FETOPROTEIN (AFP), 2022-10-22 04:19:00 Suyapa [facility] TUMOR MARKER [facility] CARCINOEMBRYONIC ANTIGEN 2022-10-22 04:19:00 [facility] CBC W/PLT COUNT & AUTO 2022-10-22 04:19:00 [facility], [facility] ECG 12-LEAD 2022-10-21 17:09:37 [facility] ECG 12-LEAD 2022-10-21 17:09:37 Unknown, Hl7 Doctor [facility] HEPATIC FUNCTION PANEL 2022-10-21 14:42:00 [facility], [facility] BASIC METABOLIC PANEL 2022-10-21 14:42:00 [facility] HEMOGLOBIN A1C 2022-10-21 14:42:00 [facility] PROTHROMBIN TIME/INR 2022-10-21 14:42:00 [facility] CBC W/PLT COUNT & AUTO 2022-10-21 14:42:00 [facility] CBC W/PLT COUNT & AUTO 2022-10-21 14:42:00 [facility] Plan of Care Planned Activity Planned Date Details Comments Source Future Scheduled 2027-10-[address] [facility] 00:[facility]00 (procedure) [code = [facility] [id number]] Future Scheduled 2023-02-[address] [...] Department ID 2022-11-21 2022-11-21 Outpatient EDDIE LIMA [facility] [id number] SLE[facility] 00:00:00 00:00:00 [facility] 2022-11-17 2022-11-[address] [facility] [id number] SLE 00:00:00 00:00:00 MANNY 2022-11-07 2022-11-[address] [facility] [id number] SLE 00:00:00 00:00:00 [facility] 2022-11-06 2022-11-[address] [facility] [id number] [facility] 12:51:54 15:40:51 [facility] 2022-11-06 2022-11-[address] [facility] [id number] SLE 00:00:00 00:00:00 2022-10-21 2022-10-27 Inpatient ER MALCOLM [facility] Gastro [id number] SLE 13:26:00 14:43:00 [facility] 2022-10-23 2022-10-23 [address] [place], [facility] [id number] 11:35:00 13:04:00 Event Navjot Frost [facility] 2022-10-23 2022-10-23 [facility] [id number] 10:00:00 10:59:00 Judy [facility] 2022-10-21 2022-10-[address] [facility] [id number] 00:00:00 00:00:00 Only [facility] Results Test Description Test Time Test Comments Results Result Comments Source (MANUAL DIFFERENTIAL) 2023-02-01 10:01:27 Test Item Value Reference Range Interpretation Comme nts NEUTROPHILS - REL (DIFF) (BEAKER) (test code = 1359) 65 % LYMPHOCYTES - REL (DIFF) (BEAKER) (test code = 1360) 14 % MONOCYTES - REL (DIFF) (BEAKER) (test code = 1361) 7 % EOSINOPHILS - REL (DIFF) (BEAKER) (test code = 1362) 1 % METAMYELOCYTES-REL (DIFF) (BEAKER) (test code = 258) 2 % 0 -0 H MYELOCYTES-REL (DIFF) (BEAKER) (test code = 1594) 2 % 0-0 H BANDS - REL (DIFF) (BEAKER) (test code = 1348) 9 % 0-10 NEUTROPHILS - ABS (DIFF) (BEAKER) (test code = 1365) 15.41 K/ L 1 .80-8.00 H LYMPHOCYTES - ABS (DIFF) (BEAKER) (test code = 1366) 3.32 K/ L 1 .48-4.50 MONOCYTES - ABS (DIFF) (BEAKER) (test code = 1367) 1.66 K/ L 0.0 0-1.30 H EOSINOPHILS - ABS (DIFF) (BEAKER) (test code = 1368) 0.24 K/ L 0 .00-0.50 METAMYELOCTYES - ABS (DIFF) (BEAKER) (test code = 261) 0.47 K/ L 0.00-0.00 H BANDS-ABS (DIFF) (BEAKER) (test code = 1349) 2.1 K/ L 0.0-0.8 H MYELOCYTES-ABS (DIFF) (BEAKER) (test code = 1593) 0.47 K/ L 0.00 -0.00 H TOTAL COUNTED (BEAKER) (test code = 1351) 100 BANDS + SEGMENTED NEUTROPHILS (BEAKER) (test code = 1352) 17.54 WBC MORPHOLOGY (BEAKER) (test code = 487) Normal PLT MORPHOLOGY (BEAKER) (test code = 486) Normal ANISOCYTOSIS (BEAKER) (test code = 961) 1+ COMPREHENSIVE METABOLIC [id number] 09:15:25 Test Item Value Reference Range Interpretation Comments TOTAL PROTEIN 5.8 gm/dL 6.0-8.3 L (BEAKER) (test code = 770) ALBUMIN (BEAKER) 3.8 g/dL 3.5-5.0 (test code = 1145) ALKALINE 703 U/L 40-150 H PHOSPHATASE (BEAKER) (test code = 346) BILIRUBIN TOTAL 0.4 mg/dL 0.2-1.2 (BEAKER) (test code = 377) SODIUM (BEAKER) 136 meq/L 136-145 (test code = 381) POTASSIUM (BEAKER) 4.2 meq/L 3.5-5.1 (test code = 379) CHLORIDE (BEAKER) 104 meq/L 98-107 (test code = 382) CO2 (BEAKER) (test 29 meq/L 22-29 code = 355) BLOOD UREA 23 mg/dL 7-21 H NITROGEN (BEAKER) (test code = 354) CREATININE 0.96 mg/dL 0.57-1.25 (BEAKER) (test code = 358) GLUCOSE RANDOM 100 mg/dL 70-105 (BEAKER) (test code = 652) CALCIUM (BEAKER) 8.5 mg/dL 8.4-10.2 (test code = 697) AST (SGOT) 130 U/L 5-34 H (BEAKER) (test code = 353) ALT (SGPT) 49 U/L 6-55 (BEAKER) (test code = 347) [...] not appl icable for dialysis patien ts [id number] 09:12:59 Test Item Value Reference Range Interpretation Comments MAGNESIUM (BEAKER) (test code = 1.9 mg/dL 1.6-2.6 627) CBC W/PLT COUNT & AUTO [id number] 09:08:27 Test Item Value Reference Range Interpretation Comments WHITE BLOOD CELL COUNT (BEAKER) 23.7 K/ L 3.5-10.5 H (test code = 775) RED BLOOD CELL COUNT (BEAKER) 3.20 M/ L 4.63-6.08 L (test code = 761) HEMOGLOBIN (BEAKER) (test code = 9.2 GM/DL 13.7-17.5 L 410) HEMATOCRIT (BEAKER) (test code = 29.4 % 40.1-51.0 L 411) MEAN CORPUSCULAR VOLUME (BEAKER) 92 fL 79-92 (test code = 753) MEAN CORPUSCULAR HEMOGLOBIN 28.8 pg 25.7-32.2 (BEAKER) (test code = 751) MEAN CORPUSCULAR HEMOGLOBIN CONC 31.3 GM/DL 32.3-36.5 L (BEAKER) (test code = 752) RED CELL DISTRIBUTION WIDTH 17.7 % 11.6-14.4 H (BEAKER) (test code = 412) PLATELET COUNT (BEAKER) (test 246 K/CU MM 150-450 code = 756) MEAN PLATELET VOLUME (BEAKER) 10.6 fL 9.4-12.4 (test code = 754) IR PORT-A-CATH [id number] 13:51:15 [facility] 1980 Sex: MRight internal jugular chest port insertion History: Neuroendocrine carcinoma. Modality: Sonography and fluoroscopy. Sedation: Moderate sedation was administered. 2 mg of Versed and 100mcg of fentanyl IV was used for moderate sedation monitored under mydirection. Total intra-service time of sedation was 30 minutes. Thepatient's vital signs were monitored throughout the procedure andrecorded in the patient's medical record by the nurse. Community Health Nurse: Nando Lundy MDAssistant: Dr. Donovan. Approach: Right internal jugular vein Estimated blood loss: < 5 cc.Specimen: None. Fluoroscopy Time: 1.1 min.Reference Air Kerma (Ka, r): 10.6 mGy.Technique: Informed written consent was obtained. Discussion of risks,benefits,and alternatives were made with the patient. The patient expressedunderstanding and agreed to proceed. A universal timeout was performedprior to starting the procedure. All elements maximal sterile barriertechnique was utilized for this procedure, including utilization ofsterile scrub solution for skin prep, a large sterile sheet to cover theareas of the patient that were not prepped, and hand hygiene, mask, headcovering, and sterile gown for performing radiologist and scrubtechnologist.Theskin was anesthetized with 2% lidocaine. Ultrasound evaluationshowed a patent and compressible rightinternal jugular vein, which waspunctured under direct real- time ultrasound guidance with amicropuncture needle. An ultrasound image was saved to PACS. A 0.018 inch wire was placed through the needle into the right atrium. A4 Afghan micropuncture sheath was placed and a 0.035 wire was advancedinto theIV. A subcutaneous tunnel and pocket were created in the rightanterior chest wall by blunt dissection. A 7Fr Angiodynamics Smart portwas placed within the pocket and the catheter brought through thetunnel. A peel-away sheath was placed in the right IJ vein and thecatheter was advanced through the sheath, with its distal tipterminating in the superior right atrium. The peel- away sheath wasremoved. The port was flushed and aspirated easily following placement. The skin incision was closed with 3-0 Monocryl and Dermabond. The smalljugular incision site was closed using Dermabond. The patient toleratedthe procedure well and left the department in the same condition. Results: Spot radiograph of the chest demonstrates the new right OFJjbf-[id number] to lie in the expected position with its tip overlying thesuperior right atrium. IMPRESSION:Impression: Successful, uncomplicated placement of a right internal jugular chestport using sonographic and fluoroscopic guidance and conscious sedation.The port isready for immediate use. Electronically Signed By: Nando Lundy01/31/2023 13:53 CDTWorkstation Name: [id number](CELLAVISION MANUAL DIFF) 2023-01-31 10:41:31 Test Item Value Reference Range Interpretation Comments NEUTROPHILS - REL 66 % (CELLAVISION)(BEAKER) (test code = 2816) LYMPHOCYTES - REL 8 % (CELLAVISION)(BEAKER) (test code = 2817) MONOCYTES - REL 5 % (CELLAVISION)(BEAKER) (test code = 2818) METAMYELOCYTES - REL 4 % 0-0 H (CELLAVISION)(BEAKER) (test code = 2821) MYELOCYTES - REL 4 % 0-0 H (CELLAVISION)(BEAKER) (test code = 2822) PROMYELOCYTES - REL 1 % 0-0 H (CELLAVSION)(BEAKER) (test code = 2825) BANDS - REL (CELLAVISION)(BEAKER) 10 % 0-10 (test code = 2826) ATYPICAL LYMPHOCYTES - REL 1 % 0-0 H (CELLAVISION)(BEAKER) (test code = 2829) NEUTROPHILS - ABS 18.41 K/ul 1.78-5.38 H (CELLAVISION)(BEAKER) (test code = 2830) LYMPHOCYTES - ABS 2.23 K/ul 1.32-3.57 (CELLAVISION)(BEAKER) (test code = 2831) MONOCYTES - ABS 1.40 K/uL 0.30-0.82 H (CELLAVISION)(BEAKER) (test code = 2832) METAMYELOCYTES - ABS 1.12 K/uL 0.00-0.00 H (CELLAVISION)(BEAKER) (test code = 2836) MYELOCYTES-ABS 1.12 K/uL 0.00-0.00 H (CELLAVISION)(BEAKER) (test code = 2837) PROMYELOCYTES - ABS 0.28 K/uL 0.00-0.00 H (CELLAVISION)(BEAKER) (test code = 2838) BANDS - ABS (CELLAVISION)(BEAKER) 2.79 K/uL 0.00-0.80 H (test code = 2840) ATYPICAL LYMPHOCYTES - ABS 0.28 K/uL 0.00-0.00 H (CELLAVISION)(BEAKER) (test code = 2858) TOTAL COUNTED (BEAKER) (test code 100 = 1351) PLT MORPHOLOGY (BEAKER) (test code Normal = 486) TOXIC GRANULATION (BEAKER) (test Present code = 771) POLYCHROMATOPHILLIC RBCS(BEAKER) 1+ few (test code = 478) ANISOCYTOSIS (BEAKER) (test code = 1+ few 961) MICROCYTES (BEAKER) (test code = 1+ few 965) POIKILOCYTES (BEAKER) (test code = 1+ few 966) ELLIPTOCYTES (BEAKER) (test code = 1+ few 962) OVALOCYTES (BEAKER) (test code = 1+ few 477) TEAR DROP CELLS (BEAKER) (test 1+ few code = 481) ARTIFACT (CELLAVISION)(BEAKER) Present (test code = 3432) PLATELET CONCENTRATION Adequate (CELLAVISION)(BEAKER) (test code = 3438) Family Law Legal Assistant ID - Ally Cosme comments: Slide comments:CBC W/PLT COUNT & AUTO [id number] 10:41:30 Test Item Value Reference Range Interpretation Comments WHITE BLOOD CELL COUNT (BEAKER) 27.9 K/ L 3.5-10.5 H (test code = 775) RED BLOOD CELL COUNT (BEAKER) 3.12 M/ L 4.63-6.08 L (test code = 761) HEMOGLOBIN (BEAKER) (test code = 9.0 GM/DL 13.7-17.5 L 410) HEMATOCRIT (BEAKER) (test code = 28.1 % 40.1-51.0 L 411) MEAN CORPUSCULAR VOLUME (BEAKER) 90 fL 79-92 (test code = 753) MEAN CORPUSCULAR HEMOGLOBIN 28.8 pg 25.7-32.2 (BEAKER) (test code = 751) MEAN CORPUSCULAR HEMOGLOBIN CONC 32.0 GM/DL 32.3-36.5 L (BEAKER) (test code = 752) RED CELL DISTRIBUTION WIDTH 18.3 % 11.6-14.4 H (BEAKER) (test code = 412) PLATELET COUNT (BEAKER) (test 212 K/CU MM 150-450 code = 756) MEAN PLATELET VOLUME (BEAKER) 11.0 fL 9.4-12.4 (test code = 754) NUCLEATED RED BLOOD CELLS 1 /100 WBC 0-0 H (BEAKER) (test code = 413) BASIC METABOLIC [id number] 10:11:48 Test Item Value Reference Range Interpretation Comments SODIUM (BEAKER) 137 meq/L 136-145 (test code = 381) POTASSIUM 4.5 meq/L 3.5-5.1 (BEAKER) (test code = 379) CHLORIDE (BEAKER) 103 meq/L 98-107 (test code = 382) CO2 (BEAKER) 25 meq/L 22-29 (test code = 355) BLOOD UREA 12 mg/dL 7-21 NITROGEN (BEAKER) (test code = 354) CREATININE 0.98 mg/dL 0.57-1.25 (BEAKER) (test code = 358) GLUCOSE RANDOM 94 mg/dL 70-105 (BEAKER) (test code = 652) CALCIUM (BEAKER) 8.4 mg/dL 8.4-10.2 (test code = 697) EGFR (BEAKER) 101 Interpretatio n of eGFR (test code = [...] not appl icable for dialysis patien ts Family Law Legal Assistant ID - ADMINPROTHROMBIN [id number] 10:05:49 Test Item Value Reference Range Interpretation Comments PROTIME (BEAKER) 14.1 seconds 11.9-14.2 (test code = 759) INR (BEAKER) (test 1.15 See_Comment [Automat ed message] code = 370) The system [employer] generated this result transmitted ref erence range: <=5.90. The reference range was not used to int erpret this result as normal/abnormal . RECOMMENDED COUMADIN/WARFARIN INR THERAPY RANGESSTANDARD DOSE: 2.0 - 3.0 Includes: PROPHYLAXIS for venous thrombosis, systemic embolization; TREATMENT for venous thrombosis and/or pulmonary embolus.HIGH RISK: Target INR is 2.5-3.5 for patients with mechanical heart valves.ALPHA FETOPROTEIN (AFP), TUMOR MARKER 2023-01-25 18:21:50 Test Item Value Reference Range Interpretation Comments ALPHA-FETOPROTEIN (BEAKER) (test code > ng/mL <10.0 H = 1094) Family Law Legal Assistant ID - ADMINOperator ID - ADMINOperator ID - ADMIN(MANUAL DIFFERENTIAL) 2023-01-25 12:21:55 Test Item Value Reference Range Interpretation Comments NEUTROPHILS - REL (DIFF) (BEAKER) 83 % (test code = 1359) LYMPHOCYTES - REL (DIFF) (BEAKER) 8 % (test code = 1360) MONOCYTES - REL (DIFF) (BEAKER) 5 % (test code = 1361) METAMYELOCYTES-REL (DIFF) (BEAKER) 1 % 0-0 H (test code = 258) BANDS - REL (DIFF) (BEAKER) (test 3 % 0-10 code = 1348) NEUTROPHILS - ABS (DIFF) (BEAKER) 14.61 K/ L 1.80-8.00 H (test code = 1365) LYMPHOCYTES - ABS (DIFF) (BEAKER) 1.41 K/ L 1.48-4.50 L (test code = 1366) MONOCYTES - ABS (DIFF) (BEAKER) 0.88 K/ L 0.00-1.30 (test code = 1367) METAMYELOCTYES - ABS (DIFF) 0.18 K/ L 0.00-0.00 H (BEAKER) (test code = 261) BANDS-ABS (DIFF) (BEAKER) (test 0.5 K/ L 0.0-0.8 code = 1349) TOTAL COUNTED (BEAKER) (test code 100 = 1351) BANDS + SEGMENTED NEUTROPHILS 15.14 (BEAKER) (test code = 1352) WBC MORPHOLOGY (BEAKER) (test code Normal = 487) PLT MORPHOLOGY (BEAKER) (test code Normal = 486) RBC MORPHOLOGY (BEAKER) (test code Normal = 762) COMPREHENSIVE METABOLIC [id number] 11:39:58 Test Item Value Reference Range Interpretation Comments TOTAL PROTEIN 5.6 gm/dL 6.0-8.3 L (BEAKER) (test code = 770) ALBUMIN (BEAKER) 3.5 g/dL 3.5-5.0 (test code = 1145) ALKALINE 789 U/L 40-150 H PHOSPHATASE (BEAKER) (test code [...] NITROGEN (BEAKER) (test code = 354) CREATININE 0.75 mg/dL 0.57-1.25 (BEAKER) (test code = 358) GLUCOSE RANDOM 101 mg/dL 70-105 (BEAKER) (test code = 652) CALCIUM (BEAKER) 8.3 mg/dL 8.4-10.2 L (test code = 697) AST (SGOT) 153 U/L 5-34 H (BEAKER) (test code = 353) ALT (SGPT) 83 U/L 6-55 H (BEAKER) (test code = [...] patien ts CBC W/PLT COUNT & AUTO [id number] 11:29:52 Test Item Value Reference Range Interpretation Comments WHITE BLOOD CELL COUNT (BEAKER) 17.6 K/ L 3.5-10.5 H (test code = 775) RED BLOOD CELL COUNT (BEAKER) 3.99 M/ L 4.63-6.08 L (test code = 761) HEMOGLOBIN (BEAKER) (test code = 11.5 GM/DL 13.7-17.5 L 410) HEMATOCRIT (BEAKER) (test code = 35.6 % 40.1-51.0 L 411) MEAN CORPUSCULAR VOLUME (BEAKER) 89 fL 79-92 (test code = 753) MEAN CORPUSCULAR HEMOGLOBIN 28.8 pg 25.7-32.2 (BEAKER) (test code = 751) MEAN CORPUSCULAR HEMOGLOBIN CONC 32.3 GM/DL 32.3-36.5 (BEAKER) (test code = 752) RED CELL DISTRIBUTION WIDTH 16.5 % 11.6-14.4 H (BEAKER) (test code = 412) PLATELET COUNT (BEAKER) (test 145 K/CU MM 150-450 L code = 756) MEAN PLATELET VOLUME (BEAKER) 10.8 fL 9.4-12.4 (test code = 754) COMPREHENSIVE METABOLIC [id number] 04:16:43 Test Item Value Reference Range Interpretation Comments TOTAL PROTEIN 4.9 gm/dL 6.0-8.3 L (BEAKER) (test code = 770) ALBUMIN (BEAKER) 3.0 g/dL 3.5-5.0 L (test code = 1145) ALKALINE 591 U/L 40-150 H PHOSPHATASE (BEAKER) (test code = 346) BILIRUBIN TOTAL 0.7 mg/dL 0.2-1.2 (BEAKER) (test code = 377) SODIUM (BEAKER) 135 meq/L 136-145 L (test code = 381) POTASSIUM (BEAKER) 4.3 meq/L 3.5-5.1 (test code = 379) CHLORIDE (BEAKER) 102 meq/L 98-107 (test code = 382) CO2 (BEAKER) (test 23 meq/L 22-29 code = 355) BLOOD UREA 15 mg/dL 7-21 NITROGEN (BEAKER) (test code = 354) CREATININE 0.79 mg/dL 0.57-1.25 (BEAKER) (test code = 358) GLUCOSE RANDOM 72 mg/dL 70-105 (BEAKER) (test code = 652) CALCIUM (BEAKER) 7.8 mg/dL 8.4-10.2 L (test code = 697) AST (SGOT) 377 U/L 5-34 H (BEAKER) (test code = 353) ALT (SGPT) 89 U/L 6-55 H (BEAKER) (test code = 347) EGFR (BEAKER) 115 Interpretatio n of eGFR [...] not appl icable for dialysis patien ts Family Law Legal Assistant ID - DENIS [id number] 04:16:02 Test Item Value Reference Range Interpretation Comments MAGNESIUM (BEAKER) (test code = 1.6 mg/dL 1.6-2.6 627) Family Law Legal Assistant ID - DENIS WCBC W/PLT COUNT & AUTO [id number] 03:24:45 Test Item Value Reference Range Interpretation [...] 0.00-1.00 PERCENT (BEAKER) (test code = 2801) [id number] 06:10:23 Test Item Value Reference Range Interpretation Comments MAGNESIUM (BEAKER) (test code = 1.6 mg/dL 1.6-2.6 627) Family Law Legal Assistant ID - ADMINCOMPREHENSIVE METABOLIC [id number] 06:10:22 Test Item Value Reference Range Interpretation [...] not appl icable for dialysis patien ts Family Law Legal Assistant ID - ADMINCBC W/PLT COUNT & AUTO [id number] 04:42:27 Test Item Value Reference Range Interpretation [...] PERCENT (BEAKER) (test code = 2801) URIC [id number] 12:19:41 Test Item Value Reference Range Interpretation Comments URIC ACID (BEAKER) (test code = 7.2 mg/dL 2.6-7.2 773) Family Law Legal Assistant ID - BV(CELLAVISION MANUAL DIFF)2023-01-19 04:40:54 Test [...] CONCENTRATION Adequate (CELLAVISION)(BEAKER) (test code = 3438) Family Law Legal Assistant ID - Dannielle Castellon comments: Slide comments:CBC W/PLT COUNT & AUTO [id number] 04:40:49 Test Item Value Reference Range Interpretation [...] (BEAKER) (test code = 413) COMPREHENSIVE METABOLIC [id number] 04:21:36 Test Item Value Reference Range Interpretation [...] not appl icable for dialysis patien ts Family Law Legal Assistant ID - [id number] 04:21:36 Test Item Value Reference Range Interpretation Comments MAGNESIUM (BEAKER) (test code = 1.4 mg/dL 1.6-2.6 L 627) Family Law Legal Assistant ID - CLAUDIAOCOMPREHENSIVE METABOLIC [id number] 15:40:59 Test Item Value Reference Range Interpretation [...] not appl icable for dialysis patien ts Family Law Legal Assistant ID - ADMINURIC [id number] 15:40:59 Test Item Value Reference Range Interpretation Comments URIC ACID (BEAKER) (test code = 7.6 mg/dL 2.6-7.2 H 773) Family Law Legal Assistant ID - ADMINXR CHEST 1 VIEW PORTABLE / [id number] 13:56:07 [facility] 1980 Sex: MCLINICAL HISTORY: PICC tip location verification. TECHNIQUE: 1 view of the chest.COMPARISON: 11/08/2022IMPRESSION:The tip of the right PICC line is just below the cavoatrial junction.There are no focal infiltrates or effusions. The cardiomediastinalsilhouette is within normal limits for size. Electronically Signed By: Manas Taylor01/18/2023 13:58 CDTWorkstation Name: [id number] COMPREHENSIVE METABOLIC [id number] 09:39:15 Test Item Value Reference Range Interpretation [...] not appl icable for dialysis patien ts Family Law Legal Assistant ID - [id number] 09:39:14 Test Item Value Reference Range Interpretation Comments PHOSPHORUS (BEAKER) 4.0 mg/dL 2.3-4.7 Specimen moderately (test code = 604) hemolyzed Family Law Legal Assistant ID - ADMURIC [id number] 09:39:14 Test Item Value Reference Range Interpretation Comments URIC ACID (BEAKER) 8.1 mg/dL 2.6-7.2 H Specimen moderately (test code = 773) hemolyzed Family Law Legal Assistant ID - [id number] 09:39:13 Test Item Value Reference Range Interpretation Comments MAGNESIUM (BEAKER) 1.6 mg/dL 1.6-2.6 Specimen moderately (test code = 627) hemolyzed Family Law Legal Assistant ID - ADMCBC W/PLT COUNT & AUTO [id number] 08:50:53 Test Item Value Reference Range Interpretation [...] PERCENT (BEAKER) (test code = 2801) PROTHROMBIN TIME/[id number] 08:48:36 Test Item Value Reference Range Interpretation Comments PROTIME (BEAKER) 14.0 seconds 11.9-14.2 (test code = 759) INR (BEAKER) (test 1.11 See_Comment [Automat ed message] code = 370) The system [employer] generated this result transmitted ref erence range: <=5.90. The reference range was not used to int erpret this result as normal/abnormal . RECOMMENDED COUMADIN/WARFARIN INR THERAPY RANGESSTANDARD DOSE: 2.0 - 3.0 Includes: PROPHYLAXIS for venous thrombosis, systemic embolization; TREATMENT for venous thrombosis and/or pulmonary embolus.HIGH RISK: Target INR is 2.5-3.5 for patients with mechanical heart valves.CBC W/PLT COUNT & AUTO [id number] 21:23:37 Test Item Value Reference Range Interpretation [...] code = 2801) ALPHA FETOPROTEIN (AFP), TUMOR [id number] 17:18:51 Test Item Value Reference Range Interpretation Comments ALPHA-FETOPROTEIN (BEAKER) (test code > ng/mL <10.0 H = 1094) Family Law Legal Assistant ID - ADMINOperator ID - ADMINOperator ID - ADMINOperator ID - ADMIN COMPREHENSIVE METABOLIC [id number] 09:38:30 Test Item Value Reference Range Interpretation [...] not appl icable for dialysis patien ts [id number] 09:34:37 Test Item Value Reference Range Interpretation Comments MAGNESIUM (BEAKER) (test code = 1.5 mg/dL 1.6-2.6 L 627) HCG, QUANTITATIVE, [id number] 09:30:32 Test Item Value Reference Range Interpretation [...] code = 2801) ALPHA FETOPROTEIN (AFP), TUMOR [id number] 15:59:30 Test Item Value Reference Range Interpretation Comments ALPHA-FETOPROTEIN (BEAKER) (test code > ng/mL <10.0 H = 1094) Family Law Legal Assistant ID - anish bOperator ID - anish bOperator ID - anish bCARCINOEMBRYONIC ANTIGEN (CEA)2023-01-09 15:04:16 Test Item Value Reference Range Interpretation Comments CARCINOEMBRYONIC ANTIGEN (BEAKER) 15.1 ng/mL 0.0-5.0 H (test code = 685) Family Law Legal Assistant ID - anish bLACTATE DEHYDROGENASE (LDH)2023-01-09 12:48:48 Test Item Value Reference Range Interpretation Comments LACTATE DEHYDROGENASE (BEAKER) (test > U/L 125-220 H code = 635) COMPREHENSIVE METABOLIC [id number] 12:39:05 Test Item Value Reference Range Interpretation [...] not appl icable for dialysis patien ts [id number] 12:37:31 Test Item Value Reference Range Interpretation Comments PHOSPHORUS (BEAKER) (test code = 3.6 mg/dL 2.3-4.7 604) CBC W/PLT COUNT & AUTO [id number] 12:21:24 Test Item Value Reference Range Interpretation [...] code = 2801) ALPHA FETOPROTEIN (AFP), TUMOR [id number] 16:43:27 Test Item Value Reference Range Interpretation Comments ALPHA-FETOPROTEIN (BEAKER) (test code > ng/mL <10.0 H = 1094) Family Law Legal Assistant ID - ADMINOperator ID - ADMINOperator ID [...] (test code Normal = 762) COMPREHENSIVE METABOLIC [id number] 09:36:30 Test Item Value Reference Range Interpretation [...] not appl icable for dialysis patien ts [id number] 09:28:58 Test Item Value Reference Range Interpretation Comments MAGNESIUM (BEAKER) (test code = 1.7 mg/dL 1.6-2.6 627) CBC W/PLT COUNT & AUTO [id number] 09:23:38 Test Item Value Reference Range Interpretation [...] 9.4-12.4 (test code = 754) COMPREHENSIVE METABOLIC [id number] 09:40:11 Test Item Value Reference Range Interpretation [...] not appl icable for dialysis patien ts [id number] 09:24:23 Test Item Value Reference Range Interpretation Comments MAGNESIUM (BEAKER) (test code = 1.9 mg/dL 1.6-2.6 627) CBC W/PLT COUNT & AUTO [id number] 09:04:00 Test Item Value Reference Range Interpretation [...] code = 2801) ALPHA FETOPROTEIN (AFP), TUMOR [id number] 16:54:52 Test Item Value Reference Range Interpretation Comments ALPHA-FETOPROTEIN (BEAKER) (test code > ng/mL <10.0 H = 1094) Family Law Legal Assistant ID - ADMINOperator ID - ADMINOperator ID - ADMINOperator ID - ADMIN BASIC METABOLIC [id number] 13:58:04 Test Item Value Reference Range Interpretation [...] not appl icable for dialysis patien ts Family Law Legal Assistant ID - ADMINHEPATIC FUNCTION [id number] 13:58:04 Test Item Value Reference Range Interpretation [...] code = 58 U/L 6-55 H 347) Family Law Legal Assistant ID - ADMINCBC W/PLT COUNT & AUTO [id number] 11:19:47 Test Item Value Reference Range Interpretation [...] (BEAKER) (test code = 2801) HEPATIC FUNCTION [id number] 06:52:32 Test Item Value Reference Range Interpretation [...] code = 64 U/L 6-55 H 347) Family Law Legal Assistant ID - MMURIC [id number] 06:52:31 Test Item Value Reference Range Interpretation Comments URIC ACID (BEAKER) (test code = 2.7 mg/dL 2.6-7.2 773) Family Law Legal Assistant ID - MMBASIC METABOLIC [id number] 06:52:30 Test Item Value Reference Range Interpretation [...] not appl icable for dialysis patien ts Family Law Legal Assistant ID - [id number] 06:52:30 Test Item Value Reference Range Interpretation Comments PHOSPHORUS (BEAKER) (test code = 3.4 mg/dL 2.3-4.7 604) Family Law Legal Assistant ID - MMCBC W/PLT COUNT & AUTO [id number] 06:20:55 Test Item Value Reference Range Interpretation [...] (BEAKER) (test code = 2801) BASIC METABOLIC [id number] 22:14:17 Test Item Value Reference Range Interpretation [...] not appl icable for dialysis patien ts Family Law Legal Assistant ID - ADMINURIC [id number] 22:12:41 Test Item Value Reference Range Interpretation Comments URIC ACID (BEAKER) 2.6 mg/dL 2.6-7.2 Specimen slightly (test code = 773) hemolyzed Family Law Legal Assistant ID - [id number] 22:12:40 Test Item Value Reference Range Interpretation Comments PHOSPHORUS (BEAKER) 3.8 mg/dL 2.3-4.7 Specimen slightly (test code = 604) hemolyzed Family Law Legal Assistant ID - ADMINBASIC METABOLIC [id number] 17:01:12 Test Item Value Reference Range Interpretation [...] not appl icable for dialysis patien ts Family Law Legal Assistant ID - [id number] 16:58:24 Test Item Value Reference Range Interpretation Comments PHOSPHORUS (BEAKER) (test code = 2.8 mg/dL 2.3-4.7 604) Family Law Legal Assistant ID - ADMINURIC [id number] 16:58:24 Test Item Value Reference Range Interpretation Comments URIC ACID (BEAKER) (test code = 2.1 mg/dL 2.6-7.2 L 773) Family Law Legal Assistant ID - ADMINURIC [id number] 06:57:40 Test Item Value Reference Range Interpretation Comments URIC ACID (BEAKER) (test code = 3.1 mg/dL 2.6-7.2 773) Family Law Legal Assistant ID - MMHEPATIC FUNCTION [id number] 06:57:40 Test Item Value Reference Range Interpretation [...] code = 65 U/L 6-55 H 347) Family Law Legal Assistant ID - MMBASIC METABOLIC [id number] 06:57:39 Test Item Value Reference Range Interpretation [...] not appl icable for dialysis patien ts Family Law Legal Assistant ID - [id number] 06:57:39 Test Item Value Reference Range Interpretation Comments PHOSPHORUS (BEAKER) (test code = 3.6 mg/dL 2.3-4.7 604) Family Law Legal Assistant ID - MMCBC W/PLT COUNT & AUTO [id number] 06:51:25 Test Item Value Reference Range Interpretation [...] (BEAKER) (test code = 2801) BASIC METABOLIC [id number] 09:04:16 Test Item Value Reference Range Interpretation [...] not appl icable for dialysis patien ts Family Law Legal Assistant ID - [id number] 09:04:15 Test Item Value Reference Range Interpretation Comments PHOSPHORUS (BEAKER) 3.1 mg/dL 2.3-4.7 Specimen slightly (test code = 604) hemolyzed Family Law Legal Assistant ID - MMURIC [id number] 09:04:15 Test Item Value Reference Range Interpretation Comments URIC ACID (BEAKER) 4.1 mg/dL 2.6-7.2 Specimen slightly (test code = 773) hemolyzed Family Law Legal Assistant ID - [id number] 05:03:52 Test Item Value Reference Range Interpretation Comments PHOSPHORUS (BEAKER) (test code = 3.7 mg/dL 2.3-4.7 604) Family Law Legal Assistant ID - MMURIC [id number] 05:03:52 Test Item Value Reference Range Interpretation Comments URIC ACID (BEAKER) (test code = 4.7 mg/dL 2.6-7.2 773) Family Law Legal Assistant ID - MMCOMPREHENSIVE METABOLIC [id number] 05:03:51 Test Item Value Reference Range Interpretation [...] not appl icable for dialysis patien ts Family Law Legal Assistant ID - MMCBC W/PLT COUNT & AUTO [id number] 04:40:21 Test Item Value Reference Range Interpretation [...] 2801) XR CHEST 1 VIEW PORTABLE / [id number] 17:54:25 [facility] : 1980 [...] (test code Normal = 486) HEPATITIS B [id number] 13:30:00 Test Item Value Reference Range Interpretation Comments HEPATITIS B CORE TOTAL ANTIBODY Nonreactive Nonreactive (BEAKER) (test code = 497) HEPATITIS B SURFACE ANTIBODY < mIU/mL <8.0 (BEAKER) (test code = 647) HEPATITIS B SURFACE ANTIGEN (2) Nonreactive Nonreactive (BEAKER) (test code = 2585) Family Law Legal Assistant ID - ADMINHEPATITIS C [id number] 13:29:13 Test Item Value Reference Range Interpretation Comments HEPATITIS C ANTIBODY (BEAKER) Nonreactive Nonreactive (test code = 367) Family Law Legal Assistant ID - [id number] 13:04:16 Test Item Value Reference Range Interpretation Comments MAGNESIUM (BEAKER) (test code = 1.8 mg/dL 1.6-2.6 627) Family Law Legal Assistant ID - edCOMPREHENSIVE METABOLIC [id number] 13:04:15 Test Item Value Reference Range Interpretation [...] not appl icable for dialysis patien ts Family Law Legal Assistant ID - edCBC WITH PLATELET COUNT + MANUAL [id number] 12:48:49 Test Item Value Reference Range Interpretation [...] 0-0 (BEAKER) (test code = 413) SARS-COV2/RT-PCR ([facility])2022-11-08 09:48:49 Test Item Value Reference Range Interpretation Comments SARS-COV2/RT-PCR Negative Negative The SARS-Co V-2 target (test code = nucleic acids a re not [id number]) detected in thi s specimen. Negative result [...] revoked sooner. Fact Sheet for Healthcare Providers: https://www.[employer] m/Documents/Xpert%20Xpress%20SARS%20CoV-2/Fact%20Sheets/941-6762%01BZRQ-KGQ-9%20 HEALTHCARE%20PROVIDERS%20FACT%20SHEET.pdf Fact Sheet for Healthcare Patients: https://www.[employer]/Documents/Xpert%20Xp ress%20SARS%20CoV-2/Fact%20Sheets/3023801%61TQDG-ZKG-3%20PATIENT%20FACT%20SHEET .pdfCARCINOEMBRYONIC ANTIGEN (CEA)2022-11-06 18:53:46 Test Item Value Reference Range Interpretation Comments CARCINOEMBRYONIC ANTIGEN (BEAKER) 5.3 ng/mL 0.0-5.0 H (test code = 685) Family Law Legal Assistant ID - MMCOMPREHENSIVE METABOLIC [id number] 16:39:54 Test Item Value Reference Range Interpretation [...] patien ts CBC W/PLT COUNT & AUTO [id number] 16:21:39 Test Item Value Reference Range Interpretation [...] PERCENT (BEAKER) (test code = 2801) TISSUE [id number] 16:02:43Surgical Pathology Report Case: [id number] Authorizing Provider: Dima Berrios MD Collected: 10/26/2022 03:07 PM Ordering Location: [address] Received: 10/26/2022 04:53 PM Service Pathologist: Sherry Andrade MD Specimen: Biopsy, Liver Liver, mass, core needle biopsy: - Metastatic poorly differentiated neuroendocrine carcinoma, WHO grade 3; see comment Signing Pathologist Direct Phone Line: [phone] signed by Sherry Andrade MD on 11/01/2022 [...] is needed. The patient's prior gastric biopsy ([id number], H&E) was concurrently reviewed, and the tumor shows similar histomorphology. Dr. Edvin Goldberg reviewed the case and agrees.Block A2 has adequate tumor cellularity for additional ancillary studies.References:Antonino LA, Dariusz T, Carina C, Bassem L. Metastatic neuroendocrine carcinoma presenting as multifocal liver lesions with elevated alpha-fetoprotein. Clin Case Rep. 2018 May 19;7(2):251-253. doi: 10.1002/ccr3.1956. PMID: 48465397; PMCID: RNE5671416.11931, 23539, 32117l2Uzjs is a 42-year-old male with history of [...] evaluated Immunohistochemistry technical testing was performed at [facility], Pathology Laboratory where it was [...] qualified to perform high complexity clinical laboratory testing.[facility], Department of Pathology, [address] [place] [address], [facility]qp[facility], [address] [place] [address], AblqbxLoma Linda [facility], Department of Pathology, [address] [place], [place] [address], QQJWXJ [id number] 09:06:35Surgical Pathology Report Case: [id number] Authorizing Provider: Judy Martinez, Collected: 10/23/2022 11:56 AM Ordering Location: [address] Received: 10/23/2022 01:29 PM Service Pathologist: Suzan Teixeira MD Specimens: A) - Biopsy, Gastric, random bxs B) - Biopsy, Gastric, bxs gastric mass A. STOMACH, RANDOM BIOPSIES: - CHEMICAL/REACTIVE GASTROPATHY - PPI EFFECT, MILDB. STOMACH, BIOPSIES OF MASS: - NEUROENDOCRINE CARCINOMA, SMALL CELL TYPE Signing Pathologist Direct Phone Line: [phone] signed by Suzan Bagley MD on 11/01/2022 at 9:06 AMPreliminary result electronically signed by Suzan Teixeira MD on 10/27/2022 at 11:55 AMPreliminary result electronically signed by Suzan Teixeira MD on 10/26/2022 at 11:55 AMThe finding was communicated via secure email with Judy Edmonds <[email or web address] GI Department at 11:52 on October 26, [id number], [id number], [id number] hemorrhage associated with gastritisA. Biopsy, GastricReceived in [...] evaluated and the report was issued at [facility] (CLIA#[id number]), [address] [place] [address].The interpretation of this case included the useof immunohistochemistry or special stains.Control Slides Examined: In-house known positive controls were evaluated along with the test tissue. These control slides run alongside of the patients sample show appropriate staining. Internal positive and negative controls when available are evaluated Immunohistochemistry technical testing was performed at [facility], Pathology Laboratory where it was [...] perform high complexity clinical laboratory testing.U/S, BIOPSY, [id number] 12:01:00Reason for exam:->gastric mass and liver mass with afp >[id number] this be performed at the bedside?->No [facility] 1980 Sex: MFINAL REPORT Procedure: Liver mass core biopsy Pre/post-procedure diagnosis: Liver mass Community Health Nurse: Bebo Low MD Assistants: none Sedation: Moderate [...] Low Verified Date/Time: 10/30/2022 12:01:04 C METABOLIC [id number] 05:48:04 Test Item Value Reference Range Interpretation [...] not appl icable for dialysis patien ts Family Law Legal Assistant ID - [id number] 05:48:04 Test Item Value Reference Range Interpretation Comments MAGNESIUM (BEAKER) (test code = 1.7 mg/dL 1.6-2.6 627) Family Law Legal Assistant ID - MMCBC W/PLT COUNT & AUTO [id number] 05:27:57 Test Item Value Reference Range Interpretation [...] 0.00-1.00 PERCENT (BEAKER) (test code = 2801) [id number] 06:55:04 Test Item Value Reference Range Interpretation Comments MAGNESIUM (BEAKER) (test code = 1.6 mg/dL 1.6-2.6 627) Family Law Legal Assistant ID - BSBASIC METABOLIC [id number] 06:55:03 Test Item Value Reference Range Interpretation [...] rted eGFR is based on the CKD-EPI 2021 equation t hat does not use a race coefficientEsti mated GFR is not as accur ate as Creatinine Iman bacon in predicting glom erular filtration rate . Estimated GFR is not appl icable for dialysis patien ts Family Law Legal Assistant ID - BSPROTHROMBIN TIME/[id number] 06:18:33 Test Item Value Reference Range Interpretation [...] mechanical heart valves.CBC W/PLT COUNT & AUTO [id number] 06:07:18 Test Item Value Reference Range Interpretation [...] (BEAKER) (test code = 2801) COMPREHENSIVE METABOLIC [id number] 07:14:31 Test Item Value Reference Range Interpretation [...] not appl icable for dialysis patien ts Family Law Legal Assistant ID - DENIS [id number] 07:14:31 Test Item Value Reference Range Interpretation Comments MAGNESIUM (BEAKER) (test code = 1.5 mg/dL 1.6-2.6 L 627) Family Law Legal Assistant ID Kayla BARRIOS WCBC W/PLT COUNT & AUTO [id number] 06:55:14 Test Item Value Reference Range Interpretation [...] (test code = 2801) ROSALINDA TITER AND [id number] 13:55:32 Test Item Value Reference Range Interpretation [...] method.Test performed by IFA method.CT, CHEST, WITH [id number] 13:00:00Unlisted Reason for Exam - Click Yes and Enter Reason Below->[facility] : [...] MDReport Verified Date/Time: 10/24/2022 13:00:41 Reading Location: [facility] C013X Ortho Consult Reading Room CT, [id number] 13:00:00Unlisted Reason for Exam - Click Yes and Enter Reason Below->NoProtocol Please Specify:->Standard ProtocolWill this procedure require oral contrast?->No [facility] : 1980 Sex: MFINAL REPORT CT of the chest, abdomen and pelvis, with contrast Clinical History: Gastrointestinal cancer, staging Technique: CT of the chest, abdomen and pelvis is performed with intravenous contrast administration. This exam was performed according to our departmental dose optimization program which includes automated exposure control, adjustment of the mA and/or kV according to patient' s size and/or use of iterative reconstructive technique. Comparison Film: None Discussion: Visualized thyroid gland is normal. No supraclavicular, axillary, mediastinal or hilar lymphadenopathy. Heart and pericardium are unremarkable. There is paraseptal emphysema. Mild atelectasis in the right lower lobe. No mass or consolidation. No effusion. Central airways are patent, no bronchiectasis or bronchial wall thickening. There are multiple liver metastasis, demonstrating heterogeneous hypoenhancement,the largest measures approximately 8.5 x 6.8 cm. Some are subcentimeter in size. No biliary ductal dilatation. Hyperdensity in the gallbladder likely reflects vicariously excreted contrast versus sludge. The spleen, pancreas, and adrenal glands are normal. Kidneys demonstrate no mass, hydronephrosis or radiopaque stone. No evidence of bowel obstruction. There [...] compatible with metastasis. Remainder of bowel is unremarkable,no evidence of obstruction. No pericolonic or mesenteric edema. Normal appendix. In the pelvis, the bladder, prostate and seminal vesicles are unremarkable. There is trace fluid in the pelvis. No free air. Bony structures demonstrate degenerative changes. Impression: Mass in the lesser curvature of stomach likely reflects known neoplasm. Numerous liver metastasis. There is metastatic adenopathy in the gastrohepatic ligament, as well as left upper quadrant omental metastasis. Paraseptal emphysema. Nometastasis is identified in the thorax. Signed: Maria C [facility] Verified Date/Time: 10/24/2022 13:00:41 Reading Location: [address] Consult Reading Room CBC W/PLT COUNT & AUTO [id number] 06:20:01 Test Item Value Reference Range Interpretation [...] 0.00-1.00 PERCENT (BEAKER) (test code = 2801) [id number] 05:38:34 Test Item Value Reference Range Interpretation Comments MAGNESIUM (BEAKER) (test code = 1.5 mg/dL 1.6-2.6 L 627) Family Law Legal Assistant ID - MMCOMPREHENSIVE METABOLIC [id number] 05:38:33 Test Item Value Reference Range Interpretation [...] not appl icable for dialysis patien ts Family Law Legal Assistant ID - MMHEMOGLOBIN AND [id number] 16:05:28 Test Item Value Reference Range Interpretation Comments HEMOGLOBIN (BEAKER) (test code = 14.4 GM/DL 13.7-17.5 410) HEMATOCRIT (BEAKER) (test code = 44.3 % 40.1-51.0 411) Family Law Legal Assistant ID - [id number] 09:39:18 Test Item Value Reference Range Interpretation Comments MAGNESIUM (BEAKER) 1.6 mg/dL 1.6-2.6 Specimen slightly (test code = 627) hemolyzed Family Law Legal Assistant ID - MMBASIC METABOLIC [id number] 09:39:18 Test Item Value Reference Range Interpretation [...] not appl icable for dialysis patien ts Family Law Legal Assistant ID - MMHEPATIC FUNCTION [id number] 09:39:18 Test Item Value Reference Range Interpretation [...] Specimen slightly (test code = 347) hemolyzed Family Law Legal Assistant ID - MMCBC W/PLT COUNT & AUTO [id number] 06:38:29 Test Item Value Reference Range Interpretation [...] PERCENT (BEAKER) (test code = 2801) HEMOGLOBIN [id number] 08:56:25 Test Item Value Reference Range Interpretation Comments HEMOGLOBIN A1C 5.7 % See_Comment H [Automated m essage] ELECTROPHORESIS ([facility]) The system which (test code = 3811) generated this result transmitted ref erence range: <=5.6%. The reference range was not used to int erpret this result as normal/abnormal . "The A1c is measured using a NGSP-certified method. HbA1c value equal to or greater than 6.5% as thediagnosis cutoff for diabetes. An HbA1c value of 5.7- 6.4% indicates increased risk for diabetes (prediabetes)."Family Law Legal Assistant ID - ADM [id number] 07:09:54 Test Item Value Reference Range Interpretation Comments FERRITIN (BEAKER) (test code = 159.87 ng/mL 5.00-275.00 361) Family Law Legal Assistant ID - MARCOALPHA FETOPROTEIN (AFP), TUMOR [id number] 06:32:10 Test Item Value Reference Range Interpretation Comments ALPHA-FETOPROTEIN (BEAKER) 55540.5 ng/mL <10.0 H (test code = 1094) Family Law Legal Assistant ID - ADMINOperator ID - ADMINHEPATITIS B SURFACE [id number] 06:31:52 Test Item Value Reference Range Interpretation Comments HEPATITIS B SURFACE ANTIBODY < mIU/mL <8.0 (BEAKER) (test code = 647) Family Law Legal Assistant ID - ADMINHEPATITIS A ANTIBODY, [id number] 06:31:00 Test Item Value Reference Range Interpretation Comments HEPATITIS A IGG ANTIBODY (AKER) Nonreactive Nonreactive (test code = 2797) Family Law Legal Assistant ID - ADMINCARCINOEMBRYONIC ANTIGEN (CEA)2022-10-22 06:30:59 Test Item Value Reference Range Interpretation Comments CARCINOEMBRYONIC ANTIGEN (BEAKER) 5.6 ng/mL 0.0-5.0 H (test code = 685) Family Law Legal Assistant ID - ADMINHEPATITIS B CORE ANTIBODY, [id number] 06:30:59 Test Item Value Reference Range Interpretation Comments HEPATITIS B CORE TOTAL ANTIBODY Nonreactive Nonreactive (BEAKER) (test code = 497) Family Law Legal Assistant ID - ADMINHEPATITIS PANEL, [id number] 06:03:10 Test Item Value Reference Range Interpretation Comments HEPATITIS A IGM ANTIBODY (BEAKER) Nonreactive Nonreactive (test code = 498) HEPATITIS B CORE IGM ANTIBODY Nonreactive Nonreactive (BEAKER) (test code = 645) HEPATITIS C ANTIBODY (BEAKER) Nonreactive Nonreactive (test code = 367) HEPATITIS B SURFACE ANTIGEN (2) Nonreactive Nonreactive (BEAKER) (test code = 2585) Family Law Legal Assistant ID - [id number] 05:54:41 Test Item Value Reference Range Interpretation Comments MAGNESIUM (BEAKER) (test code = 1.7 mg/dL 1.6-2.6 627) Family Law Legal Assistant ID - MARCOLIPID [id number] 05:54:41 Test Item Value Reference Range Interpretation [...] Borderline 130-159 High 160-189 Very High >=190 Family Law Legal Assistant ID - MARCOHEPATIC FUNCTION [id number] 05:54:41 Test Item Value Reference Range Interpretation [...] (test code = 54 U/L 6-55 347) Family Law Legal Assistant ID - MARCOBASIC METABOLIC [id number] 05:54:40 Test Item Value Reference Range Interpretation [...] not appl icable for dialysis patien ts Family Law Legal Assistant ID - JAIME, TIBC, % SAT. (WITHOUT FERRITIN)2022-10-22 05:39:20 Test Item Value Reference Range Interpretation Comments IRON (BEAKER) (test code = 547) 61.0 ug/dL 40.0-160.0 TOTAL IRON BINDING CAPACITY 273 ug/dL 250-450 (BEAKER) (test code = 769) IRON % SATURATION (2) (BEAKER) 22 % 20-55 (test code = 2590) Family Law Legal Assistant ID - [id number] 05:39:03 Test Item Value Reference Range Interpretation Comments ALPHA-1 ANTITRYPSIN (BEAKER) 211.70 mg/dL 90.00-200.00 H (test code = 502) Family Law Legal Assistant ID - ADMINCBC W/PLT COUNT & AUTO [id number] 05:15:17 Test Item Value Reference Range Interpretation [...] (BEAKER) (test code = 2801) HEPATIC FUNCTION [id number] 15:14:35 Test Item Value Reference Range Interpretation [...] Specimen slightly (test code = 347) hemolyzed Family Law Legal Assistant ID - MARCOPROTHROMBIN [id number] 15:14:35 Test Item Value Reference Range Interpretation Comments PROTIME (BEAKER) (test code = 14.7 seconds 11.9-14.2 H 759) INR (BEAKER) (test code = 370) 1.22 <=5.90 RECOMMENDED COUMADIN/WARFARIN INR THERAPY RANGESSTANDARD DOSE: 2.0 - 3.0 Includes: PROPHYLAXIS for venous thrombosis, systemic embolization; TREATMENT for venous thrombosis and/or pulmonary embolus.HIGH RISK: Target INR is 2.5-3.5 for patients with mechanical heart valves.BASIC METABOLIC [id number] 15:14:34 Test Item Value Reference Range Interpretation [...] not appl icable for dialysis patien ts Family Law Legal Assistant ID - MARCOCBC W/PLT COUNT & AUTO [id number] 14:53:39 Test Item Value Reference Range Interpretation [...]
[2023-02-05] MEDS ORDERED: FUROSEMIDE 20 MG/ 2ML VIAL ONE (14:28)
[2023-02-05] MEDS ORDERED: MAGNES/ALUMIN/SIMET 30ML UCUP ONE (14:28)
[2023-02-05] MEDS ORDERED: FAMOTIDINE 20 MG/2 ML VIAL IV ONE (14:29)
[2023-02-05] MEDS ORDERED: ONDANSETRON 4 MG/2 ML VIAL ONE (14:29)
[2023-02-05] MEDS ORDERED: HYDROMORPHONE HCL 1 MG/ML INJ ONE ×2 (14:29→15:45)
[2023-02-05 14:43] LABS: Absolute Lymphocytes (CBC) 1.5 K/uL (0.7-4.9); Hematocrit 27.8 % (39.6-49.0); Lymphocytes % 10.6 % (15.3-44.8); MCV 85.9 fL (80-100); MPV 8.1 fL (7.6-11.3); Platelets 257 thou/uL (152-406); RBC Red Blood Cell Count 3.23 M/uL (4.33-5.43)
[2023-02-05 15:02] LABS: Albumin 2.8 g/dL (3.4-5.0); Bilirubin Total 0.6 mg/dL (0.2-1.0); Potassium 4.1 mEq/L (3.5-5.1); Protein, Total 5.9 g/dL (6.4-8.2)
--- NOTE | 2023-02-05 15:28 | ER ---
Nurse's Notes [facility] Name: Ayden Andres Jr Age: 42 yrs Sex: Male : 1980 Arrival Date: 02/05/2023 Time: 13:48 Bed 16 Private MD: Diagnosis: Abdominal pain, unspecified;Constipation, unspecified;Edema, unspecified Presentation: 02/05 13:55 Chief complaint: Patient states: Abdominal pain with constipation for 3 days. ll1 Coronavirus screen: Vaccine status: Patient reports receiving the 2nd dose of the covid vaccine. Client denies travel out of the [place] in the last 14 days. At this time, the client does not indicate any symptoms associated with coronavirus-19. Ebola Screen: Patient denies travel to an Ebola-affected area in the 21 days before illness onset. Initial Sepsis Screen: Does the patient meet any 2 criteria? No. Patient's initial sepsis screen is negative. Does the patient have a suspected source of infection? Yes: Acute abdominal pain. Risk Assessment: Do you want to hurt yourself or someone else? Patient reports no desire to harm self or others. Onset of symptoms was February 03, 2023. 13:55 Method Of Arrival: Ambulatory ll1 13:55 Acuity: JOSE 3 ll1 Triage Assessment: 13:56 General: Appears uncomfortable, Behavior is calm, cooperative, appropriate for age. ll1 Pain: Complains of pain in abdomen Pain currently is 10 out of 10 on a pain scale. GI: Reports upper abdominal pain, constipation. Historical: - Allergies: 13:51 No Known Allergies; ll1 - PMHx: 13:51 cirrhosis of liver; stomach cancer; ll1 - Immunization history:: Adult Immunizations up to date. - Social history:: Smoking status: Patient denies any tobacco usage or history of. - Family history:: not pertinent. - Hospitalizations: : No recent hospitalization is reported. Screenin:55 [facility] ED Fall Risk Assessment (Adult) Score/Fall Risk Level 0 - 2 = Low Risk. Abuse eh3 screen: Denies threats or abuse. Denies injuries from another. Nutritional screening: No deficits noted. Tuberculosis screening: No symptoms or risk factors identified. Assessment: 13:55 General: Appears in no apparent distress. uncomfortable, Behavior is cooperative, eh3 appropriate for age, anxious. Pain: Complains of pain in abdomen. Neuro: Level of Consciousness is awake, alert, confused, Oriented to person, place, time, situation. Cardiovascular: Capillary refill < 3 seconds Patient's skin is warm and dry. Respiratory: Airway is patent Respiratory effort is even, unlabored, Respiratory pattern is regular, symmetrical. GI: Abdomen is round non-distended. Derm: Skin is pink, warm \T\ dry. Musculoskeletal: Circulation, motion, and sensation intact. Vital Signs: 13:55 BP 124 / 88; Pulse 73; Resp 17; Temp 98.1; Pulse Ox 98% ; Weight 78.02 kg; Height 5 ft. ll1 11 in. ; Pain 10/10; 14:45 BP 124 / 83; Pulse 66; Resp 16; Pulse Ox 100% on R/A; eh3 13:55 Body Mass Index 23.99 (78.02 kg, 180.34 cm) ll1 13:55 Pain Scale: Adult 1 ED Course: 13:50 Patient arrived in ED. ts1 13:54 Barrett Munson MD is Attending Physician. rn 13:55 Arm band placed on Patient placed in an exam room, on a stretcher. ll1 13:55 Patient has correct armband on for positive identification. Bed in low position. Call eh3 light in reach. Side rails up X2. Provided Education on: Use of call rushing. Pulse ox on. NIBP on. 13:56 Triage completed. ll1 14:05 Claire Deras, RN is Primary Nurse. eh3 14:20 Missed attempt(s): 20 gauge in left forearm. Bleeding controlled, band aid applied, eh3 catheter tip intact. 15:50 No provider procedures requiring assistance completed. IV discontinued, intact, eh3 bleeding controlled, No redness/swelling at site. Pressure dressing applied. Administered Medications: 14:35 Drug: Furosemide IVP 20 mg Route: IVP; Site: left forearm; eh3 15:51 Follow up: Response: No adverse reaction eh3 14:35 Drug: HYDROmorphone IVP 1 mg Route: IVP; Site: left forearm; eh3 15:51 Follow up: Response: No adverse reaction eh3 14:35 Drug: Famotidine IVP 20 mg Route: IVP; Site: left forearm; eh3 15:51 Follow up: Response: No adverse reaction eh3 14:35 Drug: Alum-Mag Hydroxide-Simeth PO Suspension (200 mg-200 mg-20 mg/5 mL) 30 ml Route: eh3 PO; 15:51 Follow up: Response: No adverse reaction eh3 14:35 Drug: Ondansetron IVP 4 mg Route: IVP; Site: left forearm; eh3 15:51 Follow up: Response: No adverse reaction 3 15:35 Drug: HYDROmorphone IVP 1 mg Route: IVP; Site: left forearm; eh3 15:51 Follow up: Response: No adverse reaction 3 Medication: 15:50 VIS not applicable for this client. eh3 Outcome: 15:27 Discharge ordered by . rn 15:50 Discharged to home ambulatory, with family. 3 15:50 Condition: stable 15:50 Discharge instructions given to patient, Instructed on discharge instructions, follow up and referral plans. Demonstrated understanding of instructions, follow-up care. 15:51 Patient left the ED. 3 Signatures: Barrett Munson MD MD rn Lewis, Lynsay, RN RN 1 Claire Deras RN RN 3 Celsa Brownlee PAS [facility] ts1
--- NOTE | 2023-02-05 15:28 | EDPHYS ---
Physician Documentation [facility] Name: Ayden Andres Jr Age: 42 yrs Sex: Male : 1980 Arrival Date: 02/05/2023 Time: 13:48 Bed 16 Private MD: ED Physician Barrett Munson HPI: 02/05 14:10 This 42 yrs old Male presents to ER via Ambulatory with complaints of rn Abdominal Pain, Constipation. 14:10 The patient presents with abdominal pain in the upper abdomen. Onset: The rn symptoms/episode began/occurred 1 week(s) ago. The symptoms do not radiate. Associated signs and symptoms: Pertinent positives: nausea and vomiting, constipation, Pertinent negatives: fever, shortness of breath. Modifying factors: The symptoms are alleviated by nothing, the symptoms are aggravated by pressure. Severity of pain: At its worst the pain was moderate in the emergency department the pain is unchanged. The patient has experienced similar episodes in the past, chronically. The patient has been recently seen at the [facility] Emergency Department. Patient reports abdominal pain, left upper quadrant, identical to previous episodes. States has cirrhosis and stomach cancer and is undergoing chemotherapy treatment. Reports chronic left upper abdominal pain and constipation. Seen here recently with negative work-up. Reports due for chemo and medication this upcoming week. Denies any new symptoms. States usually has to come in for pain medicine and nausea medication and feels better. No blood in stool. No fever. No new symptoms. Also requests diuretic due to lower extremity edema that developed after IV hydration recently. Historical: - Allergies: 13:51 No Known Allergies; ll1 - PMHx: 13:51 cirrhosis of liver; stomach cancer; ll1 - Immunization history:: Adult Immunizations up to date. - Social history:: Smoking status: Patient denies any tobacco usage or history of. - Family history:: not pertinent. - Hospitalizations: : No recent hospitalization is reported. ROS: 14:10 Constitutional: Negative for fever, chills Eyes: Negative for injury, pain, redness, rn and discharge, Neck: Negative for injury, pain, and swelling, Cardiovascular: Negative for chest pain, palpitations, and edema, Respiratory: Negative for shortness of breath, cough, wheezing, and pleuritic chest pain, Abdomen/GI: Positive for left upper quadrant abdominal pain and nausea vomiting, positive for constipation MS/Extremity: Negative for injury and deformity, Skin: Negative for injury, rash, and discoloration, Neuro: Negative for headache, weakness, numbness, tingling, and seizure. 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 No pulse deficits. Respiratory: No increased work of breathing, no retractions or nasal flaring. Abdomen/GI: Soft, mild fullness left upper quadrant, no peritoneal signs, no skin discoloration or changes, no ecchymosis in the flanks Skin: Warm, dry MS/ Extremity: Pulses equal, no cyanosis. Neurovascular intact. Full, normal range of motion. Equal circumference. Neuro: Awake and alert, GCS 15 Vital Signs: 13:55 BP 124 / 88; Pulse 73; Resp 17; Temp 98.1; Pulse Ox 98% ; Weight 78.02 kg; Height 5 ft. ll1 11 in. ; Pain 10/10; 14:45 BP 124 / 83; Pulse 66; Resp 16; Pulse Ox 100% on R/A; eh3 13:55 Body Mass Index 23.99 (78.02 kg, 180.34 cm) ll1 13:55 Pain Scale: Adult ll1 MDM: 13:54 Patient medically screened. rn 15:26 Differential diagnosis: gastroesophageal reflux disease, non-specific abd pain, rn pancreatitis. Data reviewed: vital signs, nurses notes, old medical records, lab test result(s), and as a result, I will discharge patient. Care significantly affected by the following chronic conditions: Cancer. Counseling: I had a detailed discussion with the patient and/or guardian regarding the historical points, exam findings, and any diagnostic results supporting the discharge/admit diagnosis, lab results, the need for outpatient follow up, to return to the emergency department if symptoms worsen or persist or if there are any questions or concerns that arise at home. Response to treatment: the patient's symptoms have mildly improved after treatment, and as a result, I will discharge patient. Special discussion: Based on the patient's Hx, exam, and Dx evaluation, there is no indication for emergent surgery or inpatient Tx. It is understood by the patient/guardian that if the Sx's persist or worsen they need to return immediately for re-evaluation. I discussed with the patient/guardian in detail that at this point there is no indication for admission to the hospital. It is understood, however, that if the symptoms persist or worsen the patient needs to return immediately for re-evaluation. ED course: Patient with chronic abdominal pain due to cancer, multiple visits for this, no new symptoms or characteristics. Stable vital signs. Labs at baseline or better than before. No indication for emergent imaging or admission at this time. Patient states feels better. Will DC home with return precautions.. 02/05 14:03 Order name: CBC with Diff rn 02/05 14:03 Order name: CMP; Complete Time: 15:10 rn 02/05 14:03 Order name: Lipase; Complete Time: 15:10 rn 02/05 14:03 Order name: IV Start; Complete Time: 14:47 rn 02/05 14:03 Order name: Labs collected and sent; Complete Time: 14:47 rn Administered Medications: 14:35 Drug: Furosemide IVP 20 mg Route: IVP; Site: left forearm; eh3 15:51 Follow up: Response: No adverse reaction eh3 14:35 Drug: HYDROmorphone IVP 1 mg Route: IVP; Site: left forearm; eh3 15:51 Follow up: Response: No adverse reaction eh3 14:35 Drug: Famotidine IVP 20 mg Route: IVP; Site: left forearm; eh3 15:51 Follow up: Response: No adverse reaction eh3 14:35 Drug: Alum-Mag Hydroxide-Simeth PO Suspension (200 mg-200 mg-20 mg/5 mL) 30 ml Route: eh3 PO; 15:51 Follow up: Response: No adverse reaction eh3 14:35 Drug: Ondansetron IVP 4 mg Route: IVP; Site: left forearm; eh3 15:51 Follow up: Response: No adverse reaction eh3 15:35 Drug: HYDROmorphone IVP 1 mg Route: IVP; Site: left forearm; eh3 15:51 Follow up: Response: No adverse reaction eh3 Disposition Summary: 02/05/23 15:27 Discharge Ordered Location: Home rn Problem: chronic rn Symptoms: have improved rn Condition: Stable rn Diagnosis - Abdominal pain, unspecified rn - Constipation, unspecified rn - Edema, unspecified rn Followup: rn - With: Private Physician - When: As needed - Reason: Recheck today's complaints, Re-evaluation by your physician Discharge Instructions: - Discharge Summary Sheet rn - Abdominal Pain, Adult rn - Constipation, Adult rn - Peripheral Edema rn Forms: - Medication Reconciliation Form rn - Thank You Letter rn - 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
[2023-02-05 16:02] VITALS: BP 124/83; TEMP 98.1; O2SAT 100
[2023-02-05 21:28] LABS: Anisocytosis 1+; Blood Morphology Comment NOTED (NOT SEEN); Burr Cells 2+; Platelet Estimate ADEQ; Polychromasia 1+
== END 2023-02-05 15:51 | disposition home or self-care (01) ==
LOC: ER 13:48
DX: K59.00 Constipation, unspecified (principal); R60.9 Edema, unspecified; Z85.028 Personal history of other malignant neoplasm of stomach; K74.60 Unspecified cirrhosis of liver
CPT/HCPCS: 85025; 36415; 83690; 80053; 96375; 96374; 99284; J1940; J1170 ×2; J2405

== ENCOUNTER 2023-02-06 14:42 | Emergency (ER) | payer BC ==
--- OUTSIDE RECORDS SUMMARY | 2023-02-06 14:48 | XMS REPORT | Continuity of Care Document ---
:1980 Author Organization [facility] t Address [address] [facility] [address] [place] [address] Care Team Providers Name Role Phone KENRICK DECKER Attending Clinician Unavailable MARLIN SNYDER Attending Clinician Unavailable JAMEL NEAL Attending Clinician Unavailable MANNY FOWLER Attending Clinician Unavailable BRIAN FORDE Attending Clinician Unavailable Navjot Thakkar MD Attending Clinician Judy Martinez MD Attending Clinician [phone] KENRICK DECKER Admitting Clinician Unavailable MARLIN SNYDER Admitting Clinician Unavailable RUBINA MORAES Admitting Clinician Unavailable MITRA JERONIMO Admitting Clinician Unavailable Payers Payer Name Policy Type Policy Number Effective Date Expiration Date S ource [id number] 2020 00:00:00 Problems Condition Condition Condition Status Onset Resolution Last Treating Co mments Source Name Details Category Date Date Treatment Clinician Date Bradycardi Bradycardi [facility] [place] GI bleed GI bleed Disease [facility] [place] Liver mass Liver mass Disease [facility] 00 [place] Allergies, Adverse Reactions, Alerts Allergy Allergy Status Severity Reaction(s) Onset Inactive Treating Comm ents Source Name Type Date Date Clinician NO KNOWN Allergy Active [facility] Social History Social Habit Start Date Stop Date Quantity Comments Source History SDOH [facility] SDOH 2022-10-21 2022-10-[address] [facility] 00:00:00 00:00:[address] [facility] 2022-10-21 2022-10-[address] [facility] Unable to Pay 00:00:00 00:00:[address] History [facility] Housing 2022-10-21 2022-10-[address] [facility] Places Lived 00:00:00 00:00:00 Medical Cent er History [facility] Housing 2022-10-21 2022-10-[address] [facility] [facility] Homeless Last Year 00:00:00 00:00:00 [facility] Center Sex Assigned At [birth year] [facility] [address] [facility] 00:00:00 00:00:00 Medical Center [...] kg Heart rate 2022-10-24 07:00:00 55 /min [facility] Respiratory rate 2022-10-24 04:55:00 18 /min [facility] Oxygen saturation in 2022-10-24 04:55:00 97 /min [facility] Arterial blood by Medical Ce nter Pulse oximetry Systolic blood 2022-10-24 04:02:00 113 mm[Hg] [facility] Diastolic blood 2022-10-24 04:02:00 63 mm[Hg] [facility] Body temperature 2022-10-24 04:02:00 35.94 Carlota [facility] Body height 2022-10-23 11:07:00 180.3 cm [facility] Body weight 2022-10-23 11:07:00 87.091 kg [facility] BMI 2022-10-23 11:07:00 26.78 kg/m2 [facility] Procedures Procedure Date / Time Performing Clinician Source Performed CBC W/PLT COUNT & AUTO 2022-10-24 06:08:00 [facility] CBC W/PLT COUNT & AUTO 2022-10-24 06:08:00 [facility] MAGNESIUM 2022-10-24 05:01:00 [facility] COMPREHENSIVE METABOLIC 2022-10-24 05:01:00 Dima Berrios [facility] HEMOGLOBIN AND HEMATOCRIT 2022-10-23 15:55:00 Dima Berrios [facility] REPORT OF PROCEDURE - 2022-10-23 12:35:10 Judy Martinez [facility] ENDOSCOPY URL [facility] ENDOSCOPY, UPPER GI TRACT, 2022-10-23 11:34:00 Judy Martinez [facility] WITH BIOPSY [facility] ABORH, MANUAL 2022-10-23 08:13:00 Maria Elena Milian [facility] BASIC METABOLIC PANEL 2022-10-23 06:29:00 [facility] MAGNESIUM 2022-10-23 06:29:00 [facility] CBC W/PLT COUNT & AUTO 2022-10-23 06:29:00 [facility] HEPATIC FUNCTION PANEL 2022-10-23 06:29:00 [facility] TYPE AND SCREEN, AUTOMATED 2022-10-23 06:29:00 Josué Coats [facility] CBC W/PLT COUNT & AUTO 2022-10-23 06:29:00 [facility] DIFFERENTIAL [facility] LIPID PANEL 2022-10-22 04:19:00 [facility] BASIC METABOLIC PANEL 2022-10-22 04:19:00 [facility], [facility] MAGNESIUM 2022-10-22 04:19:00 [facility] CBC W/PLT COUNT & AUTO 2022-10-22 04:19:00 [facility] DIFFERENTIAL [facility] HEPATIC FUNCTION PANEL 2022-10-22 04:19[facility]00 [facility]ORE [facility]TIBODY, 2022-10-22 04:19:00 Dmitry Dale [facility] HEPATITIS PANEL, ACUTE 2022-10-22 04:19:00 [facility] HEPATITIS A ANTIBODY, IGG 2022-10-22 04:19:00 [facility]ry [facility] HEPATITIS B SURFACE 2022-10-22 04:19:00 Dmitry Dale [facility] FERRITIN 2022-10-22 04:19:00 [facility] IRON, TIBC, % SAT. (WITHOUT 2022-10-22 04:19:00 [facility] FERRITIN) [facility] CISAX-3-UDUFRHUUOXI\\, SERUM 2022-10-22 04:19:00 [facility] ALPHA FETOPROTEIN (AFP), 2022-10-22 04:19:00 [facility] TUMOR MARKER [facility] CARCINOEMBRYONIC ANTIGEN 2022-10-22 04:19:00 [facility] (CEA) [facility] CBC W/PLT COUNT & AUTO 2022-10-22 04:19:00 [facility], [facility] DIFFERENTIAL [facility] ECG 12-LEAD 2022-10-21 17:09:37 [facility] ECG 12-LEAD 2022-10-21 17:09:37 Unknown, Hl7 Doctor [facility] HEPATIC FUNCTION PANEL 2022-10-21 14:42:00 [facility] BASIC METABOLIC PANEL 2022-10-21 14:42:00 [facility] HEMOGLOBIN A1C 2022-10-21 14:42:00 [facility] PROTHROMBIN TIME/INR 2022-10-21 14:42:00 [facility] CBC W/PLT COUNT & AUTO 2022-10-21 14:42:00 [facility] CBC W/PLT COUNT & AUTO 2022-10-21 14:42:00 [facility] Plan of Care Planned Activity Planned Date Details Comments Source Future Scheduled 2027-10-[address] [facility]00 (procedure) [code = [facility] [id number]] Future Scheduled 2023-02-[address] [...] Department ID 2022-11-21 2022-11-21 Outpatient EDDIE LIMA [facility] [id number] SLE 00:00:00 00:00:00 [facility] 2022-11-17 2022-11-17 Outpatient BHARAT FOWLER [facility] [id number] SLE 00:00:00 00:00:00 MANNY 2022-11-07 2022-11-07 Outpatient BHARAT DECKER [facility] [id number] SLE 00:00:00 00:00:00 [facility] 2022-11-06 2022-11-06 Outpatient BHARAT DECKER [facility] [id number] SLE 12:51:54 15:40:51 [facility] 2022-11-06 2022-11-06 Outpatient BHARAT [facility] [id number] SLE 00:00:00 00:00:00 2022-10-21 2022-10-27 [facility] [id number] SLE 13:26:00 14:43:00 [facility] 2022-10-23 2022-10-23 Anesthesia [place], [facility] [id number] 11:35:00 13:04:00 Event Navjot Frost [facility] 2022-10-23 2022-10-23 Surgery Bernica, [facility] [id number] 10:00:00 10:59:00 Judy [facility] 2022-10-21 2022-10-21 Orders [facility] [id number] 00:00:00 00:00:00 Only [facility] Results Test Description Test Time [...] (test code = 961) 1+ COMPREHENSIVE METABOLIC [id number] 09:15:25 Test Item Value Reference Range Interpretation [...] (test code = 347) EGFR (BEAKER) 103 Interpretati on of eGFR [...] not appl icable for dialysis patien ts [id number] 09:12:59 Test Item Value Reference Range Interpretation Comments MAGNESIUM (BEAKER) (test code = 1.9 mg/dL 1.6-2.6 627) CBC W/PLT COUNT & AUTO [id number] 09:08:27 Test Item Value Reference Range Interpretation [...] 9.4-12.4 (test code = 754) IR PORT-A-CATH [id number] 13:51:15 [facility] 1980 Sex: MRight internal jugular chest port insertion History: Neuroendocrine carcinoma. Modality: Sonography and fluoroscopy. Sedation: Moderate sedation was administered. 2 mg of Versed and 100mcg of fentanyl IV was usedfor moderate sedation monitored under mydirection. Total intra-service time of sedation was 30 minutes. Thepatient's vital signs were monitored throughout the procedure andrecorded in the patient's medical record by the nurse. Contract Admin: Nando Lundy MDAssistant: Dr. Donovan. Approach: Right internal jugular vein Estimated blood loss: < 5 cc.Specimen: None. Fluoroscopy Time: 1.1 min.Reference Air Kerma (Ka, r): 10.6 mGy.Technique: Informed written consent was obtained. Discussion of risks, benefits,and alternatives were made with the patient. The patient expressedunderstanding and agreedto proceed. A universal timeout was performedprior to starting the procedure. All elements maximal sterile barriertechnique was utilized for this procedure, including utilization ofsterile scrub solution for skin prep, a large sterile sheet to cover theareas of the patient that were not prepped, and hand hygiene, mask, headcovering, and sterile gown for performing radiologist and scrubtechnologist.The skin was anesthetized with 2% lidocaine. Ultrasound evaluationshowed a patent and compressible right internal jugular vein, which waspunctured under direct real- time ultrasound guidance with amicropuncture needle. An ultrasound image was saved to PACS. A 0.018 inch wire was placed through the needle into the right atrium. A4 [place] micropuncture sheath was placed and a 0.035 wire was advancedinto the IVC. A subcutaneous tunnel and pocket were created [...] of the chest demonstrates the new right LLEhag-G-Gobo to lie in the expected position with its tip overlyingthesuperior right atrium. IMPRESSION:Impression: Successful, uncomplicated placement of a right internal jugular chestport using sonographic and fluoroscopic guidance and conscious sedation.The port is ready for immediate use. Electronically Signed By: Nando Lundy01/31/2023 13:53 CDTWorkstation Name:[id number](CELLAVISION MANUAL DIFF) 2023-01-31 10:41:31 Test Item Value [...] CONCENTRATION Adequate (CELLAVISION)(BEAKER) (test code = 3438) Criminal Intelligence Analyst ID - Ally KoenigJameel comments: Slide comments:CBC W/PLT COUNT & AUTO [id number] 10:41:30 Test Item Value Reference Range Interpretation [...] (BEAKER) (test code = 413) BASIC METABOLIC [id number] 10:11:48 Test Item Value Reference Range Interpretation [...] not appl icable for dialysis patien ts Criminal Intelligence Analyst ID - ADMINPROTHROMBIN [id number] 10:05:49 Test Item Value Reference Range Interpretation Comments PROTIME (BEAKER) 14.1 seconds 11.9-14.2 (test code = 759) INR (BEAKER) (test 1.15 See_Comment [Automat ed message] code = 370) The system Octoshape generated this result transmitted ref erence range: [...] code > ng/mL <10.0 H = 1094) Criminal Intelligence Analyst ID - ADMINOperator ID - ADMINOperator ID [...] (test code Normal = 762) COMPREHENSIVE METABOLIC [id number] 11:39:58 Test Item Value Reference Range Interpretation [...] patien ts CBC W/PLT COUNT & AUTO [id number] 11:29:52 Test Item Value Reference Range Interpretation [...] 9.4-12.4 (test code = 754) COMPREHENSIVE METABOLIC [id number] 04:16:43 Test Item Value Reference Range Interpretation [...] not appl icable for dialysis patien ts Criminal Intelligence Analyst ID - DENIS [id number] 04:16:02 Test Item Value Reference Range Interpretation Comments MAGNESIUM (BEAKER) (test code = 1.6 mg/dL 1.6-2.6 627) Criminal Intelligence Analyst ID Kayla BARRIOS WCBC W/PLT COUNT & AUTO [id number] 03:24:45 Test Item Value Reference Range Interpretation [...] 0.00-1.00 PERCENT (BEAKER) (test code = 2801) [id number] 06:10:23 Test Item Value Reference Range Interpretation Comments MAGNESIUM (BEAKER) (test code = 1.6 mg/dL 1.6-2.6 627) Criminal Intelligence Analyst ID - ADMINCOMPREHENSIVE METABOLIC [id number] 06:10:22 Test Item Value Reference Range Interpretation [...] not appl icable for dialysis patien ts Criminal Intelligence Analyst ID - ADMINCBC W/PLT COUNT & AUTO [id number] 04:42:27 Test Item Value Reference Range Interpretation [...] PERCENT (BEAKER) (test code = 2801) URIC [id number] 12:19:41 Test Item Value Reference Range Interpretation Comments URIC ACID (BEAKER) (test code = 7.2 mg/dL 2.6-7.2 773) Criminal Intelligence Analyst ID - BV(CELLAVISION MANUAL DIFF)2023-01-19 04:40:54 Test [...] CONCENTRATION Adequate (CELLAVISION)(BEAKER) (test code = 3438) Criminal Intelligence Analyst ID - Danniellevic Castellon comments: Slide comments:CBC W/PLT COUNT & AUTO [id number] 04:40:49 Test Item Value Reference Range Interpretation [...] (BEAKER) (test code = 413) COMPREHENSIVE METABOLIC [id number] 04:21:36 Test Item Value Reference Range Interpretation [...] not appl icable for dialysis patien ts Criminal Intelligence Analyst ID - [id number] 04:21:36 Test Item Value Reference Range Interpretation Comments MAGNESIUM (BEAKER) (test code = 1.4 mg/dL 1.6-2.6 L 627) Criminal Intelligence Analyst ID - MARCOCOMPREHENSIVE METABOLIC [id number] 15:40:59 Test Item Value Reference Range Interpretation [...] (test code = 347) EGFR (BEAKER) 113 Interpretati on of eGFR (test code = [...] not appl icable for dialysis patien ts Criminal Intelligence Analyst ID - ADMINURIC [id number] 15:40:59 Test Item Value Reference Range Interpretation Comments URIC ACID (BEAKER) (test code = 7.6 mg/dL 2.6-7.2 H 773) Criminal Intelligence Analyst ID - ADMINXR CHEST 1 VIEW PORTABLE / [id number] 13:56:07 [facility] : 1980 Sex: MCLINICAL HISTORY: PICC tip location verification. TECHNIQUE: 1 view of the chest.COMPARISON: 11/08/2022IMPRESSION:The tip of the right PICC line is just below the cavoatrial junction.There are no focal infiltrates oreffusions. The cardiomediastinalsilhouette is within normal limits for size. Electronically Signed By: Manas Taylor01/18/2023 13:58 CDTWorkstation Name: [id number] COMPREHENSIVE METABOLIC [id number] 09:39:15 Test Item Value Reference Range Interpretation [...] not appl icable for dialysis patien ts Criminal Intelligence Analyst ID - [id number] 09:39:14 Test Item Value Reference Range Interpretation Comments PHOSPHORUS (BEAKER) 4.0 mg/dL 2.3-4.7 Specimen moderately (test code = 604) hemolyzed Criminal Intelligence Analyst ID - ADMURIC [id number] 09:39:14 Test Item Value Reference Range Interpretation Comments URIC ACID (BEAKER) 8.1 mg/dL 2.6-7.2 H Specimen moderately (test code = 773) hemolyzed Criminal Intelligence Analyst ID - [id number] 09:39:13 Test Item Value Reference Range Interpretation Comments MAGNESIUM (BEAKER) 1.6 mg/dL 1.6-2.6 Specimen moderately (test code = 627) hemolyzed Criminal Intelligence Analyst ID - ADMCBC W/PLT COUNT & AUTO [id number] 08:50:53 Test Item Value Reference Range Interpretation [...] PERCENT (BEAKER) (test code = 2801) PROTHROMBIN [id number] 08:48:36 Test Item Value Reference Range Interpretation Comments PROTIME (BEAKER) 14.0 seconds 11.9-14.2 (test code = 759) INR (BEAKER) (test 1.11 See_Comment [Automat ed message] code = 370) The system Octoshape generated this result transmitted ref erence range: <=5.90. The reference range was not used to int erpret this result as normal/abnormal . RECOMMENDED COUMADIN/WARFARIN INR THERAPY RANGESSTANDARD DOSE: 2.0 - 3.0 Includes: PROPHYLAXIS for venous thrombosis, systemic embolization; TREATMENT for venous thrombosis and/or pulmonary embolus.HIGH RISK: Target INR is 2.5-3.5 for patients with mechanical heart valves.CBC W/PLT COUNT & AUTO [id number] 21:23:37 Test Item Value Reference Range Interpretation [...] code = 2801) ALPHA FETOPROTEIN (AFP), TUMOR [id number] 17:18:51 Test Item Value Reference Range Interpretation Comments ALPHA-FETOPROTEIN (BEAKER) (test code > ng/mL <10.0 H = 1094) Criminal Intelligence Analyst ID - ADMINOperator ID - ADMINOperator ID - ADMINOperator ID - ADMIN COMPREHENSIVE METABOLIC [id number] 09:38:30 Test Item Value Reference Range Interpretation [...] not appl icable for dialysis patien ts [id number] 09:34:37 Test Item Value Reference Range Interpretation Comments MAGNESIUM (BEAKER) (test code = 1.5 mg/dL 1.6-2.6 L 627) HCG, QUANTITATIVE, [id number] 09:30:32 Test Item Value Reference Range Interpretation [...] code = 2801) ALPHA FETOPROTEIN (AFP), TUMOR [id number] 15:59:30 Test Item Value Reference Range Interpretation Comments ALPHA-FETOPROTEIN (BEAKER) (test code > ng/mL <10.0 H = 1094) Criminal Intelligence Analyst ID - anish bOperator ID - anish bOperator ID - anish bCARCINOEMBRYONIC ANTIGEN (CEA)2023-01-09 15:04:16 Test Item Value Reference Range Interpretation Comments CARCINOEMBRYONIC ANTIGEN (BEAKER) 15.1 ng/mL 0.0-5.0 H (test code = 685) Criminal Intelligence Analyst ID - anish bLACTATE DEHYDROGENASE (LDH)2023-01-09 12:48:48 Test Item Value Reference Range Interpretation Comments LACTATE DEHYDROGENASE (BEAKER) (test > U/L 125-220 H code = 635) COMPREHENSIVE METABOLIC [id number] 12:39:05 Test Item Value Reference Range Interpretation [...] not appl icable for dialysis patien ts [id number] 12:37:31 Test Item Value Reference Range Interpretation Comments PHOSPHORUS (BEAKER) (test code = 3.6 mg/dL 2.3-4.7 604) CBC W/PLT COUNT & AUTO [id number] 12:21:24 Test Item Value Reference Range Interpretation [...] code = 2801) ALPHA FETOPROTEIN (AFP), TUMOR [id number] 16:43:27 Test Item Value Reference Range Interpretation Comments ALPHA-FETOPROTEIN (BEAKER) (test code > ng/mL <10.0 H = 1094) Criminal Intelligence Analyst ID - ADMINOperator ID - ADMINOperator ID [...] (test code Normal = 762) COMPREHENSIVE METABOLIC [id number] 09:36:30 Test Item Value Reference Range Interpretation [...] not appl icable for dialysis patien ts [id number] 09:28:58 Test Item Value Reference Range Interpretation Comments MAGNESIUM (BEAKER) (test code = 1.7 mg/dL 1.6-2.6 627) CBC W/PLT COUNT & AUTO [id number] 09:23:38 Test Item Value Reference Range Interpretation [...] 9.4-12.4 (test code = 754) COMPREHENSIVE METABOLIC [id number] 09:40:11 Test Item Value Reference Range Interpretation [...] not appl icable for dialysis patien ts [id number] 09:24:23 Test Item Value Reference Range Interpretation Comments MAGNESIUM (BEAKER) (test code = 1.9 mg/dL 1.6-2.6 627) CBC W/PLT COUNT & AUTO [id number] 09:04:00 Test Item Value Reference Range Interpretation [...] code = 2801) ALPHA FETOPROTEIN (AFP), TUMOR [id number] 16:54:52 Test Item Value Reference Range Interpretation Comments ALPHA-FETOPROTEIN (BEAKER) (test code > ng/mL <10.0 H = 1094) Criminal Intelligence Analyst ID - ADMINOperator ID - ADMINOperator ID - ADMINOperator ID - ADMIN BASIC METABOLIC [id number] 13:58:04 Test Item Value Reference Range Interpretation [...] not appl icable for dialysis patien ts Criminal Intelligence Analyst ID - ADMINHEPATIC FUNCTION [id number] 13:58:04 Test Item Value Reference Range Interpretation [...] code = 58 U/L 6-55 H 347) Criminal Intelligence Analyst ID - ADMINCBC W/PLT COUNT & AUTO [id number] 11:19:47 Test Item Value Reference Range Interpretation [...] (BEAKER) (test code = 2801) HEPATIC FUNCTION [id number] 06:52:32 Test Item Value Reference Range Interpretation [...] code = 64 U/L 6-55 H 347) Criminal Intelligence Analyst ID - MMURIC [id number] 06:52:31 Test Item Value Reference Range Interpretation Comments URIC ACID (BEAKER) (test code = 2.7 mg/dL 2.6-7.2 773) Criminal Intelligence Analyst ID - MMBASIC METABOLIC [id number] 06:52:30 Test Item Value Reference Range Interpretation [...] not appl icable for dialysis patien ts Criminal Intelligence Analyst ID - [id number] 06:52:30 Test Item Value Reference Range Interpretation Comments PHOSPHORUS (BEAKER) (test code = 3.4 mg/dL 2.3-4.7 604) Criminal Intelligence Analyst ID - MMCBC W/PLT COUNT & AUTO [id number] 06:20:55 Test Item Value Reference Range Interpretation [...] (BEAKER) (test code = 2801) BASIC METABOLIC [id number] 22:14:17 Test Item Value Reference Range Interpretation [...] is not as accur ate as Creatinine Mian arleen in predicting glom erular filtration rate . Estimated GFR is not appl icable for dialysis patien ts Criminal Intelligence Analyst ID - ADMINURIC [id number] 22:12:41 Test Item Value Reference Range Interpretation Comments URIC ACID (BEAKER) 2.6 mg/dL 2.6-7.2 Specimen slightly (test code = 773) hemolyzed Criminal Intelligence Analyst ID - [id number] 22:12:40 Test Item Value Reference Range Interpretation Comments PHOSPHORUS (BEAKER) 3.8 mg/dL 2.3-4.7 Specimen slightly (test code = 604) hemolyzed Criminal Intelligence Analyst ID - ADMINBASIC METABOLIC [id number] 17:01:12 Test Item Value Reference Range Interpretation [...] not appl icable for dialysis patien ts Criminal Intelligence Analyst ID - [id number] 16:58:24 Test Item Value Reference Range Interpretation Comments PHOSPHORUS (BEAKER) (test code = 2.8 mg/dL 2.3-4.7 604) Criminal Intelligence Analyst ID - ADMINURIC [id number] 16:58:24 Test Item Value Reference Range Interpretation Comments URIC ACID (BEAKER) (test code = 2.1 mg/dL 2.6-7.2 L 773) Criminal Intelligence Analyst ID - ADMINURIC [id number] 06:57:40 Test Item Value Reference Range Interpretation Comments URIC ACID (BEAKER) (test code = 3.1 mg/dL 2.6-7.2 773) Criminal Intelligence Analyst ID - MMHEPATIC FUNCTION [id number] 06:57:40 Test Item Value Reference Range Interpretation [...] code = 65 U/L 6-55 H 347) Criminal Intelligence Analyst ID - MMBASIC METABOLIC [id number] 06:57:39 Test Item Value Reference Range Interpretation [...] not appl icable for dialysis patien ts Criminal Intelligence Analyst ID - [id number] 06:57:39 Test Item Value Reference Range Interpretation Comments PHOSPHORUS (BEAKER) (test code = 3.6 mg/dL 2.3-4.7 604) Criminal Intelligence Analyst ID - MMCBC W/PLT COUNT & AUTO [id number] 06:51:25 Test Item Value Reference Range Interpretation [...] (BEAKER) (test code = 2801) BASIC METABOLIC [id number] 09:04:16 Test Item Value Reference Range Interpretation [...] not appl icable for dialysis patien ts Criminal Intelligence Analyst ID - [id number] 09:04:15 Test Item Value Reference Range Interpretation Comments PHOSPHORUS (BEAKER) 3.1 mg/dL 2.3-4.7 Specimen slightly (test code = 604) hemolyzed Criminal Intelligence Analyst ID - MMURIC [id number] 09:04:15 Test Item Value Reference Range Interpretation Comments URIC ACID (BEAKER) 4.1 mg/dL 2.6-7.2 Specimen slightly (test code = 773) hemolyzed Criminal Intelligence Analyst ID - [id number] 05:03:52 Test Item Value Reference Range Interpretation Comments PHOSPHORUS (BEAKER) (test code = 3.7 mg/dL 2.3-4.7 604) Criminal Intelligence Analyst ID - MMURIC [id number] 05:03:52 Test Item Value Reference Range Interpretation Comments URIC ACID (BEAKER) (test code = 4.7 mg/dL 2.6-7.2 773) Criminal Intelligence Analyst ID - MMCOMPREHENSIVE METABOLIC [id number] 05:03:51 Test Item Value Reference Range Interpretation [...] not appl icable for dialysis patien ts Criminal Intelligence Analyst ID - MMCBC W/PLT COUNT & AUTO [id number] 04:40:21 Test Item Value Reference Range Interpretation [...] 2801) XR CHEST 1 VIEW PORTABLE / [id number] 17:54:25 [facility] 1980 Sex: MXR [...] (test code Normal = 486) HEPATITIS B [id number] 13:30:00 Test Item Value Reference Range Interpretation Comments HEPATITIS B CORE TOTAL ANTIBODY Nonreactive Nonreactive (BEAKER) (test code = 497) HEPATITIS B SURFACE ANTIBODY < mIU/mL <8.0 (BEAKER) (test code = 647) HEPATITIS B SURFACE ANTIGEN (2) Nonreactive Nonreactive (BEAKER) (test code = 2585) Criminal Intelligence Analyst ID - ADMINHEPATITIS C [id number] 13:29:13 Test Item Value Reference Range Interpretation Comments HEPATITIS C ANTIBODY (BEAKER) Nonreactive Nonreactive (test code = 367) Criminal Intelligence Analyst ID - [id number] 13:04:16 Test Item Value Reference Range Interpretation Comments MAGNESIUM (BEAKER) (test code = 1.8 mg/dL 1.6-2.6 627) Criminal Intelligence Analyst ID - edCOMPREHENSIVE METABOLIC [id number] 13:04:15 Test Item Value Reference Range Interpretation [...] (test code = 347) EGFR (BEAKER) 112 Interpretati on of eGFR (test code = [...] not appl icable for dialysis patien ts Criminal Intelligence Analyst ID - edCBC WITH PLATELET COUNT + MANUAL [id number] 12:48:49 Test Item Value Reference Range Interpretation [...] 0-0 (BEAKER) (test code = 413) SARS-COV2/RT-PCR ([facility])2022-11-08 09:48:49 Test Item Value Reference Range Interpretation Comments SARS-COV2/RT-PCR Negative Negative The SARS-Co V-2 target (test code = nucleic acids a re not 3734000) detected in thi s specimen. Negative result [...] revoked sooner. Fact Sheet for Healthcare Providers: https://www.[employer] m/Documents/Xpert%20Xpress%20SARS%20CoV-2/Fact%20Sheets/748-3099%82ZAVO-VOJ-5%20 HEALTHCARE%20PROVIDERS%20FACT%20SHEET.pdf Fact Sheet for Healthcare Patients: https://www.eeden/Documents/Xpert%20Xp ress%20SARS%20CoV-2/Fact%20Sheets/741-6961%50BUWN-LWJ-8%20PATIENT%20FACT%20SHEET .pdfCARCINOEMBRYONIC ANTIGEN (CEA)2022-11-06 18:53:46 Test Item Value Reference Range Interpretation Comments CARCINOEMBRYONIC ANTIGEN (BEAKER) 5.3 ng/mL 0.0-5.0 H (test code = 685) Criminal Intelligence Analyst ID - MMCOMPREHENSIVE METABOLIC [id number] 16:39:54 Test Item Value Reference Range Interpretation [...] patien ts CBC W/PLT COUNT & AUTO [id number] 16:21:39 Test Item Value Reference Range Interpretation [...] PERCENT (BEAKER) (test code = 2801) TISSUE [id number] 16:02:43Surgical Pathology Report Case: [id number] Authorizing Provider: Dima Berrios MD Collected: 10/26/2022 03:07 PM Ordering Location: [address] Received: 10/26/2022 04:53 PM Service Pathologist: Sherry Andrade MD Specimen: Biopsy, Liver Liver, mass, core needle biopsy: - Metastatic poorly differentiated neuroendocrine carcinoma, WHO grade 3; see comment Signing Pathologist Direct Phone Line: [phone] signed by Sherry Andrade MD on 11/01/2022 [...] is needed. The patient's prior gastric biopsy ([id number], H&E) was concurrently reviewed, and the tumor shows similar histomorphology. Dr. Edvin Goldberg reviewed the case and agrees.Block A2 has adequate tumor cellularity for additional ancillary studies.References:Antonino WALLER, Dariusz T, Carina C, Bassem L. Metastatic neuroendocrine carcinoma presenting as multifocal liver lesions with elevated alpha-fetoprotein. Clin Case Rep. 2018 May 16;7(2):251-253. doi: 10.1002/ccr3.1956. PMID: 78454281; PMCID: [id number], 31241, 47899x5Vrxg is a 42-year-old male with history of [...] evaluated Immunohistochemistry technical testing was performed at [facility], Pathology Laboratory where it was [...] qualified to perform high complexity clinical laboratory testing.[facility], Department of Pathology, [address] [place] [address], [facility], [address] [place] [id number], [facility], [address] [place] [address], KGXTAD [id number] 09:06:35Surgical Pathology Report Case: [id number] Authorizing Provider: Judy Martinez, Collected: 10/23/2022 11:56 AM Ordering Location: [address] Received: 10/23/2022 01:29 PM Service Pathologist: Suzan Teixeira MD Specimens: A) - Biopsy, Gastric, random bxs B) - Biopsy, Gastric, bxs gastric mass A. STOMACH, RANDOM BIOPSIES: - CHEMICAL/REACTIVE GASTROPATHY - PPI EFFECT, MILDB. STOMACH, BIOPSIES OF MASS: - NEUROENDOCRINE CARCINOMA, SMALL CELL TYPE Signing Pathologist Direct Phone Line: [phone] signed by Suzan Bagley MD on 11/01/2022 at 9:06 AMPreliminary result electronically signed by Suzan Teixeira MD on 10/27/2022 at 11:55 AMPreliminary result electronically signed by Suzan Teixeira MD on 10/26/2022 at 11:55 AMThe finding was communicated via secure email with Judy Edmonds <[email or web address] GI Department at 11:52 on October 26, [id number], 25309, [id number] hemorrhage associated with gastritisA. Biopsy, GastricReceived in [...] the report was issued at [facility] (CLIA#[id number]), [address] [place] [address].The interpretation of this case included the use of immunohistochemistry or special stains.Control Slides Examined: In-house known positive controls were evaluated along with the test tissue. These control slides run alongside of the patients sample show appropriate staining. Internal positive and negative controls when available are evaluated Immunohistochemistry technical testing was performed at [facility], Pathology Laboratory where it was [...] perform high complexity clinical laboratory testing.U/S, BIOPSY, [id number] 12:01:00Reason for exam:->gastric mass and liver mass with afp >[id number] this be performed at the bedside?->No [facility] : 1980 Sex: MFINAL REPORT Procedure: Liver mass core biopsy Pre/post-procedure diagnosis: Liver mass Contract Admin: Bebo Low MD Assistants: none Sedation: Moderate [...] Low Verified Date/Time: 10/30/2022 12:01:04 C METABOLIC [id number] 05:48:04 Test Item Value Reference Range Interpretation [...] not appl icable for dialysis patien ts Criminal Intelligence Analyst ID - [id number] 05:48:04 Test Item Value Reference Range Interpretation Comments MAGNESIUM (BEAKER) (test code = 1.7 mg/dL 1.6-2.6 627) Criminal Intelligence Analyst ID - MMCBC W/PLT COUNT & AUTO [id number] 05:27:57 Test Item Value Reference Range Interpretation [...] 0.00-1.00 PERCENT (BEAKER) (test code = 2801) [id number] 06:55:04 Test Item Value Reference Range Interpretation Comments MAGNESIUM (BEAKER) (test code = 1.6 mg/dL 1.6-2.6 627) Criminal Intelligence Analyst ID - BSBASIC METABOLIC [id number] 06:55:03 Test Item Value Reference Range Interpretation [...] not appl icable for dialysis patien ts Criminal Intelligence Analyst ID - BSPROTHROMBIN [id number] 06:18:33 Test Item Value Reference Range Interpretation [...] mechanical heart valves.CBC W/PLT COUNT & AUTO [id number] 06:07:18 Test Item Value Reference Range Interpretation [...] (BEAKER) (test code = 2801) COMPREHENSIVE METABOLIC [id number] 07:14:31 Test Item Value Reference Range Interpretation [...] not appl icable for dialysis patien ts Criminal Intelligence Analyst ID - DENIS [id number] 07:14:31 Test Item Value Reference Range Interpretation Comments MAGNESIUM (BEAKER) (test code = 1.5 mg/dL 1.6-2.6 L 627) Criminal Intelligence Analyst ID - DENIS WCBC W/PLT COUNT & AUTO [id number] 06:55:14 Test Item Value Reference Range Interpretation [...] (test code = 2801) ROSALINDA TITER AND [id number] 13:55:32 Test Item Value Reference Range Interpretation [...] method.Test performed by IFA method.CT, CHEST, WITH [id number] 13:00:00Unlisted Reason for Exam - Click Yes and Enter Reason Below->No[facility] : 1980 Sex: [...] MDReport Verified Date/Time: 10/24/2022 13:00:41 Reading Location: [facility] B1 C013X Ortho Consult Reading Room CT, [id number] 13:00:00Unlisted Reason for Exam - Click Yes and Enter Reason Below->NoProtocol Please Specify:->Standard ProtocolWill this procedure require oral contrast?->No [facility] : 1980 Sex: [...] Olveraort Verified Date/Time: 10/24/2022 13:00:41 Reading Location: [address] Ortho Consult Reading Room CBC W/PLT [...] 0.00-1.00 PERCENT (BEAKER) (test code = 2801) [id number] 05:38:34 Test Item Value Reference Range Interpretation Comments MAGNESIUM (BEAKER) (test code = 1.5 mg/dL 1.6-2.6 L 627) Criminal Intelligence Analyst ID - MMCOMPREHENSIVE METABOLIC [id number] 05:38:33 Test Item Value Reference Range Interpretation [...] not appl icable for dialysis patien ts Criminal Intelligence Analyst ID - MMHEMOGLOBIN AND [id number] 16:05:28 Test Item Value Reference Range Interpretation Comments HEMOGLOBIN (BEAKER) (test code = 14.4 GM/DL 13.7-17.5 410) HEMATOCRIT (BEAKER) (test code = 44.3 % 40.1-51.0 411) Criminal Intelligence Analyst ID - [id number] 09:39:18 Test Item Value Reference Range Interpretation Comments MAGNESIUM (BEAKER) 1.6 mg/dL 1.6-2.6 Specimen slightly (test code = 627) hemolyzed Criminal Intelligence Analyst ID - MMBASIC METABOLIC [id number] 09:39:18 Test Item Value Reference Range Interpretation [...] not appl icable for dialysis patien ts Criminal Intelligence Analyst ID - MMHEPATIC FUNCTION [id number] 09:39:18 Test Item Value Reference Range Interpretation [...] Specimen slightly (test code = 347) hemolyzed Criminal Intelligence Analyst ID - MMCBC W/PLT COUNT & AUTO [id number] 06:38:29 Test Item Value Reference Range Interpretation [...] PERCENT (BEAKER) (test code = 2801) HEMOGLOBIN [id number] 08:56:25 Test Item Value Reference Range Interpretation Comments HEMOGLOBIN A1C 5.7 % See_Comment H [Automated m essage] ELECTROPHORESIS (AKER) The system which (test code = 3811) generated this result transmitted ref erence range: <=5.6%. The reference range was not used to int erpret this result as normal/abnormal . "The A1c is measured using a NGSP-certified method. HbA1c value equal to or greater than 6.5% as thediagnosis cutoff for diabetes. An HbA1c value of 5.7- 6.4% indicates increased risk for diabetes (prediabetes)."Criminal Intelligence Analyst ID - ADM [id number] 07:09:54 Test Item Value Reference Range Interpretation Comments FERRITIN (BEAKER) (test code = 159.87 ng/mL 5.00-275.00 361) Criminal Intelligence Analyst ID - MARCOALPHA FETOPROTEIN (AFP), TUMOR [id number] 06:32:10 Test Item Value Reference Range Interpretation Comments ALPHA-FETOPROTEIN (BEAKER) 57081.5 ng/mL <10.0 H (test code = 1094) Criminal Intelligence Analyst ID - ADMINOperator ID - ADMINHEPATITIS B SURFACE [id number] 06:31:52 Test Item Value Reference Range Interpretation Comments HEPATITIS B SURFACE ANTIBODY < mIU/mL <8.0 (BEAKER) (test code = 647) Criminal Intelligence Analyst ID - ADMINHEPATITIS A ANTIBODY, [id number] 06:31:00 Test Item Value Reference Range Interpretation Comments HEPATITIS A IGG ANTIBODY (BEAKER) Nonreactive Nonreactive (test code = 2797) Criminal Intelligence Analyst ID - ADMINCARCINOEMBRYONIC ANTIGEN (CEA)2022-10-22 06:30:59 Test Item Value Reference Range Interpretation Comments CARCINOEMBRYONIC ANTIGEN (BEAKER) 5.6 ng/mL 0.0-5.0 H (test code = 685) Criminal Intelligence Analyst ID - ADMINHEPATITIS B CORE ANTIBODY, [id number] 06:30:59 Test Item Value Reference Range Interpretation Comments HEPATITIS B CORE TOTAL ANTIBODY Nonreactive Nonreactive (BEAKER) (test code = 497) Criminal Intelligence Analyst ID - ADMINHEPATITIS PANEL, [id number] 06:03:10 Test Item Value Reference Range Interpretation Comments HEPATITIS A IGM ANTIBODY (BEAKER) Nonreactive Nonreactive (test code = 498) HEPATITIS B CORE IGM ANTIBODY Nonreactive Nonreactive (BEAKER) (test code = 645) HEPATITIS C ANTIBODY (BEAKER) Nonreactive Nonreactive (test code = 367) HEPATITIS B SURFACE ANTIGEN (2) Nonreactive Nonreactive (BEAKER) (test code = 2585) Criminal Intelligence Analyst ID - [id number] 05:54:41 Test Item Value Reference Range Interpretation Comments MAGNESIUM (BEAKER) (test code = 1.7 mg/dL 1.6-2.6 627) Criminal Intelligence Analyst ID - MARCOLIPID [id number] 05:54:41 Test Item Value Reference Range Interpretation [...] Borderline 130-159 High 160-189 Very High >=190 Criminal Intelligence Analyst ID - MARCOHEPATIC FUNCTION [id number] 05:54:41 Test Item Value Reference Range Interpretation [...] (test code = 54 U/L 6-55 347) Criminal Intelligence Analyst ID - MARCOBASIC METABOLIC [id number] 05:54:40 Test Item Value Reference Range Interpretation [...] not appl icable for dialysis patien ts Criminal Intelligence Analyst ID - IRASEMAON, TIBC, % SAT. (WITHOUT FERRITIN)2022-10-22 05:39:20 Test Item Value Reference Range Interpretation Comments IRON (BEAKER) (test code = 547) 61.0 ug/dL 40.0-160.0 TOTAL IRON BINDING CAPACITY 273 ug/dL 250-450 (BEAKER) (test code = 769) IRON % SATURATION (2) (BEAKER) 22 % 20-55 (test code = 2590) Criminal Intelligence Analyst ID - [id number] 05:39:03 Test Item Value Reference Range Interpretation Comments ALPHA-1 ANTITRYPSIN (BEAKER) 211.70 mg/dL 90.00-200.00 H (test code = 502) Criminal Intelligence Analyst ID - ADMINCBC W/PLT COUNT & AUTO [id number] 05:15:17 Test Item Value Reference Range Interpretation [...] (BEAKER) (test code = 2801) HEPATIC FUNCTION [id number] 15:14:35 Test Item Value Reference Range Interpretation [...] Specimen slightly (test code = 347) hemolyzed Criminal Intelligence Analyst ID - MARCOPROTHROMBIN [id number] 15:14:35 Test Item Value Reference Range Interpretation Comments PROTIME (BEAKER) (test code = 14.7 seconds 11.9-14.2 H 759) INR (BEAKER) (test code = 370) 1.22 <=5.90 RECOMMENDED COUMADIN/WARFARIN INR THERAPY RANGESSTANDARD DOSE: 2.0 - 3.0 Includes: PROPHYLAXIS for venous thrombosis, systemic embolization; TREATMENT for venous thrombosis and/or pulmonary embolus.HIGH RISK: Target INR is 2.5-3.5 for patients with mechanical heart valves.BASIC METABOLIC [id number] 15:14:34 Test Item Value Reference Range Interpretation [...] not appl icable for dialysis patien ts Criminal Intelligence Analyst ID - MARCOCBC W/PLT COUNT & AUTO [id number] 14:53:39 Test Item Value Reference Range Interpretation [...]
[2023-02-06 15:19] LABS: Absolute Lymphocytes (CBC) 1.5 K/uL (0.7-4.9); Lymphocytes % 9.8 % (15.3-44.8); MPV 8.1 fL (7.6-11.3); Platelets 292 thou/uL (152-406); RBC Red Blood Cell Count 3.36 M/uL (4.33-5.43)
[2023-02-06] MEDS ORDERED: PROMETHAZINE INJ 25 MG/ML AMP ONE ×2 (15:27→17:44)
[2023-02-06] MEDS ORDERED: HYDROMORPHONE HCL 1 MG/ML INJ ONE ×2 (15:28→17:44)
[2023-02-06] MEDS ORDERED: PANTOPRAZOLE 40 MG INJ ONE (15:43)
[2023-02-06 15:47] LABS: Albumin 2.8 g/dL (3.4-5.0); Bilirubin Total 0.8 mg/dL (0.2-1.0)
--- NOTE | 2023-02-06 17:05 | RAD REPORT ---
EXAM DESCRIPTION: CT - Abdomen Pelvis W Contrast - 02/06/2023 4:50 pm CLINICAL HISTORY: Abdominal pain COMPARISON: January 2023 TECHNIQUE: Computed axial tomography of the abdomen pelvis was obtained. 100 cc Isovue-300 was admin istered intravenously. Oral contrast was not requested which limits evaluation of bowel and appendix All CT scans are performed using dose optimization technique as appropriate and may include automated exposure control or mA/KV adjustment according to patient size. FINDINGS: Marked hepatomegaly with innumerable large and small hepatic lesions. Mild increase in the size of the lesions. L The stomach is compressed by the liver and adjacent lymphadenopathy. Pancreas, adrenal and kidneys appear unremarkable. Mild splenomegaly No bowel obstruction. Small amount of ascites abdomen. Moderate amount ascites pelvis Abdominal lymphadenopathy Mild anterior subluxation L4 on L5 and L5 on S1. Spondylolysis L4 and L5 IMPRESSION: Worsening metastatic disease. Stomach is compressed by the liver and lymph nodes. Marked hepatomegaly
--- NOTE | 2023-02-06 17:19 | EDPHYS ---
Physician Documentation [facility] Name: Ayden Andres Jr Age: 42 yrs Sex: Male : 1980 Arrival Date: 02/06/2023 Time: 14:42 Bed 20 Private MD: ED Physician Barrett Munson HPI: 02/06 14:56 This 42 yrs old Male presents to ER via Ambulatory with complaints of rn Vomiting, Abdominal Pain. 14:56 The patient presents to the emergency department with nausea, vomiting, abdominal pain. rn Onset: The symptoms/episode began/occurred yesterday. Possible causes: unknown. The symptoms are aggravated by nothing. The symptoms are alleviated by nothing. Severity of symptoms: At their worst the symptoms were moderate in the emergency department the symptoms are unchanged. The patient has experienced similar episodes in the past. Patient reports persistent nausea and vomiting with abdominal pain. Seen in our ER yesterday and felt better but overnight started vomiting again. Has cancer has known cancer and has appointment for chemotherapy tomorrow.. Historical: - Allergies: 14:51 No Known Allergies; iw - PMHx: 14:51 cirrhosis of liver; stomach cancer; iw - Immunization history:: Client reports having NOT received the Covid vaccine. - Family history:: not pertinent. - Social history:: Smoking status: Patient denies any tobacco usage or history of. - Hospitalizations: : No recent hospitalization is reported. ROS: 14:56 Constitutional: Negative for fever, chills, and weight loss, Cardiovascular: Negative rn for chest pain, palpitations, and edema, Respiratory: Negative for shortness of breath, cough, wheezing, and pleuritic chest pain, Abdomen/GI: Positive for abdominal pain and nausea/vomiting MS/Extremity: Negative for injury and deformity, Skin: Negative for injury, rash, and discoloration, Neuro: Negative for headache, weakness, numbness, tingling, and seizure. Exam: 14:56 Constitutional: This is a well developed, well nourished patient who is awake, alert, rn and in no acute distress. Ambulatory to room without distress or requiring assistance Cardiovascular: Regular rate and rhythm. No pulse deficits. Abdomen/GI: Soft, mild fullness left upper quadrant, no guarding or peritoneal signs MS/ Extremity: Pulses equal, no cyanosis. Neuro: Awake and alert, GCS 15 Vital Signs: 14:50 BP 130 / 100; Pulse 77; Resp 16; Temp 97.6; Pulse Ox 100% on R/A; Weight 78.02 kg; iw Height 5 ft. 11 in. ; Pain 10/10; 16:00 BP 136 / 100; Pulse 67; Resp 18; Pulse Ox 100% ; Pain 10/10; nj1 17:45 BP 128 / 97; Pulse 66; Resp 18; Pulse Ox 98% on R/A; nj1 14:50 Body Mass Index 23.99 (78.02 kg, 180.34 cm) iw 14:50 Pain Scale: Adult iw 16:00 Pain Scale: Adult nj1 MDM: 14:46 Patient medically screened. rn 17:17 Differential diagnosis: Nonspecific abd pain, Worsening cancer, obstruction, volvulus. rn Data reviewed: vital signs, nurses notes, lab test result(s), radiologic studies. Consideration of Admission/Observation Escalation of care including admission/observation considered. Counseling: I had a detailed discussion with the patient and/or guardian regarding the historical points, exam findings, and any diagnostic results supporting the discharge/admit diagnosis, lab results, radiology results, the need to transfer to another facility. Response to treatment: the patient's symptoms have markedly improved after treatment. ED course: CT shows worsening metastases with compression of stomach. Spoke with patient and family member and recommended transfer to [facility] as he gets his cancer care there as well as chemotherapy scheduled tomorrow. Offered transfer for pain and nausea control as well as IV hydration. Patient declines. Patient states feels better and would like to go home. Understands risks and benefits of doing so. Has appointment for chemotherapy tomorrow and says abdominal swelling usually improves.. 02/06 14:49 Order name: CBC with Diff; Complete Time: 17:28 rn 02/06 14:49 Order name: CMP; Complete Time: 16:27 rn 02/06 14:49 Order name: Lipase; Complete Time: 16:27 rn 02/06 15:26 Order name: CBC Smear Scan; Complete Time: 17:28 EDMS 02/06 14:49 Order name: CT Abd/Pelvis - IV Contrast Only; Complete Time: 17:08 rn 02/06 14:49 Order name: IV Saline Lock; Complete Time: 15:13 rn 02/06 14:49 Order name: Labs collected and sent; Complete Time: 15:13 rn Administered Medications: 15:22 Drug: Promethazine IVP 12.5 mg Route: IVP; Site: right forearm; ll1 17:25 Follow up: Response: No adverse reaction nj1 15:22 Drug: HYDROmorphone IVP 1 mg {Note: pain 10/10, RASS 0.} Route: IVP; Site: right ll1 forearm; 17:25 Follow up: Response: No adverse reaction nj1 15:50 Drug: Pantoprazole IVP 40 mg Route: IVP; Site: right forearm; ll1 17:25 Follow up: Response: No adverse reaction nj1 17:40 Drug: HYDROmorphone IVP 1 mg Route: IVP; Site: right forearm; nj1 17:40 Drug: Promethazine IVP 12.5 mg Route: IVP; Site: right forearm; nj1 Disposition Summary: 02/06/23 17:19 Discharge Ordered Location: Home rn Problem: new rn Symptoms: have improved rn Condition: Stable rn Diagnosis - Abdominal pain, unspecified rn - Vomiting, unspecified rn Followup: rn - With: Private Physician - When: As needed - Reason: Recheck today's complaints, Re-evaluation by your physician Discharge Instructions: - Discharge Summary Sheet rn - Abdominal Pain, Adult rn - Vomiting, Adult rn Forms: - Medication Reconciliation Form rn - Thank You Letter rn - Antibiotic clothing patternmaker - Prescription Opioid Use rn - Patient Portal Instructions rn - Leadership Thank You Letter rn Signatures: Dispatcher [employer] Maribel Mccormack RN RN Barrett Munson MD MD rn Lewis, Lynsay, RN RN 1 Larisa Carranza RN RN nj1
--- NOTE | 2023-02-06 17:19 | ER ---
Nurse's Notes [facility] Name: Ayden Andres Jr Age: 42 yrs Sex: Male : 1980 Arrival Date: 02/06/2023 Time: 14:42 Bed 20 Private MD: Diagnosis: Abdominal pain, unspecified;Vomiting, unspecified Presentation: 02/06 14:51 Chief complaint: Patient states: abd pain and n/v , was seen here yesterday , still iw having pain, hx of stomach cancer , due for chemo tomorrow. Coronavirus screen: Client presents with at least one sign or symptom that may indicate coronavirus-19. Ebola Screen: Patient negative for fever greater than or equal to 101.5 degrees Fahrenheit, and additional compatible Ebola Virus Disease symptoms Patient denies exposure to infectious person. Patient denies travel to an Ebola-affected area in the 21 days before illness onset. No symptoms or risks identified at this time. Initial Sepsis Screen: Does the patient meet any 2 criteria? No. Patient's initial sepsis screen is negative. Does the patient have a suspected source of infection? No. Patient's initial sepsis screen is negative. Risk Assessment: Do you want to hurt yourself or someone else? Patient reports no desire to harm self or others. Onset of symptoms was February 06, 2023. 14:51 Method Of Arrival: Ambulatory iw 14:51 Acuity: JOSE 3 iw Triage Assessment: 16:32 GI: Reports. nj1 Historical: - Allergies: 14:51 No Known Allergies; iw - PMHx: 14:51 cirrhosis of liver; stomach cancer; iw - Immunization history:: Client reports having NOT received the Covid vaccine. - Family history:: not pertinent. - Social history:: Smoking status: Patient denies any tobacco usage or history of. - Hospitalizations: : No recent hospitalization is reported. Screenin:31 [facility] ED Fall Risk Assessment (Adult) Score/Fall Risk Level 0 - 2 = Low Risk nj1 Oriented to surroundings, Maintained a safe environment, Hourly rounding (assess needs \T\ fall precautionary measures) done. Abuse screen: Denies threats or abuse. Denies injuries from another. Nutritional screening: No deficits noted. Tuberculosis screening: No symptoms or risk factors identified. Assessment: 16:00 General: Appears in no apparent distress. uncomfortable, Behavior is calm, cooperative, nj1 appropriate for age. Pain: Pain currently is 10 out of 10 on a pain scale. 16:00 Pain: Complains of pain in abdomen. Neuro: Level of Consciousness is awake, alert, nj1 obeys commands. Cardiovascular: Patient's skin is warm and dry. Respiratory: Airway is patent Respiratory effort is even, unlabored. GI:. Vital Signs: 14:50 BP 130 / 100; Pulse 77; Resp 16; Temp 97.6; Pulse Ox 100% on R/A; Weight 78.02 kg; iw Height 5 ft. 11 in. ; Pain 10/10; 16:00 BP 136 / 100; Pulse 67; Resp 18; Pulse Ox 100% ; Pain 10/10; nj1 17:45 BP 128 / 97; Pulse 66; Resp 18; Pulse Ox 98% on R/A; nj1 14:50 Body Mass Index 23.99 (78.02 kg, 180.34 cm) iw 14:50 Pain Scale: Adult iw 16:00 Pain Scale: Adult nj1 ED Course: 14:45 Patient arrived in ED. mg5 14:46 Barrett Munson MD is Attending Physician. rn 14:51 Triage completed. iw 14:52 Arm band placed on. iw 15:13 Patient placed in an exam room, on a stretcher. ll1 15:13 Inserted saline lock: 22 gauge in right forearm, using aseptic technique. iw 15:48 Larisa Carranza, RN is Primary Nurse. nj1 16:00 Patient has correct armband on for positive identification. Bed in low position. Call nj1 light in reach. Adult w/ patient. Provided Education on: fall precautions, call light. 16:52 CT Abd/Pelvis - IV Contrast Only In Process Unspecified. EDMS 18:30 IV discontinued, intact. nj1 21:46 No provider procedures requiring assistance completed. nj1 Administered Medications: 15:22 Drug: Promethazine IVP 12.5 mg Route: IVP; Site: right forearm; ll1 17:25 Follow up: Response: No adverse reaction nj1 15:22 Drug: HYDROmorphone IVP 1 mg {Note: pain 10/10, RASS 0.} Route: IVP; Site: right ll1 forearm; 17:25 Follow up: Response: No adverse reaction nj1 15:50 Drug: Pantoprazole IVP 40 mg Route: IVP; Site: right forearm; ll1 17:25 Follow up: Response: No adverse reaction nj1 17:40 Drug: HYDROmorphone IVP 1 mg Route: IVP; Site: right forearm; nj1 17:40 Drug: Promethazine IVP 12.5 mg Route: IVP; Site: right forearm; nj1 Medication: 18:30 VIS not applicable for this client. nj1 Outcome: 17:19 Discharge ordered by . rn 18:30 Discharged to home ambulatory, with family. nj1 18:30 Condition: stable 18:30 Discharge instructions given to patient, Instructed on discharge instructions, follow up and referral plans. Demonstrated understanding of instructions, follow-up care. 18:44 Patient left the ED. nj1 Signatures: Dispatcher [employer] Maribel Mccormack RN RN iw Nieto, Roman, MD MD rn Lewis, Lynsay, RN RN ll1 Larisa Carranza RN RN nj1 Salud Glass 5
[2023-02-06 17:23] LABS: Blood Morphology Comment NOT SEEN (NOT SEEN); Platelet Estimate ADEQ; White Blood Cell Scan OK (OK)
[2023-02-06 19:24] VITALS: TEMP 97.6; O2SAT 100
[2023-02-06 19:30] VITALS: BP 136/100
== END 2023-02-06 18:44 | disposition home or self-care (01) ==
LOC: ER 14:42
DX: R10.9 Unspecified abdominal pain (principal); R11.2 Nausea with vomiting, unspecified; Z85.028 Personal history of other malignant neoplasm of stomach; K74.60 Unspecified cirrhosis of liver
CPT/HCPCS: 85025; 36415; 83690; 80053; 74177; 96375; 96374; 99284; Q9967; J2550 ×2; C9113; J1170 ×2

== ENCOUNTER 2023-02-15 08:48 | Emergency (ER) | payer BC ==
--- OUTSIDE RECORDS SUMMARY | 2023-02-15 08:53 | XMS REPORT | Continuity of Care Document ---
:1980 Author Organization [facility] t Address [address] [facility] [address] [place] [id number] Care Team Providers Name Role Phone KENRICK DECKER Attending Clinician Unavailable MARLIN SNYDER Attending Clinician Unavailable JAMEL NEAL Attending Clinician Unavailable MANNY FOWLER Attending Clinician Unavailable BRIAN FORDE Attending Clinician Unavailable Navjot Thakkar MD Attending Clinician Judy Martinez MD Attending Clinician [phone] KENRICK DECKER Admitting Clinician Unavailable MARLIN SNYDER Admitting Clinician Unavailable RUBINA MORAES Admitting Clinician Unavailable MITRA JERONIMO Admitting Clinician Unavailable Payers Payer Name Policy Type Policy Number Effective Date Expiration Date S ource MEDICAID [employer] [facility] [id number] 2020 00:00:00 Problems Condition Condition Condition Status Onset Resolution Last Treating Co mments Source Name Details Category Date Date Treatment Clinician Date Bradycardi Bradycardi Disease [facility] [place] GI bleed GI bleed Disease [facility] 00 [place] Liver mass Liver mass Disease [facility] 00 [place] Allergies, Adverse Reactions, Alerts Allergy Allergy Status Severity Reaction(s) Onset Inactive Treating Comm ents Source Name Type Date Date Clinician NO KNOWN Allergy Active [facility] Social History Social Habit Start Date Stop Date Quantity Comments Source History SDOH [facility] History SDOH 2022-10-21 2022-10-[address] [facility] 00:00:00 00:00:[address] History SDOK Housing 2022-10-21 2022-10-[address] [facility] Unable to Pay 00:00:00 00:00:[address] History SDOH Housing 2022-10-21 2022-10-[address] [facility] Places Lived 00:00:00 00:00:00 Medical Cent er History [facility] Housing 2022-10-21 2022-10-[address] [facility] Homeless Last Year 00:00:00 00:00:00 [facility] Sex Assigned At [birth year] [facility] [address] [facility] h[facility] 00:00:00 00:00:00 Medical [...] kg Heart rate 2022-10-24 07:00:00 55 /min [facility] Respiratory rate 2022-10-24 04:55:00 18 /min [facility] Oxygen saturation in 2022-10-24 04:55:00 97 /min [facility] Arterial blood by Medical Ce nter Pulse oximetry Systolic blood 2022-10-24 04:02:00 113 mm[Hg] [facility] Diastolic blood 2022-10-24 04:02:00 63 mm[Hg] [facility] Body temperature 2022-10-24 04:02:00 35.94 Carlota [facility] Body height 2022-10-23 11:07:00 180.3 cm [facility] Body weight 2022-10-23 11:07:00 87.091 kg [facility] BMI 2022-10-23 11:07:00 26.78 kg/m2 [facility] Procedures Procedure Date / Time Performing Clinician Source Performed CBC W/PLT COUNT & AUTO 2022-10-24 06:08:00 [facility] CBC W/PLT COUNT & AUTO 2022-10-24 06:08:00 [facility] MAGNESIUM 2022-10-24 05:01:00 [facility] COMPREHENSIVE METABOLIC 2022-10-24 05:01:00 Dima Berrios [facility] HEMOGLOBIN AND HEMATOCRIT 2022-10-23 15:55:00 Dima Berrios [facility] REPORT OF PROCEDURE - 2022-10-23 12:35:10 Judy Martinez [facility] ENDOSCOPY URL [facility] ENDOSCOPY, UPPER GI TRACT, 2022-10-23 11:34:[address] [facility] WITH BIOPSY [facility] ABORH, MANUAL 2022-10-23 08:13:00 Maria Elena Milian [facility] BASIC METABOLIC PANEL 2022-10-23 06:29:00 [facility] MAGNESIUM 2022-10-23 06:29:00 [facility] CBC W/PLT COUNT & AUTO 2022-10-23 06:29:00 [facility] HEPATIC FUNCTION PANEL 2022-10-23 06:29:00 [facility] TYPE AND SCREEN, AUTOMATED 2022-10-23 06:29:00 Josué Coats [facility] CBC W/PLT COUNT & AUTO 2022-10-23 06:29:00 [facility] DIFFERENTIAL [facility] LIPID PANEL 2022-10-22 04:19:00 [facility] BASIC METABOLIC PANEL 2022-10-22 04:19:00 [facility], [facility] MAGNESIUM 2022-10-22 04:19:00 [facility] CBC W/PLT COUNT & AUTO 2022-10-22 04:19:00 [facility] DIFFERENTIAL [facility] HEPATIC FUNCTION PANEL 2022-10-22 04:19:00 [facility] CORE ANTIBODY, 2022-10-22 04:19:00 Dmitry Dale [facility] HEPATITIS PANEL, ACUTE 2022-10-22 04:19:00 [place] HEPATITIS A ANTIBODY, IGG 2022-10-22 04:19:00 Dmitry Dale [facility] HEPATITIS B SURFACE 2022-10-22 04:19:[address] [facility] FERRITIN 2022-10-22 04:19:00 [place] [facility] IRON, TIBC, % SAT. (WITHOUT 2022-10-22 04:19:00 Suy[place] [facility] FERRITIN) [facility] [id number]\\, SERUM 2022-10-22 04:19:00 [place] [facility] ALPHA FETOPROTEIN (AFP), 2022-10-22 04:19:00 Suyapa [facility] TUMOR MARKER [facility] CARCINOEMBRYONIC ANTIGEN 2022-10-22 04:19:00 [place] [facility] (CEA) [facility] CBC W/PLT COUNT & AUTO 2022-10-22 04:19:00 [facility], [facility] DIFFERENTIAL [facility] ECG 12-LEAD 2022-10-21 17:09:37 [facility] ECG 12-LEAD 2022-10-21 17:09:37 Unknown, Hl7 Doctor [facility] HEPATIC FUNCTION PANEL 2022-10-21 14:42:00 [facility] BASIC METABOLIC PANEL 2022-10-21 14:42:00 [facility] HEMOGLOBIN A1C 2022-10-21 14:42:00 [facility] PROTHROMBIN TIME/INR 2022-10-21 14:42:00 [facility] CBC W/PLT COUNT & AUTO 2022-10-21 14:42:00 [facility] CBC W/PLT COUNT & AUTO 2022-10-21 14:42:00 [facility] Plan of Care Planned Activity Planned Date Details Comments Source Future Scheduled 2027-10-[address] [facility] 00:00:00 (procedure) [code = [facility] [id number]] Future Scheduled 2023-02-[address] [...] Department ID 2022-11-21 2022-11-21 Outpatient EDDIE LIMA [facility] [id number] SLE 00:00:00 00:00:00 [facility] 2022-11-17 2022-11-17 Outpatient BHARAT FOWLER [facility] [id number] SLE 00:00:00 00:00:00 MANNY 2022-11-07 2022-11-07 Outpatient BHARAT DECKER [facility] [id number] SLE 00:00:00 00:00:00 [facility] 2022-11-06 2022-11-06 Outpatient BHARAT DECKER [facility] [id number] SLE 12:51:54 15:40:51 [facility] 2022-11-06 2022-11-06 Outpatient BHARAT [facility] [id number] SLE 00:00:00 00:00:00 2022-10-21 2022-10-27 [facility] [id number] SLE 13:26:00 14:43:00 [facility] 2022-10-23 2022-10-23 [address] [place], [facility] [id number] 11:35:00 13:04:00 Event Navjot Frost [facility] 2022-10-23 2022-10-23 Surgery Bernica, [facility] [id number] 10:00:00 10:59:00 Judy [facility] 2022-10-21 2022-10-21 Orders [facility] [id number] 00:00:00 00:00:00 Only [facility] Results Test Description Test Time Test Comments Results Result Comments Source COMPREHENSIVE METABOLIC PANEL 2023-02-07 09:19:39 Test Item Value Reference Range Interpretation Comme nts TOTAL PROTEIN (BEAKER) 5.8 gm/dL 6.0-8.3 L (test code = 770) ALBUMIN (BEAKER) (test 3.6 g/dL 3.5-5.0 code = 1145) ALKALINE PHOSPHATASE 822 U/L 40-150 H (BEAKER) (test code = 346) BILIRUBIN TOTAL (BEAKER) 1.0 mg/dL 0.2-1.2 (test code = 377) SODIUM (BEAKER) (test 135 meq/L 136-145 L code = 381) POTASSIUM (BEAKER) (test 4.6 meq/L 3.5-5.1 code = 379) CHLORIDE (BEAKER) (test 98 meq/L 98-107 code = 382) CO2 (BEAKER) (test code 27 meq/L 22-29 = 355) BLOOD UREA NITROGEN 31 mg/dL 7-21 H (BEAKER) (test code = 354) CREATININE (BEAKER) 1.07 mg/dL 0.57-1.25 (test code = 358) GLUCOSE RANDOM (BEAKER) 92 mg/dL 70-105 (test code = 652) CALCIUM (BEAKER) (test 8.5 mg/dL 8.4-10.2 code = 697) AST (SGOT) (BEAKER) 313 U/L 5-34 H (test code = 353) ALT (SGPT) (BEAKER) 76 U/L 6-55 H (test code = 347) EGFR (BEAKER) (test code 90 mL/min/1.73 sq Interpretation of eGFR values = [...] s not applicable for dialysis tamika chaves [id number] 09:16:18 Test Item Value Reference Range Interpretation Comments MAGNESIUM (BEAKER) (test code = 1.7 mg/dL 1.6-2.6 627) CBC W/PLT COUNT & AUTO [id number] 09:03:31 Test Item Value Reference Range Interpretation Comments WHITE BLOOD CELL COUNT (BEAKER) 13.7 K/ L 3.5-10.5 H (test code = 775) RED BLOOD CELL COUNT (BEAKER) 3.32 M/ L 4.63-6.08 L (test code = 761) HEMOGLOBIN (BEAKER) (test code = 9.5 GM/DL 13.7-17.5 L 410) HEMATOCRIT (BEAKER) (test code = 29.6 % 40.1-51.0 L 411) MEAN CORPUSCULAR VOLUME (BEAKER) 89 fL 79-92 (test code = 753) MEAN CORPUSCULAR HEMOGLOBIN 28.6 pg 25.7-32.2 (BEAKER) (test code = 751) MEAN CORPUSCULAR HEMOGLOBIN CONC 32.1 GM/DL 32.3-36.5 L (BEAKER) (test code = 752) RED CELL DISTRIBUTION WIDTH 18.2 % 11.6-14.4 H (BEAKER) (test code = 412) PLATELET COUNT (BEAKER) (test 318 K/CU MM 150-450 code = 756) MEAN PLATELET VOLUME (BEAKER) 10.5 fL 9.4-12.4 (test code = 754) NEUTROPHILS RELATIVE PERCENT 80 % (BEAKER) (test code = 429) LYMPHOCYTES RELATIVE PERCENT 11 % (BEAKER) (test code = 430) MONOCYTES RELATIVE PERCENT 5 % (BEAKER) (test code = 431) EOSINOPHILS RELATIVE PERCENT 0 % (BEAKER) (test code = 432) BASOPHILS RELATIVE PERCENT 1 % (BEAKER) (test code = 437) NEUTROPHILS ABSOLUTE COUNT 10.96 K/ L 1.78-5.38 H (BEAKER) (test code = 670) LYMPHOCYTES ABSOLUTE COUNT 1.51 K/ L 1.32-3.57 (BEAKER) (test code = 414) MONOCYTES ABSOLUTE COUNT (BEAKER) 0.71 K/ L 0.30-0.82 (test code = 415) EOSINOPHILS ABSOLUTE COUNT 0.02 K/ L 0.04-0.54 L (BEAKER) (test code = 416) BASOPHILS ABSOLUTE COUNT (BEAKER) 0.13 K/ L 0.01-0.08 H (test code = 417) IMMATURE GRANULOCYTES-RELATIVE 2.80 % 0.00-1.00 H PERCENT (BEAKER) (test code = 2801) (MANUAL DIFFERENTIAL)2023-02-01 10:01:27 Test Item Value Reference Range Interpretation Comments NEUTROPHILS - REL (DIFF) (BEAKER) 65 % (test code = 1359) LYMPHOCYTES - REL (DIFF) (BEAKER) 14 % (test code = 1360) MONOCYTES - REL (DIFF) (BEAKER) 7 % (test code = 1361) EOSINOPHILS - REL (DIFF) (BEAKER) 1 % (test code = 1362) METAMYELOCYTES-REL (DIFF) (BEAKER) 2 % 0-0 H (test code = 258) MYELOCYTES-REL (DIFF) (BEAKER) 2 % 0-0 H (test code = 1594) BANDS - REL (DIFF) (BEAKER) (test 9 % 0-10 code = 1348) NEUTROPHILS - ABS (DIFF) (BEAKER) 15.41 K/ L 1.80-8.00 H (test code = 1365) LYMPHOCYTES - ABS (DIFF) (BEAKER) 3.32 K/ L 1.48-4.50 (test code = 1366) MONOCYTES - ABS (DIFF) (BEAKER) 1.66 K/ L 0.00-1.30 H (test code = 1367) EOSINOPHILS - ABS (DIFF) (BEAKER) 0.24 K/ L 0.00-0.50 (test code = 1368) METAMYELOCTYES - ABS (DIFF) 0.47 K/ L 0.00-0.00 H (BEAKER) (test code = 261) BANDS-ABS (DIFF) (BEAKER) (test 2.1 K/ L 0.0-0.8 H code = 1349) MYELOCYTES-ABS (DIFF) (BEAKER) 0.47 K/ L 0.00-0.00 H (test code = 1593) TOTAL COUNTED (BEAKER) (test code 100 = 1351) BANDS + SEGMENTED NEUTROPHILS 17.54 (BEAKER) (test code = 1352) WBC MORPHOLOGY (BEAKER) (test code Normal = 487) PLT MORPHOLOGY (BEAKER) (test code Normal = 486) ANISOCYTOSIS (BEAKER) (test code = 1+ 961) COMPREHENSIVE METABOLIC [id number] 09:15:25 Test Item Value Reference Range Interpretation [...] not appl icable for dialysis patien ts [id number] 09:12:59 Test Item Value Reference Range Interpretation Comments MAGNESIUM (BEAKER) (test code = 1.9 mg/dL 1.6-2.6 627) CBC W/PLT COUNT & AUTO [id number] 09:08:27 Test Item Value Reference Range Interpretation [...] 9.4-12.4 (test code = 754) IR PORT-A-CATH [id number] 13:51:15 [facility] 1980 Sex: MRight [...] the patient's medical record by the nurse. Supervisor Microwave: Nando Lundy, MDAssistant: Dr. Donovan. Approach: Right internal jugular [...] the needle into the right atrium. A4 Croatian micropuncture sheath was placed and a 0.035 [...] of the chest demonstrates the new right QBIyyy-B-Nhac to lie in the expected position with [...] CONCENTRATION Adequate (CELLAVISION)(BEAKER) (test code = 3438) Carpet Finishing Supervisor ID - Ally Cosme comments: Slide comments:CBC W/PLT COUNT & AUTO [id number] 10:41:30 Test Item Value Reference Range Interpretation [...] (BEAKER) (test code = 413) BASIC METABOLIC [id number] 10:11:48 Test Item Value Reference Range Interpretation [...] not appl icable for dialysis patien ts Carpet Finishing Supervisor ID - ADMINPROTHROMBIN [id number] 10:05:49 Test Item Value Reference Range Interpretation Comments PROTIME (BEAKER) 14.1 seconds 11.9-14.2 (test code = 759) INR (BEAKER) (test 1.15 See_Comment [Automat ed message] code = 370) The system Zoondy generated this result transmitted ref erence range: [...] code > ng/mL <10.0 H = 1094) Carpet Finishing Supervisor ID - ADMINOperator ID - ADMINOperator ID [...] (test code Normal = 762) COMPREHENSIVE METABOLIC [id number] 11:39:58 Test Item Value Reference Range Interpretation [...] patien ts CBC W/PLT COUNT & AUTO [id number] 11:29:52 Test Item Value Reference Range Interpretation Comments WHITE BLOOD CELL COUNT (BEAKER) 17.6 K/ L 3.5-10.5 H (test code = 955) RED BLOOD CELL COUNT (BEAKER) 3.99 M/ [...] 9.4-12.4 (test code = 754) COMPREHENSIVE METABOLIC [id number] 04:16:43 Test Item Value Reference Range Interpretation [...] St age Description sq m Result G1 Lairsa l or high >=90 G2 Mildly decreased [...] not appl icable for dialysis patien ts Carpet Finishing Supervisor ID - DENIS [id number] 04:16:02 Test Item Value Reference Range Interpretation Comments MAGNESIUM (BEAKER) (test code = 1.6 mg/dL 1.6-2.6 627) Carpet Finishing Supervisor ID - DENIS WCBC W/PLT COUNT & AUTO [id number] 03:24:45 Test Item Value Reference Range Interpretation [...] 0.00-1.00 PERCENT (BEAKER) (test code = 2801) [id number] 06:10:23 Test Item Value Reference Range Interpretation Comments MAGNESIUM (BEAKER) (test code = 1.6 mg/dL 1.6-2.6 627) Carpet Finishing Supervisor ID - ADMINCOMPREHENSIVE METABOLIC [id number] 06:10:22 Test Item Value Reference Range Interpretation [...] not appl icable for dialysis patien ts Carpet Finishing Supervisor ID - ADMINCBC W/PLT COUNT & AUTO [id number] 04:42:27 Test Item Value Reference Range Interpretation [...] PERCENT (BEAKER) (test code = 2801) URIC [id number] 12:19:41 Test Item Value Reference Range Interpretation Comments URIC ACID (BEAKER) (test code = 7.2 mg/dL 2.6-7.2 773) Carpet Finishing Supervisor ID - BV(CELLAVISION MANUAL DIFF)2023-01-19 04:40:54 Test [...] CONCENTRATION Adequate (CELLAVISION)(BEAKER) (test code = 3438) Carpet Finishing Supervisor ID - Dannielle Castellon comments: Slide comments:CBC W/PLT COUNT & AUTO [id number] 04:40:49 Test Item Value Reference Range Interpretation [...] (BEAKER) (test code = 413) COMPREHENSIVE METABOLIC [id number] 04:21:36 Test Item Value Reference Range Interpretation [...] not appl icable for dialysis patien ts Carpet Finishing Supervisor ID - [id number] 04:21:36 Test Item Value Reference Range Interpretation Comments MAGNESIUM (BEAKER) (test code = 1.4 mg/dL 1.6-2.6 L 627) Carpet Finishing Supervisor ID - MARCOCOMPREHENSIVE METABOLIC [id number] 15:40:59 Test Item Value Reference Range Interpretation [...] not appl icable for dialysis patien ts Carpet Finishing Supervisor ID - ADMINURIC [id number] 15:40:59 Test Item Value Reference Range Interpretation Comments URIC ACID (BEAKER) (test code = 7.6 mg/dL 2.6-7.2 H 773) Carpet Finishing Supervisor ID - ADMINXR CHEST 1 VIEW PORTABLE / [id number] 13:56:07 [facility] CENTERName[facility] HONORIO GARCIA : 1980 Sex: MCLINICAL HISTORY: PICC tip location verification. TECHNIQUE: 1 view of the chest.COMPARISON: 11/08/2022IMPRESSION:The tip of the right PICC line is just below the cavoatrial junction.There are no focal infiltrates oreffusions. The cardiomediastinalsilhouette is within normal limits for size. Electronically Signed By: Manas Taylor01/18/2023 13:58 CDTWorkstation Name: [id number] COMPREHENSIVE METABOLIC [id number] 09:39:15 Test Item Value Reference Range Interpretation [...] not appl icable for dialysis patien ts Carpet Finishing Supervisor ID - [id number] 09:39:14 Test Item Value Reference Range Interpretation Comments PHOSPHORUS (BEAKER) 4.0 mg/dL 2.3-4.7 Specimen moderately (test code = 604) hemolyzed Carpet Finishing Supervisor ID - ADMURIC [id number] 09:39:14 Test Item Value Reference Range Interpretation Comments URIC ACID (BEAKER) 8.1 mg/dL 2.6-7.2 H Specimen moderately (test code = 773) hemolyzed Carpet Finishing Supervisor ID - [id number] 09:39:13 Test Item Value Reference Range Interpretation Comments MAGNESIUM (BEAKER) 1.6 mg/dL 1.6-2.6 Specimen moderately (test code = 627) hemolyzed Carpet Finishing Supervisor ID - ADMCBC W/PLT COUNT & AUTO [id number] 08:50:53 Test Item Value Reference Range Interpretation [...] PERCENT (BEAKER) (test code = 2801) PROTHROMBIN [id number] 08:48:36 Test Item Value Reference Range Interpretation Comments PROTIME (BEAKER) 14.0 seconds 11.9-14.2 (test code = 759) INR (BEAKER) (test 1.11 See_Comment [Automat ed message] code = 370) The system Zoondy generated this result transmitted ref erence range: <=5.90. The reference range was not used to int erpret this result as normal/abnormal . RECOMMENDED COUMADIN/WARFARIN INR THERAPY RANGESSTANDARD DOSE: 2.0 - 3.0 Includes: PROPHYLAXIS for venous thrombosis, systemic embolization; TREATMENT for venous thrombosis and/or pulmonary embolus.HIGH RISK: Target INR is 2.5-3.5 for patients with mechanical heart valves.CBC W/PLT COUNT & AUTO [id number] 21:23:37 Test Item Value Reference Range Interpretation [...] code = 2801) ALPHA FETOPROTEIN (AFP), TUMOR [id number] 17:18:51 Test Item Value Reference Range Interpretation Comments ALPHA-FETOPROTEIN (BEAKER) (test code > ng/mL <10.0 H = 1094) Carpet Finishing Supervisor ID - ADMINOperator ID - ADMINOperator ID - ADMINOperator ID - ADMIN COMPREHENSIVE METABOLIC [id number] 09:38:30 Test Item Value Reference Range Interpretation [...] (test code = 347) EGFR (BEAKER) 97 Interpretati on of eGFR (test code = [...] not appl icable for dialysis patien ts [id number] 09:34:37 Test Item Value Reference Range Interpretation Comments MAGNESIUM (BEAKER) (test code = 1.5 mg/dL 1.6-2.6 L 627) HCG, QUANTITATIVE, [id number] 09:30:32 Test Item Value Reference Range Interpretation [...] code = 2801) ALPHA FETOPROTEIN (AFP), TUMOR [id number] 15:59:30 Test Item Value Reference Range Interpretation Comments ALPHA-FETOPROTEIN (BEAKER) (test code > ng/mL <10.0 H = 1094) Carpet Finishing Supervisor ID - anish bOperator ID - anish bOperator ID - anish bCARCINOEMBRYONIC ANTIGEN (CEA)2023-01-09 15:04:16 Test Item Value Reference Range Interpretation Comments CARCINOEMBRYONIC ANTIGEN (BEAKER) 15.1 ng/mL 0.0-5.0 H (test code = 685) Carpet Finishing Supervisor ID - anish bLACTATE DEHYDROGENASE (LDH)2023-01-09 12:48:48 Test Item Value Reference Range Interpretation Comments LACTATE DEHYDROGENASE (BEAKER) (test > U/L 125-220 H code = 635) COMPREHENSIVE METABOLIC [id number] 12:39:05 Test Item Value Reference Range Interpretation [...] not appl icable for dialysis patien ts [id number] 12:37:31 Test Item Value Reference Range Interpretation Comments PHOSPHORUS (BEAKER) (test code = 3.6 mg/dL 2.3-4.7 604) CBC W/PLT COUNT & AUTO [id number] 12:21:24 Test Item Value Reference Range Interpretation [...] code = 2801) ALPHA FETOPROTEIN (AFP), TUMOR [id number] 16:43:27 Test Item Value Reference Range Interpretation Comments ALPHA-FETOPROTEIN (BEAKER) (test code > ng/mL <10.0 H = 1094) Carpet Finishing Supervisor ID - ADMINOperator ID - ADMINOperator ID [...] (test code Normal = 762) COMPREHENSIVE METABOLIC [id number] 09:36:30 Test Item Value Reference Range Interpretation [...] not appl icable for dialysis patien ts [id number] 09:28:58 Test Item Value Reference Range Interpretation Comments MAGNESIUM (BEAKER) (test code = 1.7 mg/dL 1.6-2.6 627) CBC W/PLT COUNT & AUTO [id number] 09:23:38 Test Item Value Reference Range Interpretation [...] 9.4-12.4 (test code = 754) COMPREHENSIVE METABOLIC [id number] 09:40:11 Test Item Value Reference Range Interpretation [...] not appl icable for dialysis patien ts [id number] 09:24:23 Test Item Value Reference Range Interpretation Comments MAGNESIUM (BEAKER) (test code = 1.9 mg/dL 1.6-2.6 627) CBC W/PLT COUNT & AUTO [id number] 09:04:00 Test Item Value Reference Range Interpretation [...] code = 2801) ALPHA FETOPROTEIN (AFP), TUMOR [id number] 16:54:52 Test Item Value Reference Range Interpretation Comments ALPHA-FETOPROTEIN (BEAKER) (test code > ng/mL <10.0 H = 1094) Carpet Finishing Supervisor ID - ADMINOperator ID - ADMINOperator ID - ADMINOperator ID - ADMIN BASIC METABOLIC [id number] 13:58:04 Test Item Value Reference Range Interpretation [...] not appl icable for dialysis patien ts Carpet Finishing Supervisor ID - ADMINHEPATIC FUNCTION [id number] 13:58:04 Test Item Value Reference Range Interpretation [...] code = 58 U/L 6-55 H 347) Carpet Finishing Supervisor ID - ADMINCBC W/PLT COUNT & AUTO [id number] 11:19:47 Test Item Value Reference Range Interpretation [...] (BEAKER) (test code = 2801) HEPATIC FUNCTION [id number] 06:52:32 Test Item Value Reference Range Interpretation [...] code = 64 U/L 6-55 H 347) Carpet Finishing Supervisor ID - MMURIC [id number] 06:52:31 Test Item Value Reference Range Interpretation Comments URIC ACID (BEAKER) (test code = 2.7 mg/dL 2.6-7.2 773) Carpet Finishing Supervisor ID - MMBASIC METABOLIC [id number] 06:52:30 Test Item Value Reference Range Interpretation [...] not appl icable for dialysis patien ts Carpet Finishing Supervisor ID - [id number] 06:52:30 Test Item Value Reference Range Interpretation Comments PHOSPHORUS (BEAKER) (test code = 3.4 mg/dL 2.3-4.7 604) Carpet Finishing Supervisor ID - MMCBC W/PLT COUNT & AUTO [id number] 06:20:55 Test Item Value Reference Range Interpretation [...] (BEAKER) (test code = 2801) BASIC METABOLIC [id number] 22:14:17 Test Item Value Reference Range Interpretation [...] not appl icable for dialysis patien ts Carpet Finishing Supervisor ID - ADMINURIC [id number] 22:12:41 Test Item Value Reference Range Interpretation Comments URIC ACID (BEAKER) 2.6 mg/dL 2.6-7.2 Specimen slightly (test code = 773) hemolyzed Carpet Finishing Supervisor ID - [id number] 22:12:40 Test Item Value Reference Range Interpretation Comments PHOSPHORUS (BEAKER) 3.8 mg/dL 2.3-4.7 Specimen slightly (test code = 604) hemolyzed Carpet Finishing Supervisor ID - ADMINBASIC METABOLIC [id number] 17:01:12 Test Item Value Reference Range Interpretation [...] not appl icable for dialysis patien ts Carpet Finishing Supervisor ID - [id number] 16:58:24 Test Item Value Reference Range Interpretation Comments PHOSPHORUS (BEAKER) (test code = 2.8 mg/dL 2.3-4.7 604) Carpet Finishing Supervisor ID - ADMINURIC [id number] 16:58:24 Test Item Value Reference Range Interpretation Comments URIC ACID (BEAKER) (test code = 2.1 mg/dL 2.6-7.2 L 773) Carpet Finishing Supervisor ID - ADMINURIC [id number] 06:57:40 Test Item Value Reference Range Interpretation Comments URIC ACID (BEAKER) (test code = 3.1 mg/dL 2.6-7.2 773) Carpet Finishing Supervisor ID - MMHEPATIC FUNCTION [id number] 06:57:40 Test Item Value Reference Range Interpretation [...] code = 65 U/L 6-55 H 347) Carpet Finishing Supervisor ID - MMBASIC METABOLIC [id number] 06:57:39 Test Item Value Reference Range Interpretation [...] not appl icable for dialysis patien ts Carpet Finishing Supervisor ID - [id number] 06:57:39 Test Item Value Reference Range Interpretation Comments PHOSPHORUS (BEAKER) (test code = 3.6 mg/dL 2.3-4.7 604) Carpet Finishing Supervisor ID - MMCBC W/PLT COUNT & AUTO [id number] 06:51:25 Test Item Value Reference Range Interpretation [...] (BEAKER) (test code = 2801) BASIC METABOLIC [id number] 09:04:16 Test Item Value Reference Range Interpretation [...] not appl icable for dialysis patien ts Carpet Finishing Supervisor ID - [id number] 09:04:15 Test Item Value Reference Range Interpretation Comments PHOSPHORUS (BEAKER) 3.1 mg/dL 2.3-4.7 Specimen slightly (test code = 604) hemolyzed Carpet Finishing Supervisor ID - MMURIC [id number] 09:04:15 Test Item Value Reference Range Interpretation Comments URIC ACID (BEAKER) 4.1 mg/dL 2.6-7.2 Specimen slightly (test code = 773) hemolyzed Carpet Finishing Supervisor ID - [id number] 05:03:52 Test Item Value Reference Range Interpretation Comments PHOSPHORUS (BEAKER) (test code = 3.7 mg/dL 2.3-4.7 604) Carpet Finishing Supervisor ID - MMURIC [id number] 05:03:52 Test Item Value Reference Range Interpretation Comments URIC ACID (BEAKER) (test code = 4.7 mg/dL 2.6-7.2 773) Carpet Finishing Supervisor ID - MMCOMPREHENSIVE METABOLIC [id number] 05:03:51 Test Item Value Reference Range Interpretation [...] not appl icable for dialysis patien ts Carpet Finishing Supervisor ID - MMCBC W/PLT COUNT & AUTO [id number] 04:40:21 Test Item Value Reference Range Interpretation [...] 2801) XR CHEST 1 VIEW PORTABLE / [id number] 17:54:25 [facility]ENTER[facility]ARC[facility] : 1980 [...] (test code Normal = 486) HEPATITIS B [id number] 13:30:00 Test Item Value Reference Range Interpretation Comments HEPATITIS B CORE TOTAL ANTIBODY Nonreactive Nonreactive (BEAKER) (test code = 497) HEPATITIS B SURFACE ANTIBODY < mIU/mL <8.0 (BEAKER) (test code = 647) HEPATITIS B SURFACE ANTIGEN (2) Nonreactive Nonreactive (BEAKER) (test code = 2585) Carpet Finishing Supervisor ID - ADMINHEPATITIS C [id number] 13:29:13 Test Item Value Reference Range Interpretation Comments HEPATITIS C ANTIBODY (BEAKER) Nonreactive Nonreactive (test code = 367) Carpet Finishing Supervisor ID - [id number] 13:04:16 Test Item Value Reference Range Interpretation Comments MAGNESIUM (BEAKER) (test code = 1.8 mg/dL 1.6-2.6 627) Carpet Finishing Supervisor ID - edCOMPREHENSIVE METABOLIC [id number] 13:04:15 Test Item Value Reference Range Interpretation [...] not appl icable for dialysis patien ts Carpet Finishing Supervisor ID - edCBC WITH PLATELET COUNT + MANUAL [id number] 12:48:49 Test Item Value Reference Range Interpretation [...] 0-0 (BEAKER) (test code = 413) SARS-COV2/RT-PCR ([facility])2022-11-08 09:48:49 Test Item Value Reference Range Interpretation Comments SARS-COV2/RT-PCR Negative Negative The SARS-Co V-2 target (test code = nucleic acids a re not [id number]) detected in thi s specimen. Negative result [...] revoked sooner. Fact Sheet for Healthcare Providers: https://www.[employer].co m/Documents/Xpert%20Xpress%20SARS%20CoV-2/Fact%20Sheets/786-0042%97CSQM-GLN-3%20 HEALTHCARE%20PROVIDERS%20FACT%20SHEET.pdf Fact Sheet for Healthcare Patients: https://www.[employer]/Documents/Xpert%20Xp ress%20SARS%20CoV-2/Fact%20Sheets/015-3801%78WFCD-GSG-6%20PATIENT%20FACT%20SHEET .pdfCARCINOEMBRYONIC ANTIGEN (CEA)2022-11-06 18:53:46 Test Item Value Reference Range Interpretation Comments CARCINOEMBRYONIC ANTIGEN (BEAKER) 5.3 ng/mL 0.0-5.0 H (test code = 685) Carpet Finishing Supervisor ID - MMCOMPREHENSIVE METABOLIC [id number] 16:39:54 Test Item Value Reference Range Interpretation [...] patien ts CBC W/PLT COUNT & AUTO [id number] 16:21:39 Test Item Value Reference Range Interpretation [...] PERCENT (BEAKER) (test code = 2801) TISSUE [id number] 16:02:43Surgical Pathology Report Case: [id number] Authorizing Provider: Dima Berrios MD Collected: 10/26/2022 03:07 PM Ordering Location: [address] Received: 10/26/2022 04:53 PM Service Pathologist: Sherry Andrade MD Specimen: Biopsy, Liver Liver, mass, core needle biopsy: - Metastatic poorly differentiated neuroendocrine carcinoma, WHO grade 3; see comment Signing Pathologist Direct Phone Line: [phone] signed by Sherry Andrade MD on 11/01/2022 [...] is needed. The patient's prior gastric biopsy ([id number], H&E) was concurrently reviewed, and the tumor shows similar histomorphology. Dr. Edvin Goldberg reviewed the case and agrees.Block A2 has adequate tumor cellularity for additional ancillary studies.References:Antonino WALLER, Dariusz T, Carina C, Mousa L. Metastatic neuroendocrine carcinoma presenting as multifocal liver lesions with elevated alpha-fetoprotein. Clin Case Rep. 2018 May 16;7(2):251-253. doi: 10.1002/ccr3.1956. PMID: 56575649; PMCID: [id number].Pablo, [address], [id number] is a 42-year-old male with history of [...] evaluated Immunohistochemistry technical testing was performed at [facility], Pathology Laboratory where it was developed [...] qualified to perform high complexity clinical laboratory testing.[facility], Department of Pathology, [address] [place] [address], [facility], [address] [place] [address], [facility], [facility] of [facility], [address] [place], [place] [id number], HBGADM [id number] 09:06:35Surgical Pathology Report Case: [id number] Authorizing Provider: Judy Martinez, Collected: 10/23/2022 11:56 AM Ordering Location: [address] Received: 10/23/2022 01:29 PM Service Pathologist: Suzan Teixeira MD Specimens: A) - Biopsy, Gastric, random bxs B) - Biopsy, Gastric, bxs gastric mass A. STOMACH, RANDOM BIOPSIES: - CHEMICAL/REACTIVE GASTROPATHY - PPI EFFECT, MILDB. STOMACH, BIOPSIES OF MASS: - NEUROENDOCRINE CARCINOMA, SMALL CELL TYPE Signing Pathologist Direct Phone Line: [phone] signed by Suzan Bagley MD on 11/01/2022 at 9:06 AMPreliminary result electronically signed by Suzan Teixeira MD on 10/27/2022 at 11:55 AMPreliminary result electronically signed by Suzan Teixeira MD on 10/26/2022 at 11:55 AMThe finding was communicated via secure email with Judy Edmonds <[email or web address]> GI Department at 11:52 on October 26, [id number], 26809, [id number] hemorrhage associated with gastritisA. Biopsy, GastricReceived in [...] evaluated and the report was issued at [facility] (CLIA#[id number]), [address] [place], [place] [address].The interpretation of this case included the use of immunohistochemistry or special stains.Control Slides Examined: In-house known positive controls were evaluated along with the test tissue. These control slides run alongside of the patients sample show appropriate staining. Internal positive and negative controls when available are evaluated Immunohistochemistry technical testing was performed at [facility], Pathology Laboratory where it was developed [...] perform high complexity clinical laboratory testing.U/S, BIOPSY, [id number] 12:01:00Reason for exam:->gastric mass and liver mass with afp >[id number] this be performed at the bedside?->No [facility] 1980 Sex: MFINAL REPORT Procedure: Liver mass core biopsy Pre/post-procedure diagnosis: Liver mass Supervisor Microwave: Bebo Low MD Assistants: none Sedation: Moderate [...] ultrasound-guided liver mass core biopsy. Signed: [facility] Verified Date/Time: 10/30/2022 12:01:04 C METABOLIC [id number] 05:48:04 Test Item Value Reference Range Interpretation [...] not appl icable for dialysis patien ts Carpet Finishing Supervisor ID - [id number] 05:48:04 Test Item Value Reference Range Interpretation Comments MAGNESIUM (BEAKER) (test code = 1.7 mg/dL 1.6-2.6 627) Carpet Finishing Supervisor ID - MMCBC W/PLT COUNT & AUTO [id number] 05:27:57 Test Item Value Reference Range Interpretation [...] 0.00-1.00 PERCENT (BEAKER) (test code = 2801) [id number] 06:55:04 Test Item Value Reference Range Interpretation Comments MAGNESIUM (BEAKER) (test code = 1.6 mg/dL 1.6-2.6 627) Carpet Finishing Supervisor ID - BSBASIC METABOLIC [id number] 06:55:03 Test Item Value Reference Range Interpretation [...] not appl icable for dialysis patien ts Carpet Finishing Supervisor ID - BSPROTHROMBIN TIME/[id number] 06:18:33 Test Item Value Reference Range Interpretation [...] mechanical heart valves.CBC W/PLT COUNT & AUTO [id number] 06:07:18 Test Item Value Reference Range Interpretation [...] (BEAKER) (test code = 2801) COMPREHENSIVE METABOLIC [id number] 07:14:31 Test Item Value Reference Range Interpretation [...] not appl icable for dialysis patien ts Carpet Finishing Supervisor ID Kayla BARRIOS [id number] 07:14:31 Test Item Value Reference Range Interpretation Comments MAGNESIUM (BEAKER) (test code = 1.5 mg/dL 1.6-2.6 L 627) Carpet Finishing Supervisor ID Kayla BARRIOS WCBC W/PLT COUNT & AUTO [id number] 06:55:14 Test Item Value Reference Range Interpretation [...] (test code = 2801) ROSALINDA TITER AND [id number] 13:55:32 Test Item Value Reference Range Interpretation [...] method.Test performed by IFA method.CT, CHEST, WITH [id number] 13:00:00Unlisted Reason for Exam - Click Yes and Enter Reason Below->[facility] JR [...] [place] Verified Date/Time: 10/24/2022 13:00:41 Reading Location: [facility] C013X Ortho Consult Reading Room CT, [id number] 13:00:00Unlisted Reason for Exam - Click Yes and Enter Reason Below->NoProtocol Please Specify:->Standard ProtocolWill this procedure require oral contrast?->No [facility] CENTERName: HONORIO GARCIA : [...] [place] Verified Date/Time: 10/24/2022 13:00:41 Reading Location: [facility] [address] [place] [address] Consult Reading Room CBC W/PLT COUNT & [...] 0.00-1.00 PERCENT (BEAKER) (test code = 2801) [id number] 05:38:34 Test Item Value Reference Range Interpretation Comments MAGNESIUM (BEAKER) (test code = 1.5 mg/dL 1.6-2.6 L 627) Carpet Finishing Supervisor ID - MMCOMPREHENSIVE METABOLIC [id number] 05:38:33 Test Item Value Reference Range Interpretation [...] not appl icable for dialysis patien ts Carpet Finishing Supervisor ID - MMHEMOGLOBIN AND [id number] 16:05:28 Test Item Value Reference Range Interpretation Comments HEMOGLOBIN (BEAKER) (test code = 14.4 GM/DL 13.7-17.5 410) HEMATOCRIT (BEAKER) (test code = 44.3 % 40.1-51.0 411) Carpet Finishing Supervisor ID - [id number] 09:39:18 Test Item Value Reference Range Interpretation Comments MAGNESIUM (BEAKER) 1.6 mg/dL 1.6-2.6 Specimen slightly (test code = 627) hemolyzed Carpet Finishing Supervisor ID - MMBASIC METABOLIC [id number] 09:39:18 Test Item Value Reference Range Interpretation [...] not appl icable for dialysis patien ts Carpet Finishing Supervisor ID - MMHEPATIC FUNCTION [id number] 09:39:18 Test Item Value Reference Range Interpretation [...] Specimen slightly (test code = 347) hemolyzed Carpet Finishing Supervisor ID - MMCBC W/PLT COUNT & AUTO [id number] 06:38:29 Test Item Value Reference Range Interpretation [...] PERCENT (BEAKER) (test code = 2801) HEMOGLOBIN [id number] 08:56:25 Test Item Value Reference Range Interpretation [...] 5.7- 6.4% indicates increased risk for diabetes (prediabetes)."Carpet Finishing Supervisor ID - ADM [id number] 07:09:54 Test Item Value Reference Range Interpretation Comments FERRITIN (BEAKER) (test code = 159.87 ng/mL 5.00-275.00 361) Carpet Finishing Supervisor ID - MARCOALPHA FETOPROTEIN (AFP), TUMOR [id number] 06:32:10 Test Item Value Reference Range Interpretation Comments ALPHA-FETOPROTEIN (BEAKER) 15586.5 ng/mL <10.0 H (test code = 1094) Carpet Finishing Supervisor ID - ADMINOperator ID - ADMINHEPATITIS B SURFACE [id number] 06:31:52 Test Item Value Reference Range Interpretation Comments HEPATITIS B SURFACE ANTIBODY < mIU/mL <8.0 (BEAKER) (test code = 647) Carpet Finishing Supervisor ID - ADMINHEPATITIS A ANTIBODY, [id number] 06:31:00 Test Item Value Reference Range Interpretation Comments HEPATITIS A IGG ANTIBODY (BEAKER) Nonreactive Nonreactive (test code = 2797) Carpet Finishing Supervisor ID - ADMINCARCINOEMBRYONIC ANTIGEN (CEA)2022-10-22 06:30:59 Test Item Value Reference Range Interpretation Comments CARCINOEMBRYONIC ANTIGEN (BEAKER) 5.6 ng/mL 0.0-5.0 H (test code = 685) Carpet Finishing Supervisor ID - ADMINHEPATITIS B CORE ANTIBODY, [id number] 06:30:59 Test Item Value Reference Range Interpretation Comments HEPATITIS B CORE TOTAL ANTIBODY Nonreactive Nonreactive (BEAKER) (test code = 497) Carpet Finishing Supervisor ID - ADMINHEPATITIS PANEL, [id number] 06:03:10 Test Item Value Reference Range Interpretation Comments HEPATITIS A IGM ANTIBODY (BEAKER) Nonreactive Nonreactive (test code = 498) HEPATITIS B CORE IGM ANTIBODY Nonreactive Nonreactive (BEAKER) (test code = 645) HEPATITIS C ANTIBODY (BEAKER) Nonreactive Nonreactive (test code = 367) HEPATITIS B SURFACE ANTIGEN (2) Nonreactive Nonreactive (BEAKER) (test code = 2585) Carpet Finishing Supervisor ID - [id number] 05:54:41 Test Item Value Reference Range Interpretation Comments MAGNESIUM (BEAKER) (test code = 1.7 mg/dL 1.6-2.6 627) Carpet Finishing Supervisor ID - MARCOLIPID [id number] 05:54:41 Test Item Value Reference Range Interpretation [...] Borderline 130-159 High 160-189 Very High >=190 Carpet Finishing Supervisor ID - MARCOHEPATIC FUNCTION [id number] 05:54:41 Test Item Value Reference Range Interpretation [...] (test code = 54 U/L 6-55 347) Carpet Finishing Supervisor ID - DEACONSIC METABOLIC [id number] 05:54:40 Test Item Value Reference Range Interpretation [...] not appl icable for dialysis patien ts Carpet Finishing Supervisor ID - MARCOIRON, TIBC, % SAT. (WITHOUT FERRITIN)2022-10-22 05:39:20 Test Item Value Reference Range Interpretation Comments IRON (BEAKER) (test code = 547) 61.0 ug/dL 40.0-160.0 TOTAL IRON BINDING CAPACITY 273 ug/dL 250-450 (BEAKER) (test code = 769) IRON % SATURATION (2) (BEAKER) 22 % 20-55 (test code = 2590) Carpet Finishing Supervisor ID - EUCXTUYFMH-0-[id number] 05:39:03 Test Item Value Reference Range Interpretation Comments ALPHA-1 ANTITRYPSIN (BEAKER) 211.70 mg/dL 90.00-200.00 H (test code = 502) Carpet Finishing Supervisor ID - ADMINCBC W/PLT COUNT & AUTO [id number] 05:15:17 Test Item Value Reference Range Interpretation [...] (BEAKER) (test code = 2801) HEPATIC FUNCTION [id number] 15:14:35 Test Item Value Reference Range Interpretation [...] Specimen slightly (test code = 347) hemolyzed Carpet Finishing Supervisor ID - MARCOPROTHROMBIN TIME/[id number] 15:14:35 Test Item Value Reference Range Interpretation Comments PROTIME (BEAKER) (test code = 14.7 seconds 11.9-14.2 H 759) INR (BEAKER) (test code = 370) 1.22 <=5.90 RECOMMENDED COUMADIN/WARFARIN INR THERAPY RANGESSTANDARD DOSE: 2.0 - 3.0 Includes: PROPHYLAXIS for venous thrombosis, systemic embolization; TREATMENT for venous thrombosis and/or pulmonary embolus.HIGH RISK: Target INR is 2.5-3.5 for patients with mechanical heart valves.BASIC METABOLIC [id number] 15:14:34 Test Item Value Reference Range Interpretation [...] not appl icable for dialysis patien ts Carpet Finishing Supervisor ID - MARCOCBC W/PLT COUNT & AUTO [id number] 14:53:39 Test Item Value Reference Range Interpretation [...]
[2023-02-15] MEDS ORDERED: FAMOTIDINE 20 MG/2 ML VIAL IV ONE (09:56)
[2023-02-15] MEDS ORDERED: MORPHINE 4 MG/ML SYR ONE ×2 (09:56→12:02)
[2023-02-15] MEDS ORDERED: NA CHLORIDE 0.9% 1,000 ML ONE (09:56)
[2023-02-15] MEDS ORDERED: ONDANSETRON 4 MG/2 ML VIAL ONE ×2 (09:56→12:02)
[2023-02-15 10:10] LABS: Absolute Lymphocytes (CBC) 1.7 K/uL (0.7-4.9); Hematocrit 25.4 % (39.6-49.0); Lymphocytes % 8.4 % (15.3-44.8); MCV 85.7 fL (80-100); MPV 8.1 fL (7.6-11.3); Platelets 142 thou/uL (152-406); RBC Red Blood Cell Count 2.96 M/uL (4.33-5.43)
[2023-02-15 10:43] LABS: Albumin 2.6 g/dL (3.4-5.0); Bilirubin Total 0.7 mg/dL (0.2-1.0); Potassium 3.5 mEq/L (3.5-5.1); Protein, Total 5.5 g/dL (6.4-8.2); Troponin High Sensitivity 4.7 pg/mL (<58.9)
--- NOTE | 2023-02-15 10:55 | RAD REPORT ---
EXAM DESCRIPTION: US - Extrem Venous W Compress Artie - 02/15/2023 10:44 am CLINICAL HISTORY: Pain COMPARISON: None. TECHNIQUE: Real-time sonographic evaluation of the bilateral lower extremity deep venous systems was performed. FINDINGS: Normal compressibility, flow augmentation, phasic flow and spontaneous flow is identified in both the left and right lower extremity deep venous systems. No intraluminal filling defects seen. IMPRESSION: No DVT in either lower extremity.
--- NOTE | 2023-02-15 11:34 | RAD REPORT ---
EXAM DESCRIPTION: CT - Abdomen Pelvis Wo Contrast - 02/15/2023 11:11 am CLINICAL HISTORY: ABD PAIN COMPARISON: Abdomen Pelvis W Contrast dated 02/06/2023; Abdomen Pelvis W Contrast dated 01/14/2023; Abdomen Pelvis W Contrast dated 01/07/2023; Abdomen Pelvis W Contrast dated 12/31/2022 TECHNIQUE: Thin cut axial CT imaging of the abdomen and pelvis was performed without IV contrast. Mu ltiplanar reformats were generated and reviewed. All CT scans are performed using dose optimization technique as appropriate and may include automated exposure control or mA/KV adjustment according to patient size. FINDINGS: No suspicious findings in the lung bases. Hepatomegaly with innumerable small wound large masses, probably stable compared to the most recent a bdominal CT. Adrenal glands, spleen, and pancreas show no suspicious findings. Gallbladder and biliar y tree are also without suspicious finding. Symmetric renal contour, without suspicious parenchymal findings within limits of noncontrast techniq ue. No evidence of radiopaque calculi or hydroureteronephrosis. No dilated bowel loops or bowel wall thickening. Eaux-gu-cuvozvbi free ascites , stable. No free air, fluid collections, or inflammatory stranding. No hernia, or other suspicious mass. Enlarged anay he patis lymph node adjacent to the caudate lobe measuring 3.6 cm appears stable. The urinary bladder is without significant finding. No suspicious bony findings. Pars interarticularis defects at L4 and L5. IMPRESSION: Stable findings as above, including marked hepatic and innumerable hepatic masses concer francisco javier for metastatic disease and/or primary malignancy, with an enlarged anay hepatis lymph node, and tock-pv-kodbiqlf free ascites. No other acute intra-abdominal process.
--- NOTE | 2023-02-15 11:41 | RAD REPORT ---
EXAM DESCRIPTION: Marsha Single View02/15/2023 11:17 am CLINICAL HISTORY: DYSPNEA COMPARISON: No comparisons TECHNIQUE: Portable AP view of the chest. FINDINGS: Right chest wall medication port in place with catheter tip at the superior cavoatrial trisha ction. Elevation of the right hemidiaphragm. The lungs are clear apart from linear irregular opacity in the periphery of the right midlung, suggesting scarring. No pneumothorax or effusion. The cardiom ediastinal contours are unremarkable. IMPRESSION: No acute cardiopulmonary process.
--- NOTE | 2023-02-15 12:11 | EDPHYS ---
Physician Documentation [facility] Name: Ayden Andres Jr Age: 42 yrs Sex: Male : 1980 Arrival Date: 02/15/2023 Time: 08:48 Bed 5 Private MD: ROWAN Physician Vicente Navarro HPI: 02/15 12:00 This 42 yrs old Male presents to ER via Ambulatory with complaints of loretta Abdominal Pain, Leg Swelling. 12:00 The patient presents with decreased range of motion, swelling. The complaints affect loretta the right leg and left leg. Context: The problem was sustained at an unknown site. Onset: The symptoms/episode began/occurred 3 day(s) ago. Modifying factors: The symptoms are alleviated by elevating leg, the symptoms are aggravated by movement, weight bearing. Associated signs and symptoms: The patient has no apparent associated signs or symptoms. The patient presents with abdominal pain in the upper abdomen, abdominal distention in the upper abdomen, in the lower abdomen. Onset: The symptoms/episode began/occurred 3 week(s) ago. The symptoms do not radiate. Severity of pain: At its worst the pain was mild moderate in the emergency department the pain is unchanged. Historical: - Allergies: 09:10 No Known Allergies; ko1 - PMHx: 09:10 cirrhosis of liver; stomach cancer; ko1 - Immunization history:: Adult Immunizations unknown. - Social history:: Smoking status: Patient denies any tobacco usage or history of. ROS: 12:03 Constitutional: Negative for fever, chills, and weight loss, Eyes: Negative for injury, loretta pain, redness, and discharge, ENT: Negative for injury, pain, and discharge, Neck: Negative for injury, pain, and swelling, Cardiovascular: Negative for chest pain, palpitations, and edema, Respiratory: Negative for shortness of breath, cough, wheezing, and pleuritic chest pain, Back: Negative for injury and pain, : Negative for injury, bleeding, discharge, and swelling, Skin: Negative for injury, rash, and discoloration, Neuro: Negative for headache, weakness, numbness, tingling, and seizure, Psych: Negative for depression, anxiety, suicide ideation, homicidal ideation, and hallucinations, Allergy/Immunology: Negative for hives, rash, and allergies, Endocrine: Negative for neck swelling, polydipsia, polyuria, polyphagia, and marked weight changes, Hematologic/Lymphatic: Negative for swollen nodes, abnormal bleeding, and unusual bruising. 12:03 Abdomen/GI: Positive for abdominal pain, of the right upper quadrant and left upper quadrant. 12:03 MS/extremity: Positive for swelling, of the right leg and left leg. Exam: 12:03 Constitutional: This is a well developed, well nourished patient who is awake, alert, loretta and in no acute distress. Head/Face: Normocephalic, atraumatic. Eyes: Pupils equal round and reactive to light, extra-ocular motions intact. Lids and lashes normal. Conjunctiva and sclera are non-icteric and not injected. Cornea within normal limits. Periorbital areas with no swelling, redness, or edema. ENT: Nares patent. No nasal discharge, no septal abnormalities noted. Tympanic membranes are normal and external auditory canals are clear. Oropharynx with no redness, swelling, or masses, exudates, or evidence of obstruction, uvula midline. Mucous membranes moist. Neck: Trachea midline, no thyromegaly or masses palpated, and no cervical lymphadenopathy. Supple, full range of motion without nuchal rigidity, or vertebral point tenderness. No Meningismus. Chest/axilla: Normal chest wall appearance and motion. Nontender with no deformity. No lesions are appreciated. Cardiovascular: Regular rate and rhythm with a normal S1 and S2. No gallops, murmurs, or rubs. Normal PMI, no JVD. No pulse deficits. Respiratory: Lungs have equal breath sounds bilaterally, clear to auscultation and percussion. No rales, rhonchi or wheezes noted. No increased work of breathing, no retractions or nasal flaring. Back: No spinal tenderness. No costovertebral tenderness. Full range of motion. Male : Normal genitalia with no discharge or lesions. Skin: Warm, dry with normal turgor. Normal color with no rashes, no lesions, and no evidence of cellulitis. Neuro: Awake and alert, GCS 15, oriented to person, place, time, and situation. Cranial nerves II-XII grossly intact. Motor strength 5/5 in all extremities. Sensory grossly intact. Cerebellar exam normal. Normal gait. Psych: Awake, alert, with orientation to person, place and time. Behavior, mood, and affect are within normal limits. 12:03 ECG was reviewed by the Attending Physician. 12:03 Abdomen/GI: Inspection: distension, that is mild, Bowel sounds: normal, Palpation: mild abdominal tenderness, in the epigastric area, right upper quadrant and left upper quadrant, Liver: is firm, is enlarged, palpable 5 cm(s) below rib margin, Hernia: not appreciated. 12:03 Musculoskeletal/extremity: DVT Exam: no pain, no tenderness, negative Homans' sign noted on exam, no appreciated bluish discoloration, no erythema, no increased warmth, swelling. Vital Signs: 09:08 BP 117 / 74; Pulse 71; Resp 18; Temp 98.1; Pulse Ox 100% ; Weight 76.66 kg; Height 5 ko1 ft. 11 in. ; 11:55 BP 119 / 74; Pulse 69; Resp 16; Pulse Ox 98% on R/A; iw 09:08 Body Mass Index 23.57 (76.66 kg, 180.34 cm) ko1 MDM: 08:53 Patient medically screened. [facility] 12:06 Differential diagnosis: contusion. Data reviewed: vital signs, nurses notes, lab test [facility] result(s), EKG, radiologic studies, CT scan, doppler, plain films. Consideration of Admission/Observation Escalation of care including admission/observation considered. I considered the following discharge prescriptions or medication management in the emergency department Medications were administered in the Emergency Department. See MAR. Test considered but Not performed: Ultrasound no 2 d echo. Historians other than the Patient: Friend: freiend , informed. Care significantly affected by the following chronic conditions: Liver Disease, stomach cancer. 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 02/15 09:38 Order name: CBC with Diff loretta 02/15 09:38 Order name: Comprehensive Metabolic Panel; Complete Time: 10:52 02/15 09:38 Order name: Lipase; Complete Time: 10:52 02/15 09:38 Order name: BNP; Complete Time: 10:52 02/15 09:38 Order name: Troponin High Sensitivity; Complete Time: 10:52 02/15 09:38 Order name: US Extremity Venous W Compression Artie; Complete Time: 10:56 [facility] 02/15 09:38 Order name: Chest Single View XRAY; Complete Time: 11:47 [facility] 02/15 11:01 Order name: CT Abd/Pelvis - Without Contrast; Complete Time: 11:47 [facility] 02/15 09:38 Order name: EKG; Complete Time: 09:39 [facility] 02/15 09:38 Order name: EKG - Nurse/Tech; Complete Time: 09:49 [facility] EC:03 Rate is 69 beats/min. Rhythm is regular. QRS [place] is Normal. OK interval is normal. QRS loretta interval is normal. QT interval is normal. No Q waves. T waves are Normal. No ST changes noted. Clinical impression: NSR w/ Non-specific ST/T Changes and No evidence of ischemia. Interpreted by me. Reviewed by me. Administered Medications: 10:20 Drug: NS 0.9% IV 1000 ml Route: IV; Rate: 75 ml/hr; Site: right forearm; iw 10:20 Drug: morphine IVP or IV 4 mg Route: IVP; Infused Over: 4 mins; Site: right forearm; iw 10:20 Drug: Ondansetron IVP 4 mg Route: IVP; Site: right forearm; iw 10:20 Drug: Famotidine IVP 20 mg Route: IVP; Site: right forearm; iw 11:56 Drug: morphine IVP or IV 4 mg Route: IVP; Infused Over: 4 mins; Site: right forearm; iw 11:56 Drug: Ondansetron IVP 4 mg Route: IVP; Site: right forearm; iw Disposition Summary: 02/15/23 12:11 Discharge Ordered Location: Home loretta Problem: new loretta Symptoms: have improved loretta Condition: Fair loretta Diagnosis - Epigastric abdominal tenderness loretta - Other ascites - mild/moderate loretta - Liver cell carcinoma - metastatic, on Chemo loretta - Anemia in neoplastic disease loretta - Elevated white blood cell count - sp bone marrow stimulation injection loretta - Edema, unspecified loretta Followup: loretta - With: Private Physician - When: 2 - 3 days - Reason: Recheck today's complaints, Continuance of care, Re-evaluation by your physician Discharge Instructions: - Discharge Summary Sheet loretta - Anemia loretta - Ascites loretta - Edema loretta - Abdominal Pain, Adult, [id number] loretta - Edema, [id number] loretta - Liver Cancer loretta - Peripheral Edema loretta Forms: - Medication Reconciliation Form loretta - Thank You Letter loretta - Antibiotic Education loretta - Prescription Opioid Use loretta - Patient Portal Instructions loretta - Leadership Thank You Letter loretta Prescriptions: - Spironolactone 25 mg Oral Tablet - take 1 tablet by ORAL route every 12 hours; 40 tablet; Refills: 0, Product loretta Selection Permitted Signatures: Dispatcher [employer] Vicente Wolff MD MD cha Williams, Irene RN RN Olesya Moyer RN RN ko1
--- NOTE | 2023-02-15 12:11 | ER ---
Nurse's Notes [facility] Name: Ayden Andres Jr Age: 42 yrs Sex: Male : 1980 Arrival Date: 02/15/2023 Time: 08:48 Bed 5 Private MD: Diagnosis: Epigastric abdominal tenderness;Other ascites-mild/moderate;Liver cell carcinoma-metastatic, on Chemo;Anemia in neoplastic disease;Elevated white blood cell count-sp bone marrow stimulation injection;Edema, unspecified Presentation: 02/15 09:08 Chief complaint: Patient states: bilateral leg swelling x 4 days, painful and abdomen ko1 is getting firm and bloated as well. Home medication isnt working. Coronavirus screen: At this time, the client does not indicate any symptoms associated with coronavirus-19. Ebola Screen: No symptoms or risks identified at this time. Initial Sepsis Screen: Does the patient meet any 2 criteria? No. Patient's initial sepsis screen is negative. Does the patient have a suspected source of infection? No. Patient's initial sepsis screen is negative. Risk Assessment: Do you want to hurt yourself or someone else? Patient reports no desire to harm self or others. Onset of symptoms was February 15, 2023. 09:08 Method Of Arrival: Ambulatory ko1 09:08 Acuity: JOSE 3 ko1 Triage Assessment: 09:10 General: Appears in no apparent distress. uncomfortable, Behavior is calm, cooperative, ko1 appropriate for age. Pain: Complains of pain in BLE. GI: Reports bloating. Historical: - Allergies: 09:10 No Known Allergies; ko1 - PMHx: 09:10 cirrhosis of liver; stomach cancer; ko1 - Immunization history:: Adult Immunizations unknown. - Social history:: Smoking status: Patient denies any tobacco usage or history of. Screenin:09 [facility] ED Fall Risk Assessment (Adult) Score/Fall Risk Level 0 - 2 = Low Risk. Abuse iw screen: Denies threats or abuse. Denies injuries from another. Nutritional screening: No deficits noted. Tuberculosis screening: No symptoms or risk factors identified. Assessment: 09:27 General: Appears Behavior is calm, cooperative. Pain: Complains of pain in abdomen. iw Neuro: Level of Consciousness is awake, alert, obeys commands, Oriented to person, place, time, situation, Moves all extremities. Cardiovascular: Patient's skin is warm and dry. 11:55 Reassessment: Patient appears in no apparent distress at this time. Patient and/or iw family updated on plan of care and expected duration. Pain level reassessed. Vital Signs: 09:08 BP 117 / 74; Pulse 71; Resp 18; Temp 98.1; Pulse Ox 100% ; Weight 76.66 kg; Height 5 ko1 ft. 11 in. ; 11:55 BP 119 / 74; Pulse 69; Resp 16; Pulse Ox 98% on R/A; iw 09:08 Body Mass Index 23.57 (76.66 kg, 180.34 cm) ko1 ED Course: 08:50 Patient arrived in ED. mr 08:53 Vicente Navarro MD is Attending Physician. [facility] 09:10 Triage completed. ko1 09:10 Arm band placed on left wrist. Patient placed in an exam room, on a stretcher, on pulse ko1 oximetry, Patient notified of wait time. 09:13 Dannielle Melvin, RN is Primary Nurse. ld1 10:05 Inserted saline lock: 22 gauge in right forearm, using aseptic technique. Blood ld1 collected. 10:05 Lipase Sent. ld1 10:05 Comprehensive Metabolic Panel Sent. ld1 10:05 CBC with Diff Sent. ld1 10:31 US Extremity Venous W Compression Artie In Process Unspecified. EDMS 11:11 CT Abd/Pelvis - Without Contrast In Process Unspecified. EDMS 11:18 Chest Single View XRAY In Process Unspecified. EDMS Administered Medications: 10:20 Drug: NS 0.9% IV 1000 ml Route: IV; Rate: 75 ml/hr; Site: right forearm; iw 10:20 Drug: morphine IVP or IV 4 mg Route: IVP; Infused Over: 4 mins; Site: right forearm; iw 10:20 Drug: Ondansetron IVP 4 mg Route: IVP; Site: right forearm; iw 10:20 Drug: Famotidine IVP 20 mg Route: IVP; Site: right forearm; iw 11:56 Drug: morphine IVP or IV 4 mg Route: IVP; Infused Over: 4 mins; Site: right forearm; iw 11:56 Drug: Ondansetron IVP 4 mg Route: IVP; Site: right forearm; iw Medication: 10:09 VIS not applicable for this client. iw Outcome: 12:11 Discharge ordered by MD. burgos 12:42 Patient left the ED. 1 Signatures: Dispatcher [employer] EDMS Vicente Navarro MD MD cha Rivera, Chloe mr Maribel Henry, RN Minna Tubbs RN RN ll1 Dannielle Melvin RN RN ld1 Olesya Polanco RN RN ko1
[2023-02-15] MEDS ORDERED: SPIRONOLACTONE 25 MG TABLET ONE (12:40)
[2023-02-15 12:56] VITALS: TEMP 98.1
[2023-02-15 13:09] LABS: Anisocytosis 1+; Blood Morphology Comment NOTED (NOT SEEN); Platelet Estimate DECR; White Blood Cell Scan OK (OK)
[2023-02-15 13:10] VITALS: BP 119/74; O2SAT 98
--- NOTE | 2023-02-16 16:36 | EKG ---
Test Date: 2023-02-15 Test Time: 09:45:57 Blister Packing Machine Tender: Chinmay SI MEASUREMENT RESULTS: Intervals: Rate: 69 UT: 152 QRSD: 84 QT: 406 QTc: 435 [place]: P: 63 UT: 152 QRS: 54 T: 14 INTERPRETIVE STATEMENTS: Normal sinus rhythm Possible Inferior infarct, age undetermined Abnormal ECG No previous ECG available for comparison Electronically Signed On 02-16-23 16:32:31 CDT by Polo Lara
== END 2023-02-15 12:42 | disposition home or self-care (01) ==
LOC: ER 08:48
DX: R18.8 Other ascites (principal); C78.7 Secondary malignant neoplasm of liver and intrahepatic bile duct; D63.0 Anemia in neoplastic disease; D72.829 Elevated white blood cell count, unspecified; K74.60 Unspecified cirrhosis of liver
CPT/HCPCS: 93005; 85025; 36415; 84484; 83690; 80053; 83880; 74176; 71045; 93970; 96375; 96374; 99284; J2405 ×2; J7030